=== PATIENT | female | born 1945 | race Caucasian/White ===

== ENCOUNTER → 2017-06-27 09:23 | Outpatient (CLI) | payer MEDICARE, BC, SELFPAY ==
--- NOTE | 2017-06-27 10:45 | BRBX_PTH ---
PATIENT: SINDI EWING LOC: [facility] U#:[id number] AGE/SX: 80/F ROOM: RE06/27/[address]: Dr. Harsha Pabon MD : 1945 BED: DIS: SPEC #: [id number] RECD: 06/27/17 14:24 STATUS: KELLY GERRY #: [id number] NAKITA: 06/27/17 10:[address]: Harsha Pabon DEPT: SURGICAL PATHOLOGY RECD BY: Alvin Murillo ENTERED: 06/27/17 14:24 SP TYPE: BREAST BX OTHR DR: Dr. Reji Hdz MD Tissues: Left breast, NOS Procedures: Surgery Specimen Level IV HEADER OPERATION: Left stereotactic breast biopsy PRE-OP DIAGNOSIS: Left superior lateral breast microcalcification TISSUE SUBMITTED: Left breast core tissue ISCHEMIC TIME: 1 minute FIXATION TIME: 9 hours MICROSCOPIC DIAGNOSIS Left superior lateral breast, stereotactic needle core biopsy: Fibrocystic change with clustered microcalcifications. Focal intraductal hyperplasia without atypia. AM:joselyn 06/28/17 MICROSCOPIC DESCRIPTION Slides are reviewed. GROSS DESCRIPTION Received is one container labeled with the patient's name and not further designated. The specimen consists of multiple elongated fragments of patton-yellow fibroadipose tissue mixed with blood clot that in aggregate measure 5 x 3 x 0.3 cm. The entire specimen is submitted in two cassettes. / SJ:joselyn 06/27/17 TC:5 CPT: 41799
--- NOTE | 2017-06-27 11:25 | OP.PCM_ITS ---
Problem List (1) Abnormal mammogram of left breast Status: Acute Report of Operation Date of Procedure: 06/27/17 Pre-Operative Diagnosis: Clustered microcalcifications retroareolar left breast Post-Operative Diagnosis: Same Surgery/Procedure Performed:: Stereotactic needle core left retroareolar breast biopsy Description of Surgical Findings:: Timeout and informed consent was obtained. 72-year-old female was taken to the stereotactic suite. She was placed on the table. The left breast was placed in the cc view. The microcalcifications in question rapidly identified. Stereotactic images obtained. Digital information obtained on a single target site. The breast was prepped with Betadine. 1% lidocaine was used as a local anesthetic. A total 10 cc was used. A small stab incision created. An 8- gauge resolve needle was advanced to prefire depth. Prefire films were obtained demonstrating adequate localization. The device was fired. 5 cores were obtained. Specimen mammograms were obtained. The cluster of calcification matching the pre-interventional images were present in cord #2. A mini marking clip was left at 12 o'clock position. Single view demonstrated the clip to be in good position. She was released from the device. Pressure was held for hemostasis. Steri-Strips Telfa OpSite dressing applied. She was given activity and wound care instructions. The specimens are submitted in formalin for analysis. Progress her and prognosis are felt to be good. Blood loss minimal. Harsha Pabon M.D., F.A.C.S. Type of Anesthesia:: Local
== END ==
PROVIDERS: Family Provider Family Medicine; PCP Family Medicine; Visit Provider Surgery
DX: R92.0 Mammographic microcalcification found on diagnostic imaging of breast (principal)
CPT/HCPCS: 19081; 88305; J7050

== ENCOUNTER → 2017-10-18 17:33 | Outpatient (CLI) | payer MEDICARE, BC, SELFPAY ==
--- NOTE | 2017-10-18 17:37 | CT_ITS ---
STUDY: CT CHEST WITH CONTRAST REASON FOR EXAM: Female, 72 years old. Lung mass, follow-up. RADIATION DOSAGE (If Supplied By Facility): CTDIvol = ( 9.01 ) mGy, DLP = ( 280.75 ) mGycm TECHNIQUE: Transaxial imaging was performed following intravenous administration of 100CC ml of Isovue 300 contrast material. ON parasagittal 2-D multiplanar reformatted images saved to the PACS archive. Individualized dose optimization techniques were used for this CT. COMPARISON: CT chest 05/10/2017, 09/25/2016. FINDINGS: Supraclavicular: There is no supraclavicular mass or lymphadenopathy. A few tiny low-density nodules are present in the left thyroid gland. Thoracic body wall soft tissues: Postsurgical changes in the left breast, surgical clip. Possibly a biopsy marker clip. Otherwise no acute unreality. No axillary lymphadenopathy. Osseous structures: No acute process. Kyphoscoliosis. Osteopenia. Mild multilevel thoracic degenerative disease. Multilevel mid to low cervical degenerative disc disease with evidence of C7-T1 grade 1 spondylolisthesis. Correlate for cervical pain/radiculopathy. Upper abdomen: Benign left renal cyst 2.2 cm. No acute upper abdominal process is evident in limited evaluation. Mediastinum: Large sliding hiatal hernia containing the majority of the stomach fundus. Unremarkable esophagus. No mass or lymphadenopathy. Heart: Mild cardiomegaly. No pericardial effusion. Moderate coronary calcifications, 3 vessel. Aorta: Mild atherosclerosis, no dissection or aneurysm. Pulmonary arteries: Nondilated with no evidence of pulmonary embolus. Lungs: Stable pattern of COPD/emphysema. No suspicious nodules on the left. On the right, along the major fissure centered on series 4 image 41, solid pulmonary nodule measuring 14 mm transverse, 13 mm anterior-posterior, and 8.5 mm craniocaudal, very minimally spiculated margins. This was not present on prior imaging of September 2016. This was 1st identified on the study of May 10, 2017 at which time the pulmonary nodule had a greatest transverse dimension and anterior-posterior dimension of 9.6 x 7.4 mm and a greatest craniocaudal dimension of 13.8 mm. The nodule has increased in size since that time. This is suspicious for primary pulmonary malignancy. In the upper lobe along the margin of the inferior portion of the major fissure, additional minimal groundglass and tiny nodular opacities are present that have slightly increased in conspicuity compared to prior imaging of April 2017. There is an additional subpleural pulmonary nodule of the right upper lobe posterior segment medial margin measuring about 7.5 x 6 mm. This was not present on prior imaging. CT/Chest WITH Contrast IMPRESSION: 1. Right upper lobe pulmonary nodule along the major fissure is increasing in size compared to prior imaging of April 2017 and must be regarded with suspicion for primary pulmonary malignancy. Biopsy or PET CT scan is recommended. 2. Just inferior to this, in a subsegmental distribution along the margin of the major fissure there are additional tiny nodular and groundglass opacities that have also increased in conspicuity compared to prior imaging of April 2017. These features are nonspecific. 3. There is an additional upper lobe medial pleural margin pulmonary nodule that was not present previously, nonspecific. Electronically Signed: Rj Betancur, at 18:38 EDT Tel , Service support ,
[2017-10-18 17:46] LABS: CREATININE FINGERSTICK 1.2 mg/dL (0.55-1.02)
== END ==
PROVIDERS: Family Provider Family Medicine; PCP Family Medicine; Visit Provider Family Medicine
DX: R91.8 Other nonspecific abnormal finding of lung field (principal)
CPT/HCPCS: 71260; Q9967

== ENCOUNTER 2017-10-20 09:53 | Inpatient (IN) | payer MEDICARE, BC, SELFPAY ==
[2017-10-20 09:54] VITALS: BP 134/77; PULSE 96; RESP 22; TEMP 37.3; O2SAT 98; BMI 25.9
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
[2017-10-20] MEDS: HYDROcodone Bitartrate/Apap 5/325 Tablet PO (10:36)
[2017-10-20 10:47] LABS: Absolute Lymphocyte Count 1.09 X10^3/ul (0.83-4.51); Absolute Neutrophil Count 10.3 X10^3/uL (2.0-7.7); Basophil# 0.02 X10^3/uL; Basophil% 0.2 % (0-1); Eosinophil# 0.15 X10^3/uL; Eosinophils% 1.2 % (0-5); Hematocrit 39.7 % (37-47); Hemoglobin 12.6 g/dl (12.0-15.0); Lymphocyte # 1.09 X10^3/ul (4.0); Lymphocyte % 8.8 % (19-41); Mean Corp Hgb Conc 31.7 g/gl (32-36); Mean Corpuscular Hgb 30.6 pg (27.0-32.0); Mean Corpuscular Volume 96.4 fL (81-99); Mean Platelet Vol. 9.6 fl (6.2-12.0); Monocyte# 0.81 X10^3/uL; Monocyte% 6.5 % (0-10); Neutrophil % 83.1 % (47-70); Platelet Count 322 K/mm3 (150-450); RBC Distribution Width CV 13.7 % (11.6-14.6); RBC Distribution Width SD 47.5 fl (35.1-43.9); Red Blood Count 4.12 M/mm3 (4.2-5.4); White Blood Count 12.4 K/mm3 (4.4-11.0)
[2017-10-20 10:51] LABS: Erythrocyte Sedimentation Rate 48 mm/hr (0-30); POSITIVE COUNT NO; POSITIVE DIFFERENTIAL NO; POSITIVE MORPHOLOGY NO
[2017-10-20 11:08] LABS: Anion Gap 8 (5-15); BUN 9 mg/dL (7-18); Calcium,Total 8.7 mg/dL (8.5-10.1); Chloride 106 mmol/L (98-107); Creatinine, Serum 0.69 mg/dL (0.55-1.02); EST Glomerular Filtration Rate 89 mL/min (>60); Est Glom Filt Rate - Afr Amer 107 mL/min (>60); Glucose 98 mg/dL (74-106); Potassium 3.8 mmol/L (3.5-5.1); Sodium Level 141 mmol/L (136-145)
[2017-10-20 11:55] VITALS: BP 134/77; PULSE 96; RESP 22; TEMP 37.3; O2SAT 98
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
[2017-10-20 13:47] LABS: Cytology, Body Fluid / CSF SEE PATHOLOGY REPORT; Pathologist Comment/Body Fluid May follow
--- NOTE | 2017-10-20 13:48 | FLU_PTH ---
PATIENT: SINDI EWING LOC: [facility] U#:[id number] AGE/SX: 72/F ROOM: [facility] [place] RE10/20/[address]: Gabo Martines MD : 1945 BED: 1 DIS: 10/21/2017 SPEC #: [id number] RECD: 10/20/17 15:00 STATUS: KELLY REQ #: [id number] NAKITA: 10/20/17 13:[address]: Gabo Martines DEPT: CYTOLOGY RECD BY: Reza Bajwa ENTERED: 10/23/17 11:14 SP TYPE: Fluid OTHR DR: MD Dr. Win Martínez MD Tissues: Right ankle Procedures: Pap Stain (control) Special Stain Group II Special Stain Group I Surgery Specimen Level IV AFB Stain (control) GMS Stain (control) Cell Block Cytospin Fluid HEADER OPERATION: Not noted PRE-OP DIAGNOSIS: Right ankle pain TISSUE SUBMITTED: Right ankle fluid for cytology DIAGNOSIS CYTOLOGY Right ankle fluid for cytology (cytospin and cell block): Negative for malignant cells. Acute inflammation. Special stains for acid fast bacilli and fungi are negative for organisms; matched controls are appropriate. SJ:joselyn 10/24/17 CYTOLOGY STUDY Slides are reviewed. The specimen entirely consists of neutrophils. CYTOLOGY GROSS Received is 1 ml of cloudy yellow fluid labeled with the patient's name and and designated per the requisition as right ankle. Submitted for cytology preparation including cell block. / 10/23/17 TC:2 CPT: 43288, 54734, 47061 x2
[2017-10-20 13:49] LABS: Body Fluid Mononuclear WBC # 1.852 10^3/uL; Body Fluid Mononuclear WBC % 6.8 %; Body Fluid Polynuclear WBC % 93.2 %
[2017-10-20 14:04] LABS: Appearance/Body Fluid CLOUDY; Auto B Fluid Analyzer BKGD Ct COUNTS W/IN LIMITS (W/IN LIMITS); CRYSTALS, BODY FLUID CALCIUM PYROPHOS; Color/Body Fluid YELLOW; Source- Body Fluid OTHER; Source- Body Fluid SYNOVIAL
[2017-10-20 14:05] LABS: Body Fluid QC Type(s) BF1Q,BF2Q
[2017-10-20 14:06] LABS: White Blood Count/Body Fluid 23.295 10^3/uL
[2017-10-20 14:15] VITALS: BP 140/91; PULSE 89; RESP 18; TEMP 36.9; O2SAT 94; BMI 25.0
[2017-10-20 14:17] VITALS: BMI 25.0
[2017-10-20 14:31] LABS: Lymphocytes 3 %; Monocytes 9 %; Neutrophil (Segs) 88 %
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
[2017-10-20] MEDS: Heparin Injection (Vial) 5,000 UNIT/ML VIAL 5000 UNIT SC ×2 (16:32→22:10)
[2017-10-20] MEDS: Dext 5%-0.45% NS 1,000 ML 100 ML IV (18:24)
[2017-10-20] MEDS: Cefazolin 2 GM in 0.9% Normal Saline 100 ML IV ×2 (18:24→23:27)
[2017-10-20] MEDS: 0.9% NaCl Peripheral Flush Adult/Peds IV (18:25)
[2017-10-20] MEDS: Ferrous Sulfate 325 MG Tablet PO (18:25)
[2017-10-20 20:25] VITALS: BP 146/87; PULSE 98; RESP 16; TEMP 37.2; O2SAT 95
[2017-10-20] MEDS: oxyCODONE 5 MG Tablet PO (22:09)
[2017-10-20] MEDS: Famotidine 20 MG Tablet PO (22:10)
[2017-10-21] MEDS: Acetaminophen 325 MG Tablet 650 MG PO (00:20)
[2017-10-21] MEDS: oxyCODONE 5 MG Tablet PO ×3 (00:21→09:24)
[2017-10-21 03:05] VITALS: BP 131/64; PULSE 84; RESP 16; TEMP 36.4; O2SAT 92
[2017-10-21] MEDS: Dext 5%-0.45% NS 1,000 ML 100 ML IV (04:48)
--- NOTE | 2017-10-21 05:00 | RAD_ITS ---
STUDY: X-RAY CHEST REASON FOR EXAM: Female, 72 years old. Preoperative evaluation. Patient has cough. TECHNIQUE: Single AP portable view of the chest. COMPARISON: CT of the chest dated October 18, 2017. FINDINGS: The lungs are expanded. There is mild prominence of bronchovascular markings. There is a right upper lobe pulmonary nodule better seen on the previous CT. There is reticulonodular interstitial thickening in the right upper lobe. There is no demonstrated pleural abnormality. There is borderline cardiomegaly. Appears to be a middle mediastinal mass likely representing a moderately large hiatal hernia. Normal visualized pulmonary arteries. There is atherosclerotic calcification of the aortic arch with tortuosity. There is demineralization of the osseous structures. Normal visualized ribs, clavicles, and shoulders. There is no demonstrated abnormality of the visualized soft tissue structures of the upper abdomen. RAD/Chest 1 View (Portable) IMPRESSION: 1. Right upper lobe pulmonary nodule. 2. Hiatal hernia. 3. Borderline cardiomegaly. Electronically Signed: Ana María Rojas MD at 5:20 EDT , Service support ,
[2017-10-21 05:33] LABS: Absolute Lymphocyte Count 1.41 X10^3/ul (0.83-4.51); Absolute Neutrophil Count 5.5 X10^3/uL (2.0-7.7); Basophil# 0.02 X10^3/uL; Basophil% 0.3 % (0-1); Eosinophil# 0.22 X10^3/uL; Eosinophils% 2.8 % (0-5); Hematocrit 38.5 % (37-47); Lymphocyte # 1.41 X10^3/ul (4.0); Lymphocyte % 17.7 % (19-41); Mean Corp Hgb Conc 31.2 g/gl (32-36); Mean Corpuscular Hgb 30.2 pg (27.0-32.0); Mean Corpuscular Volume 96.7 fL (81-99); Mean Platelet Vol. 9.7 fl (6.2-12.0); Monocyte# 0.84 X10^3/uL; Monocyte% 10.6 % (0-10); Neutrophil # 5.45 X10^3/uL (2.7-7.7); Neutrophil % 68.3 % (47-70); Platelet Count 310 K/mm3 (150-450); RBC Distribution Width CV 13.7 % (11.6-14.6); RBC Distribution Width SD 48.7 fl (35.1-43.9); Red Blood Count 3.98 M/mm3 (4.2-5.4)
[2017-10-21 05:37] LABS: International Normalized Ratio 1.1; Prothrombin Time (Protime)PT. 14.1 SECONDS (11.7-14.9)
[2017-10-21 05:38] LABS: POSITIVE COUNT NO; POSITIVE DIFFERENTIAL NO; POSITIVE MORPHOLOGY NO
[2017-10-21 05:40] LABS: Anion Gap 7 (5-15); BUN 9 mg/dL (7-18); BUN/Creat Ratio 13.8 RATIO (10-20); Calcium,Total 8.6 mg/dL (8.5-10.1); Chloride 108 mmol/L (98-107); Creatinine, Serum 0.65 mg/dL (0.55-1.02); EST Glomerular Filtration Rate 95 mL/min (>60); Est Glom Filt Rate - Afr Amer 115 mL/min (>60); Glucose 105 mg/dL (74-106); Potassium 3.7 mmol/L (3.5-5.1); Sodium Level 143 mmol/L (136-145)
[2017-10-21] MEDS: Cefazolin 2 GM in 0.9% Normal Saline 100 ML IV (06:01)
[2017-10-21 08:06] VITALS: O2SAT 92
--- NOTE | 2017-10-21 08:55 | PCM.PN.ORT ---
Subjective: Patient states she is still having some right ankle pain. She thinks the Vicodin worked better than the oxycodone. She is also has concerns about a previous lung concern, biopsy had been canceled. She is concerned about some type of underlying process or infection. She denies increasing swelling or redness of the ankle. She feels she can still not walk on it Objective: Right ankle has similar appearance and exam to yesterday. Stiffness consistent with her underlying posttraumatic arthritis. Mild warmth. Mild redness anterior medially. No significant effusion palpable. No calf pain or swelling. SCDs on. Distal pulses intact. Laboratory work reviewed. Gram stain showed no bacteria. Crystal exam positive for calcium pyrophosphate crystals - Physical Exam Vital Signs Temp Pulse Resp BP Pulse Ox 97.5 F L 84 16 131/64 H 92 10/21/17 03:05 10/21/17 03:05 10/21/17 03:05 10/21/17 03:05 10/21/17 08:06 Oxygen Delivery Method Room Air Weight: 60 kg Body Mass Index (BMI) 25.0 Intake and Output for Last 24 Hours 10/19/17 10/20/17 10/21/17 23:59 23:59 23:59 Intake Total 734 / 734 681 / 681 Output Total 100 / 100 600 / 600 Balance 634 / 634 81 / 81 Microbiology Past 72 Hours 10/20/17 Unknown Gram Stain - Final Interface Orders Laboratory Tests Past 24 Hrs 10/20/17 10/20/17 10/21/17 Unknown Unknown 04:53 WBC RBC Hgb Hct MCV MCH MCHC RDW RDW Differential Plt Count MPV Immature Gran % (Auto) Neut % (Auto) Lymph % (Auto) [place] % (Auto) Eos % (Auto) Baso % (Auto) Absolute Neuts (auto) Absolute Lymphs (auto) Total Counted PT INR APTT Sodium 143 Potassium 3.7 Chloride 108 H Carbon Dioxide 28.0 Anion Gap 7 BUN 9 Creatinine 0.65 Estim Creat Clear Calc 39.50 Est GFR (MDRD) Af Amer 115 Est GFR (MDRD) Non-Af 95 BUN/Creatinine Ratio 13.8 Glucose 105 Calcium 8.6 Fluid Source OTHER Fluid Color YELLOW Fluid Appearance CLOUDY Fluid WBC 23.295 Fluid RBC 0.58621 Fluid Tot Cell Count 23.320 H Fld Polynuclear WBCs # 25.195 Fld Polynuclear WBCs % 93.2 Fluid Mononuclear WBCs 1.852 Fld Mononuclear WBCs % 6.8 Fluid Neutrophils 88 Fluid Lymphocytes 3 Fluid Monocytes 9 Fluid Crystals CALCIUM PYROPHOS Fluid Crystal Source SYNOVIAL Fl Crystal Path Review Will follow Fl Pathologist Comment May follow Fluid Comment 2 TNP Miscellaneous Cytology Pending 10/21/17 10/21/17 04:53 04:53 WBC 8.0 RBC 3.98 L Hgb 12.0 Hct 38.5 MCV 96.7 MCH 30.2 MCHC 31.2 L RDW 13.7 RDW Differential 48.7 H Plt Count 310 MPV 9.7 Immature Gran % (Auto) 0.300 Neut % (Auto) 68.3 Lymph % (Auto) 17.7 L [place] % (Auto) 10.6 H Eos % (Auto) 2.8 Baso % (Auto) 0.3 Absolute Neuts (auto) 5.5 Absolute Lymphs (auto) 1.41 Total Counted Not Reportable PT 14.1 INR 1.1 APTT 36.0 Sodium Potassium Chloride Carbon Dioxide Anion Gap BUN Creatinine Estim Creat Clear Calc Est GFR (MDRD) Af Amer Est GFR (MDRD) Non-Af BUN/Creatinine Ratio Glucose Calcium Fluid Source Fluid Color Fluid Appearance Fluid WBC Fluid RBC Fluid Tot Cell Count Fld Polynuclear WBCs # Fld Polynuclear WBCs % Fluid Mononuclear WBCs Fld Mononuclear WBCs % Fluid Neutrophils Fluid Lymphocytes Fluid Monocytes Fluid Crystals Fluid Crystal Source Fl Crystal Path Review Fl Pathologist Comment Fluid Comment 2 Miscellaneous Cytology Medical Necessity - Tobacco Use Smoking Status: Never smoker Assessment/Plan Right ankle pain and swelling, Crystal exam positive for calcium pyrophosphate. Gram stain negative. Cultures pending. Case discussed with hospitalist. 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 Patient understands options. She declined a cortisone shot in her ankle. I explained underlying infection is still an unlikely possibility. If her ankle pain persists she may benefit from ankle fusion surgery. We can follow her in the office. We will allow her to eat. Concerns regarding a possible pulmonary workup for a pre-existing nodule discussed. She understands that would be by another specialist.
[2017-10-21 09:00] VITALS: BP 140/72; PULSE 82; RESP 18; TEMP 36.8; O2SAT 92
[2017-10-21] MEDS: Ferrous Sulfate 325 MG Tablet PO (09:24)
[2017-10-21] MEDS: DULoxetine Hcl 60 MG Capsule PO (09:24)
[2017-10-21] MEDS: Famotidine 20 MG Tablet PO (09:24)
[2017-10-21] MEDS: 0.9% NaCl Peripheral Flush Adult/Peds IV (09:27)
[2017-10-21] MEDS: MethylPREDNISolone 125 MG/2 ML Vial 80 MG IV (09:27)
--- NOTE | 2017-10-21 10:03 | PCM.DC ---
You will use the following diet at home:: No restrictions Discharge Activity: Return to Normal Activity, - - Use knee walker Additional Instructions: Prednisone 5 mg tablet, 4 tablets once a day for 2 days, 2 tablets once a day for 2 days, then one tablet once a day for 2 days Allergies/Adverse Reactions: Allergies Sulfa (Sulfonamide Antibiotics) Allergy (Verified 10/20/17 09:55) Hives Medications to take at Discharge Ferrous Sulfate [Iron] 325 mg PO BID #60 tab 10/06/16 duloxetine 60 mg capsule,delayed release 60 mg PO QDAY 06/21/17 prednisone 5 mg tablet 2.5 mg PO DAILY tab 06/21/17 proMETHazine soln (6.25mg/5mL) [Phenergan oral solution (6.25 mg/5 mL)] 5 ml PO Q6H PRN PRN 10/20/17 Prednisone 5 mg PO DAILY #14 tab 10/21/17 The following prescriptions were given: Prednisone 5 mg PO DAILY #14 tab Primary Care Physician: Reji Hdz MD [Primary Care Provider] - Please follow up with your Primary Care Physician in: 5 to 7 days Please Follow Up With: Win Rojas MD When: 1 to 2 weeks
--- NOTE | 2017-10-21 10:06 | DCINST_ITS ---
You will use the following diet at home:: No restrictions Discharge Activity: Return to Normal Activity, - - Use knee walker Additional Instructions: Prednisone 5 mg tablet, 4 tablets once a day for 2 days , 2 tablets once a day for 2 days, then one tablet once a day for 2 days Allergies/Adverse Reactions: Allergies Sulfa (Sulfonamide Antibiotics) Allergy (Verified 10/20/17 09:55) Hives Medications to take at Discharge Ferrous Sulfate [Iron] 325 mg PO BID #60 tab 10/06/16 duloxetine 60 mg capsule,delayed release 60 mg PO QDAY 06/21/17 prednisone 5 mg tablet 2.5 mg PO DAILY tab 06/21/17 proMETHazine soln (6.25mg/5mL) [Phenergan oral solution (6.25 mg/5 mL)] 5 ml PO Q6H PRN PRN 10/20/17 Prednisone 5 mg PO DAILY #14 tab 10/21/17 The following prescriptions were given: Prednisone 5 mg PO DAILY #14 tab Primary Care Physician: Reji Hdz MD [Primary Care Provider] - Please follow up with your Primary Care Physician in: 5 to 7 days Please Follow Up With: Win Rojas MD When: 1 to 2 weeks
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
[2017-10-23 14:02] LABS: Pathologist Review Reviewed
== END 2017-10-21 14:19 | disposition home or self-care (01) | DRG 554 ==
LOC: ED 11:57 → MS3 12:46
PROVIDERS: Anesthesiology; Admitting Provider Hospitalist; Emergency Provider Emergency Medicine; Family Provider Family Medicine; PCP Family Medicine; Visit Provider Hospitalist
DX: M11.271 Other chondrocalcinosis, right ankle and foot (principal); M19.171 Post-traumatic osteoarthritis, right ankle and foot; S82.891S Other fracture of right lower leg, sequela; V89.2XXS Person injured in unspecified motor-vehicle accident, traffic, sequela; I27.20 Pulmonary hypertension, unspecified; R91.1 Solitary pulmonary nodule; G62.9 Polyneuropathy, unspecified; M79.7 Fibromyalgia; G47.00 Insomnia, unspecified; Z79.899 Other long term (current) drug therapy
CPT/HCPCS: 36415; 71045; 71260; 73610; 80048; 85025; 85610; 85652; 85730; 86140; 87040; 87070; 87075; 87205; 88108; 88305; 88312; 88313; 89050; 89060; 93005; 97162; 97166; 99285; Q9967; A4216; J7799

== ENCOUNTER 2017-11-14 19:31 | Emergency (ER) | payer MEDICARE, BC, SELFPAY ==
[2017-11-14 19:32] VITALS: BP 163/97; PULSE 81; RESP 18; TEMP 36.5; O2SAT 99; BMI 26.0
[2017-11-14 20:52] LABS: Absolute Lymphocyte Count 0.89 X10^3/ul (0.83-4.51); Absolute Neutrophil Count 8.4 X10^3/uL (2.0-7.7); Basophil# 0.01 X10^3/uL; Basophil% 0.1 % (0-1); Eosinophil# 0.02 X10^3/uL; Eosinophils% 0.2 % (0-5); Hematocrit 44.2 % (37-47); Hemoglobin 13.9 g/dl (12.0-15.0); Lymphocyte # 0.89 X10^3/ul (4.0); Lymphocyte % 8.9 % (19-41); Mean Corp Hgb Conc 31.4 g/gl (32-36); Mean Corpuscular Hgb 30.5 pg (27.0-32.0); Mean Corpuscular Volume 96.9 fL (81-99); Mean Platelet Vol. 10.2 fl (6.2-12.0); Monocyte# 0.59 X10^3/uL; Monocyte% 5.9 % (0-10); Neutrophil # 8.43 X10^3/uL (2.7-7.7); Neutrophil % 84.8 % (47-70); Platelet Count 248 K/mm3 (150-450); RBC Distribution Width CV 14.8 % (11.6-14.6); RBC Distribution Width SD 52.9 fl (35.1-43.9); Red Blood Count 4.56 M/mm3 (4.2-5.4)
[2017-11-14 20:53] LABS: POSITIVE COUNT NO; POSITIVE DIFFERENTIAL NO; POSITIVE MORPHOLOGY NO
[2017-11-14] MEDS: 0.9% Normal Saline 1,000 ML 250 ML IV (21:03)
[2017-11-14 21:04] LABS: Anion Gap 10 (5-15); BUN 16 mg/dL (7-18); BUN/Creat Ratio 18.4 RATIO (10-20); Calcium,Total 9.7 mg/dL (8.5-10.1); Chloride 105 mmol/L (98-107); Creatinine, Serum 0.87 mg/dL (0.55-1.02); EST Glomerular Filtration Rate 68 mL/min (>60); Est Glom Filt Rate - Afr Amer 83 mL/min (>60); Glucose 102 mg/dL (74-106); Potassium 3.5 mmol/L (3.5-5.1); Sodium Level 141 mmol/L (136-145)
[2017-11-14 21:21] LABS: Bacteria 0 SEEN /hpf (None Seen); Mucous, Urine 0 SEEN /hpf (<or=2+)
[2017-11-14 21:25] LABS: Color, Urine Yellow (Yellow); Glucose, Dipstick 1000 mg/dl (Normal); Ketone-Dipstick 5 mg/dl (Negative); Leukocyte Esterase-Dipstick 25 /ul (Negative); Nitrite-Dipstick Negative (Negative); Occult Blood-Urine 150 /ul (Negative); Protein-Dipstick 15 mg/dl (Negative); Urine Bilirubin Dipstick Negative (Negative); Urine Clarity Sl. Cloudy (Clear); Urine Urobilinogen Normal (Normal)
--- NOTE | 2017-11-14 22:05 | CT_ITS ---
STUDY: CT ABDOMEN AND PELVIS WITHOUT CONTRAST REASON FOR EXAM: Female, 72 years old. BACK PAIN AND ABDOMEN PAIN RIGHT FLANK WITH NAUSEA TODAY,HX GB, NAZARIO, APPY RADIATION DOSAGE (If Supplied By Facility): CTDIvol = ( 7.08 ) mGy, DLP = ( 314.64 ) mGycm TECHNIQUE: Transaxial images were obtained from the dome of the diaphragm to the symphysis pubis without oral contrast, and without intravenous contrast. Sagittal and coronal images were reconstructed. COMPARISON: None. FINDINGS: There are scattered blebs and bullae. This can be seen in pulmonary emphysema. The visualized portions of the heart are within normal limits. Normal liver. There is non-visualization of the gallbladder, which may be secondary to either contraction or a prior cholecystectomy. Normal spleen. Normal pancreas. Normal bilateral adrenal glands. Non obstructive 2.4 mm mid right renal parenchymal stones. Non obstructive 2.1 mm mid left renal parenchymal stones. Non obstructive 1.5 mm inferior left renal parenchymal stones. Moderate hydronephrosis caused by right 3.3 mm urinary bladder/UVJ stone. There is a large hiatal hernia composed mostly of the fundus of the stomach. Normal small intestine. There are multiple colonic diverticula consistent with diverticulosis. There is non-visualization of the appendix. There are calcifications of the abdominal aorta and vascular structures. This is consistent for atherosclerotic disease. There is no abdominal aortic aneurysm. Normal inferior vena cava. Subcentimeter mesenteric lymph nodes. Normal urinary bladder. There is absence of the uterus consistent with a prior hysterectomy. Normal abdominal wall. There are degenerative changes of the osseous structures. CT/Abdomen/Pelvis without Cont IMPRESSION: There are nonobstructive bilateral renal calculi. Moderate hydronephrosis caused by right 3.3 mm urinary bladder/UVJ stone. Other findings as above. Electronically Signed: Carlos Greene MD at 23:15 EDT , Service support ,
[2017-11-14 22:07] LABS: Red Blood Cells-Urine 5-10 SEEN /hpf (0-5); Squamous Epithelial Cells - UA 0-5 SEEN /hpf (5-10); White Blood Cells 0-5 SEEN /hpf (0-5)
--- NOTE | 2017-11-14 23:39 | ED.DCSUM_ITS ---
- ER Visit Summary Date of Service: 11/14/17 Chief Complaint: Acute right flank and right upper abdominal pain History of Present Illness: The patient is a 72 F who presents with acute right flank pain and abdominal pain that started at 12 noon. She is status post cholecystectomy, appendectomy and hysterectomy. She states her urine is very dark. She does complain of urgency without frequency, or dysuria. She denies fever, chills night sweats. She does report nausea without vomiting or diarrhea. She has no cardiac respiratory symptoms. She has a remote history of kidney stone 42 years ago. She has no other complaints. Please read written note for complete detail Physical Examination: Blood pressure is elevated 163/97, most likely secondary to pain. Head is atraumatic normocephalic. Pupils are equal round reactive. Extraocular muscles are intact. TMs are pearly white with landmarks noted. Nares patent with no drainage. Posterior pharynx without erythema or exudate. Uvula is midline. There is no dysphonia or dysphasia. Trachea is midline. There is no stridor with auscultation of the neck. Heart is regular without murmur, gallop or rub. S1 and S2 are normal. Lungs are clear to auscultation with good movement of air bilaterally. Abdomen is soft and nontender. There is no guarding or peritoneal findings. There is no palpable pulsatile mass. There is no abdominal bruit. Stallings sign is negative. Negative Rovsing sign. There is no evidence of inguinal or umbilical hernia. There is no CVA tenderness. There are no skin lesions, rash or evidence of trauma. Neuro exam is nonfocal. Test Results: CBC and BMP are unremarkable. Urine is remarkable for blood 150 and 5-10 RBCs on microscopic. There is no bacteria. CT abdomen pelvis without contrast reveals a 3.3 mm he right UVJ stone with hydroureter and hydronephrosis. Emergency Department Course and Treatment: IV was established. She was medicated with 4 mg of Zofran 4 mg of morphine IV push. 2 evaluate her flank pain a UA, CBC, BMP and CT abdomen and pelvis without contrast was ordered. Doubt choledocholithiasis. Patient was reevaluated. She is pain-free. She was informed of her results. Since pharmacies are closed she received a home pack of oxycodone and given first dose of Flomax. She was given a prescription for opiate analgesia and Flomax. Because of her age she was not prescribed anti-inflammatory agent. Treatment Plan: Discharged home with outpatient follow-up with urology Disposition: Discharged home Impression: Right flank pain secondary to obstructing right UVJ calculus with hydroureter and hydronephrosis This note was generated with [employer] dictation software. It may contain incorrect words, spelling, and punctuation that were not noted in review of the chart prior to signing ED Disposition - Plan for ED Patient: Disposition: Home or Assisted Living Chief Complaint: Flank Pain Instructions: ED Stone Renal W Colic Prescriptions: Hydrocodone Bitart/Apap 5-325 [[place] 5MG-325MG] 1 tab PO Q6H PRN PRN 3 Days #10 tab PRN Reason: Pain Tamsulosin HCl [Flomax] 0.4 mg PO DAILY #7 cap Referrals: Reji Hdz MD [Primary Care Provider] - Dennis Islas MD [STAFF PHYSICIAN] - 5-7 Days
[2017-11-15] MEDS: Tamsulosin HCl 0.4 MG Capsule PO (00:13)
[2017-11-15] MEDS: oxyCODONE 5 MG Tablet PO (00:13)
[2017-11-15 00:18] VITALS: BP 171/97; PULSE 77; RESP 14; O2SAT 100
== END 2017-11-15 00:19 | disposition home or self-care (01) ==
PROVIDERS: Emergency Provider Emergency Medicine; Family Provider Family Medicine; PCP Family Medicine
DX: N13.2 Hydronephrosis with renal and ureteral calculous obstruction (principal); I27.20 Pulmonary hypertension, unspecified; R39.15 Urgency of urination; R03.0 Elevated blood-pressure reading, without diagnosis of hypertension; R11.0 Nausea; Z79.52 Long term (current) use of systemic steroids; Z79.899 Other long term (current) drug therapy; Z87.442 Personal history of urinary calculi; Z90.49 Acquired absence of other specified parts of digestive tract; Z90.710 Acquired absence of both cervix and uterus
CPT/HCPCS: 74176; 80048; 81001; 85025; 96360; 96361; 99283; J7030; J2405

== ENCOUNTER → 2017-11-19 08:51 | Outpatient (CLI) | payer MEDICARE, BC, SELFPAY ==
--- NOTE | 2017-11-19 09:00 | PET_ITS ---
EXAMINATION: FDG PET CT INDICATIONS: A 72-year-old female with reported history of pulmonary nodularity. COMPARISON EXAMINATION: CT of the chest report dated 10/18/17, prior FDG PET study dated 05/24/17. TECHNIQUE: Following the intravenous administration of 12.54 mCi of F-18 deoxyglucose via the right antecubital fossa, multiplanar image acquisitions of the neck, chest, abdomen and pelvis to level of mid thigh, obtained at one hour post radiopharmaceutical administration contemporaneously interpreted with the current CT of the neck, chest, abdomen and pelvis to level of mid thigh, dated 11/19/[address] of the chest report dated 10/18/17, prior FDG PET study dated 05/24/17 reveal: SERUM GLUCOSE LEVEL: 94 mg/dl. HEIGHT: 61 inches. WEIGHT: 135 lbs. FINDINGS: 1. There is no quantitative scintigraphic evidence of abnormal increased glucose metabolism within the context of the right mid hemithorax pulmonary parenchyma, right upper lobe to correlate with structural changes noted on review of CT of the thorax dated 11/19/17. 2. Normal physiologic distribution of the radiopharmaceutical is apparent in the hepatic and splenic parenchyma, both renal units, bladder and visualized intestinal tract. There is uniform distribution of the radiopharmaceutical concentration compared on the cerebellar hemispheres and cerebral cortex. Diffuse intestinal tract activity is noted throughout all four quadrants of the abdominal-pelvic retroperitoneum, mesentery consistent with normal physiologic distribution of the radiopharmaceutical. The previously identified focus of increased glucose concentration manifest in the right mid to lateral hemithorax pulmonary parenchyma, right upper lobe is not apparent on the current examination with residual structural anatomic changes noted on review of CT of the chest dated 05/24/17. Prominent glucose concentration is observed in the subcarinal mediastinum commensurate with the persistently visualized hiatal hernia. The prior defined morphologic-anatomic changes noted on CT of the neck, chest, abdomen and pelvis manifest on the FDG PET CT study dated 05/24/17 are essentially unchanged on the present examination. PET/PET/CT Tumor Base -Thigh Init IMPRESSION: 1. NEGATIVE EXAMINATION. There is no quantitative scintigraphic evidence of abnormal increased glucose metabolism within the context of the right mid hemithorax pulmonary parenchyma, right upper lobe to correlate with structural changes noted on review of CT of the thorax dated 11/19/17. 2. Anatomic stability may be ensured in the right mid hemithorax pulmonary parenchyma, right upper lobe with repeat CT of the thorax in 6-9 months. (Kelvin, Seminars in Thoracic and Cardiovascular Surgery 14:292, 2002). 3. Overall, compared to the prior FDG PET study dated 05/24/17, there is current absence of defined viable neoplastic disease with interval resolution of the prior defined mild hypermetabolic right mid lung, right upper lobe hypermetabolic focus. Electronic Signature Rj Kirkland D.O. Electronically Signed: Rj Kirkland DO at 23:41 EDT Tel , Service support ,
== END ==
PROVIDERS: Family Provider Family Medicine; PCP Family Medicine; Visit Provider Family Medicine
DX: R91.8 Other nonspecific abnormal finding of lung field (principal)
CPT/HCPCS: 78815; A9552; A4216

== ENCOUNTER → 2017-11-23 08:56 | Outpatient (CLI) | payer MEDICARE, BC, SELFPAY | PROVIDERS: Family Provider Family Medicine; PCP Family Medicine; Visit Provider Family Medicine | DX: R91.8 Other nonspecific abnormal finding of lung field (principal) ==

== ENCOUNTER → 2018-11-29 10:47 | Outpatient (CLI) | payer MEDICARE, OTHER, SELFPAY ==
--- NOTE | 2018-11-29 10:50 | ADU_ITS ---
Reason For Study: PAD Right Velocities Left Velocities Ext. Iliac Artery, dist = 141.8 cm./sec. Ext Iliac Artery, dist = 123.2 cm./sec. Common Femoral Artery, mid = 128.9 cm./sec. Common Femoral Artery, mid = 140.5 cm./sec. Supf Femoral Artery, prox = 128.9 cm./sec. Supf. Femoral Artery, prox = 92.0 cm./sec. Supf Femoral Artery, mid = 147.2 cm./sec. Supf. Femoral Artery, mid = 143.8 cm./sec. Prox Stent 170.3 cm/s. Supf. Femoral Artery, dist = 144.7 cm./sec. Mid Stent 119.8 cm/s. Profunda Femoral Artery = 124.9 cm./sec. Dist Stent 130.7 cm/s. Popliteal Artery, proximal, = 58.9 cm./sec. Supf Femoral Artery, dist. = 167.3 cm./sec. Popliteal Artery, mid = 64.4 cm./sec. Profunda Femoral Artery = 108.8 cm./sec. Popliteal Artery, distal = 68.0 cm./sec. Popliteal Artery, prox. = 71.6 cm./sec. Post. Tibial Artery, prox = 77.2 cm./sec. Popliteal Artery, mid = 83.9 cm./sec. Post Tibial Artery, mid = 66.2 cm./sec. Popliteal Artery, dist = 82.7 cm./sec. Post Tibial Artery, dist. = 77.1 cm./sec. Post. Tibial Artery, prox = 65.5 cm./sec. Peroneal Artery, prox = 40.9 cm./sec. Post. Tibial Artery, mid = 76.5 cm./sec. Peroneal Artery, mid = 47.0 cm./sec. Post. Tibial Artery, dist = 80.2 cm./sec. Peroneal Artery,dist. = 42.1 cm./sec. Peroneal Artery, prox = 40.9 cm./sec. Ant.Tibial Artery, prox = 59.3 cm./sec. Peroneal Artery, mid = 39.7 cm./sec. Ant Tibial Artery, mid = 79.0 cm./sec. Peroneal Artery,dist = 32.3 cm./sec. Ant. Tibial Artery, distal = 53.2 cm./sec. Ant. Tibial Artery, prox = 58.1 cm./sec. Possible area of mobile plaque seen in the Dist Ant. Tibial Artery, mid = 59.3 cm./sec. 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 Ant. Tibial Artery, dist = 85.0 cm./sec. Interpretation Summary Irregularity noted within the stented area of the right superficial femoral artery stent but with <50% stenosis. Patency noted throughout the right external iliac, common femoral, superficial femoral, profunda femoral, popliteal and infrageniculate vessels. Patent left external iliac, common femoral, superficial femoral, produnda femoral, popliteal and infrageniculate runoff vessels with <50% stenosis noted. Small area of mobile plague noted within the left distal external iliac/common femoral artery. Ordering Physician: Harsha Pabon Performed By: Baljeet Lewis RVT
== END ==
PROVIDERS: Family Provider Family Medicine; PCP Family Medicine; Referring Provider Surgery; Visit Provider Surgery
DX: I73.9 Peripheral vascular disease, unspecified (principal); M79.604 Pain in right leg; M79.605 Pain in left leg
CPT/HCPCS: 93925

== ENCOUNTER → 2019-02-04 08:23 | Outpatient (CLI) | payer MEDICARE, OTHER, SELFPAY ==
[2018-12-05 09:04] VITALS: BMI 26.0
[2019-02-04 10:19] LABS: Absolute Lymphocyte Count 1.23 X10^3/uL (0.83-4.51); Basophil# 0.03 X10^3/uL; Basophil% 0.5 % (0-1); Eosinophils% 1.7 % (0-5); Hematocrit 44.5 % (37-47); Hemoglobin 14.4 g/dL (12.0-15.0); Lymphocyte # 1.23 X10^3/ul (4.0); Mean Corp Hgb Conc 32.4 g/dL (32-36); Mean Corpuscular Hgb 32.1 pg (27.0-32.0); Mean Corpuscular Volume 99.1 fL (81-99); Mean Platelet Vol. 10.4 fl (6.2-12.0); Monocyte# 0.53 X10^3/uL; NRBC Flagged by Analyzer 0 % (0-5); Neutrophil # 3.96 X10^3/uL (2.7-7.7); Neutrophil % 67.5 % (47-70); Platelet Count 190 K/mm3 (150-450); RBC Distribution Width CV 13.3 % (11.6-14.6); Red Blood Count 4.49 M/mm3 (4.2-5.4); White Blood Count 5.9 K/mm3 (4.4-11.0)
[2019-02-04 11:01] LABS: Anion Gap 7 (5-15); BUN 17 mg/dL (7-18); BUN/Creat Ratio 23.1 RATIO (10-20); Calcium,Total 8.5 mg/dL (8.5-10.1); Chloride 111 mmol/L (98-107); Creatinine, Serum 0.74 mg/dL (0.55-1.02); EST Glomerular Filtration Rate 83 mL/min (>60); Est Glom Filt Rate - Afr Amer 100 mL/min (>60); Glucose 80 mg/dL (74-106); Potassium 3.9 mmol/L (3.5-5.1); Sodium Level 145 mmol/L (136-145)
== END ==
PROVIDERS: Family Provider Family Medicine; PCP Family Medicine; Referring Provider Family Medicine; Visit Provider Family Medicine
DX: Z00.00 Encounter for general adult medical examination without abnormal findings (principal); D64.9 Anemia, unspecified; E55.9 Vitamin D deficiency, unspecified
CPT/HCPCS: 36415; 80048; 82306; 85025

== ENCOUNTER 2019-04-22 09:30 | Outpatient (RCR) | payer MEDICARE, OTHER, SELFPAY ==
[2018-12-05 09:04] VITALS: BMI 26.0
--- NOTE | 2019-04-15 09:31 | HP.PTEVAL_ITS ---
Patient's Visit Information SINDI EWING is a 74 year old F referred to Physical Therapy by Reji Hdz MD with a diagnosis of LEG WEAKNESS BILATERAL LEGS. Date of Evaluation: 04/15/19 Physical Therapist: Ghassan Watkins PT, Cert MDT, OCS - Visit Plan Frequency: 2x /Week Duration: 4 Weeks Plan: PT INTERVENTIONS PRE'S BLE QUADS/HAMS/HIP,FUNCTIONAL STRENGTH/ENDURANCE PRORGRAM ,BALANCE PROGRAM - Subjective Findings: This 74 y/o female presnets to physical therapy with bilateral leg weakness. Patient has experienced leg weakness for past 2 -3 months. Patient reports no falling. Seen DR seay PT had annual blood work.Patient has H/OPVD had stent Rosenda in right femoral artery. Patient denies parathesia/tingling. Patient aggraveting factors unable to squat,difficulty with kneeling,staisr with rails. Diigiculty with walking or satnding extended disatnce or time. At times walking to mailbox legs feel weak.Patient has difficulty sleeping on side from hips. Patient condition affects ability to perform job demnads and housework tasks. Patient condition affects QOL,. SOCIAL: single. VOCATION: retired - Pain Bilateral Hip Pain Intensity (Out of 10): 0 Pain Intensity Range: 10 - Objective POSTURE:mild foward posture. GAIT:reciprocal pattern. NEURO: intact,denies parathesia.tingling. BALANCE: good. AROM: BLE WFL. MMT: quads/hams/hip flexion/hip abd 4-/5 ,ankle 4-/5. STAIRS: alternating with rail. LUMBAR ROM: flexion min loss,extension min loss,side glide min loss. FLEXABILTY: hams min tight - Balance Scores Functional Gait Assessment Score: 22 % Disability: 26.6700 CATSIB Score (Max score 120 seconds): 90 - Goals Goal 1:: Independant with HEP Goal Time Frame: 4-6 Weeks Goal 2:: Patient to improve strength BLE to 4/5 to improve function/gait. Goal Time Frame: 4-6 Weeks Goal 3:: Patient to to improve functional gait assessment score by 5 points Goal Time Frame: 4-6 Weeks Goal 4:: Patient to improve LFES score by 5-8 points or > to improve QOL. Goal Time Frame: 4-6 Weeks Goal 5:: Patient able to walk > than 10 mijn for functional endurance. Goal Time Frame: 4-6 Weeks - Rehabilitation Potential Physical Therapy Diagnosis: This 74 y/o female presnets with weakness BLE which ability to walk and stand extended distance impairs housework tasks thus benifit from skilled PT . Rehabilitation Potential: Good - Anticipated Interventions Patient/Client Instruction: Educate patient on: Condition, Plan of Care For the Purpose of:: To decrease pain, To improve muscle performance and motor function, To improve ability to perform ADL's, To increase tolerance to activity/condition/position, To improve performance and independence with ADL's, To improve ability of physical actions for home/community/work/leisure, To improve gait and locomotor functions, To increase flexibility/ROM, To improve en durance, To improve balance, To improve safety, To improve ability to perform tasks related to life management Therapeutic Exercise to Include: Strength training, Endurance training, Balance training, Gait and locomotor training Comment: BLE For the Purpose of:: To improve muscle performance and motor function, To improve ability to perform ADL's, To increase tolerance to activity/condition/position, To improve performance and independence with ADL's, To improve ability of physical actions for home/community/work/leisure, To increase flexibility/ROM, To improve endurance, To improve balance, To improve ability to perform tasks related to life management Functional Training to Include: Functional home training For the Purpose of:: To improve muscle performance and motor function, To increase tolerance to activity/condition/position, To improve ability of physical actions for home/community/work/leisure Thank you for the opportunity to evaluate your patient. For Medicare and Medicare HMO plans, please review the plan of care and approve it. It will need to be FAXED BACK to us at [phone] for Medicare purposes. For Medicare only, by signing this I certify the plan of care. Please let me know if there are questions or concerns regarding this plan of care. Physician Signature: Date:
== END 2019-04-22 19:00 | disposition home or self-care (01) ==
LOC: PT 09:30
PROVIDERS: Family Provider Family Medicine; PCP Family Medicine; Referring Provider Family Medicine; Visit Provider Family Medicine
DX: R29.898 Other symptoms and signs involving the musculoskeletal system (principal)
CPT/HCPCS: 97110; 97162

== ENCOUNTER → 2019-05-07 10:18 | Outpatient (CLI) | payer MEDICARE, OTHER, SELFPAY ==
[2018-12-05 09:04] VITALS: BMI 26.0
--- NOTE | 2019-05-07 10:22 | RAD_ITS ---
STUDY: X-RAY - LUMBAR SPINE REASON FOR EXAM: Female, 74 years old. Back pain and left-sided leg weakness. TECHNIQUE: 5 view(s) of the lumbar spine were obtained. COMPARISON: None FINDINGS: Normal lumbar lordosis. 15 degree levoscoliosis of the lower thoracic and lumbar spine. There is a normal alignment of the vertebrae. Normal vertebral body height. Advanced disc narrowing and spondylitic endplate changes at L1-L2. Moderate disc narrowing and spondylitic endplate changes at L2-3. Mild disc narrowing and spondylitic endplate changes at L3-4. Minimal disc changes at L4-5 and L5-S1. Degenerative facet joint changes present primarily at L3, L4 and L5. Atherosclerotic vascular calcifications and venous phleboliths. RAD/L/S Spine Min 4 Views IMPRESSION: Normal lumbar lordosis with a 15 degree levoscoliosis of the thoracolumbar spine. Negative for acute fracture deformity. Degenerative disc and joint changes as stated above. Electronically Signed: Shira Marshall MD at 21:21 EST , Service support ,
== END ==
PROVIDERS: Family Provider Family Medicine; PCP Family Medicine; Referring Provider Family Medicine; Visit Provider Family Medicine
DX: M54.9 Dorsalgia, unspecified (principal)
CPT/HCPCS: 72110

== ENCOUNTER → 2019-05-22 09:33 | Outpatient (CLI) | payer MEDICARE, OTHER, SELFPAY ==
[2018-12-05 09:04] VITALS: BMI 26.0
--- NOTE | 2019-05-22 09:33 | ADU_ITS ---
Reason For Study: PAD Right Velocities Left Velocities Ext. Iliac Artery, dist = 145.4 cm./sec. Ext Iliac Artery, dist = 234.8 cm./sec. Common Femoral Artery, mid = 138.1 cm./sec. Common Femoral Artery, mid = 176.6 cm./sec. Supf Femoral Artery, prox = 278.6 cm./sec. Mobile plaque noted in the Dist Ext Iliac/CALL CENTER RN. SFA, prox, distal to stenosis, 169.8 cm/sec. Supf. Femoral Artery, prox = 113.3 cm./sec. Prox stent, 12.9 cm/sec. Supf. Femoral Artery, mid = 150.6 cm./sec. Mid stent, No flow noted Supf. Femoral Artery, dist = 152.8 cm./sec. Distal stent, 78.7 cm/sec. Profunda Femoral Artery = 122 cm./sec. Supf Femoral Artery, mid = 103.4 cm./sec. Popliteal Artery, proximal, = 84.3 cm./sec. Supf Femoral Artery, dist. = 47.9 cm./sec. Popliteal Artery, mid = 54.8 cm./sec. Profunda Femoral Artery = 160 cm./sec. Popliteal Artery, distal = 72 cm./sec. Popliteal Artery, prox. = 34.7 cm./sec. Post. Tibial Artery, prox = 69.5 cm./sec. Popliteal Artery, mid = 29.2 cm./sec. Post Tibial Artery, mid = 63.4 cm./sec. Popliteal Artery, dist = 39.1 cm./sec. Post Tibial Artery, dist. = 76.9 cm./sec. Post. Tibial Artery, prox = 34.7 cm./sec. Peroneal Artery, prox = 42.1 cm./sec. Post. Tibial Artery, mid = 29.2 cm./sec. Peroneal Artery, mid = 39.3 cm./sec. Post. Tibial Artery, dist = 29.2 cm./sec. Peroneal Artery,dist. = 34.6 cm./sec. Peroneal Artery, prox = 30.3 cm./sec. Ant.Tibial Artery, prox = 57.2 cm./sec. Peroneal Artery, mid = 20.4 cm./sec. Ant Tibial Artery, mid = 61 cm./sec. Peroneal Artery,dist = 20.4 cm./sec. Ant. Tibial Artery, distal = 31 cm./sec. Ant. Tibial Artery, prox = 28.1 cm./sec. Ant. Tibial Artery, mid = 24.1 cm./sec. Ant. Tibial Artery, dist = 25.8 cm./sec. Procedure Prelim to Amaya. Exam performed in department. Interpretation Summary Patent flow right external iliac and right common femoral arteries Greater than 50% stenosis proximal right superficial femoral artery Occluded right superficial femoral artery stent Diminished flow distal to the occluded right superficial femoral stent involving the right popliteal, posterior tibial, peroneal, and anterior tibial arteries Small amount of mobile plaque left distal external iliac artery Patent left profundofemoral, superficial femoral, popliteal, posterior tibial, peroneal, and anterior tibial arteries with less than 50% stenosis identified Ordering Physician: Harsha Pabon Referring Physician: Reji Hdz Performed By: Kailee Zimmer RVT
--- NOTE | 2019-05-22 09:39 | ART_ITS ---
Reason For Study: PAD Procedure A bilateral lower extremity continuous wave Doppler with analog waveform analysis,segmental pressures,and ankle brachial indexes without exercise. Left Segmental Pressures Left brachial= 132mmHg. Left posterior tibial artery = 140mmHg. Left dorsalis pedis artery = 138mmHg. Left digit = 102 mmHg. The left dorsalis pedis waveforms are triphasic. The left posterior tibial artery waveforms are triphasic. Right Segmental Pressures Right brachial= 126mmHg. Right calf = 55mmHg. Right posterior tibial artery = 70mmHg. Right dorsalis pedis artery = 55mmHg. Right digit = 50 mmHg. The right dorsalis pedis waveforms are biphasic. The right posterior tibial artery waveforms are biphasic. Indices The right ankle brachial index by the dorsalis pedis is 0.42. The right ankle brachial index by the posterior tibial artery is 0.53. The right digital-brachial index is 0.38. The left ankle brachial index by the dorsalis pedis is 1.05. The left ankle brachial index by the posterior tibial artery is 1.06. The left digital-brachial index is 0.77. Interpretation Summary Severe or multi level disease right lower extremity with abnormal right PT and DP ankle-brachial index of 0.53 and 0.42 respectively. Digital indices low at 0.38 Normal left lower extremity ankle-brachial indices at rest Ordering Physician: Harsha Pabon Referring Physician: Reji Hdz Performed By: Kailee Zimmer RVT
== END ==
PROVIDERS: Family Provider Family Medicine; PCP Family Medicine; Referring Provider Surgery; Visit Provider Surgery
DX: I73.9 Peripheral vascular disease, unspecified (principal)
CPT/HCPCS: 93924; 93925

== ENCOUNTER → 2019-08-14 11:52 | Outpatient (CLI) | payer MEDICARE, OTHER, SELFPAY ==
[2019-06-02 14:02] VITALS: BMI 26.0
--- NOTE | 2019-08-14 11:56 | BI_ITS ---
MAMMOGRAPHY - BILATERAL SCREENING REASON FOR EXAM: Female, 74 years old. Routine annual screening examination. PERTINENT HISTORY: Non-contributory. Prior left stereotactic breast biopsy. TECHNIQUE: Digital bilateral breast obed (3D mammographic acquisition) in the CC and MLO projections. 2-D mediolateral oblique (MLO) and craniocaudad (CC) views of both breasts were obtained. CAD: Full Field Digital Mammography with Computer Added Detection was performed. COMPARISON: Comparison is made with prior examination dated June 06, 2017. FINDINGS: Breast Composition: There are scattered areas of fibroglandular density. There are no dominant masses or suspicious calcifications. A tissue clip marker is seen in the retroareolar region of the left breast at the site of the prior calcifications. No other significant abnormalities are identified. BI/SCREEN MAMM (CAD) W/OBED BILAT IMPRESSION: Stable bilateral screening mammogram. Yearly follow-up mammogram recommended. (A) ASSESSMENT CATEGORY: BIRADS Category 2: Benign. A letter regarding these results will be sent to the patient by the facility within 30 days. Approximately 10% of breast cancers are not detected by mammography. A normal mammogram should not delay biopsy of a clinically suspicious abnormality. [id number] Electronically Signed: Roberto Carlos Carvalho, at 10:53 EDT , Service support ,
== END ==
PROVIDERS: PCP Family Medicine; Referring Provider Family Medicine; Visit Provider Family Medicine
DX: N64.4 Mastodynia (principal); Z12.31 Encounter for screening mammogram for malignant neoplasm of breast
CPT/HCPCS: 77063; 77067

== ENCOUNTER → 2019-12-01 09:50 | Outpatient (CLI) | payer MEDICARE, OTHER, SELFPAY ==
[2019-06-02 14:02] VITALS: BMI 26.0
--- NOTE | 2019-12-01 09:50 | ART_ITS ---
Reason For Study: Claudication Procedure A bilateral lower extremity continuous wave Doppler with analog waveform analysis,segmental pressures,and ankle brachial indexes without exercise. Left Segmental Pressures Left brachial= 146mmHg. Left posterior tibial artery = 153mmHg. Left dorsalis pedis artery = 145mmHg. Left digit = 113 mmHg. The left posterior tibial artery waveforms are triphasic. The left dorsalis pedis waveforms are triphasic. Right Segmental Pressures Right brachial= 143mmHg. Right calf = 83mmHg. Right posterior tibial artery = 88mmHg. Right dorsalis pedis artery = 88mmHg. Right digit = 67 mmHg. The right posterior tibial artery waveforms are monophasic. The right dorsalis pedis waveforms are biphasic. Indices The right ankle brachial index by the posterior tibial artery is 0.60. The right ankle brachial index by the dorsalis pedis is 0.60. The right digital-brachial index is 0.46. The left ankle brachial index by the posterior tibial artery is 1.05. The left ankle brachial index by the dorsalis pedis is 0.99. The left digital-brachial index is 0.77. Interpretation Summary Moderately severe right lower extremity arterial occlusive disease based upon ankle-brachial indices and abnormal Doppler waveforms. Abnormal right digital brachial index Normal left lower extremity resting ankle-brachial indices and digital brachial index Ordering Physician: Harsha Pabon Referring Physician: Harsha Pabon Performed By: Haley Deluca RDCS/RVT
--- NOTE | 2019-12-01 09:50 | ADU_ITS ---
Reason For Study: PAD Right Velocities Left Velocities Ext. Iliac Artery, dist = 90 cm./sec. Ext Iliac Artery, dist = 122 cm./sec. Common Femoral Artery, dist = 144 cm./sec. Common Femoral Artery, dist = 168 cm./sec. Supf Femoral Artery, prox = 19 cm./sec. Supf. Femoral Artery, prox = 91 cm./sec. Supf Femoral Artery, mid = 113 cm./sec. Supf. Femoral Artery, mid = 126 cm./sec. Supf Femoral Artery, dist. = 39 cm./sec. Supf. Femoral Artery, dist = 73 cm./sec. No flow Rt SFA proximal to mid, occluded Profunda Femoral Artery = 66 cm./sec. Popliteal Artery, proximal, = 73 cm./sec. Rt SFA stent is occluded. Popliteal Artery, mid = 77 cm./sec. Profunda Femoral Artery = 147 cm./sec. Popliteal Artery, distal = 80 cm./sec. Popliteal Artery, prox. = 38 cm./sec. Ant.Tibial Artery, prox = 69 cm./sec. Popliteal Artery, mid = 40 cm./sec. Ant Tibial Artery, mid = 71 cm./sec. Popliteal Artery, dist = 41 cm./sec. Ant. Tibial Artery, distal = 94 cm./sec. Ant. Tibial Artery, prox = 21 cm./sec. Post. Tibial Artery, prox = 86 cm./sec. Ant. Tibial Artery, mid = 19 cm./sec. Post Tibial Artery, mid = 95 cm./sec. Ant. Tibial Artery, dist = 27 cm./sec. Post Tibial Artery, dist. = 80 cm./sec. Post. Tibial Artery, prox = 34 cm./sec. Peroneal Artery, prox = 48 cm./sec. Post. Tibial Artery, mid = 37 cm./sec. Peroneal Artery, mid = 41 cm./sec. Post. Tibial Artery, dist = 22 cm./sec. Peroneal Artery,dist. = 31 cm./sec. Peroneal Artery, prox = 12 cm./sec. Lt DPA: 88 cm/s. Peroneal Artery, mid = 13 cm./sec. Peroneal Artery,dist = 10 cm./sec. Rt DPA: 25 cm/s. Procedure Exam performed in department. Interpretation Summary Occluded right superficial femoral artery proximal to mid with occluded right superficial femoral artery stent. Patent right external iliac and common femoral and profundofemoral arteries. Diminished right popliteal and distal flow Based upon Doppler waveform analysis of the left lower extremity triphasic waveforms are noted throughout with mild spectral broadening consistent with 20 to 49% stenosis throughout. Findings are not felt to be clinically significant. Ordering Physician: Harsha Pabon Referring Physician: Reji Hdz Performed By: Haley Deluca, RDCS, RVT
== END ==
PROVIDERS: PCP Family Medicine; Referring Provider Surgery; Visit Provider Surgery
DX: I73.9 Peripheral vascular disease, unspecified (principal)
CPT/HCPCS: 93923; 93925

== ENCOUNTER → 2020-02-04 11:12 | Outpatient (CLI) | payer MEDICARE, OTHER, SELFPAY ==
[2019-12-08 13:53] VITALS: BMI 26.0
[2020-02-04 12:43] LABS: Absolute Lymphocyte Count 1.09 X10^3/uL (0.83-4.51); Absolute Neutrophil Count 5.8 X10^3/uL (2.0-7.7); Basophil# 0.04 X10^3/uL; Basophil% 0.5 % (0-1); Eosinophil# 0.05 X10^3/uL; Eosinophils% 0.7 % (0-5); Hematocrit 46.4 % (37-47); Hemoglobin 15.1 g/dL (12.0-15.0); Lymphocyte # 1.09 X10^3/ul (4.0); Lymphocyte % 14.5 % (19-41); Mean Corp Hgb Conc 32.5 g/dL (32-36); Mean Corpuscular Hgb 31.5 pg (27.0-32.0); Mean Corpuscular Volume 96.7 fL (81-99); Mean Platelet Vol. 10.1 fl (6.2-12.0); Monocyte# 0.55 X10^3/uL; Monocyte% 7.3 % (0-10); NRBC Flagged by Analyzer 0 % (0-5); Neutrophil # 5.76 X10^3/uL (2.7-7.7); Neutrophil % 76.7 % (47-70); Platelet Count 208 K/mm3 (150-450); RBC Distribution Width CV 13.6 % (11.6-14.6); RBC Distribution Width SD 48.6 fl (35.1-43.9); White Blood Count 7.5 K/mm3 (4.4-11.0)
[2020-02-04 12:57] LABS: Vitamin D,25 Hydroxy 101.9 ng/mL
[2020-02-04 13:04] LABS: BUN 14 mg/dL (7-18); Creatinine, Serum 0.74 mg/dL (0.55-1.02); Glucose 85 mg/dL (74-106)
[2020-02-04 13:05] LABS: Anion Gap 4 (5-15); Calcium,Total 9.1 mg/dL (8.5-10.1); Chloride 109 mmol/L (98-107); Cholesterol 215 mg/dL (200); EST Glomerular Filtration Rate 82 mL/min (>60); Est Glom Filt Rate - Afr Amer 100 mL/min (>60); High Density Lipoprotein 71 mg/dL; Potassium 3.7 mmol/L (3.5-5.1); Sodium Level 141 mmol/L (136-145); Triglycerides 182 mg/dL; Very Low Density Lipoprotein 36 mg/dL (5-40)
== END ==
PROVIDERS: PCP Family Medicine; Referring Provider Family Medicine; Visit Provider Family Medicine
DX: Z00.00 Encounter for general adult medical examination without abnormal findings (principal); M81.0 Age-related osteoporosis without current pathological fracture; D64.9 Anemia, unspecified; R11.0 Nausea
CPT/HCPCS: 36415; 80048; 80061; 82306; 85025

== ENCOUNTER 2020-07-14 09:29 | Outpatient (RCR) | payer MEDICARE, OTHER, SELFPAY ==
[2020-03-09 08:21] VITALS: BMI 26.2
== END 2020-07-14 23:59 ==
LOC: IMMUN 09:29
PROVIDERS: PCP Family Medicine; Visit Provider Family Medicine
DX: Z23 Encounter for immunization (principal)
CPT/HCPCS: 0012A; 91301

== ENCOUNTER → 2021-02-15 08:52 | Outpatient (CLI) | payer MEDICARE, OTHER, SELFPAY ==
[2021-02-15 10:34] LABS: Anion Gap 6 (5-15); BUN 16 mg/dL (7-18); BUN/Creat Ratio 21.8 RATIO (10-20); Calcium,Total 8.9 mg/dL (8.5-10.1); Chloride 109 mmol/L (98-107); Cholesterol 180 mg/dL (200); Creatinine, Serum 0.73 mg/dL (0.55-1.02); EST Glomerular Filtration Rate 82 mL/min (>60); Est Glom Filt Rate - Afr Amer 100 mL/min (>60); Glucose 92 mg/dL (74-106); High Density Lipoprotein 70 mg/dL; Potassium 3.7 mmol/L (3.5-5.1); Sodium Level 141 mmol/L (136-145); Triglycerides 110 mg/dL; Very Low Density Lipoprotein 22 mg/dL (5-40)
[2021-02-15 11:05] LABS: Vitamin D,25 Hydroxy 128.7 ng/mL
== END ==
PROVIDERS: PCP Family Medicine; Referring Provider Family Medicine; Visit Provider Family Medicine
DX: Z00.00 Encounter for general adult medical examination without abnormal findings (principal); I25.10 Atherosclerotic heart disease of native coronary artery without angina pectoris; E55.9 Vitamin D deficiency, unspecified
CPT/HCPCS: 36415; 80048; 80061; 82306

== ENCOUNTER → 2021-02-24 10:47 | Outpatient (CLI) | payer MEDICARE, OTHER, SELFPAY ==
--- NOTE | 2021-02-24 11:05 | BD_ITS ---
STUDY: DUAL ENERGY X-RAY ABSORPTIOMETRY / DXA REASON FOR EXAM: Female, 76 years old. V76.12ScreeningBONE DENSITY REASON FOR EXAM TECHNIQUE: Bone Mineral Density (BMD) measurements of lumbar spine and bilateral hips were obtained. COMPARISON: None. FINDINGS: Lumbar Spine (L1-L4): g/cm2 (0.822) / T-score (-2.0) / Z-score (0.3) Findings are suggestive of osteopenia with a moderate fracture risk. Left Femur Total: g/cm2 (0.752) / T-score (-1.6) / Z-score (0.2) Left Femoral Neck: g/cm2 (0.602) / T-score (-2.2) / Z-score (-0.2) Right Femur Total: g/cm2 (0.684) / T-score (-2.1) / Z-score (-0.4) Right Femoral Neck: g/cm2 (0.550) / T-score (-2.7) / Z-score (-0.7) BD/Dexa Bone Density Study IMPRESSION: The patient is considered osteoporotic as outlined below according to World [employer] Organization (WHO) criteria with a high fracture risk. Reference Information: The T-score is the number of standard deviations above or below the standard which is normal for young adults at their peak bone mineral density. The World Health Organization (WHO) interprets the T-scores as follows: Above -1 Normal bone density Between -1 and -2.5 Osteopenia Equal to / or below -2.5 Osteoporosis As a practical clinical guideline, osteopenia may be graded as follows: Mild -1 through -1.5 Moderate -1.6 through -2.0 Severe -2.1 through -2.4 The Z-score is the number of standard deviations above or below age-matched controls. A Z-score of less than -1.5 would be considered abnormal. References: 1. NIH Osteoporosis and Related Bone Diseases www osteo.org 2. International Society for Clinical Densitometry www iscd.org 3. National Osteoporosis Foundation www nof.org Electronically Signed: Roberto Carlos Carvalho MD at 13:49 EDT , Service support ,
--- NOTE | 2021-02-24 11:05 | BI_ITS ---
MAMMOGRAPHY - BILATERAL SCREENING REASON FOR EXAM: Female, 76 years old. Routine annual screening examination. PERTINENT HISTORY: Non-contributory. Prior left stereotactic breast biopsy. TECHNIQUE: Digital bilateral breast obed (3D mammographic acquisition) in the CC and MLO projections. 2-D mediolateral oblique (MLO) and craniocaudad (CC) views of both breasts were obtained. CAD: Full Field Digital Mammography with Computer Added Detection was performed. COMPARISON: Comparison is made with prior study dated 08/14/2019. FINDINGS: Breast Composition: The breasts are heterogeneously dense, which may obscure small masses. There are no dominant masses or suspicious calcifications. A tissue clip marker is once again seen in the retroareolar region of the left breast No other significant abnormalities are identified. There has been no significant change since the prior study. BI/SCRN MAMM (CAD)W/OBED BILAT IMPRESSION: Stable bilateral screening mammogram. Yearly follow-up mammogram recommended. (A) ASSESSMENT CATEGORY: BIRADS Category 2: Benign. A letter regarding these results will be sent to the patient by the facility within 30 days. Approximately 10% of breast cancers are not detected by mammography. A normal mammogram should not delay biopsy of a clinically suspicious abnormality. [id number] Electronically Signed: Roberto Carlos Carvalho MD at 12:29 EDT , Service support ,
== END ==
PROVIDERS: PCP Family Medicine; Referring Provider Family Medicine; Visit Provider Family Medicine
DX: Z12.31 Encounter for screening mammogram for malignant neoplasm of breast (principal); M81.0 Age-related osteoporosis without current pathological fracture
CPT/HCPCS: 77063; 77067; 77080

== ENCOUNTER → 2021-04-13 12:03 | Outpatient (CLI) | payer MEDICARE, OTHER, SELFPAY ==
[2021-04-13 15:32] LABS: Absolute Lymphocyte Count 0.98 X10^3/uL (0.83-4.51); Absolute Neutrophil Count 5.6 X10^3/uL (2.0-7.7); Basophil# 0.03 X10^3/uL; Basophil% 0.4 % (0-1); Eosinophil# 0.07 X10^3/uL; Hematocrit 48.1 % (37-47); Hemoglobin 15.3 g/dL (12.0-15.0); Lymphocyte # 0.98 X10^3/ul (0.83-4.51); Lymphocyte % 13.6 % (19-41); Mean Corp Hgb Conc 31.8 g/dL (32-36); Mean Corpuscular Hgb 31.5 pg (27.0-32.0); Mean Platelet Vol. 10.3 fl (6.2-12.0); Monocyte# 0.52 X10^3/uL; Monocyte% 7.2 % (0-10); NRBC Flagged by Analyzer 0 % (0-5); Neutrophil # 5.55 X10^3/uL (2.7-7.7); Neutrophil % 77.4 % (47-70); Platelet Count 239 K/mm3 (150-450); RBC Distribution Width CV 12.7 % (11.6-14.6); RBC Distribution Width SD 46.8 fl (35.1-43.9); Red Blood Count 4.86 M/mm3 (4.2-5.4); White Blood Count 7.2 K/mm3 (4.4-11.0)
[2021-04-13 15:48] LABS: Anion Gap 5 (5-15); BUN 16 mg/dL (7-18); BUN/Creat Ratio 22.3 RATIO (10-20); Chloride 107 mmol/L (98-107); Creatinine, Serum 0.72 mg/dL (0.55-1.02); EST Glomerular Filtration Rate 84 mL/min (>60); Est Glom Filt Rate - Afr Amer 102 mL/min (>60); Glucose 82 mg/dL (74-106); Potassium 4.1 mmol/L (3.5-5.1); Sodium Level 141 mmol/L (136-145)
== END ==
PROVIDERS: PCP Family Medicine; Referring Provider Family Medicine; Visit Provider Family Medicine
DX: M79.10 Myalgia, unspecified site (principal)
CPT/HCPCS: 36415; 80048; 85025

== ENCOUNTER 2022-02-10 17:56 | Emergency (ER) | payer MEDICARE, OTHER, SELFPAY ==
[2022-02-10 17:57] VITALS: BP 175/86; PULSE 78; RESP 16; TEMP 36.1; O2SAT 95; BMI 26.2
[2022-02-10 17:59] VITALS: BP 175/86; PULSE 78; RESP 16; TEMP 36.1; O2SAT 95
--- NOTE | 2022-02-10 18:18 | CT_ITS ---
STUDY: CT ABDOMEN AND PELVIS WITH CONTRAST REASON FOR EXAM: Female, 77 years old. llq pain RADIATION DOSAGE (If Supplied By Facility): CTDIvol = ( 13.41 ) mGy, DLP = ( 450.17 ) mGycm TECHNIQUE: Transaxial images were obtained from the dome of the diaphragm to the symphysis pubis without oral contrast. IV 100mL Isovue-300 was administered. Sagittal and coronal images were reconstructed. Individualized dose optimization techniques were used for this CT. COMPARISON: CT abdomen and pelvis 11/14/2017. FINDINGS: The visualized lung bases are unremarkable. Cardiomegaly and calcific coronary artery disease. Normal liver. Normal gallbladder and extrahepatic biliary system. Normal spleen. Normal pancreas. Normal bilateral adrenal glands. Multiple simple bilateral renal cortical cysts measuring up to 2.9 cm on the left. No further follow-up required as they appear simple/benign. A large hiatal hernia. Normal small intestine. Colonic diverticulosis. Appendix is not identified. There is diffuse atherosclerotic calcification of the abdominal aorta with elongation and tortuosity, but without a demonstrated aneurysm. Normal inferior vena cava. Normal retroperitoneum. Retroaortic left renal vein. Normal urinary bladder. Normal abdominal wall. Mild levoconvex scoliosis. CT/Abdomen/Pelvis W IV Cont ONLY IMPRESSION: Increased stool. Sigmoid diverticulosis with out definite evidence of acute inflammation. Other incidental findings as above. Electronically Signed: Richard Ruiz MD at 19:35 EDT ,
--- NOTE | 2022-02-10 18:19 | ED.VIS.GI ---
HPI HPI - GI History of Present Illness Chief Complaint: Abd Pain Narrative Narrative: Patient presents with left lower quadrant abdominal pain that she has had since , almost 48 hours ago. She was seen by her primary care physician, Dr. Hdz, today where she states that she was having her annual physical examination. She mentioned her abdominal pain. She states that he performed 2 x-rays, then was told to come to the ER for CT scan. She was told to tell the ER physician that her primary care physician was thinking/leaning towards a diagnosis of diverticulitis. She states that she has not had any fevers but may have been chilled. Occasional nausea but no vomiting. She thought that it may have been secondary to her large hiatal hernia. She had a normal bowel movement this morning, but the subsequent bowel movement was slightly loose. She denies any blood in her bowel movements. She is here for evaluation of her abdominal pain. [facility] Medical History Abnormal mammogram Abnormal mammogram of left breast Acute blood loss anemia Arthritis Back problem Fatigue Fibromyalgia Hemorrhoids Insomnia PAD (peripheral artery disease) Peripheral neuropathy Pulmonary HTN Pulmonary nodule Upper GI bleed Home Medications prednisone 5 mg tablet 2.5 mg PO DAILY steriod 06/21/17 [History Last Taken 10/20/17] aspirin 81 mg tablet,delayed release (Adult Low Dose Aspirin) 81 mg PO DAILY 12/05/18 [History Last Taken Unknown] cholecalciferol (vitamin D3) 75 mcg (3,000 unit) tablet 3,000 unit PO DAILY PRN Outbreak 12/05/18 [History Last Taken Unknown] ferrous sulfate 325 mg (65 mg iron) tablet 325 mg PO DAILY 12/05/18 [History Last Taken Unknown] dicyclomine 20 mg tablet 20 mg PO BID 02/10/22 [History Last Taken Unknown] Allergy/AdvReac Type Severity Reaction Status Date / Time Sulfa (Sulfonamide Allergy Hives Verified 03/09/20 08:22 Antibiotics) Family History Father Stomach cancer Mother Hypertension Surgical History History bilateral cataract surgey History of esophageal dilatation History of esophagogastroduodenoscopy (EGD) History of hysterectomy History of laparoscopic cholecystectomy Hx of arterial bypass of lower limb Hx of colonoscopy Social History Smoking Status: Former smoker quit date: 05/28/11 second hand exposure: No alcohol intake: current alcohol intake frequency: a few times a month substance use type: does not use caffeine: Yes frequency: 1-2 times per week ROS ROS ED ROS Narrative Constitutional: No fever, reported chills. HEENT: No sore throat. No neck pain. No loss of vision. No rhinorrhea. Cardiovascular: No chest pain. No palpitations. No pedal edema. Respiratory: No cough, no shortness of breath. Abdominal: Left lower quadrant to right lower quadrant abdominal pain. Intermittent nausea. No vomiting. Genitourinary: No dysuria. No hematuria. Musculoskeletal: No myalgias. No arthralgias. Neurologic: No headaches. No dizziness. No lightheadedness. Skin: No rash. No change in color. Psychiatric: No depression. No anxiety. EXAM Physical Exam Narrative Exam Narrative: Afebrile. Vital signs noted. HEENT: Normocephalic. Atraumatic. PERRL, EOMI. Neck soft and supple. No point tenderness or step off. Cardiovascular: Regular rate and rhythm. No murmurs, rubs, or gallops appreciated. Respiratory: No tachypnea. Lungs clear to auscultation bilaterally. Gastrointestinal: Abdomen soft, with tenderness in the left lower quadrant to suprapubic area, with normoactive bowel sounds. No rebound or guarding. Neurological: Awake. Alert. Nonfocal, nonlateralizing. Skin: No rash. Normal color. No pallor. Musculoskeletal: No pedal edema. Full range of motion extremities. Const Vital Signs: 02/10/22 17:57 02/10/22 17:59 Temperature 97.0 F L 97.0 F L Temperature Source Temporal Temporal Pulse Rate 78 78 Respiratory Rate 16 16 Blood Pressure 175/86 H 175/86 H Blood Pressure Mean 115 115 Pulse Ox 95 95 Oxygen Delivery Method Room Air Room Air MDM MDM MDM Narrative Medical decision making narrative: Given her examination, suspicion is high for diverticulitis. Comprehensive work-up was pursued. I will obtain laboratory work and CT imaging with IV contrast if allowable, depending on her creatinine/GFR. She declined morphine or analgesics currently. She was bolused normal saline 1 L intravenously. Patient has normal white count of 7.9, hemoglobin stable at 16.0 with hematocrit 50.0. Platelet count normal at 236. CMP is grossly normal. Lipase is slightly elevated at 438 which I think is nonspecific. She does have history of a hiatal hernia. However, her abdominal cramping is mainly in the lower quadrants. CT of the abdomen pelvis with IV contrast shows increased stool. There is sigmoid diverticulosis without definitive evidence of acute inflammation. She does not have an elevated white count or fever. I do not feel antibiotics are indicated. If this can be discharged safely home with follow-up. Prior to discharge, the patient became frustrated stating that she was having pain although she had taken something for abdominal cramping that was given to her by her primary care physician prior to arrival, she was administered Toradol and Bentyl 20 mg orally here. Upon repeat examination, she is feeling improved and states her pain is down to a 3. I do feel that she should take her medication as previously directed as she has already been given a prescription for dicyclomine and states that she has many tablets remaining. She will follow-up with her primary care physician on Sunday. Disposition is discharged home in stable condition. Lab Data Attestation: I reviewed the patient's lab results. Labs: Laboratory Results - last 24 hr 02/10/22 02/10/22 18:10 18:10 WBC 7.9 RBC 5.15 Hgb 16.0 H Hct 50.0 H MCV 97.1 MCH 31.1 MCHC 32.0 RDW Std Deviation 48.8 H RDW Coeff of Justina 13.5 Plt Count 236 MPV 9.9 Immature Gran % (Auto) 0.300 Neut % (Auto) 69.3 Lymph % (Auto) 21.8 [place] % (Auto) 7.2 Eos % (Auto) 1.0 Baso % (Auto) 0.4 Absolute Neuts (auto) 5.5 Absolute Lymphs (auto) 1.73 Nucleated RBC % 0 Sodium 144 Potassium 3.6 Chloride 106 Carbon Dioxide 30.0 Anion Gap 8 BUN 10 Creatinine 0.87 Estim Creat Clear Calc 40.13 Est GFR (MDRD) Af Amer 82 Est GFR (MDRD) Non-Af 67 BUN/Creatinine Ratio 11.5 Glucose 97 Calcium 9.7 Total Bilirubin 0.90 AST 14 L ALT 18 Alkaline Phosphatase 73 Total Protein 7.8 Albumin 4.1 Globulin 3.7 Albumin/Globulin Ratio 1.1 Lipase 438 H Radiography Diagnostic Testing: Clinical Impression(s) from Imaging Studies Abdomen/Pelvis CT 02/10/22 18:18 IMPRESSION: Increased stool. Sigmoid diverticulosis with out definite evidence of acute inflammation. Other incidental findings as above. Electronically Signed: Richard Ruiz MD at 19:35 EDT Reading Location ID and State: [address] [place] [address] , Service support , Discharge Plan Triage Chief Complaint: Abd Pain ED Provider: Janak Blanc Dx/Rx/DC Orders Clinical Impression: Abdominal pain in female patient, Abdominal cramping, Elevated lipase, Hiatal hernia Instructions: ED Abdominal Pain Unkn Cause Fem Prescriptions: No Action ferrous sulfate 325 mg (65 mg iron) tablet 325 mg PO DAILY Label Comments: iron supplement cholecalciferol (vitamin D3) 3,000 unit tablet 3,000 unit tablet 3,000 unit PO DAILY PRN (Reason: Outbreak) aspirin [Adult Low Dose Aspirin] 81 mg tablet,delayed release (DR/EC) 81 mg PO DAILY prednisone 5 MG tablet 2.5 mg PO DAILY Label Comments: steroid-fibromyalgia dicyclomine 20 mg tablet 20 mg PO BID Primary Care Provider: Reji Hdz Referrals: Reji Hdz MD [Primary Care Provider] - 3-5 Days Activity Restrictions/Additional Instructions: Take your Bentyl/dicyclomine as previously directed. Disposition Disposition: Home, Self Care
[2022-02-10] MEDS: 0.9% Normal Saline 1,000 ML 1000 ML IV (18:24)
[2022-02-10 18:39] LABS: Absolute Lymphocyte Count 1.73 X10^3/uL (0.83-4.51); Absolute Neutrophil Count 5.5 X10^3/uL (2.0-7.7); Basophil# 0.03 X10^3/uL; Basophil% 0.4 % (0-1); Eosinophil# 0.08 X10^3/uL; Lymphocyte # 1.73 X10^3/ul (0.83-4.51); Lymphocyte % 21.8 % (19-41); Mean Corpuscular Hgb 31.1 pg (27.0-32.0); Mean Corpuscular Volume 97.1 fL (81-99); Mean Platelet Vol. 9.9 fl (6.2-12.0); Monocyte# 0.57 X10^3/uL; Monocyte% 7.2 % (0-10); NRBC Flagged by Analyzer 0 % (0-5); Neutrophil # 5.51 X10^3/uL (2.7-7.7); Neutrophil % 69.3 % (47-70); Platelet Count 236 K/mm3 (150-450); RBC Distribution Width CV 13.5 % (11.6-14.6); RBC Distribution Width SD 48.8 fl (35.1-43.9); Red Blood Count 5.15 M/mm3 (4.2-5.4); White Blood Count 7.9 K/mm3 (4.4-11.0)
[2022-02-10 18:43] LABS: ALB/GLOB Ratio 1.1 RATIO (0.9-2.4); AST(SGOT) 14 U/L (15-37); Alanine Aminotransfer ALT/SGPT 18 U/L (13-56); Albumin, Serum 4.1 g/dL (3.2-5.0); Alkaline Phosphatase 73 U/L (45-117); Anion Gap 8 (5-15); BUN 10 mg/dL (7-18); BUN/Creat Ratio 11.5 RATIO (10-20); Calcium,Total 9.7 mg/dL (8.5-10.1); Chloride 106 mmol/L (98-107); Creatinine, Serum 0.87 mg/dL (0.55-1.02); EST Glomerular Filtration Rate 67 mL/min (>60); Est Glom Filt Rate - Afr Amer 82 mL/min (>60); Estimated Creatinine Clearance 40.13 ml/min; Globulin 3.7 g/dL (2.2-4.2); Glucose 97 mg/dL (74-106); Lipase 438 U/L (73-393); Potassium 3.6 mmol/L (3.5-5.1); Protein, Total 7.8 g/dL (6.4-8.2); Sodium Level 144 mmol/L (136-145)
[2022-02-10 19:56] VITALS: RESP 16
[2022-02-10] MEDS: Dicyclomine 10 MG Capsule 20 MG PO (20:41)
[2022-02-10] MEDS: Ketorolac 30 MG/ML Syringe 15 MG IV (20:42)
[2022-02-10 21:56] VITALS: BP 136/84; PULSE 72; RESP 16; O2SAT 95
== END 2022-02-10 22:15 | disposition home or self-care (01) ==
PROVIDERS: Emergency Provider Emergency Medicine; PCP Family Medicine; Visit Provider Emergency Medicine
DX: R10.32 Left lower quadrant pain (principal); I27.20 Pulmonary hypertension, unspecified; K58.9 Irritable bowel syndrome, unspecified; K57.30 Diverticulosis of large intestine without perforation or abscess without bleeding; K44.9 Diaphragmatic hernia without obstruction or gangrene; R74.8 Abnormal levels of other serum enzymes; Z79.82 Long term (current) use of aspirin; Z79.52 Long term (current) use of systemic steroids; Z79.899 Other long term (current) drug therapy; Z87.891 Personal history of nicotine dependence
CPT/HCPCS: 74019; 74177; 80053; 83690; 85025; 96361; 96374; 99284; J7030; Q9967; A4216

== ENCOUNTER → 2022-02-10 | Outpatient (CLI) | payer MEDICARE, OTHER, SELFPAY ==
--- NOTE | 2022-02-10 11:19 | RAD_ITS ---
STUDY: X-RAY - ABDOMEN/PELVIS REASON FOR EXAM: Female, 77 years old. IBS TECHNIQUE: AP supine and upright views of the abdomen and pelvis. COMPARISON: None. FINDINGS: Normal visualized lung bases. There is an unremarkable bowel gas pattern. There is no demonstrated free abdominal air. Moderate sized hiatal hernia. There are calcified phleboliths in the pelvis. There are degenerative changes of the visualized lumbar spine. Aortic calcifications. RAD/Abd Inc Decub and/or Erect IMPRESSION: No acute abnormality is seen. Hiatal hernia. Electronically Signed: Roberto Carlos Carvalho MD at 13:11 EDT ,
== END | disposition home or self-care (01) ==
LOC: MTRAD 11:17
PROVIDERS: PCP Family Medicine; Referring Provider Family Medicine; Visit Provider Family Medicine
DX: K58.9 Irritable bowel syndrome, unspecified (principal)
CPT/HCPCS: 74019

== ENCOUNTER → 2022-03-08 | Outpatient (CLI) | payer MEDICARE, OTHER, SELFPAY ==
[2022-03-08 15:19] LABS: Hematocrit 48.2 % (37-47); Hemoglobin 15.2 g/dL (12.0-15.0)
[2022-03-08 15:43] LABS: Ferritin 164 ng/mL (8-252); Iron 90 ug/dL (50-170)
== END | disposition home or self-care (01) ==
PROVIDERS: PCP Family Medicine; Referring Provider Internal Medicine Gastroenterology; Visit Provider Internal Medicine Gastroenterology
DX: D50.9 Iron deficiency anemia, unspecified (principal)
CPT/HCPCS: 36415; 82728; 83540; 85014; 85018

== ENCOUNTER → 2022-04-24 | Outpatient (CLI) | payer MEDICARE, OTHER, SELFPAY ==
--- NOTE | 2022-04-24 14:55 | VDLE_ITS ---
Reason For Study: LEG PAIN RIGHT LEFT CFV is compressible, spontaneous, phasic, GSV is normal. competent and demonstrates normal CFV is compressible, spontaneous, phasic, augmentation. competent, and demonstrates normal Procedure augmentation. This is a venous duplex using B-mode, color FV is compressible, spontaneous, phasic, flow and spectral Doppler. competent and demonstrates normal Exam performed in department. augmentation. The exam was diagnostic. POP V is compressible, spontaneous, phasic, A preliminary report was called and/or faxed competent and demonstrates normal to Humberto Hammond office. augmentation. T/P Trunk is compressible. PTV is compressible. LT PerV is compressible. A Hypoechoic, Non-vascularized area noted in the Lt Popliteal Fossa measuring 3.10cm x 0.86cm. VL/Venous Duplex US, Unilateral Interpretation Summary There is no evidence of left lower extremity deep vein thrombosis. Left great s aphenous vein appears patent and compressible segmentally. Rouleaux sluggish flow noted in the left p opliteal vein. Etiology is not determined. Questionable compression. Left popliteal fossa structure measuring 3.1 x 0.86 cm, non-vascular, suspiciou s for possible irregular Marie's cyst. Clinical correlation would be appropriate Normal flow patterns right common femoral vein Ordering Physician: Humberto Hammond Referring Physician: Humberto Hammond Performed By: Tino Bueno RVKitty
== END | disposition home or self-care (01) ==
LOC: CVS 14:54
PROVIDERS: PCP Family Medicine; Referring Provider Physician Assistant; Visit Provider Physician Assistant
DX: M79.605 Pain in left leg (principal)
CPT/HCPCS: 93971

== ENCOUNTER → 2022-06-27 | Outpatient (CLI) | payer MEDICARE, OTHER, SELFPAY ==
[2022-06-27 10:32] LABS: Erythrocyte Sedimentation Rate 9 mm/hr (0-30)
[2022-06-27 10:33] LABS: Absolute Lymphocyte Count 1.46 X10^3/uL (0.83-4.51); Absolute Neutrophil Count 3.7 X10^3/uL (2.0-7.7); Basophil# 0.04 X10^3/uL; Basophil% 0.7 % (0-1); Eosinophil# 0.11 X10^3/uL; Eosinophils% 1.9 % (0-5); Hematocrit 50.7 % (37-47); Hemoglobin 15.8 g/dL (12.0-15.0); Lymphocyte # 1.46 X10^3/ul (0.83-4.51); Mean Corp Hgb Conc 31.2 g/dL (32-36); Mean Corpuscular Hgb 29.5 pg (27.0-32.0); Mean Corpuscular Volume 94.8 fL (81-99); Mean Platelet Vol. 10.3 fl (6.2-12.0); Monocyte# 0.48 X10^3/uL; Monocyte% 8.2 % (0-10); NRBC Flagged by Analyzer 0 % (0-5); Neutrophil # 3.72 X10^3/uL (2.7-7.7); Neutrophil % 63.9 % (47-70); Platelet Count 223 K/mm3 (150-450); RBC Distribution Width CV 13.6 % (11.6-14.6); RBC Distribution Width SD 47.4 fl (35.1-43.9); Red Blood Count 5.35 M/mm3 (4.2-5.4); White Blood Count 5.8 K/mm3 (4.4-11.0)
[2022-06-27 10:47] LABS: ALB/GLOB Ratio 1.1 RATIO (0.9-2.4); AST(SGOT) 21 U/L (15-37); Alanine Aminotransfer ALT/SGPT 23 U/L (13-56); Albumin, Serum 3.9 g/dL (3.2-5.0); Alkaline Phosphatase 91 U/L (45-117); Anion Gap 7 (5-15); BUN 9 mg/dL (7-18); BUN/Creat Ratio 12.2 RATIO (10-20); CRP 4.24 mg/L (0.0-3.0); Calcium,Total 9.5 mg/dL (8.5-10.1); Chloride 108 mmol/L (98-107); Creatinine, Serum 0.74 mg/dL (0.55-1.02); EST Glomerular Filtration Rate 82 mL/min (>60); Est Glom Filt Rate - Afr Amer 99 mL/min (>60); Free T3 3.3 pg/mL (2.18-3.98); Globulin 3.5 g/dL (2.2-4.2); Glucose 94 mg/dL (74-106); LDH 221 U/L (84-246); Potassium 4.2 mmol/L (3.5-5.1); Protein, Total 7.4 g/dL (6.4-8.2); Sodium Level 142 mmol/L (136-145); T4 Free Direct 1.31 ng/dL (0.76-1.46); Thyroid Stim Hormone (TSH) 1.73 uIU/mL (0.358-3.74)
[2022-06-28 14:10] LABS: Anti-Centromere B Ab <0.2 AI (0.0-0.9); Anti-Chromatin <0.2 AI (0.0-0.9); Anti-Jo <0.2 AI (0.0-0.9); Anti-Scleroderma-70 AB <0.2 AI (0.0-0.9); RNP Ab 1.5 AI (0.0-0.9); SJOGREN'S Anti-SS-A test < 0.2 AI (0.0-0.9); SJOGREN'S Anti-SS-B test < 0.2 AI (0.0-0.9); Smith Ab <0.2 AI (0.0-0.9)
[2022-06-28 15:08] LABS: Endomysial Antibody IgA Negative (Negative)
[2022-06-28 16:33] LABS: Anti-dsDNA Ab 1 IU/mL (0-9)
[2022-06-28 16:40] LABS: Immunoglobulin A 176 mg/dL (64-422); t-Transglutaminase IgA <2 U/mL (0-3)
[2022-07-02 01:07] LABS: Albumin 3.9 g/dL (2.9-4.4); Alpha-1-Globulins 0.2 g/dL (0.0-0.4); Alpha-2-Globulins 0.8 g/dL (0.4-1.0); Cytoplasmic Ab (C-ANCA) <1:20 titer (Neg:<1:20); Immunoglobulin A 172 mg/dL (64-422); Immunoglobulin E 24 IU/mL (6-495); Immunoglobulin G 890 mg/dL (586-1602); Immunoglobulin M 223 mg/dL (26-217)
[2022-07-03 19:46] LABS: Gastrin, Serum < 10 pg/mL (0-115); Perinuclear Ab (P-ANCA) <1:20 titer (Neg:<1:20)
== END | disposition home or self-care (01) ==
PROVIDERS: PCP Family Medicine; Referring Provider Internal Medicine Gastroenterology; Visit Provider Internal Medicine Gastroenterology
DX: R19.8 Other specified symptoms and signs involving the digestive system and abdomen (principal); R53.83 Other fatigue
CPT/HCPCS: 36415; 80053; 82784; 82785; 82941; 83516; 83615; 84165; 84439; 84443; 84481; 85025; 85652; 86140; 86225; 86235; 86255; 86256; 86334

== ENCOUNTER → 2022-06-28 | Outpatient (CLI) | payer MEDICARE, OTHER, SELFPAY ==
[2022-06-30 18:54] LABS: Calprotectin, Stool <16 ug/g (0-120); Fats, Neutral Increased (.); Fats, Total Increased (.)
[2022-07-01 14:46] LABS: Pancreatic Elastase, Fecal 229 (>200)
== END | disposition home or self-care (01) ==
LOC: LABSPEC 11:03
PROVIDERS: PCP Family Medicine; Visit Provider Internal Medicine Gastroenterology
DX: R19.8 Other specified symptoms and signs involving the digestive system and abdomen (principal); K58.9 Irritable bowel syndrome, unspecified; R19.7 Diarrhea, unspecified
CPT/HCPCS: 82653; 82705; 83630; 83993; 87177; 87209; 87329; 87493; 87506

== ENCOUNTER → 2022-07-04 | Outpatient (CLI) | payer MEDICARE, OTHER, SELFPAY ==
--- NOTE | 2022-07-04 12:46 | NM_ITS ---
CLINICAL: 77-year-old female with history of clinical gastroparesis. SEMI-SOLID PHASE 99m Tc SULFUR COLLOID GASTRIC EMPTYING STUDY COMPARISON: Prior semisolid phase gastric emptying study dated 08/09/2012 FINDINGS: The patient was administered 1.1 mCi of 99m Tc sulfur colloid mixed with oatmeal and consumed per os. Image acquisitions in the anterior-posterior projections were obtained for 66 minutes. There is prompt visualization of the stomach. There is no gastroesophageal reflux identified. The T ? raw data emptying was calculated to be 42.43 minutes, (Normal: 12-56 minutes) compared to 32.3 minutes defined on the examination dated 08/09/2012. NM/Gastric Emptying Study IMPRESSION: 1. NORMAL 99m Tc sulfur colloid semi-solid phase (oatmeal) gastric emptying imaging examination. A. There is normal and preserved semi-solid phase gastric emptying compared to normal controls. (Jeffrey et al, J Nucl Med Tech 38: 186, 2010). B. Compared to the semisolid phase gastric emptying study dated 08/09/2012, there is minimal interval change. Electronically Signed: Rj Kirkland, at 22:05 EST ,
== END | disposition home or self-care (01) ==
LOC: NM 12:46
PROVIDERS: PCP Family Medicine; Visit Provider Internal Medicine Gastroenterology
DX: K31.84 Gastroparesis (principal); R19.8 Other specified symptoms and signs involving the digestive system and abdomen
CPT/HCPCS: 78264; A9541

== ENCOUNTER → 2022-09-01 | Outpatient (CLI) | payer MEDICARE, OTHER, SELFPAY ==
--- NOTE | 2022-09-01 07:45 | ART_ITS ---
Reason For Study: PVD Procedure A bilateral lower extremity continuous wave Doppler with analog waveform analysis,segmental pressures,and ankle brachial indexes without exercise. Left Segmental Pressures Left brachial= 158mmHg. Left thigh = 146mmHg. Left calf = 154mmHg. Left posterior tibial artery = 146mmHg. Left dorsalis pedis artery = 139mmHg. Left digit = 99 mmHg. Right Segmental Pressures Right brachial= 152mmHg. Right calf = 82mmHg. Right posterior tibial artery = 69mmHg. Right dorsalis pedis artery = 74mmHg. Right digit = 51 mmHg. Indices The right ankle brachial index by the posterior tibial artery is 0.44. The right ankle brachial index by the dorsalis pedis is 0.47. The right digital-brachial index is 0.32. The left ankle brachial index by the posterior tibial artery is 0.92. The left ankle brachial index by the dorsalis pedis is 0.88. The left digital-brachial index is 0.63. VL/Lower Ext Art Exam w/o Exercis Interpretation Summary Abnormal right lower extremity posterior tibialis and dorsalis pedis ankle-brac hial indices at rest of 0.47 and 0.32 respectively consistent with severe disease. Known history of occluded right superficial femoral artery stent The right posterior tibial is monophasic consistent with severe disease and the dorsalis pedis is biphasic consistent with moderately severe disease. Left lower extremity posterior tibialis and dorsalis pedis ankle-brachial indic es at rest are 0.92 and 0.88 consistent with mild to moderate occlusive disease. Doppler waveforms remain triphasic. Findings suggest mild deterioration bilaterally since the previous examination of the December 01, 2019 Ordering Physician: Harsha Pabon Referring Physician: Reji Hdz Performed By: Haley Deluca RDCS/RVT
--- NOTE | 2022-09-01 07:45 | ADU_ITS ---
Reason For Study: PAD Right Velocities Left Velocities Ext. Iliac Artery, dist = 92 cm./sec. Ext Iliac Artery, dist = 136 cm./sec. Common Femoral Artery, mid = 184 cm./sec. Common Femoral Artery, mid = 136 cm./sec. Supf Femoral Artery, prox = 0 cm./sec. Supf. Femoral Artery, prox = 88 cm./sec. Supf Femoral Artery, mid = 0 cm./sec. Supf. Femoral Artery, mid = 138 cm./sec. Supf Femoral Artery, dist. = 46 cm./sec. Supf. Femoral Artery, dist = 85 cm./sec. Occluded stent prox-mid SFA, flow reconstitutes atProfunda Femoral Artery = 129 cm./sec. distal thigh. Popliteal Artery, mid = 64 cm./sec. Profunda Femoral Artery = 170 cm./sec. Ant.Tibial Artery, prox = 62 cm./sec. Popliteal Artery, mid = 32 cm./sec. Ant Tibial Artery, mid = 74 cm./sec. Ant. Tibial Artery, prox = 23 cm./sec. Ant. Tibial Artery, distal = 46 cm./sec. Ant. Tibial Artery, mid = 22 cm./sec. Post. Tibial Artery, prox = 71 cm./sec. Ant. Tibial Artery, dist = 24 cm./sec. Post Tibial Artery, mid = 79 cm./sec. Post. Tibial Artery, prox = 28 cm./sec. Post Tibial Artery, dist. = 58 cm./sec. Post. Tibial Artery, mid = 22 cm./sec. Peroneal Artery, prox = 48 cm./sec. Post. Tibial Artery, dist = 20 cm./sec. Peroneal Artery, mid = 45 cm./sec. Peroneal Artery, prox = 19 cm./sec. Peroneal Artery,dist. = 39 cm./sec. Peroneal Artery, mid = 15 cm./sec. Lt DPA: 57cm/s. Peroneal Artery,dist = 14 cm./sec. Rt DPA: 30cm/s. Procedure Exam performed in department. VL/US Art Duplex Bilat Lower Ext Interpretation Summary Patent right external iliac and common femoral arteries Occluded right superficial femoral artery with evidence of stent. Reconstituted flow noted in the distal right superficial femoral artery with foster bsequently markedly diminished flow volumes throughout the lower extremity. Based upon Doppler waveform analysis of the left lower extremity triphasic wave forms are noted throughout with mild spectral broadening consistent with 20 to 49% stenosis thr oughout. Findings are not felt to be clinically significant. Ordering Physician: Harsha Pabon Referring Physician: Reji Hdz Performed By: Haley Deluca, GIANA, RVT
== END | disposition home or self-care (01) ==
LOC: CVS 07:44
PROVIDERS: PCP Family Medicine; Referring Provider Surgery; Visit Provider Surgery
DX: I73.9 Peripheral vascular disease, unspecified (principal)
CPT/HCPCS: 93923; 93925

== ENCOUNTER → 2022-09-05 | Outpatient (CLI) | payer MEDICARE, OTHER, SELFPAY ==
[2022-09-05 11:18] LABS: BUN 12 mg/dL (7-18); Creatinine, Serum 0.82 mg/dL (0.55-1.02); EST Glomerular Filtration Rate 73 mL/min (>60); Est Glom Filt Rate - Afr Amer 88 mL/min (>60)
== END | disposition home or self-care (01) ==
LOC: LAB 09:11
PROVIDERS: PCP Family Medicine; Referring Provider Surgery; Visit Provider Surgery
DX: I73.9 Peripheral vascular disease, unspecified (principal)
CPT/HCPCS: 36415; 82565; 84520

== ENCOUNTER → 2022-09-22 | Outpatient (CLI) | payer MEDICARE, OTHER, SELFPAY ==
--- NOTE | 2022-09-22 08:12 | CT_ITS ---
STUDY: CTA OF THE ABDOMINAL AORTA AND BILATERAL LOWER EXTREMITIES REASON FOR EXAM: Female, 77 years old. PAD right greater than left lower extremity. History of prior stent placement in the right lower extremity. RADIATION DOSAGE (If Supplied By Facility): CTDIvol = ( 7.03 ) mGy, DLP = ( 962.15 ) mGycm TECHNIQUE: Axial CT angiography multi-detector data acquisition was obtained from the dome of the liver to the level of the ankles following intravenous administration of IV 100mL Isovue-370. Axial images and MIP images were reconstructed from the axial data set. Post-processing of the angiographic images was performed, with multiplanar reformation and 3D reconstruction. Individualized dose optimization techniques were used for this CT. TECHNICAL QUALITY: Good COMPARISON: None. Descriptors of Narrowing: None (0%) Mild (< 50%) Moderate (50-70%) Severe (70-90%) Subtotal/Total Occlusion (90-100%) Non-Evaluable (technically non-diagnostic FINDINGS: Large hiatal hernia. Coronary artery calcification. The patient is status post cholecystectomy. Fatty infiltration of the liver. There is a 3.3 cm x 2.8 cm cyst in the upper lateral midportion of the left kidney. Abdominal aorta: Atherosclerotic plaque formation of the abdominal aorta. Focal dilatation of the distal abdominal aorta with a transverse dimension of 1.8 cm. Ulcerated plaques seen along the right side of the distal abdominal aorta. Celiac and superior mesenteric arteries: Mild degree of calcific plaque at the origin of the celiac artery and superior mesenteric artery. Inferior mesenteric artery: Nonvisualization of the inferior mesenteric artery. Right renal artery(arteries): Calcific plaque at the origin of the right renal artery. Left renal artery(arteries): Calcific plaque at the origin of the left renal artery. Right common iliac artery: Nonstenotic calcific plaques. Right external iliac artery: Nonstenotic calcific plaques. Right internal iliac artery: No demonstrated narrowing. Left common iliac artery: Nonstenotic calcific plaques. Left external iliac artery: Nonstenotic calcific plaques. Left internal iliac artery: No demonstrated narrowing. RIGHT LOWER EXTREMITY Right common femoral artery: No demonstrated narrowing. Right profundus femoris: No demonstrated narrowing. Right superficial femoral: A stent is seen within the superficial femoral artery. There is occlusion of the distal portion of the right superficial femoral artery at the site of the stent formation. Right popliteal artery: No demonstrated narrowing. Right tibioperoneal trunk: No demonstrated narrowing. Right anterior tibial artery: The anterior tibial artery is not visualized. Right posterior tibial artery: Unremarkable. Right peroneal artery: No demonstrated narrowing. LEFT LOWER EXTREMITY Left common femoral artery: No demonstrated narrowing. Left profundus femoris: No demonstrated narrowing. Left superficial femoral: No demonstrated narrowing. Left popliteal artery: No demonstrated narrowing. Left tibioperoneal trunk: No demonstrated narrowing. Left anterior tibial artery: No demonstrated narrowing. Left posterior tibial artery: No demonstrated narrowing. Left peroneal artery: No demonstrated narrowing. CT/CTA Abd w/Runoff W/WO Contrast IMPRESSION: Occlusion of the distal portion of the right superficial femoral artery at the level of the stent. Two-vessel runoff in the right lower extremity. Three-vessel runoff in the left lower extremity. Electronically Signed: Roberto Carlos Carvalho MD at 13:38 EDT ,
--- NOTE | 2022-09-22 08:39 | VDLE_ITS ---
Reason For Study: PAD RIGHT LEFT GSV and SSV appear compressible throughout GSV and SSV appear compressible throughout with no intraluminal echogenicity noted. with no intraluminal echogenicity noted. GSV prox thigh - 0.31 x 0.35cm GSV prox thigh - 0.32 x 0.29cm GSV mid thigh - 0.31 x 0.32cm GSV mid thigh - 0.31 x 0.28cm GSV dist thigh - 0.30 x 0.34cm GSV dist thigh - 0.27 x 0.25cm GSV knee - 0.30 x 0.33cm GSV knee - 0.25 x 0.25cm GSV prox calf - 0.24 x 0.23cm GSV prox calf - 0.24 x 0.25cm GSV mid calf - 0.16 x 0.19cm GSV mid calf - 0.16 x 0.18cm GSV dist calf - 0.19 x 0.21cm GSV dist calf - 0.17 x 0.18cm GSV Superficial branch prox calf - 0.28 x SSV prox calf - 0.25 x 0.28cm 0.25cm SSV mid calf - 0.18 x 0.20cm GSV Superficial branch mid calf - 0.28 x SSV dist calf - 0.18 x 0.21cm. 0.34cm GSV Superficial branch dist calf - 0.29 x 0.32cm SSV prox calf - 0.22 x 0.23cm SSV mid calf - 0.24 x 0.25cm SSV dist calf - 0.25 x 0.28cm. Procedure This is a venous duplex of the great and small saphenous vein using B-mode. Exam performed in department. The exam was diagnostic. VL/Saphenous Vein Mapping, Bilat Interpretation Summary Exam performed in department Patent and compressible bilateral great and small saphenous veins with dimensio ns as noted. Branching of the right great saphenous vein in the calf. Ordering Physician: Harsha Pabon Referring Physician: Reji Hdz Performed By: Tino Bueno RVT
== END | disposition home or self-care (01) ==
LOC: CT 08:09
PROVIDERS: PCP Family Medicine; Referring Provider Surgery; Visit Provider Surgery
DX: I73.9 Peripheral vascular disease, unspecified (principal); I70.0 Atherosclerosis of aorta; M79.605 Pain in left leg
CPT/HCPCS: 75635; 93970; Q9967

== ENCOUNTER → 2023-02-14 | Outpatient (CLI) | payer MEDICARE, OTHER, SELFPAY ==
[2023-02-14 12:55] LABS: Anion Gap 3 (5-15); BUN 12 mg/dL (7-18); BUN/Creat Ratio 15.2 RATIO (10-20); Calcium,Total 8.8 mg/dL (8.5-10.1); Chloride 109 mmol/L (98-107); Cholesterol 166 mg/dL (200); Creatinine, Serum 0.79 mg/dL (0.55-1.02); EST Glomerular Filtration Rate 75 mL/min (>60); Est Glom Filt Rate - Afr Amer 91 mL/min (>60); Glucose 80 mg/dL (74-106); High Density Lipoprotein 67 mg/dL; Potassium 3.9 mmol/L (3.5-5.1); Sodium Level 140 mmol/L (136-145); Triglycerides 125 mg/dL; Very Low Density Lipoprotein 25 mg/dL (5-40)
== END | disposition home or self-care (01) ==
LOC: MFPLAB 09:55
PROVIDERS: PCP Family Medicine; Visit Provider Family Medicine
DX: Z00.00 Encounter for general adult medical examination without abnormal findings (principal); Z13.6 Encounter for screening for cardiovascular disorders
CPT/HCPCS: 36415; 80048; 80061

== ENCOUNTER → 2023-04-11 | Outpatient (CLI) | payer MEDICARE, OTHER, SELFPAY ==
--- NOTE | 2023-04-11 12:32 | MRI_ITS ---
EXAM: MR ABDOMEN WITHOUT INTRAVENOUS CONTRAST, MRCP PROTOCOL CLINICAL INDICATION: pancreatic insufficency TECHNIQUE: Multiplanar and multisequence MR images of the abdomen without intravenous contrast obtained with MRCP sequence. Three-dimensional post-processing reconstructions were performed. Magnetic field strength 1.5 T. COMPARISON: CT of the abdomen and pelvis 02/10/2022. FINDINGS: LOWER THORAX: Large hiatal hernia. No pleural effusion. LIVER: Unremarkable. Normal morphology. GALLBLADDER AND BILE DUCTS: Cholecystectomy. No intra- or extrahepatic biliary ductal dilation. No choledochal filling defect. PANCREAS: Pancreas divisum. No focal cystic mass. No pancreatic duct dilation. SPLEEN: Unremarkable. Non-enlarged. ADRENALS: Unremarkable. No nodules. KIDNEYS AND URETERS: Simple bilateral renal cysts. No follow-up of these simple cysts is necessary. Normal renal size and position. No hydronephrosis. STOMACH AND BOWEL: Numerous diverticula without diverticulitis. INTRAPERITONEAL SPACE: Unremarkable. No ascites or other fluid collection. VASCULATURE: Unremarkable. Abdominal aorta is non-dilated. LYMPH NODES: No enlarged lymph nodes. MRI/MRCP Abdomen without Contrast IMPRESSION: 1. Pancreas divisum. 2. Large hiatal hernia. 3. Cholecystectomy. 4. Numerous diverticula without diverticulitis. Electronically Signed: Reginald Andino MD at 2:26 EST ,
== END | disposition home or self-care (01) ==
PROVIDERS: PCP Family Medicine; Referring Provider Internal Medicine Gastroenterology; Visit Provider Internal Medicine Gastroenterology
DX: R19.8 Other specified symptoms and signs involving the digestive system and abdomen (principal)
CPT/HCPCS: 74181

== ENCOUNTER → 2023-05-17 | Outpatient (CLI) | payer MEDICARE, OTHER, SELFPAY ==
[2023-05-17 12:46] LABS: Absolute Neutrophil Count 5.1 X10^3/uL (2.0-7.7); Basophil# 0.05 X10^3/uL; Basophil% 0.7 % (0-1); Eosinophil# 0.16 X10^3/uL; Eosinophils% 2.3 % (0-5); Hemoglobin 14.1 g/dL (12.0-15.0); Lymphocyte % 15.7 % (19-41); Mean Corp Hgb Conc 30.7 g/dL (32-36); Mean Corpuscular Hgb 29.3 pg (27.0-32.0); Mean Corpuscular Volume 95.4 fL (81-99); Mean Platelet Vol. 9.9 fl (6.2-12.0); Monocyte# 0.53 X10^3/uL; Monocyte% 7.6 % (0-10); NRBC Flagged by Analyzer 0 % (0-5); Neutrophil # 5.11 X10^3/uL (2.7-7.7); Platelet Count 299 K/mm3 (150-450); RBC Distribution Width CV 13.1 % (11.6-14.6); RBC Distribution Width SD 46.3 fl (35.1-43.9); Red Blood Count 4.82 M/mm3 (4.2-5.4)
[2023-05-17 13:15] LABS: ALB/GLOB Ratio 0.9 RATIO (0.9-2.4); AST(SGOT) 14 U/L (15-37); Alanine Aminotransfer ALT/SGPT 19 U/L (13-56); Alkaline Phosphatase 90 U/L (45-117); Anion Gap 6 (5-15); BUN 12 mg/dL (7-18); BUN/Creat Ratio 17.6 RATIO (10-20); Calcium,Total 9.2 mg/dL (8.5-10.1); Chloride 108 mmol/L (98-107); Creatinine, Serum 0.68 mg/dL (0.55-1.02); EST Glomerular Filtration Rate 89 mL/min (>60); Est Glom Filt Rate - Afr Amer 108 mL/min (>60); Globulin 3.5 g/dL (2.2-4.2); Glucose 82 mg/dL (74-106); Potassium 3.9 mmol/L (3.5-5.1); Protein, Total 6.5 g/dL (6.4-8.2); Sodium Level 142 mmol/L (136-145)
== END | disposition home or self-care (01) ==
LOC: MFPLAB 10:28
PROVIDERS: PCP Family Medicine; Visit Provider Family Medicine
DX: R68.89 Other general symptoms and signs (principal); K58.9 Irritable bowel syndrome, unspecified
CPT/HCPCS: 36415; 80053; 85025

== ENCOUNTER → 2023-08-09 | Outpatient (CLI) | payer MEDICARE, OTHER, SELFPAY ==
--- NOTE | 2023-08-09 09:18 | CT_ITS ---
STUDY: CT ABDOMEN WITH CONTRAST REASON FOR EXAM: Female, 78 years old. Right-sided abdominal and back pain. History of kidney stones. RADIATION DOSAGE (If Supplied By Facility): CTDIvol = ( 13.93 ) mGy, DLP = ( 260.73 ) mGycm TECHNIQUE: Transaxial images were obtained post I.V. administration of IV 100mL Isovue-300, and with oral contrast. Sagittal and coronal images were reconstructed. Individualized dose optimization techniques were used for this CT. COMPARISON: Comparison is made with prior study dated February 10, 2022. FINDINGS: The visualized lung bases are unremarkable. Coronary artery calcification. Normal liver. Normal gallbladder and extrahepatic biliary system. Normal spleen. Normal pancreas. Normal bilateral adrenal glands. Nonobstructive 2 mm calculus in the upper pole calyx of the right kidney. There is a 2.9 cm x 3.1 cm cyst in the lateral midportion of the left kidney. There is a large hiatal hernia composed mostly of the fundus of the stomach. Normal small intestine. There are multiple colonic diverticula consistent with diverticulosis. There is non-visualization of the appendix. There is diffuse atherosclerotic calcification of the abdominal aorta and its major visceral branches., without a demonstrated aneurysm. Normal inferior vena cava. Normal retroperitoneum. Normal abdominal wall. There are degenerative changes of the visualized lumbar spine. Mild levoscoliosis. CT/Abdomen WITH IV Contrast IMPRESSION: Stable examination. Sigmoid diverticulosis. Electronically Signed: Roberto Carlos Carvalho MD at 15:18 EDT ,
[2023-08-09 09:51] LABS: CREATININE FINGERSTICK 1.1 mg/dL (0.55-1.02)
== END | disposition home or self-care (01) ==
PROVIDERS: PCP Family Medicine; Referring Provider Family Medicine; Visit Provider Family Medicine
DX: R10.9 Unspecified abdominal pain (principal)
CPT/HCPCS: 74160; Q9967

== ENCOUNTER → 2023-08-09 | Outpatient (CLI) | payer MEDICARE, OTHER, SELFPAY ==
[2023-08-09 09:15] LABS: Mucous, Urine 0 SEEN /hpf (<or=2+)
[2023-08-09 10:10] LABS: Absolute Lymphocyte Count 1.28 X10^3/uL (0.83-4.51); Absolute Neutrophil Count 4.5 X10^3/uL (2.0-7.7); Basophil# 0.05 X10^3/uL; Basophil% 0.7 % (0-1); Eosinophil# 0.18 X10^3/uL; Eosinophils% 2.7 % (0-5); Hematocrit 44.8 % (37-47); Hemoglobin 13.8 g/dL (12.0-15.0); Lymphocyte # 1.28 X10^3/ul (0.83-4.51); Mean Corp Hgb Conc 30.8 g/dL (32-36); Mean Corpuscular Hgb 28.6 pg (27.0-32.0); Mean Corpuscular Volume 92.8 fL (81-99); Mean Platelet Vol. 9.9 fl (6.2-12.0); Monocyte# 0.69 X10^3/uL; Monocyte% 10.3 % (0-10); NRBC Flagged by Analyzer 0 % (0-5); Neutrophil % 66.9 % (47-70); Platelet Count 290 K/mm3 (150-450); RBC Distribution Width CV 13.7 % (11.6-14.6); RBC Distribution Width SD 46.1 fl (35.1-43.9); Red Blood Count 4.83 M/mm3 (4.2-5.4); White Blood Count 6.7 K/mm3 (4.4-11.0)
[2023-08-09 10:30] LABS: Glucose, Dipstick Normal (Normal); Ketone-Dipstick Negative (Negative); Leukocyte Esterase-Dipstick 100 /ul (Negative); Nitrite-Dipstick Negative (Negative); Occult Blood-Urine 10 /ul (Negative); Protein-Dipstick 15 mg/dl (Negative); Urine Bilirubin Dipstick Negative (Negative); Urine Urobilinogen 1 mg/dl (Normal)
[2023-08-09 10:41] LABS: Color, Urine Yellow (Yellow); Urine Clarity Sl. Cloudy (Clear); White Blood Cells 5-10 SEEN /hpf (0-5)
[2023-08-09 10:42] LABS: Bacteria 1+ /hpf (None Seen); Calcium Oxalate Crystals Ur 2+ /hpf (<or=2+); Red Blood Cells-Urine 5-10 SEEN /hpf (0-5); Squamous Epithelial Cells - UA 10-25 SEEN /hpf (5-10)
--- OUTSIDE RECORDS SUMMARY | 2023-08-09 11:07 | XMS RPT_ITS | CCD ---
Author Name Unknown Address [address] [place] [address] Organization [facility] Care Team Providers Care Public Safety Officer Name Role Phone Nhan Massey MD Unavailable Alejandro Osorio DO Unavailable Linda Vázquez Unavailable Unavailable Linda Vázquez Unavailable Unavailable Harrell CRIMINOLOGY PROFESSOR, Myla Kathya Unavailable Unavaila ble Harrell CRIMINOLOGY PROFESSOR, Myla Kathya Unavailable Unavaila ble D'APONTE, TOVA Unavailable Unavailable MACHUCALENCHO R Unavailable Unavailable MACHUCA LENCHO R Unavailable Unavailable UNKNOWN, DOC Unavailable Unavailable UNKNOWN, DOC Unavailable Unavailable UNKNOWN, DOC Unavailable Unavailable UNKNOWN, DOC Unavailable Unavailable NATANAEL RAMIRES Unavailable Unavailable NATANAEL RAMIRES Unavailable Unavailable MACHUCALENCHO DAVIS R Unavailable Unavailable NATANAEL RAMIRES M Unavailable Unavailable RAMIRES, NATANAEL M Unavailable Unavailable MACHUCA, LENCHO R Unavailable Unavailable Allergies Allergy Classification Reported Allergen(s) Allergy Type Date of Onset Reaction(s) Facility (1 source) sulfacetamide drug allergy 8 [facility] Work Phone: (5 sources) sulfaSALAzine drug allergy 7 [facility] Work Phone: Medications Completed/Discontinued Medications Medication Drug Class(es) Dates Sig (Normalized) Sig (Original) calcium (5 sources) Phosphate Binder, Calcium Start: 09-07-2016 CALCIUM 600-400 MG-UNIT CHEW One tab daily CALCIUM CARB-CHOLECALCIFERO L [id number] Myla Caballero cholecalciferol (5 sources) Vitamin D Start: 09-07-2016 VITAMIN D-400 TABS One tab daily CHOLECALCIFEROL TABS [id number] Myla Montana Federico DULOXETINE HCL CPEP (6 sources) Serotonin and Norepinephrine Reuptake Inhibitor Start: 10-29-2017 CYMBALTA CPEP one tab daily DULOXETINE HCL CPEP [id number] Nhan Massey MD Problems Active Problems Problem Classification Problem Date Documented Date Episodic/Chronic Osteoarthritis (1 source) Osteoarthritis of ankle; Translations: [Post-traumatic osteoarthritis, right ankle and foot] Onset: 10-29-2017 10-29-2017 Chronic Osteoporosis (1 source) Disuse osteoporosis; Translations: [Other osteoporosis without current pathological fracture] Onset: 10-29-2017 10-29-2017 Chronic Other connective tissue disease (6 sources) Fibromyalgia; Translations: [Neuropathic pain] Onset: 09-28-2016 10-29-2017 Episodic Pulmonary heart disease (5 sources) Pulmonary hypertension; Translations: [Other secondary pulmonary hypertension] Onset: 09-28-2016 09-28-2016 Chronic Screening or history of mental health and substance abuse (5 sources) Tobacco dependence in remission; Translations: [Nicotine dependence, unspecified, in remission] Onset: 09-28-2016 09-28-2016 Chronic Unclassified (5 sources) Breathing-related sleep disorder; Translations: [Sleep apnea, unspecified] Onset: 09-28-2016 09-28-2016 Chronic Unclassified (1 source) Solitary pulmonary nodule / R91.1(ICD-10) Onset: 06-07-2017 Past or Other Problems Problem Classification Problem Date Documented Da te Episodic/Chronic Other circulatory disease (5 sources) Diastolic dysfunction; Translations: [Heart disease, unspecified] Onset: 09-28-2016 09-28-2016 Episodic Other lower respiratory disease (6 sources) Dyspnea; Translations: [Solitary pulmonary nodule] Onset: 09-28-2016 09-28-2016 Episodic Unclassified (1 source) Problem Results Test Name Value Interpretation Reference Range Facil ity Vital Signs Date Time Vital Sign Value Performing Clinician Facility 09-28-2016 09:36-0400 BMI (Body Mass Index) 24.56 kg/m2 Linda Vázquez [facility] Work Phone: 09-28-2016 09:36-0400 Body Temperature 97.6 [degF] Linda Vázquez [facility] Work Phone: 09-28-2016 09:36-0400 BP Diastolic 70 mm[Hg] Linda Gurpreet [facility] [place] Work Phone: 09-28-2016 09:36-0400 BP Systolic 140 mm[Hg] Linda Gurpreet [facility] Work Phone: 09-28-2016 09:36-0400 Height 154.94 cm Linda Gurpreet [facility] [place] Work Phone: 09-28-2016 09:36-0400 Pulse (Heart Rate) 85 /min Linda Gurpreet [facility] [place] Work Phone: 09-28-2016 09:36-0400 Pulse Oximetry 94 % Linda Gurpreet [facility] [place] Work Phone: 09-28-2016 09:36-0400 Respiratory Rate 18 /min Linda Gurpreet [facility] Work Phone: 09-28-2016 09:36-0400 Weight 58.97 kg Linda Gurpreet [facility] Work Phone: NEGATED: Highlighted [id number] 14:10-0400 BMI (Body Mass Index) 25.98 kg/m2 Luej Vázquez CRIMINOLOGY PROFESSOR [facility] Work Phone: NEGATED: Highlighted [id number] 14:10-0400 BP Diastolic 75 mm[Hg] Luej áVzquez CRIMINOLOGY PROFESSOR [facility] Work Phone: NEGATED: Highlighted [id number] 14:10-0400 BP Systolic 134 mm[Hg] Lu Vázquez CRIMINOLOGY PROFESSOR [facility] Work Phone: NEGATED: Highlighted [id number] 14:10-0400 Height 154.94 cm Luej Vázquez CRIMINOLOGY PROFESSOR [facility] Work Phone: NEGATED: Highlighted [id number] 14:10-0400 Height 155 cm Lu Vázquez [facility] Work Phone: NEGATED: Highlighted [id number] 14:100400 Pulse (Heart Rate) 85 /min Lu Vázquez CRIMINOLOGY PROFESSOR [facility] Work Phone: NEGATED: Highlighted [id number] 14:0 Weight 62.14 kg Lu Vázquez CRIMINOLOGY PROFESSOR [facility] Work Phone: NEGATED: Highlighted [id number] 14:0400 Weight 62 kg Lu Vázquez CRIMINOLOGY PROFESSOR [facility] Work Phone: Encounters Encounter Date Encounter Type Care Provider Facility Start: 10-29-2017 End: 10-29-2017 Patient encounter procedure Nhan Massey MD Work Phone: [facility] Work Phone: Start: 06-29-2017 Ambulatory NATANAEL Metz [facility] Start: 06-29-2017 Ambulatory NATANAEL Isaías [facility] Start: 06-07-2017 Ambulatory TOVA CREWS [facility] Start: 05-24-2017 Ambulatory DOC UNKNOWN [facility] Start: 05-10-2017 Ambulatory DOC UNKNOWN [facility] Procedures Date Procedure Procedure Detail Performing Clinician Start: 10-29-2017 End: 10-29-2017 AIRSESyntricityT ELITE (AIRCAST) Nhan Massey MD Work Phone: Start: 10-29-2017 End: 10-29-2017 Blood pressure within normal parameters - no follow-up required Nhan Massey MD Work Phone: Start: 10-29-2017 End: 10-29-2017 BMI outside of normal parameters - no follow-up plan/reason not given Nhan Massey MD Work Phone: Start: 10-29-2017 End: 10-29-2017 Current medications documented Nhan Massey MD Work Phone: Start: 10-29-2017 End: 10-29-2017 Osteoarthritis assess Nhan Massey MD Work Phone: Start: 10-29-2017 End: 10-29-2017 Pain assessment documented as positive - follow-up documented Nhan Massey MD Work Phone: Start: 10-29-2017 End: 10-29-2017 Tobacco non-user Nhan Massey MD Work Phone: Start: 09-28-2016 End: 10-06-2016 *VINCENT Alejandro Osorio DO Work Phone: Start: 09-28-2016 End: 10-06-2016 *ANCA Alejandro Osorio [employer] Work Phone: Start: 09-28-2016 End: 10-06-2016 Complete sleep workup (PSG,CPAP as indicated) & Follow up Alejandro M Devon [employer] Phone: Start: 09-28-2016 End: 10-06-2016 Cyclic citrullinated peptide antibody Alejandro Osorio DO Work Phone: Start: 09-28-2016 End: 10-06-2016 DMB Alejandro Osorio [employer] Work Phone: Start: 09-28-2016 End: 10-06-2016 Follow Up Appt 6 weeks Alejandro Osorio DO [employer] Phone: Start: 09-28-2016 End: 10-06-2016 Pulmonary Function Test - complete Alejandro Metz [employer] Phone: Start: 09-28-2016 End: 10-06-2016 Rheumatoid factor test Alejandro Osorio DO [employer] Phone: Start: 09-28-2016 End: 10-06-2016 Titration with Follow up (pt not on cpap) Alejandro Metz [employer] Work Phone: Plan of Treatment Date Care Activity Detail Author Start: 10-29-2017 End: 10-29-2017 Appointment Appointment [facility] Work Phone: Start: 10-29-2017 End: 10-29-2017 Assay of protein, serum Protein - total; except by refractometry; serum or plasma or whole blood [facility] Work Phone: Start: 10-29-2017 End: 10-29-2017 Assay of vitamin D 25-hydroxyvitamin D [facility] Work Phone: Start: 10-29-2017 End: 10-29-2017 Ct lower extremity w/o dye CT right ankle without contrast [facility] Work Phone: Start: 10-29-2017 End: 10-29-2017 Dxa bone density, axial DXA - standard order of spine and hip; axial skeleton 1 + views [facility] Work Phone: Start: 10-29-2017 End: 10-29-2017 X-ray exam of ankle XR ANKLE 3 VWS-RT [facility] Work Phone: Start: 10-29-2017 End: 10-29-2017 X-ray exam of foot XR FOOT 3+ VWS-RT [facility] Work Phone: Start: 11-08-2016 End: 11-08-2016 Appointment Appointment [facility] Work Phone: Start: 09-28-2016 End: 09-28-2016 Appointment Appointment [facility] Work Phone: Start: 09-28-2016 End: 10-06-2016 *VINCENT *VINCENT [facility] Work Phone: Start: 09-28-2016 End: 10-06-2016 *ANCA *ANCA [facility] [place] Work Phone: Start: 09-28-2016 End: 10-06-2016 Complete sleep workup (PSG,CPAP as indicated) & Follow up Complete sleep workup (PSG,CPAP as indicated) & Follow up [facility] Work Phone: Start: 09-28-2016 End: 10-06-2016 Cyclic citrullinated peptide antibody *ANTICCP - CCP Antibody [facility] Work Phone: Start: 09-28-2016 End: 10-06-2016 DMB DMB [facility] Work Phone: Start: 09-28-2016 End: 10-06-2016 Follow Up Appt 6 weeks Follow Up Appt 6 weeks [facility] [place] Work Phone: Start: 09-28-2016 End: 10-06-2016 Pulmonary Function Test - complete Pulmonary Function Test - complete [facility] Work Phone: Start: 09-28-2016 End: 10-06-2016 Rheumatoid factor test *Rheumatoid Factor (qualiative) [facility] Work Phone: Start: 09-28-2016 End: 10-06-2016 Titration with Follow up (pt not on cpap) Titration with Follow up (pt not on cpap) [facility] Work Phone: Immunizations Immunization Date Immunization Notes Care Provider Nehemiah ceja No information available. Lu Vázquez LPN [facility] Work Phone: Payers Date Payer Category Payer Medicare [id number] Social History Date Type Detail Facility NEGATED: Highlighted rowStart: 10-29-2017 End: 10-29-2017 Alcohol use ETOH USE No [facility] Work Phone: NEGATED: Highlighted rowStart: 10-29-2017 End: 10-29-2017 Details of drug misuse behavior DRUG USE No [facility] Work Phone: NEGATED: Highlighted rowStart: 10-29-2017 End: 10-29-2017 Assertion Former smoker [facility] Work Phone: Progress note 09-15-2020 Note Date & Type Note Facility 09-15-2020 Note HNO ID: [id number] Author: Perfecto Melara Service: ? Author Type: Physician Type: Progress Notes Filed: 09/15/2020 1:04 PM Note Text: Racquel Wright is a 75 year old White female who presents with complaints of hiatal hernia. She has had this for years. Although it is getting larger. She does have epigastric and right upper quadrant pain she denies any heartburn symptoms and is not on a PPI. She does have early satiety and occasional shortness of breath. She also reports some voice changes and some nausea. She did have a gastric emptying study in the past which was normal. Back in 2012 she did have a EGD and was found of Lehman's esophagus. She is on prednisone for her fibromyalgia symptoms. PAST MEDICAL HISTORY Diagnosis Date - Adrenal nodule 06/20/[address] - Lehman's esophagus without dysplasia 08/21/2012 - Cholecystitis 05/27/2012 lap cholecystectomy May 2012 - Depressive disorder, not elsewhere classified remote - Diarrhea - Disorder of bone and cartilage, unspecified - Fibromyalgia 10/06/2014 Dr. Jade Hi, rheumatology. - Hiatal hernia 11/13/2016 large - History of colonic polyps 05/31/2012 - History of rectal polyps 2013 - HYPERLIPIDEMIA 01/22/2006 - Localized osteoarthrosis not specified whether primary or secondary, ankle and foot 03/24/2008 Right ankle - Lumbar spondylosis 06/30/2013 - Other psoriasis Ears, Dr. Shaver. - Other specified disorders of parathyroid gland (HCC) 11/17/2008 - PAD (peripheral artery disease) ([facility]) 11/13/2013 - Psoriatic arthropathy ([facility]) 10/06/2014 Dr. Jade Hi, rheumatology - Syncope and collapse Vasovagal - Tear film insufficiency, unspecified Dr. Marin - Tobacco use disorder 01/22/2006 PAST SURGICAL HISTORY Procedure Laterality Date - COLONOSCOP W/ OR W/O BRSH SPEC 03/19/2014 - COLONOSCOPY W/BX 05/31/2012 - DANDC, DIAG AND/OR THERAPEUTIC 1990s - EGD W/O BRSH SPECIMEN W/BX 08/01/2012 Lehman's without dysplasia; Dr. Vazquez - EGD W/O BRSH SPECIMEN W/BX 11/13/2016 lg paraesophageal hernia; Dr. Vazquez - EGD W/O OR W/BRUSH/WASH 03/19/2014 - EGD W/O OR W/BRUSH/WASH 04/08/2014 - ESOPH W/O BRSH SPEC BALLOON DIL 04/15/2014 Esophageal dilatation - INCISE EXTERNAL HEMORRHOID 2003 - LAPAROSCOPIC CHOLEYCYSTECTOMY 06/13/2012 - TOTAL ABDOM HYSTERECTOMY 1990s Hysterectomy, NAZARIO BSO bleeding appendectomy Social History Tobacco Use - Smoking status: Former Smoker Packs/day: 1.00 Years: 45.00 Pack years: 45.00 Types: Cigarettes Quit date: 08/11/2012 Years since quittin.1 - Smokeless tobacco: Never Used Substance Use Topics - Alcohol use: Yes Comment: 1/week - Drug use: No FAMILY HISTORY Problem Relation Age of Onset - Cancer Father stomach - Diabetes Father - Ischemic Heart Disease Father post surgery. - None Mother alive age 89, no medical attention - Stroke Father - Stroke Maternal Grandmother ALLERGIES Allergen Reactions - Amitriptyline Other: See Comments Intensified the pain,nervous. - Gabapentin GI Upset, Other: See Comments Dizziness and nausea - Prozac [Fluoxetine * Mental Status Change Apathic. flat line feeling - Sulfa (Sulfonamide * Hives Current Outpatient Medications Medication Sig - ferrous sulfate (FEOSOL) 325 mg (65 mg iron) tablet Take 325 mg by mouth twice daily. - predniSONE (DELTASONE) 5 mg tablet Take 2.5 mg by mouth once daily. Per Dr. Gray. - Cholecalciferol, Vitamin D3, 2,000 unit cap Take 10,000 tablets by mouth once daily. - benzonatate (TESSALON PERLES) 100 mg capsule Take 1 capsule by mouth three times daily as needed. - DULoxetine (CYMBALTA) 30 mg capsule Take 30 mg by mouth once daily. (Patient not taking: Reported on 09/15/2020 ) - pantoprazole DR (PROTONIX) 20 mg tablet Take 20 mg by mouth twice daily. (Patient not taking: Reported on 09/15/2020 ) - temazepam (RESTORIL) 15 mg cap Take 1 capsule by mouth at bedtime as needed (insomnia). (Patient not taking: Reported on 09/15/2020) - Calcium Citrate-Vitamin D2 250-100 mg-unit tab Take 2 tablets by mouth twice daily. No current facility-administered medications for this visit. REVIEW OF SYSTEMS PAIN ASSESSMENT: Negative for pain, history of chronic pain, or current treatment for a chronic pain condition. GENERAL: No weight loss, malaise or fevers NECK: Negative for lumps, goiter, pain and significant neck swelling RESPIRATORY: Negative for cough, hemoptysis, wheezing, COPD, dyspnea or shortness of breath CARDIOVASCULAR: Negative for chest pain, leg swelling, hypertension, CHF or palpitations GI: No nausea, vomiting, or diarrhea and See HPI : No history of dysuria, frequency or incontinence MUSCULOSKELETAL: Negative for joint pain or swelling, back pain or muscle pain HEMATOLOGY/LYMPHOLOGY: Negative for prolonged bleeding, bruising easily or swollen nodes ENDOCRINE: Negative for cold or heat intoler (more content not included)... [facility] Progress note 09-15-2020 Note Date & Type Note Facility 09-15-2020 Note HNO ID: [id number] Author: Deborah March RN Service: ? Author Type: Nurse Clinician Type: Progress Notes Filed: 09/15/2020 1:04 PM Note Text: Patient given written information about esophageal manometry and the prep instructions. I verbally discussed and reviewed the information with the patient. All of patient's questions were answered. Deborah March RN [facility] Instructions Instruction Description Start Date Completed Advance Directives There may be information available, but it has not been provided by the sender. No Advanced Directives Records FoundNo Advanced Directives Records Found Assessments There may be information available, but it has not been provided by the sender. Review of System There may be information available, but it has not been provided by the sender. Family History There may be information available, but it has not been provided by the sender.No Family History Records FoundNo Family History Records Found Summary Purpose Additional Source Comments INFORMATION SOURCE (unrecogn ized section and content) DATE CREATED AUTHOR AUTHOR'S ORGANIZ ATION 07/08/2021 [facility] FOR RECORDS PERTAINING TO PATIENTS WHO ARE OR HAVE BEEN ENROLLED IN A CHEMICAL DEPENDENCY/SUBSTANCEABUSE PROGRAM, SOME INFORMATION MAY BE OMITTED. This clinical summary was aggregated from multiple sources. Caution should be exercised in using it in the provision of clinical care. This summary normalizes information from multiple sources, and as a consequence, information in this document may materially change the coding, format and clinical context of patient data. In addition, data may be omitted in some cases. CLINICAL DECISIONS SHOULD BE BASED ON THE PRIMARY CLINICAL RECORDS. [employer] provides no warranty or guarantee of the accuracy or completeness of information in this document.
[2023-08-09 11:14] LABS: ALB/GLOB Ratio 0.7 RATIO (0.9-2.4); AST(SGOT) 13 U/L (15-37); Alanine Aminotransfer ALT/SGPT 14 U/L (13-56); Albumin, Serum 3.1 g/dL (3.2-5.0); Alkaline Phosphatase 89 U/L (45-117); Anion Gap 6 (5-15); BUN 12 mg/dL (7-18); Calcium,Total 9.4 mg/dL (8.5-10.1); Chloride 108 mmol/L (98-107); Creatinine, Serum 0.75 mg/dL (0.55-1.02); EST Glomerular Filtration Rate 80 mL/min (>60); Est Glom Filt Rate - Afr Amer 96 mL/min (>60); Globulin 4.2 g/dL (2.2-4.2); Glucose 80 mg/dL (74-106); Lipase 48 U/L (13-75); Potassium 3.7 mmol/L (3.5-5.1); Protein, Total 7.3 g/dL (6.4-8.2); Sodium Level 141 mmol/L (136-145)
== END | disposition home or self-care (01) ==
LOC: MFPLAB 09:13
PROVIDERS: PCP Family Medicine; Visit Provider Family Medicine
DX: R10.9 Unspecified abdominal pain (principal)
CPT/HCPCS: 36415; 80053; 81001; 83690; 85025

== ENCOUNTER → 2023-10-24 | Outpatient (CLI) | payer MEDICARE, OTHER, SELFPAY ==
--- NOTE | 2023-10-24 15:11 | SP.MBSS_ITS ---
Modified Barium Swallow Patient Information Study Date: 10/24/23 Study Time: 13:00 Direct Billable Minutes: 99 Total Minutes procedure & reportin Diagnosis: Dysphagia R13.10 Referring Physician: Reji Hdz Reason for Referral: Objectively assess swallow function, assess risk for aspiration, and determine recommendations for least restrictive diet textures and compensatory strategies to improve safety of swallow. Medical History: PMH: Abdominal pain, Acute blood loss anemia, Acute bronchitis, Arthritis, COPD, Fatigue, Fibromyalgia, GERD, Hemmorrhoids, Pulmonary HTN, Upper GI bleed, URI, History of esophageal dilatation, History of esophagogastroduodenoscopy (EGD) - See EMR for full PMH. Patient was referred for MBSS by PCP due to patient's trouble swallowing characterized by sensation of a lump in her throat. She informed MATH INTERVENTIONIST she has a large hiatal hernia. Per patient, her physician suspects the hiatal hernia is the cause of her dysphagia, but her physician would like to determine if she has any additional swallowing deficits with an MBSS. Current Diet Ordered: Regular textures / Thin liquids Dentition: Missing Teeth Mental Status: WNL Respiratory Status: Oxygenating on Room Air Penetration-Aspiration Scale Penetration-Aspiration Scale: OBJECTIVE ASSESSMENT OF SWALLOW FUNCTION (QUANTITATIVE ? PER TRIAL): PENETRATION / ASPIRATION SCALE (QUESADA): 1 = does not enter airway 2 = enters airway/above vocal folds/ejected 3 = enters airway/above vocal folds/not ejected 4 = enters airway/contacts vocal folds/ejected 5 = enters airway/contacts vocal folds/not ejected 6 = enters airway/below vocal folds/ejected 7 = enters airway/below vocal folds/not ejected despite effort 8 = enters airway/below vocal folds/no effort VIDEOFLOROSCOPIC SCALE SCORE (QUESADA): Grade I = aspiration of material that has penetrated into the laryngeal vestibule, intact cough reflex Grade II = aspiration < 10 % of the bolus, intact cough reflex Grade III = aspiration of < 10 % of the bolus, reduced cough reflex or aspiration of > 10 % of the bolus, intact cough reflex Grade IV = aspiration of > 10 % of the bolus, reduced cough reflex Penetration-Aspiration Scale Score Thin Liquid via teaspoon: Result: 1= does not enter airway Thin Liquid via teaspoon Trial 2: Result: 1= does not enter airway Thin Liquid via large single sip: cup: Result: 1= does not enter airway Pudding via teaspoon: Result: 1= does not enter airway 1/2 Cookie: Result: 1= does not enter airway Thin Liquid via sequential sips:straw: Result: 1= does not enter airway Oral Phase Labial Seal: No Labial Escape Tongue Control During Bolus Hold: Posterior escape of greater than half of bolus (sequential thin) Bolus Preparation/Mastication: Slow prolonged chewing/mashing with complete recollection Oral Residue: Residue collection on oral structures Pharyngeal Phase Initiation of Pharyngeal Swallow: Bolus head in pyriforms Soft Palate Elevation: Trace column of contrast/air between soft palate and pharyngeal wall Laryngeal Elevation: Comp. Superior move thyroid cart w/comp. apprx arytenoid cart-epig pet Anterior Hyoid Excursion: Partial anterior movement Epiglottic Movement: Complete inversion Laryngeal Vestibule Closure at Height of Swallow: Incomplete; narrow column of air/contrast in laryngeal vestibule Pharyngeal Stripping Wave: Present - complete Pharyngoesophageal Segment Opening: Complete distension and complete duration; no obstruction of flow Tongue Base Retraction: Trace column of contrast between tongue base & post. pharyngeal wall Pharyngeal Residue: Trace residue within or on pharyngeal structures Esophageal Phase Esophageal Clearance: Esophageal retention Diagnosis/Impression Diagnosis: Esophageal dysphagia R13.14 Impression: Oropharyngeal swallow function grossly WNL. Prolonged, but complete mastication. Piecemeal deglutition of pudding and cookie with complete oral clearance with independent initiation of second swallows as needed to clear the bolus. Decreased anterior hyoid excursion; however, complete laryngeal elevation. Trace laryngeal penetration of thin liquids by straw with full ejection. No aspiration observed. The esophageal phase is primarily marked by... -Large hiatal hernia with retention of barium seen during esophageal screens of thin by cup, pudding by tsp, and cookie coated in barium, which the MATH INTERVENTIONIST reviewed and confirmed with radiologist, Dr. Carvalho. Recommendations Diet: Regular Textures (Moisten dry textures) and Thin Liquids Comment: 4-5 smaller meals per day as compared to 3 larger meals. If sensation of retention, reflux, or regurgitation - STOP meal and resume at a later time. Compensatory Strategies: Small Bites, Small Sips, Slow Rate, Alternate bites/solids and sips/liquids, Sitting upright and Remain sitting upright for 30 minutes after PO intake Recommend Repeat Modified Barium Swallow: No Need for Skilled Speech Therapy Services: No Recommended Referrals: GI Consult Education Completed: 1. Described result of evaluation. and 5. Patient demonstrates recommended strategies. Status Active ST Patient: Active Contact Information [facility]:: Angelique Jordan M.A. CCC-MATH INTERVENTIONIST? Speech-Language Pathologist?? [place] [address]?? [place] [address]?? [email or web address]?? [phone]
== END | disposition home or self-care (01) ==
LOC: RAD 12:48
PROVIDERS: PCP Family Medicine; Referring Provider Family Medicine; Visit Provider Family Medicine
DX: R13.10 Dysphagia, unspecified (principal)
CPT/HCPCS: 74230; 92611

== ENCOUNTER → 2024-02-05 | Outpatient (CLI) | payer MEDICARE, OTHER, SELFPAY ==
[2024-02-05 11:12] LABS: ALB/GLOB Ratio 0.9 RATIO (0.9-2.4); AST(SGOT) 16 U/L (15-37); Alanine Aminotransfer ALT/SGPT 15 U/L (13-56); Albumin, Serum 3.4 g/dL (3.2-5.0); Alkaline Phosphatase 89 U/L (45-117); Anion Gap 5 (5-15); BUN 15 mg/dL (7-18); BUN/Creat Ratio 19.2 RATIO (10-20); Calcium,Total 9.5 mg/dL (8.5-10.1); Chloride 106 mmol/L (98-107); Cholesterol 180 mg/dL (200); Creatinine, Serum 0.78 mg/dL (0.55-1.02); EST Glomerular Filtration Rate 76 mL/min (>60); Est Glom Filt Rate - Afr Amer 92 mL/min (>60); Globulin 3.7 g/dL (2.2-4.2); Glucose 87 mg/dL (74-106); High Density Lipoprotein 80 mg/dL; Potassium 3.8 mmol/L (3.5-5.1); Protein, Total 7.1 g/dL (6.4-8.2); Sodium Level 139 mmol/L (136-145); Triglycerides 77 mg/dL; Very Low Density Lipoprotein 15 mg/dL (5-40)
== END | disposition home or self-care (01) ==
PROVIDERS: PCP Family Medicine; Visit Provider Family Medicine
DX: I10 Essential (primary) hypertension (principal); I73.9 Peripheral vascular disease, unspecified
CPT/HCPCS: 36415; 80053; 80061

== ENCOUNTER → 2024-07-09 | Outpatient (CLI) | payer MEDICARE, SELFPAY ==
--- NOTE | 2024-07-09 16:53 | RAD_ITS ---
PROCEDURE: CHEST PA AND LATERAL REASON FOR EXAM: Shortness of breath, COPD TECHNIQUE: Single frontal image including the chest and abdomen. COMPARISON: None. FINDINGS: Heart size is within normal limits. Large hiatal hernia. Emphysema. No focal consolidation, pleural effusion or pneumothorax. RAD/Chest PA and Lateral IMPRESSION: 1. No acute airspace abnormality. 2. Large hiatal hernia. 3. Emphysema. Reading Location: [facility]
[2024-07-09 18:03] LABS: Absolute Lymphocyte Count 1.67 X10^3/uL (0.83-4.51); Absolute Neutrophil Count 4.7 X10^3/uL (2.0-7.7); Basophil# 0.04 X10^3/uL; Basophil% 0.6 % (0-1); Eosinophil# 0.21 X10^3/uL; Eosinophils% 2.9 % (0-5); Hematocrit 50.2 % (37-47); Hemoglobin 15.5 g/dL (12.0-15.0); Lymphocyte # 1.67 X10^3/ul (0.83-4.51); Mean Corp Hgb Conc 30.9 g/dL (32-36); Mean Corpuscular Hgb 29.1 pg (27.0-32.0); Mean Corpuscular Volume 94.2 fL (81-99); Mean Platelet Vol. 10.7 fl (6.2-12.0); Monocyte% 8.3 % (0-10); NRBC Flagged by Analyzer 0 % (0-5); Neutrophil # 4.72 X10^3/uL (2.7-7.7); Neutrophil % 64.9 % (47-70); Platelet Count 245 K/mm3 (150-450); RBC Distribution Width CV 13.8 % (11.6-14.6); RBC Distribution Width SD 47.5 fl (35.1-43.9); Red Blood Count 5.33 M/mm3 (4.2-5.4); White Blood Count 7.3 K/mm3 (4.4-11.0)
[2024-07-09 18:18] LABS: Anion Gap 7 (5-15); BUN 12 mg/dL (7-18); BUN/Creat Ratio 14.9 RATIO (10-20); Calcium,Total 9.6 mg/dL (8.5-10.1); Chloride 107 mmol/L (98-107); Creatinine, Serum 0.81 mg/dL (0.55-1.02); EST Glomerular Filtration Rate 73 mL/min (>60); Est Glom Filt Rate - Afr Amer 89 mL/min (>60); Glucose 92 mg/dL (74-106); Potassium 3.7 mmol/L (3.5-5.1); Sodium Level 139 mmol/L (136-145); Troponin-I HS 18 pg/mL (3.0-54.0)
== END | disposition home or self-care (01) ==
LOC: MTLAB 16:51
PROVIDERS: PCP Family Medicine; Referring Provider Family Medicine; Visit Provider Family Medicine
DX: R07.89 Other chest pain (principal); J44.9 Chronic obstructive pulmonary disease, unspecified
CPT/HCPCS: 36415; 71046; 80048; 84484; 85025

== ENCOUNTER → 2024-10-22 | Outpatient (CLI) | payer MEDICARE, SELFPAY ==
--- NOTE | 2024-10-22 14:40 | RAD_ITS ---
PROCEDURE: CHEST PA AND LATERAL 10/22/2024 REASON FOR EXAM: COPD TECHNIQUE: Frontal and lateral views of the chest. COMPARISON: 07/09/2024 FINDINGS: The lungs appear clear. Pulmonary vascularity appears within limits. No pleural effusion. Appearance of pulmonary emphysema and hyperinflation again noted. Very large hiatal hernia again seen. Cardiac silhouette appears within limits for size. Atherosclerotic change of the aortic arch again noted. Leftward thoracolumbar scoliosis. RAD/Chest PA and Lateral IMPRESSION: No evidence of acute disease. Appearance of pulmonary emphysema and hyperinflation again noted. Very large hiatal hernia again seen. Reading Location: [id number]
[2024-10-22 17:52] LABS: Absolute Neutrophil Count 7.2 X10^3/uL (2.0-7.7); Basophil# 0.05 X10^3/uL; Basophil% 0.5 % (0-1); Hematocrit 45.9 % (37-47); Hemoglobin 14.5 g/dL (12.0-15.0); Lymphocyte % 17.2 % (19-41); Mean Corp Hgb Conc 31.6 g/dL (32-36); Mean Corpuscular Hgb 29.9 pg (27.0-32.0); Mean Corpuscular Volume 94.6 fL (81-99); Mean Platelet Vol. 10.3 fl (6.2-12.0); Monocyte# 0.72 X10^3/uL; Monocyte% 7.3 % (0-10); NRBC Flagged by Analyzer 0 % (0-5); Neutrophil # 7.16 X10^3/uL (2.7-7.7); Neutrophil % 72.7 % (47-70); Platelet Count 247 K/mm3 (150-450); RBC Distribution Width SD 48.9 fl (35.1-43.9); Red Blood Count 4.85 M/mm3 (4.2-5.4); White Blood Count 9.9 K/mm3 (4.4-11.0)
[2024-10-22 18:26] LABS: Anion Gap 12 (5-15); BUN 16 mg/dL (4-19); Calcium,Total 9.8 mg/dL (7.6-11.0); Carbon Dioxide 22.3 mmol/L (21.0-32.0); Chloride 107 mmol/L (98-108); Creatinine, Serum 0.71 mg/dL (0.70-1.20); EST Glomerular Filtration Rate 88 (>60); Glucose 82 mg/dL (70-99); Potassium 3.9 mmol/L (3.3-5.1); Sodium Level 142 mmol/L (133-145)
== END | disposition home or self-care (01) ==
PROVIDERS: PCP Family Medicine; Referring Provider Family Medicine; Visit Provider Family Medicine
DX: J44.9 Chronic obstructive pulmonary disease, unspecified (principal)
CPT/HCPCS: 36415; 71046; 80048; 85025

== ENCOUNTER → 2024-12-12 | Outpatient (CLI) | payer MEDICARE, SELFPAY ==
[2024-12-12 12:09] LABS: AST(SGOT) 17 U/L (<=31); Alanine Aminotransfer ALT/SGPT 11 U/L (<=34); Albumin, Serum 4.2 g/dL (3.4-4.8); Alkaline Phosphatase 80 U/L (35-104); Anion Gap 11 (5-15); BUN 21 mg/dL (4-19); BUN/Creat Ratio 15.5 RATIO (10-20); Calcium,Total 9.6 mg/dL (7.6-11.0); Carbon Dioxide 24.6 mmol/L (21.0-32.0); Chloride 106 mmol/L (98-108); Cholesterol 182 mg/dL (<=200); Globulin 2.9 g/dL (2.2-4.2); Glucose 75 mg/dL (70-99); Low Density Lipoprotein Calc. 92 mg/dL; Potassium 4.1 mmol/L (3.3-5.1); Triglycerides 95 mg/dL; Uric Acid 3.9 mg/dL (2.6-6.0); Very Low Density Lipoprotein 19 mg/dL (5-40); cholesterol:hdl ratio screen 2.57
== END | disposition home or self-care (01) ==
LOC: MTLAB 07:54
PROVIDERS: PCP Family Medicine; Referring Provider Family Medicine; Visit Provider Family Medicine
DX: I10 Essential (primary) hypertension (principal); M10.9 Gout, unspecified
CPT/HCPCS: 36415; 80053; 80061; 84550

== ENCOUNTER 2025-02-04 09:41 | Emergency (ER) | payer MEDICARE, SELFPAY ==
[2025-02-04 09:42] VITALS: BP 165/76; PULSE 87; RESP 16; TEMP 36.3; O2SAT 100
--- NOTE | 2025-02-04 09:48 | ED.VIS.LOWEX ---
HPI History of Present Illness HPI Narrative: Patient presents with redness, swelling, and pain to her left foot and ankle that has been getting worse over the past 2 months. Patient states she had a recent cortisone injection which helped. Patient states she feels that it started to wear off. Patient states her pain is constant. Patient describes it as burning. Patient states it is worse with any weightbearing. Patient denies any trauma or injury. Patient denies any paresthesias or weakness. Patient denies any fevers or chills. Patient states she has an appointment with [facility] in 10 days. Patient states she was seen by a diesel pile hammer operator in [place] recently for this. Patient states that that diesel pile hammer operator did not help her in any way. Chief Complaint: Lower Extremity Injury Informant: patient Onset/Context/Timing Onset: Month(s) (2) Context: Gradual Onset Timing: Continuous Quality of Pain: Burning Location: Left foot and ankle Worsened by: Weightbearing Relieved by: Nothing PFSH PFSH Medical History (Updated 02/04/25 @ 12:[address] 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 Left leg pain Acute bronchitis, unspecified URI (upper respiratory infection) Abdominal pain Nausea Vitamin D deficiency Bilateral leg weakness Anxiety GERD (gastroesophageal reflux disease) Osteoporosis COPD (chronic obstructive pulmonary disease) Anemia PAD (peripheral artery disease) Abnormal mammogram of left breast Pulmonary nodule Hemorrhoids Fatigue Arthritis Back problem Abnormal mammogram Peripheral neuropathy Fibromyalgia Pulmonary HTN Insomnia Acute blood loss anemia Upper GI bleed Home Medications ?Medication ?Instructions ?Recorded ?Last Taken ?Type aspirin 81 mg tablet,delayed 81 mg PO DAILY PRN 09/05/22 Unknown History release (Adult Low Dose Aspirin) losartan 50 mg tablet 50 mg PO QDAY 08/26/24 Unknown History amoxicillin 875 mg-potassium 875 mg PO Q12H #20 TABLETS 02/04/25 Unknown Rx clavulanate 125 mg tablet meloxicam 15 mg tablet 15 mg PO DAILY #20 tabs 02/04/25 Unknown Rx Allergy/AdvReac Type Severity Reaction Status Date / Time Sulfa (Sulfonamide Allergy Hives Verified 02/04/25 09:43 Antibiotics) ibandronate sodium (From AdvReac Intermediate PT UNSURE Verified 02/04/25 09:43 Boniva) OF REACTION Family History Father Stomach cancer Diabetes Heart disease CVA (cerebral vascular accident) Mother Hypertension Surgical History (Updated 08/27/24 @ 07:59 by DEVORA Skaggs) History of cholecystectomy History of angioplasty Hx of colonoscopy History of esophageal dilatation History of esophagogastroduodenoscopy (EGD) History of hysterectomy History bilateral cataract surgey History of laparoscopic cholecystectomy Social History Smoking Status: Former smoker quit date: 05/28/11 second hand exposure: No alcohol intake: current alcohol intake frequency: a few times a month substance use type: does not use caffeine: Yes frequency: 1-2 times per week ROS ROS ED Constitutional Constitutional ED: Denies chills or fever(s) Eyes Eyes: Denies blurry vision or change in vision ENT ENT ED: Denies rhinorrhea or sore throat Cardiovascular Cardiovascular: Denies chest pain or palpitations Respiratory/Chest Respiratory/Chest: Denies cough or dyspnea Gastrointestinal Gastrointestinal: Denies nausea or vomiting Genitourinary Genitourinary ED: Denies dysuria or hematuria Musculoskeletal Musculoskeletal: Denies back pain or neck pain Integumentary Denies abscess or rash Neurologic Neurologic: Denies headache(s) or weakness Allergic/Immunologic Allergic/Immunologic ED: Denies mouth swelling or urticaria EXAM Physical Exam Const Vital Signs: 02/04/25 09:42 Temperature 97.4 F L Temperature Source Temporal Pulse Rate 87 Respiratory Rate 16 Blood Pressure 165/76 H Blood Pressure Mean 105 Pulse Ox 100 Oxygen Delivery Method Room Air Positive well nourished and well developed General Appearance ED: well developed and NAD HEENT Reports moist mucous membranes Neck full ROM and supple Extremity Extremity Narrative: There is edema, erythema, and warmth over the left midfoot and hindfoot. There is no fluctuance. There is no obvious deformity noted. Range of motion was limited in all motions of the left ankle secondary to pain. Pedal pulses are equal bilaterally. Sensation is intact to light touch in all digits. Capillary refill is less than 2 seconds in all digits. Strength is 5/5 bilaterally in the lower extremities. Neuro oriented x3, CN's II-XII intact bilaterally, moves all extremities and no sensory deficits noted Sensorium / Orientation: alert Motor Exam: strength 5/5 throughout Psych mental status grossly normal MDM MDM MDM Narrative Medical decision making narrative: Differential diagnosis includes cellulitis, gout, inflammatory arthritis, and occult fracture. X-rays of the left foot will be obtained to assess for occult fracture and inflammatory arthritis. CBC will be obtained to assess for leukocytosis and anemia. Basic metabolic profile will be obtained to assess for electrolyte abnormality and renal function. Uric acid will be obtained to assess for gout. Sed rate and CRP will be obtained to assess for inflammatory markers. Lab Data Attestation: I reviewed the patient's lab results. Lab results narrative: CBC was reviewed and was within normal limits. Basic metabolic profile was reviewed and was essentially within normal limits. CRP was reviewed and was slightly elevated at 40.1. Uric acid was reviewed and was normal at 4.0. Sed rate was reviewed and was normal at 29. Labs: Laboratory Results - last 24 hr 02/04/25 10:45 WBC 7.8 RBC 4.60 Hgb 15.0 Hct 43.3 MCV 94.1 MCH 32.6 H MCHC 34.6 RDW Std Deviation 47.1 H RDW Coeff of Justina 13.6 Plt Count 217 MPV 10.1 Immature Gran % (Auto) 0.300 Neut % (Auto) 74.6 H Lymph % (Auto) 13.8 L Addison % (Auto) 9.6 Eos % (Auto) 1.3 Baso % (Auto) 0.4 Absolute Neuts (auto) 5.9 Absolute Lymphs (auto) 1.08 Nucleated RBC % 0 ESR 20 Sodium 141 Potassium 4.4 Chloride 107 Carbon Dioxide 22.3 Anion Gap 11 BUN 14 Creatinine 1.19 Est GFR (MDRD) Non-Af 47 L BUN/Creatinine Ratio 12.1 Glucose 95 Uric Acid 4.0 Calcium 9.4 C-React Prot Ext Range 40.10 H Radiography Diagnostic Testing: Clinical Impression(s) from Imaging Studies Foot X-Ray 02/04/25 10:22 IMPRESSION: On lateral imaging, normal contour of the Achilles tendon is seen. No ankle joint effusion is evident. Moderate inferior calcaneal spurring is seen. Severe osteoarthritic changes of the left 1st metatarsophalangeal joint, with hallux valgus, subluxation, and exuberant osteophytosis and osseous reactive changes seen. Mild degenerative changes are seen throughout the toes. No acute fracture or dislocation is seen. If clinical concern persists, short-term follow-up imaging may be obtained to rule out a currently occult fracture. Reading Location: [place] [id number] X-rays of the left foot were obtained. There are 3 views. On my independent interpretation, there are severe degenerative changes. There is no acute fracture. Radiologist also interpreted the x-rays and agrees. Treatment and Re-Evaluation Narrative: Patient was given an injection of morphine. Patient was feeling better on reevaluation. Patient was advised of her findings. Patient was advised that this could be cellulitis. Patient was also advised that it could be her degenerative arthritis. Patient was instructed to ice and elevate the left foot. Patient was instructed to follow-up with her primary care physician in 5 to 7 days. Patient was given prescription for Augmentin for possible cellulitis. Patient was also given a prescription for Mobic to help with pain and inflammation. Patient was instructed to return if worse in any way. Patient understood and was agreeable with the plan. All questions were answered. Discharge Plan Triage Chief Complaint: Lower Extremity Injury ED Provider: Yousif García Dx/Rx/DC Orders Clinical Impression: Cellulitis of left foot, Foot pain, left Instructions: ED Cellulitis, ED Osteoarthritis Prescriptions: New meloxicam 15 mg tablet 15 mg PO DAILY Qty: 20 0RF amoxicillin-pot clavulanate 875-125 mg tablet 875 mg PO Q12H Qty: 20 0RF No Action aspirin [Adult Low Dose Aspirin] 81 mg tablet,delayed release (DR/EC) 81 mg PO DAILY PRN Primary Care Provider: Reji Hdz Referrals: Reji Hdz MD [Primary Care Provider] - 3-5 Days Print Language: Rwandan Disposition Disposition: Home, Self Care
--- NOTE | 2025-02-04 10:22 | RAD_ITS ---
PROCEDURE: FOOT MIN 3 VIEWS 02/04/2025 REASON FOR EXAM: INJURY/PAIN TECHNIQUE: Procedure Code: RADFO Modality: DX Procedure: FOOT MIN 3 VIEWS Laterality: Left COMPARISON: None. RAD/Foot min 3 Views IMPRESSION: On lateral imaging, normal contour of the Achilles tendon is seen. No ankle joint effusion is evident. Moderate inferior calcaneal spurring is seen. Severe osteoarthritic changes of the left 1st metatarsophalangeal joint, with h allux valgus, subluxation, and exuberant osteophytosis and osseous reactive changes seen. Mild degenerative changes are seen throughout the toes. No acute fracture or dislocation is seen. If clinical concern persists, short-term follow-up imaging may be obtained to r ule out a currently occult fracture. Reading Location: [place] [id number]
[2025-02-04 11:27] LABS: Hematocrit 43.3 % (37-47); Hemoglobin 15.0 g/dL (12.0-15.0); Immature Granulocytes Count 0.020 X10^3/uL (0.0-0.0); Mean Corp Hgb Conc 34.6 g/dL (32-36); Mean Corpuscular Volume 94.1 fL (81-99); Mean Platelet Vol. 10.1 fl (6.2-12.0); NRBC Flagged by Analyzer 0 % (0-5); Platelet Count 217 K/mm3 (150-450); RBC Distribution Width CV 13.6 % (11.6-14.6); RBC Distribution Width SD 47.1 fl (35.1-43.9); Red Blood Count 4.60 M/mm3 (4.2-5.4); White Blood Count 7.8 K/mm3 (4.4-11.0)
[2025-02-04 11:43] LABS: Anion Gap 11 (5-15); BUN 14 mg/dL (4-19); BUN/Creat Ratio 12.1 RATIO (10-20); CRP 40.10 mg/L (0.0-3.0); Calcium,Total 9.4 mg/dL (7.6-11.0); Carbon Dioxide 22.3 mmol/L (21.0-32.0); Chloride 107 mmol/L (98-108); Glucose 95 mg/dL (70-99); Potassium 4.4 mmol/L (3.3-5.1); Uric Acid 4.0 mg/dL (2.6-6.0)
[2025-02-04 12:46] VITALS: BP 148/77; PULSE 85; RESP 16; TEMP 36.6; O2SAT 98
== END 2025-02-04 12:53 | disposition home or self-care (01) ==
PROVIDERS: Emergency Provider Emergency Medicine; PCP Family Medicine; Visit Provider Emergency Medicine
DX: L03.116 Cellulitis of left lower limb (principal); J44.9 Chronic obstructive pulmonary disease, unspecified; M79.672 Pain in left foot; Z87.891 Personal history of nicotine dependence
CPT/HCPCS: 73630; 80048; 84550; 85025; 85652; 86140; 99283

== ENCOUNTER 2025-02-07 11:05 | Observation (INO) | payer MEDICARE, SELFPAY ==
[2025-02-07] VITALS (9 sets, daily range): BP systolic 146–181; BP diastolic 69–93; PULSE 63–80; RESP 14–20; TEMP 36.3–37.1; O2SAT 94–98; BMI 24.4
--- NOTE | 2025-02-07 11:40 | EX.ED.DYSGE1 ---
HPI History of Present Illness Chief Complaint: Cellulitis Informant: patient and family Narrative Narrative: 80-year-old female has been having redness, swelling, pain at the medial aspect of her left ankle and foot that started about 1 week ago. She saw us here in the ER 2-3 days ago and was placed on Augmentin, she has been taking it and the symptoms are spreading proximally with pain being referred all the way up the medial aspect of the leg to the knee, and she is almost to the point where she cannot put weight on it because it hurts so bad. However without putting weight on it she can move it without difficulty. She denies any fevers, chills, malaise, systemic symptoms. There has been no drainage from this area. She states she had this 2 months ago in November, it was more mild and send in the medial foot, not up to the ankle, and she saw a carbider in [place] who injected her into the foot with cortisone, and she did well until about a week ago. Denies any injury. 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 Left leg pain Acute bronchitis, unspecified URI (upper respiratory infection) Abdominal pain Nausea Vitamin D deficiency Bilateral leg weakness Anxiety GERD (gastroesophageal reflux disease) Osteoporosis COPD (chronic obstructive pulmonary disease) Anemia PAD (peripheral artery disease) Abnormal mammogram of left breast Pulmonary nodule Hemorrhoids Fatigue Arthritis Back problem Abnormal mammogram Peripheral neuropathy Fibromyalgia Pulmonary HTN Insomnia Acute blood loss anemia Upper GI bleed Home Medications Medication Instructions Recorded Last Taken Type aspirin 81 mg tablet,delayed 81 mg PO DAILY 09/05/22 Unknown History release (Adult Low Dose Aspirin) Held on 02/07/25. Instructions: NOT TAKING WITH MELOXICAM PER [facility] INSTRUCTIONS losartan 50 mg tablet 50 mg PO QDAY 08/26/24 02/07/25 History amoxicillin 875 mg-potassium 875 mg PO Q12H #20 TABLETS 02/04/25 02/07/25 Rx clavulanate 125 mg tablet meloxicam 15 mg tablet 15 mg PO DAILY #20 tabs 02/04/25 02/07/25 Rx amlodipine 5 mg tablet 5 mg PO DAILY 02/07/25 02/07/25 History fluticasone fur. 200 mcg-umeclid 1 ea inhalation DAILY 02/07/25 02/07/25 History 62.5 mcg-vilant 25 mcg inhalat.powder (Trelegy Ellipta) Allergy/AdvReac Type Severity Reaction Status Date / Time Sulfa (Sulfonamide Allergy Hives Verified 02/04/25 09:43 Antibiotics) ibandronate sodium (From AdvReac Intermediate PT UNSURE Verified 02/04/25 09:43 Boniva) OF REACTION Family History Father Stomach cancer Diabetes Heart disease CVA (cerebral vascular accident) Mother Hypertension Surgical History History of cholecystectomy History of angioplasty Hx of colonoscopy History of esophageal dilatation History of esophagogastroduodenoscopy (EGD) History of hysterectomy History bilateral cataract surgey History of laparoscopic cholecystectomy Social History Smoking Status: Former smoker quit date: 05/28/11 second hand exposure: No alcohol intake: current alcohol intake frequency: a few times a month substance use type: does not use caffeine: Yes frequency: 1-2 times per week ROS ROS ED Constitutional Constitutional ED: Denies chills or fever(s) Eyes Eyes: Denies change in vision or diplopia Cardiovascular Cardiovascular: Denies chest pain Respiratory/Chest Respiratory/Chest: Denies dyspnea Gastrointestinal Gastrointestinal: Denies abdominal pain Musculoskeletal Musculoskeletal: Reports extremity pain; Denies neck pain Integumentary Reports rash; Denies Abrasions or wounds Neurologic Neurologic: Denies headache(s), paresthesias or weakness EXAM Physical Exam Const Vital Signs: 02/07/25 11:05 02/07/25 12:09 02/07/25 13:00 Temperature 98 F 97.8 F 97.8 F Temperature Source Temporal Oral Oral Pulse Rate 80 78 78 Respiratory Rate 14 18 16 Blood Pressure 161/82 H 181/71 H 162/69 H Blood Pressure Mean 108 107 100 Pulse Ox 98 94 98 Oxygen Delivery Method Room Air Room Air Room Air 02/07/25 13:29 Temperature 98.2 F Temperature Source Pulse Rate 78 Respiratory Rate 18 Blood Pressure 167/89 H Blood Pressure Mean 115 Pulse Ox 97 Oxygen Delivery Method Positive well nourished and well developed General Appearance ED: well developed and NAD HEENT Reports moist mucous membranes Eyes PERRL and EOMs intact bilaterally Neck full ROM and supple Resp normal respiratory effort GI non-distended Back/Spine normal ROM and normal to inspection Extremity Extremity Narrative: Mild swelling with blanching erythema left medial ankle and midfoot into part of the arch, extremely tender to palpation. No subcutaneous emphysema. No fluctuance or evidence of an abscess. The erythema is not well-circumscribed, it feathers around the perimeter. There is no lymphangitis, and there is no tenderness in the medial aspect of the leg up to the knee despite having pain throughout that area. No palpable cords. No calf tenderness. There is no inguinal lymphadenopathy, this includes the proximal medial thigh. There is no bony tenderness to the dorsal midfoot or the toes. Plantar aspect is normal-appearing. She can move the ankle fully without limitation when she is not putting weight on it. Laterally nontender at the ankle. Neuro oriented x3, no focal motor deficits and no sensory deficits noted Sensorium / Orientation: alert Psych mental status grossly normal and thought process normal Skin Skin Narrative: Skin blanching erythema left medial ankle and foot consistent with cellulitis with some induration, no abscess or obvious nidus for infection. Rashes: no rashes MDM MDM MDM Narrative Medical decision making narrative: Clinically this is consistent with cellulitis. She has been Augmentin for 2 days and is spreading more proximally, concerning for failure of outpatient treatment. I repeated her labs, x-ray of the area. 3 views of the left ankle on my interpretation show no bony involvement or subcutaneous emphysema to suggest necrotizing fasciitis. Her ESR CRP are slightly elevated which is nonspecific, she has a slight elevation of her creatinine, she does not have a significant leukocytosis, her white blood count is at the high end of normal at 9.2 and there is no bandemia. Her vital signs are normal she is well-appearing and not septic. However she is having a lot of trouble bearing weight and walking due to the pain. Given that, I think the best option would be to cover MRSA and give her IV vancomycin and admitted to the hospital for further therapy and treatment. Discussed with hospitalist who is amenable. Lab Data Attestation: I reviewed the patient's lab results. Labs: Laboratory Results - last 24 hr 02/07/25 12:10 WBC 9.2 RBC 4.71 Hgb 14.5 Hct 44.4 MCV 94.3 MCH 30.8 MCHC 32.7 D RDW Std Deviation 45.8 H RDW Coeff of Justina 13.2 Plt Count 248 MPV 9.6 Immature Gran % (Auto) 0.300 Neut % (Auto) 76.8 H Lymph % (Auto) 14.1 L Bradley % (Auto) 7.0 Eos % (Auto) 1.4 Baso % (Auto) 0.4 Absolute Neuts (auto) 7.0 Absolute Lymphs (auto) 1.29 Nucleated RBC % 0 ESR 45 H Sodium 140 Potassium 4.0 Chloride 105 Carbon Dioxide 22.8 Anion Gap 12 BUN 20 H Creatinine 1.21 H Estim Creat Clear Calc 30.23 L Est GFR (MDRD) Non-Af 46 L BUN/Creatinine Ratio 16.4 Glucose 85 Calcium 9.6 C-React Prot Ext Range 27.10 H Radiography Diagnostic Testing: Clinical Impression(s) from Imaging Studies Ankle X-Ray 02/07/25 12:00 IMPRESSION: Medial soft tissue swelling but no fracture of the left ankle. Reading Location: [id number] Management Discussion w/another healthcare provider: Hospitalist Discharge Plan Triage Chief Complaint: Cellulitis ED Provider: Gonzalo Coulter Dx/Rx/DC Orders Clinical Impression: Cellulitis of left leg, Failure of outpatient treatment Prescriptions: No Action aspirin [Adult Low Dose Aspirin] 81 mg tablet,delayed release (DR/EC) 81 mg PO DAILY losartan 50 mg tablet 50 mg PO QDAY meloxicam 15 mg tablet 15 mg PO DAILY Qty: 20 0RF amoxicillin-pot clavulanate 875-125 mg tablet 875 mg PO Q12H Qty: 20 0RF amlodipine 5 mg tablet 5 mg PO DAILY Trelegy Ellipta 200-62.5-25 mcg blister with device 1 ea INHALATION DAILY Primary Care Provider: Reji Hdz Referrals: Reji Hdz MD [Primary Care Provider] - Print Language: Swedish Disposition Disposition: Acute Care Hospital [facility]
--- NOTE | 2025-02-07 12:00 | RAD_ITS ---
PROCEDURE: ANKLE MIN 3 VIEWS 02/07/2025 REASON FOR EXAM: PAIN MEDIALLY, EVAL FOR SQ AIR/BONE INVOLVE TECHNIQUE: Procedure Code: RADANK Modality: DX Procedure: ANKLE MIN 3 VIEWS Laterality: Left COMPARISON: Recent conventional radiographs. FINDINGS: Bones: Distal tibia and fibula negative. Imaged hindfoot and metatarsals negative. Joints: Negative Soft tissues: Mild medial soft tissue swelling. Other: Remainder of the exam negative. RAD/Ankle min 3 Views IMPRESSION: Medial soft tissue swelling but no fracture of the left ankle. Reading Location: [id number]
[2025-02-07] MEDS: Vancomycin HCl 750 MG in 0.9% Normal Saline (250mL Bag) 250 ML 250 MG IV (12:19)
[2025-02-07 12:23] LABS: Hematocrit 44.4 % (37-47); Hemoglobin 14.5 g/dL (12.0-15.0); Immature Granulocytes Count 0.030 X10^3/uL (0.0-0.0); Mean Corp Hgb Conc 32.7 g/dL (32-36); Mean Corpuscular Volume 94.3 fL (81-99); Mean Platelet Vol. 9.6 fl (6.2-12.0); NRBC Flagged by Analyzer 0 % (0-5); Platelet Count 248 K/mm3 (150-450); RBC Distribution Width CV 13.2 % (11.6-14.6); RBC Distribution Width SD 45.8 fl (35.1-43.9); Red Blood Count 4.71 M/mm3 (4.2-5.4); White Blood Count 9.2 K/mm3 (4.4-11.0)
[2025-02-07 12:33] LABS: Anion Gap 12 (5-15); BUN 20 mg/dL (4-19); BUN/Creat Ratio 16.4 RATIO (10-20); CRP 27.10 mg/L (0.0-3.0); Calcium,Total 9.6 mg/dL (7.6-11.0); Carbon Dioxide 22.8 mmol/L (21.0-32.0); Chloride 105 mmol/L (98-108); Estimated Creatinine Clearance 30.23 ml/min (50-250); Glucose 85 mg/dL (70-99); Potassium 4.0 mmol/L (3.3-5.1)
--- OUTSIDE RECORDS SUMMARY | 2025-02-07 12:38 | XMS RPT_ITS | CCD ---
Author Organization [facility] CliniSymt Care Team Providers Care Polisher Implant Name Role Phone Nhan Massey MD Unavailable Alejandro Osorio DO Unavailable Linda Vázquez Unavailable Unavailable Linda Vázquez Unavailable Unavailable Harrell LICENSED STAFF MFT, Myla Kathya Unavailable Unavaila ble Harrell LICENSED STAFF MFT, Myla Kathya Unavailable Unavaila ble D'APONTE, TOVA Unavailable Unavailable REJI MACHUCA Unavailable Unavailable MACHUCAREJI DAVIS Unavailable Unavailable UNKNOWN, DOC Unavailable Unavailable UNKNOWN, DOC Unavailable Unavailable UNKNOWN, DOC Unavailable Unavailable UNKNOWN, DOC Unavailable Unavailable RAMIRES NATANAEL M Unavailable Unavailable RAMIRES, NATANAEL M Unavailable Unavailable MACHUCA REJI R Unavailable Unavailable RAMIRES NATANAEL M Unavailable Unavailable RAMIRES NATANAEL M Unavailable Unavailable MACUHCAREJI DAVIS Unavailable Unavailable Dr. Reji Machuca Primary Care Provider Dr. Reji Machuca Referring Provider [phone] DEVORA James Attending Provider Dr. Harsha Pabon Attending Provider DEVORA James Referring Provider Dr. Hermann Zamora Attending Provider [phone] Dr. Reji Machuca Primary Care Provider Dr. Reji Machuca Referring Provider Dr. Hermann Zamora Attending Provider Dr. Harsha Pabon Attending Provider Dr. Harsha Pabon Referring Provider Dr. Reji Machuca Primary Care Provider Dr. Reji Machuca Referring Provider Friend, Dr. Mccrary Attending Provider [phone] Wilder DILL, Dr. Mendoza Primary Care Provider [phone] Wilder DILL, Dr. Mendoza Attending Provider Wilder DILL, Dr. Mendoza Referring Provider Barbara Schmidt Attending Provider Wilder DILL, Dr. Mendoza Primary Care Provider [phone] Wilder DILL, Dr. Mendoza Referring Provider Wilder DILL, Dr. Mendoza Attending Provider [phone] Wilder DILL, Dr. Mendoza Primary Care Provider [phone] Wilder DILL, Dr. Mendoza Referring Provider Raquel PICKERING, Dr. Dodd Emergency Provider [phone] Wilder, Reji Referring Unavailable Machuca, Reji Attending Unavailable Machuca, Reji Primary Care Unavailable Machuca, Reji Referring Unavailable Machuca, Reji Attending Unavailable Machuca, Reji Primary Care Unavailable Machuca, Reji Primary Care Unavailable Yousif García Attending Unavailable Machuca, Reji Referring Unavailable Barbara Inman Attending Unavailable Machuca, Reji Primary Care Unavailable Machuca, Reji Referring Unavailable Machuca, Reji Attending Unavailable Wilder, Reji Primary Care Unavailable Allergies Allergy Classification Reported Allergen(s) Allergy Type Date of Onset Reaction(s) Facility (1 source) sulfacetamide drug allergy 8 [facility] Work Phone: (5 sources) sulfaSALAzine drug allergy 7 [facility] Work Phone: (15 sources) Sulfonamides (Antibiotic) Allergy to substance 0 Hives [facility] (13 sources) Ibandronate Drug Allergy 2 Other, PT UNSURE OF REACTION [facility] (1 source) Ibadronate Drug Allergy 5 [facility] (1 source) Sulfonamides (Antibiotic) Drug allergy (disorder) 5 [facility] Medications Current Medications Medication Drug Class(es) Dates Sig (Normalized) Sig (Original) amoxicillin 875 mg / clavulanate 125 mg oral tablet (1 source) Penicillin-class Antibacterial Start: 02-04-2025 take 1 tablet by mouth every twelve hours Amoxicillin-Pot Clavulanate 875-125 mg tablet Active 875 mg PO Q12H February 04, 2025 12:00am aspirin 81 mg delayed release oral tablet (20 sources) Platelet Aggregation Inhibitor, Nonsteroidal Anti-inflammatory Drug Start: 12-05-2018 End: 09-05-2022 Aspirin (Adult Low Dose Aspirin) 81 mg tablet,delayed release (DR/EC) Active 81 mg PO DAILY as needed September 05, 2022 8:31am meloxicam 15 mg oral tablet (1 source) Nonsteroidal Anti-inflammatory Drug Start: 02-04-2025 take 1 tablet by mouth once daily Meloxicam 15 mg tablet Active 15 mg PO DAILY February 04, 2025 12:00am Completed/Discontinued Medications Medication Drug Class(es) Dates Sig (Normalized) Sig (Original) acetaminophen 500 mg oral tablet (15 sources) Start: 10-03-2016 End: 06-21-2017 take 2 tablets by mouth at bedtime Acetaminophen 500 MG tablet Discontinued 1000 mg PO AT BEDTIME October 03, 2016 12:00am June 21, 2017 8:40am Start: 10-03-2016 End: 06-21-2017 take 1000 mg by mouth at bedtime Acetaminophen Discontinued 1000 MG PO AT BEDTIME October 03, 2016 12:00am June 21, 2017 8:40am acetaminophen 325 mg / HYDROcodone bitartrate 5 mg oral tablet (15 sources) Opioid Agonist Start: 11-14-2017 End: 12-05-2018 Hydrocodone-Acetaminophen 1 TABLET tablet Discontinued 1 {tbl} PO EVERY 6 HOURS NEEDED as needed for Pain 10 3 November 14, 2017 12:00am December 05, 2018 8:50am Calculus of ureter Calculus of ureter Start: 11-14-2017 End: 12-05-2018 take 1 tablet by mouth every six hours as needed Hydrocodone-Acetaminophen Discontinued 1 TABLET PO EVERY 6 HOURS NEEDED 10 3 November 14, 2017 12:00am December 05, 2018 8:50am azithromycin 250 mg oral tablet (13 sources) Macrolide Antimicrobial Start: 04-24-2022 End: 09-05-2022 Azithromycin 250 mg tablet Discontinued 250 mg PO daily April 24, 2022 1:00am September 05, 2022 8:31am 2 tablets today, then 1 tablet daily on days 2 through 5 calcium (5 sources) Phosphate Binder, Calcium Start: 09-07-2016 CALCIUM 600-400 MG-UNIT CHEW One tab daily CALCIUM CARB-CHOLECALCIFEROL [id number] Myla Caballero calcium citrate 1040 mg oral tablet (13 sources) Start: 04-04-2022 End: 09-05-2022 take 1 tablet by mouth once daily Calcium Citrate 250 mg calcium tablet Discontinued 250 mg PO DAILY April 04, 2022 1:00am September 05, 2022 8:31am cholecalciferol 0.075 mg oral tablet (20 sources) Vitamin D Start: 12-05-2018 End: 09-05-2022 take 1 tablet by mouth once daily as needed Cholecalciferol (Vitamin D3) 3,000 unit tablet Discontinued 3000 U PO DAILY as needed for Outbreak December 05, 2018 12:00am September 05, 2022 8:31am Start: 09-07-2016 VITAMIN D-400 TABS One tab daily CHOLECALCIFEROL TABS [id number] Mylalisa Caballero sugar-free cholestyramine resin 4000 mg powder for oral suspension (6 sources) Bile Acid Sequestrant Start: 04-30-2023 End: 08-26-2024 Cholestyramine-Aspartame (Cholestyramine Light) 4 gram powder Discontinued 4 g PO DAILY 231 2 April 30, 2023 1:00am August 26, 2024 2:24pm administer w/meal; avoid other meds within 1hr before or 2hr after clopidogrel 75 mg oral tablet (15 sources) [id number] Platelet Inhibitor Start: 12-05-2018 End: 03-09-2020 take 1 tablet by mouth once daily Clopidogrel (Plavix) 75 mg tablet Discontinued 75 mg PO DAILY December 05, 2018 12:00am March 09, 2020 8:22am colestipol hydrochloride 1000 mg oral tablet (7 sources) Bile Acid Sequestrant Start: 11-29-2022 End: 04-30-2023 Colestipol 1 gram tablet Discontinued 1 g PO TWICE A DAY 60 0 November 29, 2022 12:00am April 30, 2023 3:53pm dicyclomine hydrochloride 20 mg oral tablet (15 sources) Anticholinergic Start: 02-10-2022 End: 09-05-2022 take 1 tablet by mouth twice daily Dicyclomine 20 mg tablet Discontinued 20 mg PO TWICE A DAY February 10, 2022 12:00am September 05, 2022 8:31am DULOXETINE HCL CPEP (20 sources) Serotonin and Norepinephrine Reuptake Inhibitor Start: 10-29-2017 CYMBALTA CPEP one tab daily DULOXETINE HCL CPEP [id number] Nhan Massey MD Start: 06-21-2017 End: 12-05-2018 take 1 capsule by mouth once daily Duloxetine (Cymbalta) 60 mg capsule,delayed release(DR/EC) Discontinued 60 mg PO daily June 21, 2017 1:00am December 05, 2018 8:51am antidepressant/pain Start: 09-18-2016 End: 06-21-2017 take 1 capsule by mouth once daily Duloxetine 30 MG capsule Discontinued 30 mg PO DAILY October 03, 2016 12:00am June 21, 2017 8:41am ferrous sulfate 325 mg oral tablet (20 sources) Start: 12-05-2018 End: 09-05-2022 take 1 tablet by mouth once daily Ferrous Sulfate 325 mg (65 mg iron) tablet Discontinued 325 mg PO DAILY December 05, 2018 8:50am September 05, 2022 8:31am Start: 10-06-2016 End: 12-05-2018 take 1 tablet by mouth twice daily Ferrous Sulfate 325 MG tablet Discontinued 325 mg PO TWICE A DAY 60 0 October 06, 2016 12:00am December 05, 2018 8:51am fidaxomicin 200 mg oral tablet (7 sources) Macrolide Antibacterial Start: 10-24-2022 End: 11-03-2022 take 1 tablet by mouth every twelve hours Fidaxomicin 200 mg tablet Discontinued 200 mg PO Q12H 20 10 0 October 24, 2022 12:00am November 02, 2022 12:00am November 03, 2022 12:04am ibuprofen 200 mg oral tablet (15 sources) Nonsteroidal Anti-inflammatory Drug Start: 10-03-2016 End: 10-06-2016 take 3 tablets by mouth at bedtime Ibuprofen 200 MG tablet Discontinued 600 mg PO AT BEDTIME October 03, 2016 12:00am October 06, 2016 7:44am Start: 10-03-2016 End: 10-06-2016 take 600 mg by mouth at bedtime Ibuprofen Discontinued 600 MG PO AT BEDTIME October 03, 2016 12:00am October 06, 2016 7:44am FERROUS SULFATE TABS (1 source) Start: 10-29-2017 IRON TABS One tab daily FERROUS SULFATE TABS [id number] Nhan Massey MD losartan potassium 50 mg oral tablet (3 sources) Angiotensin 2 Receptor [place] Start: 08-26-2024 take 1 tablet by mouth once daily Losartan 50 mg tablet Discontinued 50 mg PO daily August 26, 2024 12:00am MULTIPLE VITAMINS-MINERALS (5 sources) Start: 09-28-2016 take 1 tablet by mouth once daily DAILY MULTIVITAMIN CAPS One tablet by mouth daily MULTIPLE VITAMINS-MINERALS [id number] Linda Vázquez pantoprazole 40 mg delayed release oral tablet (15 sources) Proton Pump Inhibitor Start: 10-06-2016 End: 10-06-2016 take 1 tablet by mouth twice daily Pantoprazole 40 MG tablet Discontinued 40 mg PO TWICE A DAY 30 2 October 06, 2016 12:00am October 06, 2016 7:44am predniSONE 10 mg oral tablet (20 sources) Corticosteroid Start: 04-24-2022 End: 09-05-2022 take 1 tablet by mouth twice daily Prednisone 10 mg tablet Discontinued 10 mg PO TWICE A DAY 10 April 24, 2022 1:00am September 05, 2022 8:31am Start: 10-29-2017 PREDNISONE 2.5 MG TABS One tab daily PREDNISONE [id number] Nhan Massey MD Start: 06-21-2017 End: 09-05-2022 take 2.5 mg by mouth once daily Prednisone 5 MG tablet Discontinued 2.5 mg PO DAILY June 21, 2017 8:41am September 05, 2022 8:31am steriod Start: 06-21-2017 End: 09-05-2022 take 2.5 mg by mouth once daily Prednisone Discontinued 2.5 MG PO DAILY June 21, 2017 8:41am September 05, 2022 8:31am Start: 10-03-2016 End: 06-21-2017 take 7.5 mg by mouth once daily Prednisone 5 MG tablet Discontinued 7.5 mg PO DAILY October 03, 2016 12:00am June 21, 2017 8:42am Start: 10-03-2016 End: 06-21-2017 take 7.5 mg by mouth once daily Prednisone Discontinued 7.5 MG PO DAILY October 03, 2016 12:00am June 21, 2017 8:42am Start: 09-07-2016 take 1.5 mg by mouth every twenty-four hours PREDNISONE 5 MG (21) TBPK 1.5 mg daily PREDNISONE [id number] Myla Caballero tamsulosin hydrochloride 0.4 mg oral capsule (15 sources) alpha-Adrenergic [place] Start: 11-14-2017 End: 12-05-2018 take 1 capsule by mouth once daily Tamsulosin 0.4 MG capsule Discontinued 0.4 mg PO DAILY 7 0 November 14, 2017 12:00am December 05, 2018 8:51am temazepam 15 mg oral capsule (20 sources) Benzodiazepine Start: 10-03-2016 End: 06-21-2017 take 1 capsule by mouth at bedtime Temazepam 15 MG capsule Discontinued 15 mg PO AT BEDTIME October 03, 2016 12:00am June 21, 2017 8:41am Start: 09-07-2016 TEMAZEPAM 15 M G CAPS One cap daily TEMAZEPAM [id number] Myla Caballero vancomycin 125 mg oral capsule (7 sources) Glycopeptide Antibacterial Start: 10-24-2022 End: 10-24-2022 take 1 capsule by mouth every six hours Vancomycin 125 mg capsule Discontinued 125 mg PO EVERY 6 HOURS 56 0 October 24, 2022 12:00am October 24, 2022 2:26pm Problems Active Problems Problem Classification Problem Date Documented Da te Episodic/Chronic Abdominal hernia (15 sources) Hiatal hernia; Translations: [Diaphragmatic hernia without obstruction or gangrene] 02-18-2022 Episodic Abdominal pain (20 sources) Finding of sensation of abdomen; Translations: [Unspecified abdominal pain] 02-18-2022 Episodic Acute bronchitis (17 sources) Acute bronchitis; Translations: [Acute bronchitis, unspecified] Episodic Acute posthemorrhagic anemia (15 sources) Acute posthemorrhagic anemia; Translations: [Acute posthemorrhagic anemia] 06-02-2019 Episodic Chronic obstructive pulmonary disease and bronchiectasis (1 source) Chronic obstructive pulmonary disease, unspecified; Translations: [Chronic obstructive pulmonary disease, unspecified] Onset: Chronic Essential hypertension (6 sources) Hypertensive disorder; Translations: [Essential (primary) hypertension] Onset: 5 08-27-2024 Chronic Gastrointestinal hemorrhage (15 sources) Upper gastrointestinal bleeding; Translations: [Gastrointestinal hemorrhage, unspecified] 06-02-2019 Episodic Hemorrhoids (15 sources) Hemorrhoids; Translations: [Unspecified hemorrhoids] 12-05-2018 Episodic Immunizations and screening for infectious disease (14 sources) 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; 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] 06-29-2022 Episodic Malaise and fatigue (15 sources) Fatigue; Translations: [Other fatigue] 12-05-2018 Episodic Osteoarthritis (16 sources) Osteoarthritis of ankle; Translations: [Arthritis] Onset: 8 10-29-2017 Chronic Osteoporosis (1 source) Disuse osteoporosis; Translations: [Other osteoporosis without current pathological fracture] Onset: 8 10-29-2017 Chronic Other circulatory disease (12 sources) History of arterial bypass of lower limb artery; Translations: [Presence of other vascular implants and grafts] 03-09-2020 Chronic Other connective tissue disease (20 sources) Fibromyalgia; Translations: [Neuropathic pain] Onset: 7 10-29-2017 Episodic Other connective tissue disease (13 sources) Pain in left lower limb; Translations: [Pain in left leg] 04-24-2022 Episodic Other connective tissue disease (4 sources) Pain in left leg; Translations: [Pain in limb] Episodic Other connective tissue disease (1 source) Foot pain; Translations: [Pain in left foot] 02-04-2025 Episodic Other gastrointestinal disorders (12 sources) Constipation alternates with diarrhea; Translations: [Other specified symptoms and signs involving the digestive system and abdomen] 06-27-2022 Episodic Other gastrointestinal disorders (7 sources) Other specified symptoms and signs involving the digestive system and abdomen; Translations: [Other symptoms involving digestive system] 06-27-2022 Episodic Other liver diseases (15 sources) High lipase level in serum; Translations: [Abnormal levels of other serum enzymes] 02-18-2022 Episodic Other lower respiratory disease (15 sources) Nodule of lung; Translations: [Solitary pulmonary nodule] 12-05-2018 Episodic Other nervous system disorders (15 sources) Peripheral nerve disease ; Translations: [Polyneuropathy, unspecified] 06-02-2019 Chronic Other nervous system disorders (2 sources) Polyneuropathy, unspecified; Translations: [Unspecified hereditary and idiopathic peripheral neuropathy] 09-05-2022 Chronic Other screening for suspected conditions (not mental disorders or infectious disease) (20 sources) Mammography abnormal; Translations: [Other abnormal and inconclusive findings on diagnostic imaging of breast] 06-02-2019 Episodic Other upper respiratory infections (17 sources) Upper respiratory infection; Translations: [Acute upper respiratory infection, unspecified] Episodic Peripheral and visceral atherosclerosis (19 sources) Peripheral vascular disease, unspecified; Translations: [Peripheral arterial disease] 12-05-2018 Chronic Pulmonary heart disease (20 sources) Pulmonary hypertension; Translations: [Pulmonary hypertension, unspecified] Onset: 7 09-28-2016 Chronic Residual codes; unclassified (15 sources) Insomnia; Translations: [Insomnia, unspecified] 06-02-2019 Episodic Residual codes; unclassified (20 sources) Past history of procedure; Translations: [Other specified postprocedural states] 03-09-2020 Episodic Comment on above: 02/26/2014, , and 03/2014 Residual codes; unclassified (15 sources) History of colonoscopy; Translations: [Other specified postprocedural states] 03-09-2020 Episodic Comment on above: 2017 Screening or history of mental health and substance abuse (5 sources) Tobacco dependence in remission; Translations: [Nicotine dependence, unspecified, in remission] Onset: 7 09-28-2016 Chronic Skin and subcutaneous tissue infections (1 source) Cellulitis of left foot; Translations: [Cellulitis of left lower limb] 02-04-2025 Episodic Spondylosis; intervertebral disc disorders; other back problems (15 sources) Back problem; Translations: [Dorsopathy, unspecified] 12-05-2018 Episodic Unclassified (5 sources) Breathing-related sleep disorder; Translations: [Sleep apnea, unspecified] Onset: 7 09-28-2016 Chronic Unclassified (1 source) Solitary pulmonary nodule / R91.1(ICD-10) Onset: 8 Past or Other Problems Problem Classification Problem Date Documented Da te Episodic/Chronic Cataract (15 sources) Cataract 12-15-2021 Nonspecific chest pain (1 source) Other chest pain; Translations: [Other chest pain] Onset: 07-23-2024 Episodic Other circulatory disease (5 sources) Diastolic dysfunction; Translations: [Heart disease, unspecified] Onset: 09-28-2016 09-28-2016 Episodic Other lower respiratory disease (6 sources) Dyspnea; Translations: [Solitary pulmonary nodule] Onset: 09-28-2016 09-28-2016 Episodic Unclassified (1 source) Problem Results Test Name Value Interpretation Reference Range Facility Absolute lymphocyte countOrd ered By: Yousif García on 02-04-2025 Lymphocytes Auto (Unsp spec) [#/Vol] 1.08 10*3/uL 0.83-4.51 [facility] Absolute neutrophil countOrd ered By: Yousif García on 02-04-2025 Neutrophils (Bld) [#/Vol] 5.9 10*3/uL 2.0-7.7 [facility] Anion gap in Serum or Plasma Ordered By: Yousif García on 02-04-2025 Anion gap [Moles/Vol] 11 mmol/L 10-09 [facility] Automated lymphocyte count a s percentage of total leukocytesOrdered By: Yousif García on 02-04-2025 Lymphocytes/100 WBC Auto (Unsp spec) 13.8 % Low 19-41 [facility] BUN/creatinine ratioOrdered By: Yousif García on 02-04-2025 Urea nitrogen/Creatinine [Mass ratio] 12.1 mg/mg 03-16 [facility] Basic Metabolic Profile (BMP )on 02-04-2025 BUN/CRE 12.1 RATIO Normal 03-16 [facility] Comment on above: Performed By: #### L 500.2500, L100.0100, L501.4020 #### [facility] [address] [place], [address] Calcium [Mass/Vol] 9.4 mg/dL Normal 7.6-11.0 [facility] Comment on above: Performed By: #### L 500.2500, L100.0100, L501.4020 #### [facility] [address] [place], [address] Chloride [Moles/Vol] 107 mmol/L Normal 98-108 [facility] Comment on above: Performed By: #### L 500.2500, L100.0100, [id number] #### [facility] [address] [place], [address] CO2 [Moles/Vol] 22.3 mmol/L Normal 21.0-32.0 [facility] Comment on above: Performed By: #### L 500.2500, L100.0100, [id number] #### [facility] [address] [place], [address] Creatinine [Mass/Vol] 1.19 mg/dL Normal 0.70-1.20 [facility] Comment on above: Performed By: #### L 500.2500, L100.0100, [id number] #### [facility] [address] [place], [address] GAP 11 Normal 5-15 [facility] Comment on above: Performed By: #### L 500.2500, L100.0100, [id number] #### [facility] [address] [place], [address] GFR/1.73 sq M.predicted among non-blacks MDRD (S/P/Bld) [Vol rate/Area] 47 mL/min/{1.73_m2} Low >60 [facility] Comment on above: Result Comment: mL/m in/1.73m2 CKD-EPI Creatinine Equation (2020) Performed By: #### L 500.2500, L100.0100, L501.4020 #### [facility] [address] [place], [address] Glucose [Mass/Vol] 95 mg/dL Normal 70-99 [facility] Comment on above: Performed By: #### L 500.2500, L100.0100, [id number] #### [facility] [address] [place], [address] Potassium [Moles/Vol] 4.4 mmol/L Normal 3.3-5.1 [facility] Comment on above: Performed By: #### L 500.2500, L100.0100, [id number] #### [facility] [address] [place], [address] Sodium [Moles/Vol] 141 mmol/L Normal 133-145 [facility] Comment on above: Performed By: #### L 500.2500, L100.0100, [id number] #### [facility] [address] [place], [address] Urea nitrogen [Mass/Vol] 14 mg/dL Normal 4-19 [facility] Comment on above: Performed By: #### L 500.2500, L100.0100, [id number] #### [facility] [address] [place], [address] Basophil percentageOrdered B y: Yousif García on 02-04-2025 Basophils/100 WBC (Bld) 0.4 % 0-1 [facility] CBC W/Diff, Automatedon 01-26-2024 Absolute Lymph 1.08 X10 3/uL Normal 0.83-4.51 [facility] Comment on above: Performed By: #### L 101.9900, L500.2500, L501.6710, L100.0100, L501.1400 #### [facility] [address] [place], [address] Absolute Neut 5.9 X10 3/uL Normal 2.0-7.7 [facility] Comment on above: Performed By: #### L 101.9900, L500.2500, L501.6710, L100.0100, L501.1400 #### [facility] [address] [place], [address] Basophils/100 WBC (Bld) 0.4 % Normal 0-1 [facility] Comment on above: Performed By: #### L 101.9900, L500.2500, L501.6710, L100.0100, L501.1400 #### [facility] [address] [place], [address] Eosinophils/100 WBC (Bld) 1.3 % Normal 0-5 [facility] Comment on above: Performed By: #### L 101.9900, L500.2500, L501.6710, L100.0100, L501.1400 #### [facility] [address] [place], [address] Erythrocyte distribution width (RBC) [Ratio] 13.6 % Normal 11.6-14.6 [facility] Comment on above: Performed By: #### L 101.9900, L500.2500, L501.6710, L100.0100, L501.1400 #### [facility] [address] [place], [address] Hematocrit (Bld) [Volume fraction] 43.3 % Normal 37-47 [facility] Comment on above: Performed By: #### L 101.9900, L500.2500, L501.6710, L100.0100, L501.1400 #### [facility] [address] [place], [address] Hemoglobin (Bld) [Mass/Vol] 15.0 g/dL Normal 12.0-15.0 [facility] Comment on above: Performed By: #### L 101.9900, L500.2500, L501.6710, L100.0100, L501.1400 #### [facility] [address] [place], [address] IG% 0.300 Normal 0.0-0.9 [facility] Comment on above: Result Comment: IG% - Immature Granulocytes (promyelocytes, myelocytes and metamyelocytes) > 1% indicates that a LEFT SHIFT is Present. Performed By: #### L 101.9900, L500.2500, L501.6710, L100.0100, L501.1400 #### [facility] [address] [place], [address] Lymphocytes/100 WBC (Bld) 13.8 % Low 19-41 [facility] Comment on above: Performed By: #### L 101.9900, L500.2500, L501.6710, L100.0100, L501.1400 #### [facility] [address] [place], [address] MCH (RBC) [Entitic mass] 32.6 pg High 27.0-32.0 [facility] Comment on above: Performed By: #### L 101.9900, L500.2500, L501.6710, L100.0100, L501.1400 #### [facility] [address] [place], [address] MCHC (RBC) [Mass/Vol] 34.6 g/dL Normal 32-36 [facility] Comment on above: Performed By: #### L 101.9900, L500.2500, L501.6710, L100.0100, L501.1400 #### [facility] [address] [place], [address] MCV (RBC) [Entitic vol] 94.1 fL Normal 81-99 [facility] Comment on above: Performed By: #### L 101.9900, L500.2500, L501.6710, L100.0100, L501.1400 #### [facility] [address] [place], [address] Monocytes/100 WBC (Bld) 9.6 % Normal 0-10 [facility] Comment on above: Performed By: #### L 101.9900, L500.2500, L501.6710, L100.0100, L501.1400 #### [facility] Laboratory [address] [place], [address] Neutrophils/100 WBC (Bld) 74.6 % High 47-70 [facility] Comment on above: Performed By: #### L 101.9900, L500.2500, L501.6710, L100.0100, L501.1400 #### [facility] [address] [place], [address] Nucleated RBC (Bld) [#/Vol] 0 10*3/uL Normal 0-5 [facility] Comment on above: Performed By: #### L 101.9900, L500.2500, L501.6710, L100.0100, L501.1400 #### [facility] [address] [place], [address] Platelet mean volume (Bld) [Entitic vol] 10.1 fL Normal 6.2-12.0 [facility] Comment on above: Performed By: #### L 101.9900, L500.2500, L501.6710, L100.0100, L501.1400 #### [facility] [address] [place], [address] Platelets (Bld) [#/Vol] 217 10*3/uL Normal 150-450 [facility] Comment on above: Performed By: #### L 101.9900, L500.2500, L501.6710, L100.0100, L501.1400 #### [facility] [address] [place], [address] RBC (Bld) [#/Vol] 4.60 10*6/uL Normal 4.2-5.4 [facility] Comment on above: Performed By: #### L 101.9900, L500.2500, L501.6710, L100.0100, L501.1400 #### [facility] [address] [place], [address] RDW SD 47.1 fl High 35.1-43.9 [facility] Comment on above: Performed By: #### L 101.9900, L500.2500, L501.6710, L100.0100, L501.1400 #### [facility] [address] [place], [address] WBC (Bld) [#/Vol] 7.8 10*3/uL Normal 4.4-11.0 [facility] Comment on above: Performed By: #### L 101.9900, L500.2500, L501.6710, L100.0100, L501.1400 #### [facility] [address] [place], [address] CRPon 02-04-2025 C-REACTIVE PROT 40.10 mg/L High 0.0-3.0 [facility] Comment on above: Performed By: #### L 500.2500, L100.0100, L501.4020 #### [facility] [address] [place], [address] Carbon dioxide, total [Moles /volume] in Central venous bloodOrdered By: Yousif García on 02-04-2025 CO2 [Moles/Vol] 22.3 mmol/L 21.0-32.0 [facility] Chloride assayOrdered By: Doc García on 02-04-2025 Chloride [Moles/Vol] 107 mmol/L 98-108 [facility] Emergency Department Summary on 02-04-2025 Emergency Department Summary [facility] Medical Records Department [address] [place] [address] Emergency Department Summary 02/04/25 MR#: [id number] Acct: [id number] Name: SINDI WRIGHT Rep #: [id number] : 1945 80 From: Yousif García DO PCP: Dr. Reji Machuca MD Status:DEP ER Location: ED HPI History of Present Illness HPI Narrative: Patient presents with redness, swelling, and pain to her left foot and ankle that has been getting worse over the past 2 months. Patient states she had a recent cortisone injection which helped. Patient states she feels that it started to wear off. Patient states her pain is constant. Patient describes it as burning. Patient states it is worse with any weightbearing. Patient denies any trauma or injury. Patient denies any paresthesias or weakness. Patient denies any fevers or chills. Patient states she has an appointment with [facility] in 10 days. Patient states she was seen by a zipper repairer in [place] recently for this. Patient states that that zipper repairer did not help her in any way. Chief Complaint: Lower Extremity Injury Informant: patient Onset/Context/Timing Onset: Month(s) (2) Context: Gradual Onset Timing: Continuous Quality of Pain: Burning Location: Left foot and ankle Worsened by: Weightbearing Relieved by: Nothing PFSH [facility] Medical History (Updated 02/04/25 @ 12:[address] 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 Left leg pain Acute bronchitis, unspecified URI (upper respiratory infection) Abdominal pain Nausea Vitamin D deficiency Bilateral leg weakness Anxiety GERD (gastroesophageal reflux disease) Osteoporosis COPD (chronic obstructive pulmonary disease) Anemia PAD (peripheral artery disease) Abnormal mammogram of left breast Pulmonary nodule Hemorrhoids Fatigue Arthritis Back problem Abnormal mammogram Peripheral neuropathy Fibromyalgia Pulmonary HTN Insomnia Acute blood loss anemia Upper GI bleed Home Medications ???Medication ???Instructions ???Recorded ???Last Taken ???Type aspirin 81 mg tablet,delayed 81 mg PO DAILY PRN 09/05/22 Unknow n History release (Adult Low Dose Aspirin) losartan 50 mg tablet 50 mg PO QDAY 08/26/24 Unknown His tory amoxicillin 875 mg-potassium 875 mg PO Q12H #20 TABLETS 5 Unknown Rx clavulanate 125 mg tablet meloxicam 15 mg tablet 15 mg PO DAILY #20 tabs 02/04/25 U nknown Rx Allergy/AdvReac Type Severity Reaction Status Date / Time Sulfa (Sulfonamide Allergy Hives Verified 02/04/25 09:43 Antibiotics) ibandronate sodium (From AdvReac Intermediate PT UNSURE Verified 02/04/25 09:43 Boniva) OF REACTION Family History Father Stomach cancer Diabetes Heart disease CVA (cerebral vascular accident) Mother Hypertension Surgical History (Updated 08/27/24 @ 07:59 by DEVORA Skaggs) History of cholecystectomy History of angioplasty Hx of colonoscopy History of esophageal dilatation History of esophagogastroduodenosco py (EGD) History of hysterectomy History bilateral cataract surgey History of laparoscopic cholecystectomy Social History Smoking Status: Former smoker quit date: 05/28/11 second hand exposure: No alcohol intake: current alcohol intake frequency: a few times a month substance use type: does not use caffeine: Yes frequency: 1-2 times per week ROS ROS ED Constitutional Constitutional ED: Denies chills or fever(s) Eyes Eyes: Denies blurry vision or change in vision ENT ENT ED: Denies rhinorrhea or sore throat Cardiovascular Cardiovascular: Denies chest pain or palpitations Respiratory/Chest Respiratory/Chest: Denies cough or dyspnea Gastrointestinal Gastrointestinal: Denies nausea or vomiting Genitourinary Genitourinary ED: Denies dysuria or hematuria Musculoskeletal Musculoskeletal: Denies back pain or neck pain Integumentary Denies abscess or rash Neurologic Neurologic: Denies headache(s) or weakness Allergic/Immunologic Allergic/Immunologic ED: Denies mouth swelling or urticaria EXAM Physical Exam Const Vital Signs: 02/04/25 09:42 Temperature 97.4 F L Temperature Source Temporal Pulse Rate 87 Respiratory Rate 16 Blood Pressure 165/76 H Blood Pressure Mean 105 Pulse Ox 100 Oxygen Delivery Method Room Air Positive well nourished and well developed General Appearance ED: well developed and NAD HEENT Reports moist mucous membranes Neck full ROM and supple Extremity Extremity Narrative: There is edema, erythema, and warmth over the left midfoot and hindfoot. There is no fluctuance. There is no obvious deformity noted. Range of motion was limited in all motions of the left ankle (more content not included)... Normal [facility] Eosinophil percentageOrdered By: Yousif García on 02-04-2025 Eosinophils/100 WBC (Bld) 1.3 % 0-5 [facility] Erythrocyte Sed Rateon 02-04 SED RATE 20 mm/hr Normal 0-30 [facility] Comment on above: Performed By: #### L 101.9900, L500.2500, L501.6710, L100.0100, L501.1400 #### [facility] [address] [place], [address] Erythrocyte distribution wid th ratioOrdered By: Yousif García on 02-04-2025 Erythrocyte distribution width (RBC) [Ratio] 13.6 % 11.6-14.6 [facility] Erythrocyte distribution wid th standard deviationOrdered By: Yousif García on 02-04-2025 Erythrocyte distribution width (RBC) [Ratio] 47.1 fl High 35.1-43.9 [facility] Erythrocyte sedimentation ra teOrdered By: Yousif García on 02-04-2025 ESR (Bld) [Velocity] 20 mm/h 0-30 [facility] Foot min 3 Viewson Foot min 3 Views [facility] Imaging Services [address] [place], [place] [address] Foot min 3 Views MR#: [id number] Acct: [id number] Name: SINDI WRIGHT Rep #: [id number] : 1945 F 80 From: Nhan Thomas PCP: Dr. Reji Machuca MD Status: PRE ER Study: Foot min 3 Views Date of Exam: 02/04/25 Exam# [id number] Ordering Dr: Yousif García DO PROCEDURE: FOOT MIN 3 VIEWS 02/04/2025 REASON FOR EXAM: INJURY/PAIN TECHNIQUE: Procedure Code: RADFO Modality: DX Procedure: FOOT MIN 3 VIEWS Laterality: Left COMPARISON: None. RAD/Foot min 3 Views IMPRESSION: On lateral imaging, normal contour of the Achilles tendon is seen. No ankle joint effusion is evident. Moderate inferior calcaneal spurring is seen. Severe osteoarthritic changes of the left 1st metatarsophalangeal joint, with hallux valgus, subluxation, and exuberant osteophytosis and osseous reactive changes seen. Mild degenerative changes are seen throughout the toes. No acute fracture or dislocation is seen. If clinical concern persists, short-term follow-up imaging may be obtained to rule out a currently occult fracture. Reading Location: [place] [address] CC: Dr. Yousif García DO; Dr. Reji Machuca MD Derrick Worker: Signed Normal [facility] Glomerular filtration rate ( GFR) estimation/1.73 sq m using serum, plasma, or whole bOrdered By: Yousif García on 02-04-2025 GFR/1.73 sq M.predicted among non-blacks MDRD (S/P/Bld) [Vol rate/Area] 47 mL/min/{1.73_m2} Low >60 [facility] Comment on above: mL/min/1.73m2 CKD-EP I Creatinine Equation (2020) Hematocrit Auto (Bld) [Volum e fraction]Ordered By: Yousif García on 02-04-2025 Hematocrit (Bld) [Volume fraction] 43.3 % 37-47 [facility] Hemoglobin measurementOrdere d By: Yousif García on 02-04-2025 Hemoglobin (Bld) [Mass/Vol] 15.0 g/dL 12.0-15.0 [facility] Immature granulocytes/100 WB C Auto (Bld)Ordered By: Yousif García on 02-04-2025 Immature granulocytes/100 WBC (Bld) 0.300 % 0.0-0.9 [facility] Comment on above: IG% - Immature Granu locytes (promyelocytes, myelocytes and metamyelocytes) > 1% indicates that a LEFT SHIFT is Present. MCV (mean corpuscular volume ) determinationOrdered By: Yousif García on 02-04-2025 MCV (RBC) [Entitic vol] 94.1 fL 81-99 [facility] Mean corpuscular hemoglobin (MCH) determinationOrdered By: Yousif García on 02-04-2025 MCH (RBC) [Entitic mass] 32.6 pg High 27.0-32.0 [facility] Mean corpuscular hemoglobin concentration (MCHC) determinationOrdered By: Yousif García on 02-04-2025 MCHC (RBC) [Mass/Vol] 34.6 g/dL 32-36 [facility] Mean platelet volume determi nationOrdered By: Yousif García on 02-04-2025 Platelet mean volume (Bld) [Entitic vol] 10.1 fL 6.2-12.0 [facility] Monocyte percentageOrdered B y: Yousif García on 02-04-2025 Monocytes/100 WBC (Bld) 9.6 % 0-10 [facility] Neutrophil percentageOrdered By: Yousif García on 02-04-2025 Neutrophils/100 WBC (Bld) 74.6 % High 47-70 [facility] Nucleated red blood cell per centageOrdered By: Yousif García on 02-04-2025 Nucleated RBC/100 WBC (Bld) [Ratio] 0 % 0-5 [facility] Platelet countOrdered By: Doc García on 02-04-2025 Platelets (Bld) [#/Vol] 217 10*3/uL 150-450 [facility] Potassium measurement (mass/ volume)Ordered By: Yousif García on 02-04-2025 Potassium (Unsp spec) [Mass/Vol] 4.4 mmol/L 3.3-5.1 [facility] RBC Auto (Bld) [#/Vol]Ordere d By: Yousif García on 02-04-2025 RBC (Bld) [#/Vol] 4.60 10*6/uL 4.2-5.4 [facility] Serum creatinine measurement (mass/volume)Ordered By: Yousif García on 02-04-2025 Creatinine [Mass/Vol] 1.19 mg/dL 0.70-1.20 [facility] Serum glucose measurement (m ass/volume)Ordered By: Yousif García on 02-04-2025 Glucose [Mass/Vol] 95 mg/dL 70-99 [facility] Serum or plasma C reactive p rotein measurement (mass/volume)Ordered By: Yousif García on 02-04-2025 CRP [Mass/Vol] 40.10 mg/L High 0.0-3.0 [facility] Serum or plasma calcium rodolfo urement (mass/volume)Ordered By: Yousif García on 02-04-2025 Calcium [Mass/Vol] 9.4 mg/dL 7.6-11.0 [facility] Serum or plasma urea nitroge n measurement (mass/volume)Ordered By: Yousif García on 02-04-2025 Urea nitrogen [Mass/Vol] 14 mg/dL 4-19 [facility] Serum or plasma uric acid me asurement (mass/volume)Ordered By: Yousif García on 02-04-2025 Urate [Mass/Vol] 4.0 mg/dL 2.6-6.0 [facility] Comment on above: The drugs N-Acetylcy steine and Metamizole may falsely depress this assay. Sodium levelOrdered By: Yousif García on 02-04-2025 Sodium [Moles/Vol] 141 mmol/L 133-145 [facility] Uric Acidon 02-04-2025 URIC 4.0 mg/dL Normal 2.6-6.0 [facility] Comment on above: Result Comment: The drugs N-Acetylcysteine and Metamizole may falsely depress this assay. Performed By: #### L 500.2500, L100.0100, L501.4020 #### [facility] [address] [place], [address] White blood cell (WBC) count Ordered By: Yousif García on 02-04-2025 WBC (Bld) [#/Vol] 7.8 10*3/uL 4.4-11.0 [facility] Anion gap in Serum or Plasma Ordered By: Reji Machuca on 12-12-2024 Anion gap [Moles/Vol] 11 mmol/L 5-15 [facility] BUN/creatinine ratioOrdered By: Reji Machuca on 12-12-2024 Urea nitrogen/Creatinine [Mass ratio] 15.5 mg/mg 10-20 [facility] Bilirubin, totalOrdered By: Reji Machuca on 12-12-2024 Bilirubin [Mass/Vol] 0.62 mg/dL 0.00-1.30 [facility] Calculated very low density lipoprotein (VLDL) cholesterol measurementOrdered By: Reji Machuca on 12-12-2024 Calculated very low density lipoprotein (VLDL) cholesterol measurement 19 mg/dL 5-40 [facility] Carbon dioxide, total [Moles /volume] in Central venous bloodOrdered By: Reji Machuca on 12-12-2024 CO2 [Moles/Vol] 24.6 mmol/L 21.0-32.0 [facility] Chloride assayOrdered By: Devora Machuca on 12-12-2024 Chloride [Moles/Vol] 106 mmol/L 98-108 [facility] Comprehensive Metabolic Prof ilon 12-12-2024 Albumin [Mass/Vol] 4.2 g/dL Normal 3.4-4.8 [facility] Comment on above: Performed By: #### L 500.2500, L100.0100, L501.4020 #### [facility] [address] [place], [address] Albumin/Globulin [Mass ratio] 1.5 {ratio} Normal 0.9-2.4 [facility] Comment on above: Performed By: #### L 500.2500, L100.0100, L501.4020 #### [facility] [address] [place], [address] ALK PHOS 80 U/L Normal 35-104 [facility] Comment on above: Performed By: #### L 500.2500, L100.0100, L501.4020 #### [facility] [address] [place], [address] ALT [Catalytic activity/Vol] 11 U/L Normal <=34 [facility] Comment on above: Performed By: #### L 500.2500, L100.0100, L501.4020 #### [facility] [address] [place], [address] AST [Catalytic activity/Vol] 17 U/L Normal <=31 [facility] Comment on above: Performed By: #### L 500.2500, L100.0100, L501.4020 #### [facility] [address] [place], [address] Bilirubin [Mass/Vol] 0.62 mg/dL Normal 0.00-1.30 [facility] Comment on above: Performed By: #### L 500.2500, L100.0100, L501.4020 #### [facility] [address] [place], [address] BUN/CRE 15.5 RATIO Normal 10-20 [facility] Comment on above: Performed By: #### L 500.2500, L100.0100, L501.4020 #### [facility] [address] [place], [address] Calcium [Mass/Vol] 9.6 mg/dL Normal 7.6-11.0 [facility] Comment on above: Performed By: #### L 500.2500, L100.0100, L501.4020 #### [facility] [address] [place], [address] Chloride [Moles/Vol] 106 mmol/L Normal 98-108 [facility] Comment on above: Performed By: #### L 500.2500, L100.0100, L501.4020 #### [facility] [address] [place], [address] CO2 [Moles/Vol] 24.6 mmol/L Normal 21.0-32.0 [facility] Comment on above: Performed By: #### L 500.2500, L100.0100, L501.4020 #### [facility] [address] [place], [address] Creatinine [Mass/Vol] 1.35 mg/dL High 0.70-1.20 [facility] Comment on above: Performed By: #### L 500.2500, L100.0100, L501.4020 #### [facility] [address] [place], [address] GAP 11 Normal 5-15 [facility] Comment on above: Performed By: #### L 500.2500, L100.0100, L501.4020 #### [facility] [address] [place], [address] GFR/1.73 sq M.predicted among non-blacks MDRD (S/P/Bld) [Vol rate/Area] 40 mL/min/{1.73_m2} Low >60 [facility] Comment on above: Result Comment: mL/m in/1.73m2 CKD-EPI Creatinine Equation (2020) Performed By: #### L 500.2500, L100.0100, L501.4020 #### [facility] [address] [place], [address] Globulin (S) [Mass/Vol] 2.9 g/dL Normal 2.2-4.2 [facility] Comment on above: Performed By: #### L 500.2500, L100.0100, L501.4020 #### [facility] [address] [place], [address] Glucose [Mass/Vol] 75 mg/dL Normal 70-99 [facility] Comment on above: Performed By: #### L 500.2500, L100.0100, L501.4020 #### [facility] [address] [place], [address] Potassium [Moles/Vol] 4.1 mmol/L Normal 3.3-5.1 [facility] Comment on above: Performed By: #### L 500.2500, L100.0100, L501.4020 #### [facility] [address] [place], [address] Sodium [Moles/Vol] 141 mmol/L Normal 133-145 [facility] Comment on above: Performed By: #### L 500.2500, L100.0100, L501.4020 #### [facility] [address] [place], [address] T PROT 7.1 g/dL Normal 5.9-8.4 [facility] Comment on above: Performed By: #### L 500.2500, L100.0100, L501.4020 #### [facility] [address] [place], [address] Urea nitrogen [Mass/Vol] 21 mg/dL High 4-19 [facility] Comment on above: Performed By: #### L 500.2500, L100.0100, L501.4020 #### [facility] [address] [place], [address] Glomerular filtration rate ( GFR) estimation/1.73 sq m using serum, plasma, or whole bOrdered By: Reji Machuca on 12-12-2024 GFR/1.73 sq M.predicted among non-blacks MDRD (S/P/Bld) [Vol rate/Area] 40 mL/min/{1.73_m2} Low >60 [facility] Comment on above: mL/min/1.73m2 CKD-EP I Creatinine Equation (2020) LDL calc ser/plasOrdered By: eRji Machuca on 12-12-2024 Cholesterol in LDL [Mass/Vol] 92 mg/dL [facility] Comment on above: Vqeuvydtle=152-620 m g/dL & Higher Ggro=091 mg/dL or greater Laboratory - Chemistry and C hemistry - challengeOrdered By: Reji Machuca on 12-12-2024 AST [Catalytic activity/Vol] 17 U/L <32 [facility] Lipid Profileon 12-12-2024 CHOL:HDL 2.57 Normal [facility] Comment on above: Performed By: #### L 500.2500, L100.0100, L501.4020 #### [facility] [address] [place], [address] Cholesterol [Mass/Vol] 182 mg/dL Normal <=200 [facility] Comment on above: Result Comment: Chol esterol level, Desirable <200 mg/dL Borderline high cholesterol 200-239 mg/dL High cholesterol >=240 mg/dL Recommendations of the NCEP Adult Treatment Panel for the following risk-cutoff thresholds for the [place] population. Performed By: #### L 500.2500, L100.0100, L501.4020 #### [facility] [address] [place], [address] Cholesterol in HDL [Mass/Vol] 71 mg/dL Normal [facility] Comment on above: Result Comment: Ayala onal Cholesterol Education Program (NCEP) guidelines: <40 mg/dL: Low HDL-cholesterol (major risk factor for CHD) >= 60 mg/dL: High HDL-cholesterol (negative risk factor for CHD) HDL-cholesterol is affected by a number of factors, e.g. smoking, exercise, hormones, sex and age. Performed By: #### L 500.2500, L100.0100, L501.4020 #### [facility] [address] [place], [address] Cholesterol in LDL [Mass/Vol] 92 mg/dL Normal [facility] Comment on above: Result Comment: Bord alvjhq=397-168 mg/dL Higher Iqvb=340 mg/dL or greater Performed By: #### L 500.2500, L100.0100, L501.4020 #### [facility] [address] [place], [address] Cholesterol in VLDL [Mass/Vol] 19 mg/dL Normal 5-40 [facility] Comment on above: Performed By: #### L 500.2500, L100.0100, L501.4020 #### [facility] [address] [place], [address] Triglyceride [Mass/Vol] 95 mg/dL Normal [facility] Comment on above: Result Comment: The drugs N-Acetylcysteine and Metamizole may falsely depress this assay. Normal range: <150 mg/dL Borderline High: 150-199 mg/dL High: 200-499 mg/dL Very High: >500 mg/dL Performed By: #### L 500.2500, L100.0100, L501.4020 #### [facility] [address] [place], [address] Potassium measurement (mass/ volume)Ordered By: Reji Machuca on 12-12-2024 Potassium (Unsp spec) [Mass/Vol] 4.1 mmol/L 3.3-5.1 [facility] Screening total cholesterol/ high density lipoprotein (HDL) cholesterol ratioOrdered By: Reji Machuca on 12-12-2024 Cholesterol.total/Choles terol in HDL [Mass ratio] 2.57 {ratio} [facility] Serum creatinine measurement (mass/volume)Ordered By: Reji Machuca on 12-12-2024 Creatinine [Mass/Vol] 1.35 mg/dL High 0.70-1.20 [facility] Serum globulin measurementOr dered By: Reji Machuca on 12-12-2024 Globulin (S) [Mass/Vol] 2.9 g/dL 2.2-4.2 [facility] Serum glucose measurement (m ass/volume)Ordered By: Reji Machuca on 12-12-2024 Glucose [Mass/Vol] 75 mg/dL 70-99 [facility] Serum or plasma alanine dean otransferase (ALT) measurementOrdered By: Reji Machuca on 12-12-2024 ALT [Catalytic activity/Vol] 11 U/L <35 [facility] Serum or plasma albumin rodolfo urement (mass/volume)Ordered By: Reji Machuca on 12-12-2024 Albumin [Mass/Vol] 4.2 g/dL 3.4-4.8 [facility] Serum or plasma albumin/glob ulin mass ratioOrdered By: Reji Machuca on 12-12-2024 Albumin/Globulin [Mass ratio] 1.5 {ratio} 0.9-2.4 [facility] Serum or plasma alkaline genie sphatase measurementOrdered By: Reji Machuca on 12-12-2024 ALP [Catalytic activity/Vol] 80 U/L 35-104 [facility] Serum or plasma calcium rodolfo urement (mass/volume)Ordered By: Reji Machuca on 12-12-2024 Calcium [Mass/Vol] 9.6 mg/dL 7.6-11.0 [facility] Serum or plasma cholesterol in HDL measurement (mass/volume)Ordered By: Reji Machuca on 12-12-2024 Cholesterol in HDL [Mass/Vol] 71 mg/dL >40 [facility] Comment on above: National Cholesterol Education Program (NCEP) guidelines:<40 mg/dL: Low HDL-cholesterol (major risk factor for CHD)>= 60 mg/dL: High HDL-cholesterol (negative risk factor for CHD)HDL-cholesterol is affected by a number of factors, e.g. smoking, exercise, hormones, sex and age. Serum or plasma cholesterol measurement (mass/volume)Ordered By: Reji Machuca on 12-12-2024 Cholesterol [Mass/Vol] 182 mg/dL <201 [facility] Comment on above: Cholesterol level, D esirable <200 mg/dLBorderline high cholesterol 200-239 mg/dLHigh cholesterol >=240 mg/dLRecommendations of the NCEP Adult Treatment Panel for the following risk-cutoff thresholds for the [place] population. Serum or plasma urea nitroge n measurement (mass/volume)Ordered By: Reji Machuca on 12-12-2024 Urea nitrogen [Mass/Vol] 21 mg/dL High 4-19 [facility] Serum or plasma uric acid me asurement (mass/volume)Ordered By: Reji Machuca on 12-12-2024 Urate [Mass/Vol] 3.9 mg/dL 2.6-6.0 [facility] Comment on above: The drugs N-Acetylcy steine and Metamizole may falsely depress this assay. Sodium levelOrdered By: Reji Machuca on 12-12-2024 Sodium [Moles/Vol] 141 mmol/L 133-145 [facility] Total proteinOrdered By: Lola Machuca on 12-12-2024 Protein [Mass/Vol] 7.1 g/dL 5.9-8.4 [facility] [facility] Triglycerides measurementOrd ered By: Reji Machuca on 12-12-2024 Triglyceride [Mass/Vol] 95 mg/dL <199 [facility] Comment on above: The drugs N-Acetylcy steine and Metamizole may falsely depress this assay. Normal range: <150 mg/dLBorderline High: 150-199 mg/dLHigh: 200-499 mg/dLVery High: >500 mg/dL Uric Acidon 12-12-2024 URIC 3.9 mg/dL Normal 2.6-6.0 [facility] Comment on above: Result Comment: The drugs N-Acetylcysteine and Metamizole may falsely depress this assay. Performed By: #### L 500.2500, L100.0100, L501.4020 #### [facility] [place], [address] Absolute lymphocyte countOrd ered By: Reji Machuca on 10-22-2024 Lymphocytes Auto (Unsp spec) [#/Vol] 1.70 10*3/uL 0.83-4.51 [facility] Absolute neutrophil countOrd ered By: Reji Machuca on 10-22-2024 Neutrophils (Bld) [#/Vol] 7.2 10*3/uL 2.0-7.7 [facility] Anion gap in Serum or Plasma Ordered By: Reji Machuca on 10-22-2024 Anion gap [Moles/Vol] 12 mmol/L 5-15 [facility] Automated lymphocyte count a s percentage of total leukocytesOrdered By: Reji Machuca on 10-22-2024 Lymphocytes/100 WBC Auto (Unsp spec) 17.2 % Low 19-41 [facility] BUN/creatinine ratioOrdered By: Reji Machuca on 10-22-2024 Urea nitrogen/Creatinine [Mass ratio] 22.0 mg/mg High 10-20 [facility] Basic Metabolic Profile (BMP )on 10-22-2024 BUN/CRE 22.0 RATIO High 10-20 [facility] Comment on above: Performed By: #### L 500.2500, L100.0100, L501.4020 #### [facility] [address] [place], [address] Calcium [Mass/Vol] 9.8 mg/dL Normal 7.6-11.0 [facility] Comment on above: Performed By: #### L 500.2500, L100.0100, L501.4020 #### [facility] [address] [place], [address] Chloride [Moles/Vol] 107 mmol/L Normal 98-108 [facility] Comment on above: Performed By: #### L 500.2500, L100.0100, L501.4020 #### [facility] [address] [place], [address] CO2 [Moles/Vol] 22.3 mmol/L Normal 21.0-32.0 [facility] Comment on above: Performed By: #### L 500.2500, L100.0100, L501.4020 #### [facility] [address] [place], [address] Creatinine [Mass/Vol] 0.71 mg/dL Normal 0.70-1.20 [facility] Comment on above: Performed By: #### L 500.2500, L100.0100, L501.4020 #### [facility] [address] [place], [address] GAP 12 Normal 5-15 [facility] Comment on above: Performed By: #### L 500.2500, L100.0100, L501.4020 #### [facility] [address] [place], [address] GFR/1.73 sq M.predicted among non-blacks MDRD (S/P/Bld) [Vol rate/Area] 88 mL/min/{1.73_m2} Normal >60 [facility] Comment on above: Result Comment: mL/m in/1.73m2 CKD-EPI Creatinine Equation (2020) Performed By: #### L 500.2500, L100.0100, L501.4020 #### [facility] [address] [place], [address] Glucose [Mass/Vol] 82 mg/dL Normal 70-99 [facility] Comment on above: Performed By: #### L 500.2500, L100.0100, L501.4020 #### [facility] [address] [place], [address] Potassium [Moles/Vol] 3.9 mmol/L Normal 3.3-5.1 [facility] Comment on above: Performed By: #### L 500.2500, L100.0100, L501.4020 #### [facility] [address] [place], [address] Sodium [Moles/Vol] 142 mmol/L Normal 133-145 [facility] Comment on above: Performed By: #### L 500.2500, L100.0100, L501.4020 #### [facility] [address] [place], [address] Urea nitrogen [Mass/Vol] 16 mg/dL Normal 4-19 [facility] Comment on above: Performed By: #### L 500.2500, L100.0100, L501.4020 #### [facility] [address] [place], [address] Basophil percentageOrdered B y: Reji Machuca on 10-22-2024 Basophils/100 WBC (Bld) 0.5 % 0-1 [facility] CBC W/Diff, Automatedon 09-26 Absolute Lymph 1.70 X10 3/uL Normal 0.83-4.51 [facility] Comment on above: Performed By: #### L 500.2500, L100.0100, L501.4020 #### [facility] [address] [place], [address] Absolute Neut 7.2 X10 3/uL Normal 2.0-7.7 [facility] Comment on above: Performed By: #### L 500.2500, L100.0100, L501.4020 #### [facility] [address] [place], [address] Basophils/100 WBC (Bld) 0.5 % Normal 0-1 [facility] Comment on above: Performed By: #### L 500.2500, L100.0100, L501.4020 #### [facility] [address] [place], [address] Eosinophils/100 WBC (Bld) 2.0 % Normal 0-5 [facility] Comment on above: Performed By: #### L 500.2500, L100.0100, L501.4020 #### [facility] [address] [place], [address] Erythrocyte distribution width (RBC) [Ratio] 14.0 % Normal 11.6-14.6 [facility] Comment on above: Performed By: #### L 500.2500, L100.0100, L501.4020 #### [facility] [address] [place], [address] Hematocrit (Bld) [Volume fraction] 45.9 % Normal 37-47 [facility] Comment on above: Performed By: #### L 500.2500, L100.0100, L501.4020 #### [facility] [address] [place], [address] Hemoglobin (Bld) [Mass/Vol] 14.5 g/dL Normal 12.0-15.0 [facility] Comment on above: Performed By: #### L 500.2500, L100.0100, L501.4020 #### [facility] [address] [place], [address] IG% 0.300 Normal 0.0-0.9 [facility] Comment on above: Result Comment: IG% - Immature Granulocytes (promyelocytes, myelocytes and metamyelocytes) > 1% indicates that a LEFT SHIFT is Present. Performed By: #### L 500.2500, L100.0100, L501.4020 #### [facility] [address] [place], [address] Lymphocytes/100 WBC (Bld) 17.2 % Low 19-41 [facility] Comment on above: Performed By: #### L 500.2500, L100.0100, L501.4020 #### [facility] [address] [place], [address] MCH (RBC) [Entitic mass] 29.9 pg Normal 27.0-32.0 [facility] Comment on above: Performed By: #### L 500.2500, L100.0100, L501.4020 #### [facility] [address] [place], [address] MCHC (RBC) [Mass/Vol] 31.6 g/dL Low 32-36 [facility] Comment on above: Performed By: #### L 500.2500, L100.0100, L501.4020 #### [facility] [address] [place], [address] MCV (RBC) [Entitic vol] 94.6 fL Normal 81-99 [facility] Comment on above: Performed By: #### L 500.2500, L100.0100, L501.4020 #### [facility] [address] [place], [address] Monocytes/100 WBC (Bld) 7.3 % Normal 0-10 [facility] Comment on above: Performed By: #### L 500.2500, L100.0100, L501.4020 #### [facility] [address] [place], [address] Neutrophils/100 WBC (Bld) 72.7 % High 47-70 [facility] Comment on above: Performed By: #### L 500.2500, L100.0100, L501.4020 #### [facility] [address] [place], [address] Nucleated RBC (Bld) [#/Vol] 0 10*3/uL Normal 0-5 [facility] Comment on above: Performed By: #### L 500.2500, L100.0100, L501.4020 #### [facility] [address] [place], [address] Platelet mean volume (Bld) [Entitic vol] 10.3 fL Normal 6.2-12.0 [facility] Comment on above: Performed By: #### L 500.2500, L100.0100, L501.4020 #### [facility] [address] [place], [address] Platelets (Bld) [#/Vol] 247 10*3/uL Normal 150-450 [facility] Comment on above: Performed By: #### L 500.2500, L100.0100, L501.4020 #### [facility] [address] [place], [address] RBC (Bld) [#/Vol] 4.85 10*6/uL Normal 4.2-5.4 [facility] Comment on above: Performed By: #### L 500.2500, L100.0100, L501.4020 #### [facility] [address] [place], [address] RDW SD 48.9 fl High 35.1-43.9 [facility] Comment on above: Performed By: #### L 500.2500, L100.0100, L501.4020 #### [facility] [address] [place], [address] WBC (Bld) [#/Vol] 9.9 10*3/uL Normal 4.4-11.0 [facility] Comment on above: Performed By: #### L 500.2500, L100.0100, L501.4020 #### [facility] [address] [place], [address] Carbon dioxide, total [Moles /volume] in Central venous bloodOrdered By: Reji Machuca on 10-22-2024 CO2 [Moles/Vol] 22.3 mmol/L 21.0-32.0 [facility] Chest PA and Lateralon 10-22 Chest PA and Lateral [facility] [address] [place] [address] Chest PA and Lateral MR#: [id number] Acct: [id number] Name: GILDARDOSINDI MASHA Rep #: [id number] : 1945 F 79 From: Harsha Valdez MD PCP: Dr. Reji Machuca MD Status: REG CLI Study: Chest PA and Lateral Date of Exam: 10/22/24 Exam# [id number] Ordering Dr: Reji Machuca MD PROCEDURE: CHEST PA AND LATERAL 10/22/2024 REASON FOR EXAM: COPD TECHNIQUE: Frontal and lateral views of the chest. COMPARISON: 07/09/2024 FINDINGS: The lungs appear clear. Pulmonary vascularity appears within limits. No pleural effusion. Appearance of pulmonary emphysema and hyperinflation again noted. Very large hiatal hernia again seen. Cardiac silhouette appears within limits for size. Atherosclerotic change of the aortic arch again noted. Leftward thoracolumbar scoliosis. RAD/Chest PA and Lateral IMPRESSION: No evidence of acute disease. Appearance of pulmonary emphysema and hyperinflation again noted. Very large hiatal hernia again seen. Reading Location: [facility] CC: Dr. Reji Machuca MD Derrick Worker: Signed Normal [facility] Chloride assayOrdered By: Devora Machuca on 10-22-2024 Chloride [Moles/Vol] 107 mmol/L 98-108 [facility] Eosinophil percentageOrdered By: Reji Machuca on 10-22-2024 Eosinophils/100 WBC (Bld) 2.0 % 0-5 [facility] Erythrocyte distribution wid th ratioOrdered By: Reji Machuca on 10-22-2024 Erythrocyte distribution width (RBC) [Ratio] 14.0 % 11.6-14.6 [facility] Erythrocyte distribution wid th standard deviationOrdered By: Reji Machuca on 10-22-2024 Erythrocyte distribution width (RBC) [Ratio] 48.9 fl High 35.1-43.9 [facility] Glomerular filtration rate ( GFR) estimation/1.73 sq m using serum, plasma, or whole bOrdered By: Reji Machuca on 10-22-2024 GFR/1.73 sq M.predicted among non-blacks MDRD (S/P/Bld) [Vol rate/Area] 88 mL/min/{1.73_m2} >60 [facility] Comment on above: mL/min/1.73m2 CKD-EP I Creatinine Equation (2020) Hematocrit Auto (Bld) [Volum e fraction]Ordered By: Reji Machuca on 10-22-2024 Hematocrit (Bld) [Volume fraction] 45.9 % 37-47 [facility] Hemoglobin measurementOrdere d By: Reji Machuca on 10-22-2024 Hemoglobin (Bld) [Mass/Vol] 14.5 g/dL 12.0-15.0 [facility] Immature granulocytes/100 WB C Auto (Bld)Ordered By: Reji Machuca on 10-22-2024 Immature granulocytes/100 WBC (Bld) 0.300 % 0.0-0.9 [facility] Comment on above: IG% - Immature Granu locytes (promyelocytes, myelocytes and metamyelocytes) > 1% indicates that a LEFT SHIFT is Present. MCV (mean corpuscular volume ) determinationOrdered By: Reji Machuca on 10-22-2024 MCV (RBC) [Entitic vol] 94.6 fL 81-99 [facility] Mean corpuscular hemoglobin (MCH) determinationOrdered By: Reji Machuca on 10-22-2024 MCH (RBC) [Entitic mass] 29.9 pg 27.0-32.0 [facility] Mean corpuscular hemoglobin concentration (MCHC) determinationOrdered By: Reji Machuca on 10-22-2024 MCHC (RBC) [Mass/Vol] 31.6 g/dL Low 32-36 [facility] Mean platelet volume determi nationOrdered By: Reji Machuca on 10-22-2024 Platelet mean volume (Bld) [Entitic vol] 10.3 fL 6.2-12.0 [facility] Monocyte percentageOrdered B y: Reji Machuca on 10-22-2024 Monocytes/100 WBC (Bld) 7.3 % 0-10 [facility] Neutrophil percentageOrdered By: Reji Machuca on 10-22-2024 Neutrophils/100 WBC (Bld) 72.7 % High 47-70 [facility] Nucleated red blood cell per centageOrdered By: Reji Machuca on 10-22-2024 Nucleated RBC/100 WBC (Bld) [Ratio] 0 % 0-5 [facility] Platelet countOrdered By: Devora Machuca on 10-22-2024 Platelets (Bld) [#/Vol] 247 10*3/uL 150-450 [facility] Potassium measurement (mass/ volume)Ordered By: Reji Machuca on 10-22-2024 Potassium (Unsp spec) [Mass/Vol] 3.9 mmol/L 3.3-5.1 [facility] RBC Auto (Bld) [#/Vol]Ordere d By: Reji Machuca on 10-22-2024 RBC (Bld) [#/Vol] 4.85 10*6/uL 4.2-5.4 [facility] Serum creatinine measurement (mass/volume)Ordered By: Reji Machuca on 10-22-2024 Creatinine [Mass/Vol] 0.71 mg/dL 0.70-1.20 [facility] Serum glucose measurement (m ass/volume)Ordered By: Reji Machuca on 10-22-2024 Glucose [Mass/Vol] 82 mg/dL 70-99 [facility] Serum or plasma calcium rodolfo urement (mass/volume)Ordered By: Reji Machuca on 10-22-2024 Calcium [Mass/Vol] 9.8 mg/dL 7.6-11.0 [facility] Serum or plasma urea nitroge n measurement (mass/volume)Ordered By: Reji Machuca on 10-22-2024 Urea nitrogen [Mass/Vol] 16 mg/dL 4-19 [facility] Sodium levelOrdered By: Reji Machuca on 10-22-2024 Sodium [Moles/Vol] 142 mmol/L 133-145 [facility] White blood cell (WBC) count Ordered By: Reji Machuca on 10-22-2024 WBC (Bld) [#/Vol] 9.9 10*3/uL 4.4-11.0 [facility] MR/BMS.Fracisco 08-26-2024 MR/BMS.HOSSEINS [facility] [address] [place] [address] OFFICE VISIT Date of Service: 08/26/24 MR#: [id number] Acct: [id number] Name: SINDI WRIGHT Rep #: [id number] : 1945 Provider: DEVORA Skaggs Age/Sex: 79/F Location: BMS.BVS Status: Signed Intake Vital Signs 04/24/22 10:22 08/26/24 14:32 Height 5 ft Weight: 130 lb BP 149/81 H Blood Pressure Location Lt brachial Position Sitting Respiration 16 Pulse 83 Pulse Source Monitor Temp 98 F Temp Source Temporal Pulse Oximetry (%) 98 Oxygen Delivery Method room air Intake Visit Reasons: PAD Chief Complaint: stent Is patient in pain?: Yes Allergies Sulfa (Sulfonamide Antibiotics) Allergy (Verified 08/26/24 14:38) Hives ibandronate sodium (From Boniva) Adverse Reaction (Intermediate, Verified 08/26/24 14:38) PT UNSURE OF REACTION Medications ???Medication ???Instructions ???Recorded ???Confirmed ???Type aspirin 81 mg tablet,delayed 81 mg PO DAILY PRN 09/05/22 History release (Adult Low Dose Aspirin) losartan 50 mg tablet 50 mg PO QDAY 08/26/24 08/26/24 Hi story Is last menstrual period known: No Post menopausal: Yes Patient : No Have you fallen in the past year?: No PFSH Medical History (Updated 08/27/24 @ 08:04 by DEVORA Skaggs) 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 Left leg pain Acute bronchitis, unspecified URI (upper respiratory infection) Abdominal pain Nausea Vitamin D deficiency Bilateral leg weakness Anxiety GERD (gastroesophageal reflux disease) Osteoporosis COPD (chronic obstructive pulmonary disease) Anemia PAD (peripheral artery disease) Abnormal mammogram of left breast Pulmonary nodule Hemorrhoids Fatigue Arthritis Back problem Abnormal mammogram Peripheral neuropathy Fibromyalgia Pulmonary HTN Insomnia Acute blood loss anemia Upper GI bleed Surgical History (Updated 08/27/24 @ 07:59 by DEVORA Skaggs) History of cholecystectomy History of angioplasty Hx of colonoscopy History of esophageal dilatation History of esophagogastroduodenosco py (EGD) History of hysterectomy History bilateral cataract surgey History of laparoscopic cholecystectomy Family History Father Stomach cancer Diabetes Heart disease CVA (cerebral vascular accident) Mother Hypertension Social History Smoking Status: Former smoker quit date: 05/28/11 second hand exposure: No alcohol intake: current alcohol intake frequency: a few times a month substance use type: does not use caffeine: Yes frequency: 1-2 times per week HPI HPI HPI: SINDI WRIGHT, is a 79 F who presents to the office today for PAD as referred by her PCP. She has previously been seen by Dr. Pabon for her PAD. In late 2017 she was living in [place] and was being considered for R ankle reconstruction (she had a remote injury which she reports shattered her R ankle) and significant RLE PAD was first identified. She was then referred to vascular surgery there and underwent angiogram with R SFA stent; she did not have any claudication or other associated symptoms. Unfortunately, even after this she was not able to have her R ankle surgery due to the severity of that prior injury. She followed up here with Dr. Pabon and on surveillance imaging in 11/2019 her R SFA stent was noted to be occluded and R ANABELL 0.60. At that time, she was not having calf claudication so conservative management was continued. In 2022, she had repeat arterial study showing decreased R ANABELL to 0.47 and she'd had increased R ankle/foot pain and coolness. CTA demonstrated the R SFA occlusion with reconstitution of the distal SFA and three vessel runoff into the foot. Dr. Pabon recommended fem- above knee pop bypass with PTFE and there were plans for this, but ultimately she never did have this done due to other circumstances at that time. She has not had any vascular testing since. Here today, she reports her primary concern is her hypertension and whether or not this SFA occlusion could be contributing. She reports chronic R ankle pain present ever since her remote injury; but otherwise denies much calf claudication or foot pain. She is more limited by her ankle pain and her breathing secondary to COPD. She denies any wounds. She reports hypertension is a new diagnosis for her within the last year. She has tried three different single agents and still does not have good control; she notes it is quite variable anywhere from 140 to 190 systolic as she monitor at home. Other than her current losartan, she takes no other medications and does prefer to take as few as possible. Most recent labs in 06/2024 demons (more content not included)... Normal [facility] Absolute lymphocyte countOrd ered By: Reji Machuca on 07-09-2024 Lymphocytes Auto (Unsp spec) [#/Vol] 1.67 10*3/uL 0.83-4.51 [facility] Absolute neutrophil countOrd ered By: Reji Machuca on 07-09-2024 Neutrophils (Bld) [#/Vol] 4.7 10*3/uL 2.0-7.7 [facility] Automated lymphocyte count a s percentage of total leukocytesOrdered By: Reji Machuca on 07-09-2024 Lymphocytes/100 WBC Auto (Unsp spec) 23.0 % 19-41 [facility] Basic Metabolic Profile (BMP )on 07-09-2024 BUN/CRE 14.9 RATIO Normal 10-20 [facility] Comment on above: Performed By: #### L 500.2500, L100.0100, L501.4020 #### [facility] [address] [place], [address] CA,Total 9.6 mg/dL Normal 8.5-10.1 [facility] Comment on above: Performed By: #### L 500.2500, L100.0100, L501.4020 #### [facility] [address] [place], [address] Chloride [Moles/Vol] 107 mmol/L Normal 98-107 [facility] Comment on above: Performed By: #### L 500.2500, L100.0100, L501.4020 #### [facility] [address] [place], [address] CO2 [Moles/Vol] 26.0 mmol/L Normal 21.0-32.0 [facility] Comment on above: Performed By: #### L 500.2500, L100.0100, L501.4020 #### [facility] [address] [place], [address] Creatinine [Mass/Vol] 0.81 mg/dL Normal 0.55-1.02 [facility] Comment on above: Result Comment: The validity of the calculated GFR GFRAA in patients over 70 years has not been determined. Clinical correlation is essential. Performed By: #### L 500.2500, L100.0100, L501.4020 #### [facility] [address] [place], [address] EST GFR - AA 89 mL/min Normal >60 [facility] Comment on above: Result Comment: Afri can Italian GFR Calc Performed By: #### L 500.2500, L100.0100, L501.4020 #### [facility] [address] [place], [address] GAP 7 Normal 5-15 [facility] Comment on above: Performed By: #### L 500.2500, L100.0100, L501.4020 #### [facility] [address] [place], [address] GFR/1.73 sq M.predicted among non-blacks MDRD (S/P/Bld) [Vol rate/Area] 73 mL/min/{1.73_m2} Normal >60 [facility] Comment on above: Result Comment: Non- GFR Calc Performed By: #### L 500.2500, L100.0100, L501.4020 #### [facility] [address] [place], [address] Glucose [Mass/Vol] 92 mg/dL Normal 74-106 [facility] Comment on above: Performed By: #### L 500.2500, L100.0100, L501.4020 #### [facility] [address] [place], [address] Potassium [Moles/Vol] 3.7 mmol/L Normal 3.5-5.1 [facility] Comment on above: Performed By: #### L 500.2500, L100.0100, L501.4020 #### [facility] [address] [place], [address] Sodium [Moles/Vol] 139 mmol/L Normal 136-145 [facility] Comment on above: Performed By: #### L 500.2500, L100.0100, L501.4020 #### [facility] [address] [place], [address] Urea nitrogen [Mass/Vol] 12 mg/dL Normal 7-18 [facility] Comment on above: Performed By: #### L 500.2500, L100.0100, L501.4020 #### [facility] [address] [place], [address] Basophil percentageOrdered B y: Reji Machuca on 07-09-2024 Basophils/100 WBC (Bld) 0.6 % 0-1 [facility] Blood urea nitrogen (BUN)/cr eatinine ratioOrdered By: Reji Machuca on 07-09-2024 Urea nitrogen/Creatinine [Mass ratio] 14.9 mg/mg 10-20 [facility] CBC W/Diff, Automatedon 06-28-2024 Absolute Lymph 1.67 X10 3/uL Normal 0.83-4.51 [facility] Comment on above: Performed By: #### L 500.2500, L100.0100, L501.4020 #### [facility] [address] [place], [address] Absolute Neut 4.7 X10 3/uL Normal 2.0-7.7 [facility] Comment on above: Performed By: #### L 500.2500, L100.0100, L501.4020 #### [facility] [address] [place], [address] Basophils/100 WBC (Bld) 0.6 % Normal 0-1 [facility] Comment on above: Performed By: #### L 500.2500, L100.0100, L501.4020 #### [facility] [address] [place], [address] Eosinophils/100 WBC (Bld) 2.9 % Normal 0-5 [facility] Comment on above: Performed By: #### L 500.2500, L100.0100, L501.4020 #### [facility] [address] [place], [address] Erythrocyte distribution width (RBC) [Ratio] 13.8 % Normal 11.6-14.6 [facility] Comment on above: Performed By: #### L 500.2500, L100.0100, L501.4020 #### [facility] [address] [place], [address] Hematocrit (Bld) [Volume fraction] 50.2 % High 37-47 [facility] Comment on above: Performed By: #### L 500.2500, L100.0100, L501.4020 #### [facility] [address] [place], [address] Hemoglobin (Bld) [Mass/Vol] 15.5 g/dL High 12.0-15.0 [facility] Comment on above: Performed By: #### L 500.2500, L100.0100, L501.4020 #### [facility] [address] [place], [address] IG% 0.300 Normal 0.0-0.9 [facility] Comment on above: Result Comment: IG% - Immature Granulocytes (promyelocytes, myelocytes and metamyelocytes) > 1% indicates that a LEFT SHIFT is Present. Performed By: #### L 500.2500, L100.0100, L501.4020 #### [facility] [address] [place], [address] Lymphocytes/100 WBC (Bld) 23.0 % Normal 19-41 [facility] Comment on above: Performed By: #### L 500.2500, L100.0100, L501.4020 #### [facility] [address] [place], [address] MCH (RBC) [Entitic mass] 29.1 pg Normal 27.0-32.0 [facility] Comment on above: Performed By: #### L 500.2500, L100.0100, L501.4020 #### [facility] [address] [place], [address] MCHC (RBC) [Mass/Vol] 30.9 g/dL Low 32-36 [facility] Comment on above: Performed By: #### L 500.2500, L100.0100, L501.4020 #### [facility] [address] [place], [address] MCV (RBC) [Entitic vol] 94.2 fL Normal 81-99 [facility] Comment on above: Performed By: #### L 500.2500, L100.0100, L501.4020 #### [facility] [address] [place], [address] Monocytes/100 WBC (Bld) 8.3 % Normal 0-10 [facility] Comment on above: Performed By: #### L 500.2500, L100.0100, L501.4020 #### [facility] [address] [place], [address] Neutrophils/100 WBC (Bld) 64.9 % Normal 47-70 [facility] Comment on above: Performed By: #### L 500.2500, L100.0100, L501.4020 #### [facility] [address] [place], [address] Nucleated RBC (Bld) [#/Vol] 0 10*3/uL Normal 0-5 [facility] Comment on above: Performed By: #### L 500.2500, L100.0100, L501.4020 #### [facility] [address] [place], [address] Platelet mean volume (Bld) [Entitic vol] 10.7 fL Normal 6.2-12.0 [facility] Comment on above: Performed By: #### L 500.2500, L100.0100, L501.4020 #### [facility] [address] [place], [address] Platelets (Bld) [#/Vol] 245 10*3/uL Normal 150-450 [facility] Comment on above: Performed By: #### L 500.2500, L100.0100, L501.4020 #### [facility] [address] [place], [address] RBC (Bld) [#/Vol] 5.33 10*6/uL Normal 4.2-5.4 [facility] Comment on above: Performed By: #### L 500.2500, L100.0100, L501.4020 #### [facility] [address] [place], [address] RDW SD 47.5 fl High 35.1-43.9 [facility] Comment on above: Performed By: #### L 500.2500, L100.0100, L501.4020 #### [facility] [address] [place], [address] WBC (Bld) [#/Vol] 7.3 10*3/uL Normal 4.4-11.0 [facility] Comment on above: Performed By: #### L 500.2500, L100.0100, L501.4020 #### [facility] [address] [place], [address] Carbon dioxide measurementOr dered By: Reji Machuca on 07-09-2024 CO2 [Moles/Vol] 26.0 mmol/L 21.0-32.0 [facility] Chest PA and Lateralon 07-09 Chest PA and Lateral [facility] [address] [place] [address] Chest PA and Lateral MR#: [id number] Acct: [id number] Name: GILDARDOSINDI MASHA Rep #: [id number] : 1945 F 79 From: Harsha Gandara PCP: Dr. Reji Machuca MD Status: REG CLI Study: Chest PA and Lateral Date of Exam: 07/09/24 Exam# [id number] Ordering Dr: Reji Machuca MD PROCEDURE: CHEST PA AND LATERAL REASON FOR EXAM: Shortness of breath, COPD TECHNIQUE: Single frontal image including the chest and abdomen. COMPARISON: None. FINDINGS: Heart size is within normal limits. Large hiatal hernia. Emphysema. No focal consolidation, pleural effusion or pneumothorax. RAD/Chest PA and Lateral IMPRESSION: 1. No acute airspace abnormality. 2. Large hiatal hernia. 3. Emphysema. [facility]: Dr. Reji Machuca MD Derrick Worker: Signed Normal [facility] Chloride measurementOrdered By: Reji Machuca on 07-09-2024 Chloride [Moles/Vol] 107 mmol/L 98-107 [facility] Eosinophil percentageOrdered By: Reji Machuca on 07-09-2024 Eosinophils/100 WBC (Bld) 2.9 % 0-5 [facility] Erythrocyte distribution wid th ratioOrdered By: Reji Machuca on 07-09-2024 Erythrocyte distribution width (RBC) [Ratio] 13.8 % 11.6-14.6 [facility] Erythrocyte distribution wid th standard deviationOrdered By: Reji Machuca on 07-09-2024 Erythrocyte distribution width (RBC) [Ratio] 47.5 fl High 35.1-43.9 [facility] Glomerular filtration rate ( GFR) estimationOrdered By: Reji Machuca on 07-09-2024 GFR/1.73 sq M.predicted among non-blacks MDRD (S/P/Bld) [Vol rate/Area] 73 mL/min/{1.73_m2} >60 [facility] Comment on above: Non- GFR Calc Glucose measurementOrdered B y: Reji Machuca on 07-09-2024 Glucose [Mass/Vol] 92 mg/dL 74-106 [facility] Hematocrit Auto (Bld) [Volum e fraction]Ordered By: Reji Machuca on 07-09-2024 Hematocrit (Bld) [Volume fraction] 50.2 % High 37-47 [facility] Hemoglobin measurementOrdere d By: Reji Machuca on 07-09-2024 Hemoglobin (Bld) [Mass/Vol] 15.5 g/dL High 12.0-15.0 [facility] Immature granulocytes/100 WB C Auto (Bld)Ordered By: Reji Machuca on 07-09-2024 Immature granulocytes/100 WBC (Bld) 0.300 % 0.0-0.9 [facility] Comment on above: IG% - Immature Granu locytes (promyelocytes, myelocytes and metamyelocytes) > 1% indicates that a LEFT SHIFT is Present. L501.4020on 07-09-2024 TROPONIN-I HS 18 pg/mL Normal 3.0-54.0 [facility] Comment on above: Order Comment: 1 Result Comment: Migel riley Note: New Test Units and Gender Specific Reference Ranges. For more information see Policy Stat Procedure Max High Sensitivity Troponin (TNIH) and attachments. Performed By: #### L 500.2500, L100.0100, L501.4020 #### [facility] [address] [place], [address] MCV (mean corpuscular volume ) determinationOrdered By: Reji Machuca on 07-09-2024 MCV (RBC) [Entitic vol] 94.2 fL 81-99 [facility] Mean corpuscular hemoglobin (MCH) determinationOrdered By: Reji Machuca on 07-09-2024 MCH (RBC) [Entitic mass] 29.1 pg 27.0-32.0 [facility] Mean corpuscular hemoglobin concentration (MCHC) determinationOrdered By: Reji Machuca on 07-09-2024 MCHC (RBC) [Mass/Vol] 30.9 g/dL Low 32-36 [facility] Mean platelet volume determi nationOrdered By: Reji Machuca on 07-09-2024 Platelet mean volume (Bld) [Entitic vol] 10.7 fL 6.2-12.0 [facility] Monocyte percentageOrdered B y: Reji Machuca on 07-09-2024 Monocytes/100 WBC (Bld) 8.3 % 0-10 [facility] Neutrophil percentageOrdered By: Reji Machuca on 07-09-2024 Neutrophils/100 WBC (Bld) 64.9 % 47-70 [facility] Nucleated red blood cell per centageOrdered By: Reji Machuca on 07-09-2024 Nucleated RBC/100 WBC (Bld) [Ratio] 0 % 0-5 [facility] Platelet countOrdered By: Devora Machuca on 07-09-2024 Platelets (Bld) [#/Vol] 245 10*3/uL 150-450 [facility] Potassium measurementOrdered By: Reji Machuca on 07-09-2024 Potassium [Moles/Vol] 3.7 mmol/L 3.5-5.1 [facility] RBC Auto (Bld) [#/Vol]Ordere d By: Reji Machuca on 07-09-2024 RBC (Bld) [#/Vol] 5.33 10*6/uL 4.2-5.4 [facility] Serum anion gap measurementO rdered By: Reji Machuca on 07-09-2024 Anion gap [Moles/Vol] 7 mmol/L 5-15 [facility] Serum or plasma calcium rodolfo urement (mass/volume)Ordered By: Reji Machuca on 07-09-2024 Calcium [Mass/Vol] 9.6 mg/dL 8.5-10.1 [facility] Serum or plasma creatinine m easurement (mass/volume)Ordered By: Reji Machuca on 07-09-2024 Creatinine [Mass/Vol] 0.81 mg/dL 0.55-1.02 [facility] Comment on above: The validity of the calculated GFR & GFRAA in patients over 70 years has not been determined. Clinical correlation is essential. Serum or plasma urea nitroge n measurement (mass/volume)Ordered By: Reji Machuca on 07-09-2024 Urea nitrogen [Mass/Vol] 12 mg/dL 7-18 [facility] Sodium levelOrdered By: Reji Machuca on 07-09-2024 Sodium [Moles/Vol] 139 mmol/L 136-145 [facility] Troponin IOrdered By: Reji young on 07-09-2024 Troponin I 18 pg/mL 3.0-54.0 [facility] Comment on above: Please Note: New Xiomara t Units and Gender Specific Reference Ranges. For more information see Policy Stat Procedure Max High Sensitivity Troponin (TNIH) and attachments. White blood cell (WBC) count Ordered By: Reji Machuca on 07-09-2024 WBC (Bld) [#/Vol] 7.3 10*3/uL 4.4-11.0 [facility] Absolute lymphocyte countOrd ered By: Reji Machuca on 08-09-2023 Lymphocytes Auto (Unsp spec) [#/Vol] 1.28 10*3/uL 0.83-4.51 [facility] Automated lymphocyte count a s percentage of total leukocytesOrdered By: Reji Machuca on 08-09-2023 Lymphocytes/100 WBC Auto (Unsp spec) 19.0 % 19-41 [facility] Basophil percentageOrdered B y: Reji Machuca on 08-09-2023 Creatinine [Mass/Vol] 1.1 mg/dL 0.55-1.02 [facility] Basophil percentage 5-10 SEEN /hpf 0-5 [facility] Basophils/100 WBC (Bld) 0.7 % 0-1 [facility] Bilirubin [Mass/Vol] 0.50 mg/dL 0.20-1.00 [facility] Comment on above: For patients on eltr ombopag therapy, use of Dimension Max TBIL is not recommended. Chloride [Moles/Vol] 108 mmol/L 98-107 [facility] Eosinophils/100 WBC (Bld) 2.7 % 0-5 [facility] Glucose [Mass/Vol] 80 mg/dL 74-106 [facility] Hemoglobin (Bld) [Mass/Vol] 13.8 g/dL 12.0-15.0 [facility] Monocytes/100 WBC (Bld) 10.3 % 0-10 [facility] Neutrophils (Bld) [#/Vol] 4.5 10*3/uL 2.0-7.7 [facility] Neutrophils/100 WBC (Bld) 66.9 % 47-70 [facility] Potassium [Moles/Vol] 3.7 mmol/L 3.5-5.1 [facility] Protein [Mass/Vol] 7.3 g/dL 6.4-8.2 [facility] Sodium [Moles/Vol] 141 mmol/L 136-145 [facility] WBC (Bld) [#/Vol] 6.7 10*3/uL 4.4-11.0 [facility] Bilirubin Test strip Ql (U)O rdered By: Reji Machuca on 08-09-2023 Bilirubin Ql (U) Negative Negative [facility] Calcium oxalate crystals det ection in urine sediment by light microscopyOrdered By: Reji Machuca on 08-09-2023 Calcium oxalate crystals LM Ql (Urine sed) 2+ /hpf [facility] Determination of erythrocyte mean corpuscular volume (MCV)Ordered By: Reji Machuca on 08-09-2023 MCV (RBC) [Entitic vol] 92.8 fL 81-99 [facility] Erythrocyte distribution wid th ratioOrdered By: Reji Machuca on 08-09-2023 Erythrocyte distribution width (RBC) [Ratio] 13.7 % 11.6-14.6 [facility] Erythrocyte distribution wid th standard deviationOrdered By: Reji Machuca on 08-09-2023 Erythrocyte distribution width (RBC) [Entitic vol] 46.1 fL 35.1-43.9 [facility] Hematocrit Auto (Bld) [Volum e fraction]Ordered By: Reji Machuca on 08-09-2023 Hematocrit (Bld) [Volume fraction] 44.8 % 37-47 [facility] Immature granulocytes/100 WB C Auto (Bld)Ordered By: Reji Machuca on 08-09-2023 Immature granulocytes/100 WBC (Bld) 0.400 % 0.0-0.9 [facility] Comment on above: IG% - Immature Granu locytes (promyelocytes, myelocytes and metamyelocytes) > 1% indicates that a LEFT SHIFT is Present. Ketones Test strip Ql (U)Ord ered By: Reji Machuca on 08-09-2023 Ketones Ql (U) Negative Negative [facility] - Chemistry and C hemistry - challengeOrdered By: Reji Machuca on 08-09-2023 GFR/1.73 sq M.predicted among non-blacks MDRD (S/P/Bld) [Vol rate/Area] 53.0000 mL/min/{1.73_m2} >60 [facility] Albumin/Globulin [Mass ratio] 0.7 {ratio} 0.9-2.4 [facility] ALP [Catalytic activity/Vol] 89 U/L 45-117 [facility] ALT [Catalytic activity/Vol] 14 U/L 13-56 [facility] CO2 [Moles/Vol] 27.0 mmol/L 21.0-32.0 [facility] Globulin (S) [Mass/Vol] 4.2 g/dL 2.2-4.2 [facility] Lipase [Catalytic activity/Vol] 48 U/L 13-75 [facility] Comment on above: Please note:LIPASE r evised reference range effective 22. New Lipase methodology. Expected to produce lower values than the previous assay method. NEW Reference Range: 13 - 75 U/L Urea nitrogen/Creatinine [Mass ratio] 16.0 mg/mg 10-20 [facility] - Hematology and Cell countsOrdered By: Reji Machuca on 08-09-2023 MCH (RBC) [Entitic mass] 28.6 pg 27.0-32.0 [facility] MCHC (RBC) [Mass/Vol] 30.8 g/dL 32-36 [facility] Nucleated RBC/100 WBC (Bld) [Ratio] 0 % 0-5 [facility] Platelet mean volume (Bld) [Entitic vol] 9.9 fL 6.2-12.0 [facility] Platelets (Bld) [#/Vol] 290 10*3/uL 150-450 [facility] Mucus LM Ql (Urine sed)Order ed By: Reji Machuca on 08-09-2023 Mucus Ql (Urine sed) 0 SEEN /hpf [facility] Nitrite Test strip Ql (U)Ord ered By: Reji Machuca on 08-09-2023 Nitrite Ql (U) Negative Negative [facility] No Panel InformationOrdered By: Reji Machuca on 08-09-2023 Estimated GFR (MDRD) Amer 96 mL/min >60 [facility] Comment on above: GFR Calc Estimated GFR (MDRD) Non-Af Amer 80 mL/min >60 [facility] Comment on above: Non- GFR Calc Urine RBC 5-10 SEEN /hpf 0-5 [facility] Protein Test strip Ql (U)Ord ered By: Reji Machuca on 08-09-2023 Protein Ql (U) 15 mg/dl Negative [facility] RBC Auto (Bld) [#/Vol]Ordere d By: Reji Machuca on 08-09-2023 RBC (Bld) [#/Vol] 4.83 10*6/uL 4.2-5.4 [facility] Serum or plasma calcium rodolfo urement (mass/volume)Ordered By: Reji Machuca on 08-09-2023 Calcium [Mass/Vol] 9.4 mg/dL 8.5-10.1 [facility] Serum or plasma creatinine m easurement (mass/volume)Ordered By: Reji Machuca on 08-09-2023 Creatinine [Mass/Vol] 0.75 mg/dL 0.55-1.02 [facility] Comment on above: The validity of the calculated GFR & GFRAA in patients over 70 years has not been determined. Clinical correlation is essential. Serum or plasma urea nitroge n measurement (mass/volume)Ordered By: Reji Machuca on 08-09-2023 Urea nitrogen [Mass/Vol] 12 mg/dL 7-18 [facility] Squamous epithelial cells de tection in urine sediment by light microscopyOrdered By: Reji Machuca on 08-09-2023 Epithelial cells.squamous LM Ql (Urine sed) 10-25 SEEN /hpf 5-10 [facility] Thin prep Papanicolaou smear with manual screeningOrdered By: Reji Machuca on 08-09-2023 Thin prep Papanicolaou smear with manual screening 3.1 g/dL 3.2-5.0 [facility] Thin prep Papanicolaou smear with manual screening 13 U/L 15-37 [facility] Thin prep Papanicolaou smear with manual screening 6 5-15 [facility] Urine blood detectionOrdered By: Reji Machuca on 08-09-2023 RBC Ql (U) 10 /ul Negative [facility] Urine clarityOrdered By: Lola Machuca on 08-09-2023 Clarity (U) Sl. Cloudy Clear [facility] Urine color determinationOrd ered By: Reji Machuca on 08-09-2023 Color (U) Yellow Yellow [facility] Urine glucose detectionOrder ed By: Reji Machuca on 08-09-2023 Glucose Ql (U) Normal mg/dl Normal [facility] Urine leukocyte esterase det ection by dipstickOrdered By: Reji Machuca on 08-09-2023 Leukocyte esterase Test strip Ql (U) 100 /ul Negative [facility] Urine pHOrdered By: Reji horowitz on 08-09-2023 pH (U) 5.0 [pH] 5.0 - 8.0 [facility] Urine sediment bacteria coun t by microscopy (number/high power field)Ordered By: Reji Machuca on 08-09-2023 Bacteria LM.HPF (Urine sed) [#/Area] 1 /[HPF] None Seen [facility] Urine specific gravity measu rementOrdered By: Reji Machuca on 08-09-2023 Specific gravity (U) [Rel density] 1.030 1.002-1.03 0 [facility] Urine urobilinogen measureme ntOrdered By: Reji Machuca on 08-09-2023 Urobilinogen Ql (U) 1 mg/dl Normal [facility] Absolute lymphocyte countOrd ered By: Reji Machuca on 05-17-2023 Lymphocytes Auto (Unsp spec) [#/Vol] 1.10 10*3/uL 0.83-4.51 [facility] Basophil percentageOrdered B y: Reji Machuca on 05-17-2023 Basophils/100 WBC (Bld) 0.7 % 0-1 [facility] Bilirubin [Mass/Vol] 0.70 mg/dL 0.20-1.00 [facility] Comment on above: For patients on eltr ombopag therapy, use of Dimension Max TBIL is not recommended. Chloride [Moles/Vol] 108 mmol/L 98-107 [facility] Eosinophils/100 WBC (Bld) 2.3 % 0-5 [facility] Glucose [Mass/Vol] 82 mg/dL 74-106 [facility] Neutrophils (Bld) [#/Vol] 5.1 10*3/uL 2.0-7.7 [facility] Neutrophils/100 WBC (Bld) 73.0 % 47-70 [facility] Potassium [Moles/Vol] 3.9 mmol/L 3.5-5.1 [facility] Protein [Mass/Vol] 6.5 g/dL 6.4-8.2 [facility] Sodium [Moles/Vol] 142 mmol/L 136-145 [facility] WBC (Bld) [#/Vol] 7.0 10*3/uL 4.4-11.0 [facility] Blood erythrocytes count (nu mber/volume)Ordered By: Reji Machuca on 05-17-2023 RBC (Bld) [#/Vol] 4.82 10*6/uL 4.2-5.4 [facility] Blood hemoglobin measurement (mass/volume)Ordered By: Reji Machuca on 05-17-2023 Hemoglobin (Bld) [Mass/Vol] 14.1 g/dL 12.0-15.0 [facility] Blood lymphocytes/100 leukoc ytesOrdered By: Reji Machuca on 05-17-2023 Lymphocytes/100 WBC (Bld) 15.7 % 19-41 [facility] Blood monocytes/100 leukocyt esOrdered By: Reji Machuca on 05-17-2023 Monocytes/100 WBC (Bld) 7.6 % 0-10 [facility] Blood platelet mean volumeOr dered By: Reji Machuca on 05-17-2023 Platelet mean volume (Bld) [Entitic vol] 9.9 fL 6.2-12.0 [facility] Determination of erythrocyte mean corpuscular volume (MCV)Ordered By: Reji Machcua on 05-17-2023 MCV (RBC) [Entitic vol] 95.4 fL 81-99 [facility] Hematocrit Auto (Bld) [Volum e fraction]Ordered By: Reji Machuca on 05-17-2023 Hematocrit (Bld) [Volume fraction] 46.0 % 37-47 [facility] - Chemistry and C hemistry - challengeOrdered By: Reji Machuca on 05-17-2023 ALP [Catalytic activity/Vol] 90 U/L 45-117 [facility] ALT [Catalytic activity/Vol] 19 U/L 13-56 [facility] CO2 [Moles/Vol] 28.0 mmol/L 21.0-32.0 [facility] Globulin (S) [Mass/Vol] 3.5 g/dL 2.2-4.2 [facility] Urea nitrogen/Creatinine [Mass ratio] 17.6 mg/mg 10-20 [facility] - Hematology and Cell countsOrdered By: Reji Machuca on 05-17-2023 Erythrocyte distribution width (RBC) [Entitic vol] 46.3 fL 35.1-43.9 [facility] Erythrocyte distribution width (RBC) [Ratio] 13.1 % 11.6-14.6 [facility] Immature granulocytes/100 WBC (Bld) 0.700 % 0.0-0.9 [facility] Comment on above: IG% - Immature Granu locytes (promyelocytes, myelocytes and metamyelocytes) > 1% indicates that a LEFT SHIFT is Present. MCH (RBC) [Entitic mass] 29.3 pg 27.0-32.0 [facility] Nucleated RBC/100 WBC (Bld) [Ratio] 0 % 0-5 [facility] MCHC Auto (RBC) [Mass/Vol]Or dered By: Reji Machuca on 05-17-2023 MCHC (RBC) [Mass/Vol] 30.7 g/dL 32-36 [facility] No Panel InformationOrdered By: Reji Machuca on 05-17-2023 Estimated GFR (MDRD) Amer 108 mL/min >60 [facility] Comment on above: GFR Calc Estimated GFR (MDRD) Non-Af Amer 89 mL/min >60 [facility] Comment on above: Non- GFR Calc Platelets bldOrdered By: Lola Machuca on 05-17-2023 Platelets (Bld) [#/Vol] 299 10*3/uL 150-450 [facility] Serum or plasma albumin rodolfo urement (mass/volume)Ordered By: Reji Machuca on 05-17-2023 Albumin [Mass/Vol] 3.0 g/dL 3.2-5.0 [facility] Serum or plasma albumin/glob ulin mass ratioOrdered By: Reji Machuca on 05-17-2023 Albumin/Globulin [Mass ratio] 0.9 {ratio} 0.9-2.4 [facility] Serum or plasma calcium rodolfo urement (mass/volume)Ordered By: Reji Machuca on 05-17-2023 Calcium [Mass/Vol] 9.2 mg/dL 8.5-10.1 [facility] Serum or plasma creatinine m easurement (mass/volume)Ordered By: Reji Machuca on 05-17-2023 Creatinine [Mass/Vol] 0.68 mg/dL 0.55-1.02 [facility] Comment on above: The validity of the calculated GFR & GFRAA in patients over 70 years has not been determined. Clinical correlation is essential. Serum or plasma urea nitroge n measurement (mass/volume)Ordered By: Reji Machuca on 05-17-2023 Urea nitrogen [Mass/Vol] 12 mg/dL 7-18 [facility] Thin prep Papanicolaou smear with manual screeningOrdered By: Reji Machuca on 05-17-2023 Thin prep Papanicolaou smear with manual screening 14 U/L 15-37 [facility] Thin prep Papanicolaou smear with manual screening 6 5-15 [facility] Basophil percentageOrdered B y: Reji Machuca on 02-14-2023 Chloride [Moles/Vol] 109 mmol/L 98-107 [facility] Cholesterol [Mass/Vol] 166 mg/dL <200 [facility] Comment on above: <200 mg/dL Desirable 200-240 mg/dL Borderline >240 mg/dL High Risk Glucose [Mass/Vol] 80 mg/dL 74-106 [facility] Potassium [Moles/Vol] 3.9 mmol/L 3.5-5.1 [facility] Sodium [Moles/Vol] 140 mmol/L 136-145 [facility] Triglyceride [Mass/Vol] 125 mg/dL <199 [facility] Comment on above: The drugs N-Acetylcy steine and Metamizole may falsely depress this assay.Serum Triglycerides Reference Interval Normal <150 mg/dL Borderline high 150 - 199 mg/dL High 200 - 499 mg/dL Very High > or = 500 mg/dL Laboratory - Chemistry and C hemistry - challengeOrdered By: Reji Machuca on 02-14-2023 CO2 [Moles/Vol] 28.0 mmol/L 21.0-32.0 [facility] Urea nitrogen/Creatinine [Mass ratio] 15.2 mg/mg 10- [facility] No Panel InformationOrdered By: Reji Machuca on 02-14-2023 Estimated GFR (MDRD) Amer 91 mL/min >60 [facility] Comment on above: GFR Calc Estimated GFR (MDRD) Non-Af Amer 75 mL/min >60 [facility] Comment on above: Non- GFR Calc Serum or plasma calcium rodolfo urement (mass/volume)Ordered By: Reji Machuca on 02-14-2023 Calcium [Mass/Vol] 8.8 mg/dL 8.5-10.1 [facility] Serum or plasma cholesterol in HDL measurement (mass/volume)Ordered By: Reji Machuca on 02-14-2023 Cholesterol in HDL [Mass/Vol] 67 mg/dL >40 [facility] Comment on above: The drugs N-Acetylcy steine and Metamizole may falsely depress this assay. Reference Range HDL <40 mg/dL Low HDL Cholesterol HDL >or= 60 mg/dL High HDL Cholesterol Serum or plasma cholesterol in VLDL measurement (mass/volume)Ordered By: Reji Machuca on 02-14-2023 Cholesterol in VLDL [Mass/Vol] 25 mg/dL 5-40 [facility] Serum or plasma creatinine m easurement (mass/volume)Ordered By: Reji Machuca on 02-14-2023 Creatinine [Mass/Vol] 0.79 mg/dL 0.55-1.02 [facility] Comment on above: The validity of the calculated GFR & GFRAA in patients over 70 years has not been determined. Clinical correlation is essential. Serum or plasma low density lipoprotein (LDL) cholesterol measurement (mass/volume)Ordered By: Reji Machuca on 02-14-2023 Cholesterol in LDL [Mass/Vol] 74 mg/dL 0-130 [facility] Serum or plasma urea nitroge n measurement (mass/volume)Ordered By: Reji Machuca on 02-14-2023 Urea nitrogen [Mass/Vol] 12 mg/dL 7-18 [facility] Thin prep Papanicolaou smear with manual screeningOrdered By: Reji Machuca on 02-14-2023 Thin prep Papanicolaou smear with manual screening 3 5-15 [facility] No Panel InformationOrdered By: Dr. Pabon on 09-05-2022 Estimated GFR (MDRD) Amer 88 mL/min >60 [facility] Comment on above: GFR Calc Estimated GFR (MDRD) Non-Af Amer 73 mL/min >60 [facility] Comment on above: Non- GFR Calc Serum or plasma creatinine m easurement (mass/volume)Ordered By: Dr. Pabon on 09-05-2022 Creatinine [Mass/Vol] 0.82 mg/dL 0.55-1.02 [facility] Comment on above: The validity of the calculated GFR & GFRAA in patients over 70 years has not been determined. Clinical correlation is essential. Serum or plasma urea nitroge n measurement (mass/volume)Ordered By: Dr. Pabon on 09-05-2022 Urea nitrogen [Mass/Vol] 12 mg/dL 7-18 [facility] No Panel InformationOrdered By: Hermann Zamora on 07-05-2022 Giardia Antigen (ZURDO) [facility] Ova and parasitesOrdered By: Hermann Zamora on 07-05-2022 Ova and parasites identified LM Nom (Unsp spec) [facility] No Panel InformationOrdered By: Hermann Zamora on 06-28-2022 Stool Calprotectin <16 ug/g 0-120 [facility] Comment on above: Concentration Interp retation Follow-Up<16 - 50 ug/g Normal None>50 -120 ug/g Borderline Re-evaluate in 4-6 weeks >120 ug/g Abnormal Repeat as clinically indicatedPerformed at: [facility] [id number] Director: Jacob Landrum PhD, Phone: [phone] at: [facility] [id number] Director: Clayton Bojorquez MD, Phone: [phone] Stool Neutral Fats Increased . [facility] Comment on above: Normal (<60 Droplets /HPF) Stool Pancreatic Elastase 229 >200 [facility] Comment on above: Result Units: ug Lata st./g Severe Pancreatic Insufficiency: <100 Moderate Pancreatic Insufficiency: 100 - 200 Normal: >200Performed at: [facility] [id number] Director: Clayton Bojorquez MD, Phone: [phone] Qualitative fecal fat or lip idsOrdered By: Hermann Zamora on 06-28-2022 Fat Ql (Stl) Increased . [facility] Comment on above: Normal (<100 Droplet s/HPF) Absolute lymphocyte countOrd ered By: Hermann Zamora on 06-27-2022 Lymphocytes Auto (Unsp spec) [#/Vol] 1.46 10*3/uL 0.83-4.51 [facility] Atypical perinuclear antineu trophil cytoplasmic antibodies measurementOrdered By: Hermann Zamora on 06-27-2022 Neutrophil cytoplasmic Ab.perinuclear.atypical IF (S) [Titer] <1:20 titer Neg:<1:20 [facility] Comment on above: The atypical pANCA p attern has been observed in asignificant percentage of patients with ulcerative colitis,primary sclerosing cholangitis and autoimmune hepatitis. Basophil percentageOrdered B y: Hermann Zamora on 06-27-2022 Basophil percentage < 0.2 AI 0.0-0.9 [facility] Basophils/100 WBC (Bld) 0.7 % 0-1 [facility] Bilirubin [Mass/Vol] 0.90 mg/dL 0.20-1.00 [facility] Comment on above: For patients on eltr ombopag therapy, use of Dimension Max TBIL is not recommended. Chloride [Moles/Vol] 108 mmol/L 98-107 [facility] Eosinophils/100 WBC (Bld) 1.9 % 0-5 [facility] Glucose [Mass/Vol] 94 mg/dL 74-106 [facility] LDH [Catalytic activity/Vol] 221 U/L 84-246 [facility] Neutrophils (Bld) [#/Vol] 3.7 10*3/uL 2.0-7.7 [facility] Neutrophils/100 WBC (Bld) 63.9 % 47-70 [facility] Potassium [Moles/Vol] 4.2 mmol/L 3.5-5.1 [facility] Protein [Mass/Vol] 7.4 g/dL 6.4-8.2 [facility] Sodium [Moles/Vol] 142 mmol/L 136-145 [facility] WBC (Bld) [#/Vol] 5.8 10*3/uL 4.4-11.0 [facility] Blood erythrocytes count (nu mber/volume)Ordered By: Hermann Zamora on 06-27-2022 RBC (Bld) [#/Vol] 5.35 10*6/uL 4.2-5.4 [facility] Blood hemoglobin measurement (mass/volume)Ordered By: Hermann Zamora on 06-27-2022 Hemoglobin (Bld) [Mass/Vol] 15.8 g/dL 12.0-15.0 [facility] Blood lymphocytes/100 leukoc ytesOrdered By: Hermann Zamora on 06-27-2022 Lymphocytes/100 WBC (Bld) 25.0 % 19-41 [facility] Blood monocytes/100 leukocyt esOrdered By: Hermann Zamora on 06-27-2022 Monocytes/100 WBC (Bld) 8.2 % 0-10 [facility] Blood platelet mean volumeOr dered By: Hermann Zamora on 06-27-2022 Platelet mean volume (Bld) [Entitic vol] 10.3 fL 6.2-12.0 [facility] Determination of erythrocyte mean corpuscular volume (MCV)Ordered By: Hermann Zamora on 06-27-2022 MCV (RBC) [Entitic vol] 94.8 fL 81-99 [facility] Erythrocyte sedimentation ra teOrdered By: Hermann Zamora on 06-27-2022 ESR (Bld) [Velocity] 9 mm/h 0-30 [facility] Hematocrit Auto (Bld) [Volum e fraction]Ordered By: Hermann Zamora on 06-27-2022 Hematocrit (Bld) [Volume fraction] 50.7 % 37-47 [facility] Interpretation of serum or p lasma protein pattern by immunofixation (narrative resultOrdered By: Hermann Zamora on 06-27-2022 Protein Fractions Immunofixation Rashard [Interp] See comment [facility] Comment on above: NOT OBSERVED Laboratory - Chemistry and C hemistry - challengeOrdered By: Hermann Zamora on 06-27-2022 ALP [Catalytic activity/Vol] 91 U/L 45-117 [facility] ALT [Catalytic activity/Vol] 23 U/L 13-56 [facility] CO2 [Moles/Vol] 27.0 mmol/L 21.0-32.0 [facility] Free T4 [Mass/Vol] 1.31 ng/dL 0.76-1.46 [facility] Urea nitrogen/Creatinine [Mass ratio] 12.2 mg/mg 10-20 [facility] Laboratory - Hematology and Cell countsOrdered By: Hermann Zamora on 06-27-2022 Erythrocyte distribution width (RBC) [Entitic vol] 47.4 fL 35.1-43.9 [facility] Erythrocyte distribution width (RBC) [Ratio] 13.6 % 11.6-14.6 [facility] Immature granulocytes/100 WBC (Bld) 0.300 % 0.0-0.9 [facility] Comment on above: IG% - Immature Granu locytes (promyelocytes, myelocytes and metamyelocytes) > 1% indicates that a LEFT SHIFT is Present. MCH (RBC) [Entitic mass] 29.5 pg 27.0-32.0 [facility] Nucleated RBC/100 WBC (Bld) [Ratio] 0 % 0-5 [facility] MCHC Auto (RBC) [Mass/Vol]Or dered By: Hermann Zamora on 06-27-2022 MCHC (RBC) [Mass/Vol] 31.2 g/dL 32-36 [facility] No Panel InformationOrdered By: Hermann Zamora on 06-27-2022 Addendum Document Comment . [facility] Comment on above: Protein electrophore sis scan will follow via computer,mail, or secondary social studies teacher delivery. Centromere B Antibody <0.2 AI 0.0-0.9 [facility] Endomysial IgA Antibody Negative Negative [facility] Estimated GFR (MDRD) Amer 99 mL/min >60 [facility] Comment on above: GFR Calc Estimated GFR (MDRD) Non-Af Amer 82 mL/min >60 [facility] Comment on above: Non- GFR Calc Free Triiodothyronine (T3) pg/dL 3.3 pg/mL 2.18-3.98 [facility] Immunoglobulin E 24 IU/mL 6-495 [facility] Miscellaneous Test See comment [facility] Comment on above: TEST RESULT LIMITSIB D Expanded Panel Gloria 36 units 0-50 Negative <45 Equivocal 45 - 50 Positive >50 ACCA 30 units 0-90 Negative <80 Equivocal 80 - 90 Positive >90 ALCA 19 units 0-60 Negative <55 Equivocal 55 - 60 Positive >60 AMCA 21 units 0-100 Negative < 90 Equivocal 90 - 100 Positive >100 This test was developed and its performance characteristics determined by [facility]. It has not been cleared or approved by the Food and Drug Administration. The FDA has determined that such clearance or approval is not necessary. Atypical pANCA Negative Negative Comments Pattern is not suggestive of Inflammatory Bowel Disease ___ TESTING PERFORMED AT [facility]. ORIGINAL REPORT ON FILE IN LAB CONTAINS ADDITIONAL TEST SITE INFORMATION. REFRACTORY REPAIRER Antibody 1.5 AI 0.0-0.9 [facility] Thyroid Stimulating Hormone (TSH) 1.73 uIU/mL 0.358-3.74 [facility] Platelets bldOrdered By: Riley Zamora on 06-27-2022 Platelets (Bld) [#/Vol] 223 10*3/uL 150-450 [facility] Serum DNA double strand anti body assay (units/volume)Ordered By: Hermann Zamora on 06-27-2022 DNA double strand Ab Qn (S) 1 [IU]/mL 0-9 [facility] Comment on above: Negative <5 Equivoca l 5 - 9 Positive >9 Serum Rochelle-1 antibody assay (u nits/volume)Ordered By: Hermann Zamora on 06-27-2022 Rochelle-1 extractable nuclear Ab Qn (S) <0.2 AI 0.0-0.9 [facility] Serum Scl-70 extractable nuc lear antibody assay (units/volume)Ordered By: Hermann Zamora on 06-27-2022 SCL-70 extractable nuclear Ab Qn (S) <0.2 AI 0.0-0.9 [facility] Serum Ritchie extractable nucl ear antibody detectionOrdered By: Hermann Zamora on 06-27-2022 Ritchie extractable nuclear Ab Ql (S) <0.2 AI 0.0-0.9 [facility] Serum miyyd-4-hafxscir measu rement by electrophoresisOrdered By: Hermann Zamora on 06-27-2022 Alpha 1 globulin Elph [Mass/Vol] 0.2 g/dL 0.0-0.4 [facility] Alpha 1 globulin Elph [Mass/Vol] 0.8 g/dL 0.4-1.0 [facility] Serum classic neutrophil cyt oplasmic antibody assay (units/volume)Ordered By: Hermann Zamora on 06-27-2022 Neutrophil cytoplasmic Ab.classic Qn (S) <1:20 titer Neg:<1:20 [facility] Serum globulin measurement ( mass/volume)Ordered By: Hermann Zamora on 06-27-2022 Globulin (S) [Mass/Vol] 3.1 g/dL 2.2-3.9 [facility] Serum or plasma C reactive p rotein measurement (mass/volume)Ordered By: Hermann Zamora on 06-27-2022 CRP [Mass/Vol] 4.24 mg/L 0.0-3.0 [facility] Comment on above: C-Reactive Protein ( CRP) provides useful information for thediagnosis, therapy and monitoring of inflammatory processesand associated diseases. For the evaluation of Relative Riskfor Cardiovascular Disease, a High Sensitivity CRP (HSCRP)should be ordered. Serum or plasma IgA measurem ent (mass/volume)Ordered By: Hermann Zamora on 06-27-2022 IgA [Mass/Vol] 172 mg/dL 64-422 [facility] Serum or plasma IgG measurem ent (mass/volume)Ordered By: Hermann Zamora on 06-27-2022 IgG [Mass/Vol] 890 mg/dL [phone] [facility] Serum or plasma IgM measurem ent (mass/volume)Ordered By: Hermann Zamora on 06-27-2022 IgM [Mass/Vol] 223 mg/dL 26-217 [facility] Serum or plasma albumin rodolfo urement (mass/volume)Ordered By: Hermann Zamora on 06-27-2022 Albumin [Mass/Vol] 3.9 g/dL 2.9-4.4 [facility] Serum or plasma albumin/glob ulin mass ratioOrdered By: Hermann Zamora on 06-27-2022 Albumin/Globulin [Mass ratio] 1.1 {ratio} 0.9-2.4 [facility] Serum or plasma beta globuli n measurement by electrophoresis (mass/volume)Ordered By: Hermann Zamora on 06-27-2022 Beta globulin Elph [Mass/Vol] 1.1 g/dL 0.7-1.3 [facility] Serum or plasma calcium rodolfo urement (mass/volume)Ordered By: Hermann Zamora on 06-27-2022 Calcium [Mass/Vol] 9.5 mg/dL 8.5-10.1 [facility] Serum or plasma creatinine m easurement (mass/volume)Ordered By: Hermann Zamora on 06-27-2022 Creatinine [Mass/Vol] 0.74 mg/dL 0.55-1.02 [facility] Comment on above: The validity of the calculated GFR & GFRAA in patients over 70 years has not been determined. Clinical correlation is essential. Serum or plasma gamma globul in measurement by electrophoresis (mass/volume)Ordered By: Hermann Zamora on 06-27-2022 Gamma globulin Elph [Mass/Vol] 1.0 g/dL 0.4-1.8 [facility] Serum or plasma gastrin rodolfo urement (mass/volume)Ordered By: Hermann Zamora on 06-27-2022 Gastrin [Mass/Vol] < 10 pg/mL 0-115 [facility] Comment on above: Siemens Immulite 200 0 Immunochemiluminometric assay (ICMA)Values obtained with different assay methods or kits cannotbe used interchangeably. Results cannot be interpreted asabsolute evidence of the presence or absence of malignantdisease.Performed at: [facility] [id number] Director: Jacob Landrum PhD, Phone: [phone] at: [address] [id number] Director: Clayton Bojorquez MD, Phone: [phone] Serum or plasma immunoelectr ophoresis interpretation (nominal result)Ordered By: Hermann Zamora on 06-27-2022 Interpretation IEP [Interp] Comment . [facility] Comment on above: No monoclonality det ected. Serum or plasma urea nitroge n measurement (mass/volume)Ordered By: Hermann Zamora on 06-27-2022 Urea nitrogen [Mass/Vol] 9 mg/dL 7-18 [facility] Serum perinuclear neutrophil cytoplasmic antibody titer by immunofluorescenceOrdered By: Hermann Zamora on 06-27-2022 Neutrophil cytoplasmic Ab.perinuclear IF (S) [Titer] <1:20 titer Neg:<1:20 [facility] Comment on above: The presence of posi tive fluorescence exhibiting P-ANCA orC-ANCA patterns alone is not specific for the diagnosis ofWegener's Granulomatosis (WG) or microscopic polyangiitis.Decisions about treatment should not be based solely onANCA IFA results. The [employer] ANCA Group Consensusrecommends follow up testing of positive sera with both AR-3 and MPO-ANCA enzyme immunoassays. As many as 5% serumsamples are positive only by EIA. Ref. AM J Clin [id number];111:507-513. Serum tissue transglutaminas e IgA antibody assay (units/volume)Ordered By: Hermann Zamora on 06-27-2022 tTG IgA Qn (S) <2 U/mL 0-3 [facility] Comment on above: Negative 0 - 3 Weak Positive 4 - 10 Positive >10 Tissue Transglutaminase (tTG) has been identified as the endomysial antigen. Studies have demonstr- ated that endomysial IgA antibodies have over 99% specificity for gluten sensitive enteropathy. Thin prep Papanicolaou smear with manual screeningOrdered By: Hermann Zamora on 06-27-2022 Thin prep Papanicolaou smear with manual screening 21 U/L 15-37 [facility] Thin prep Papanicolaou smear with manual screening 7 5-15 [facility] Thin prep Papanicolaou smear with manual screening 1.3 0.7-1.7 [facility] Total protein bloodOrdered B y: Hermann Zamora on 06-27-2022 Protein [Mass/Vol] 7.0 g/dL 6.0-8.5 [facility] Blood hemoglobin measurement (mass/volume)on 03-08-2022 Hemoglobin (Bld) [Mass/Vol] 15.2 g/dL 12.0-15.0 [facility] Work Phone: Hematocrit Auto (Bld) [Volum e fraction]on 03-08-2022 Hematocrit (Bld) [Volume fraction] 48.2 % 37-47 [facility] Work Phone: Iron measurement (mass/mass) on 03-08-2022 Iron (Unsp spec) [Mass/Mass] 90 ug/dL 50-170 [facility] Work Phone: Serum or plasma ferritin carie surement (mass/volume)on 03-08-2022 Ferritin [Mass/Vol] 164 ng/mL 8-252 [facility] Work Phone: Absolute lymphocyte counton 02-10-2022 Lymphocytes Auto (Unsp spec) [#/Vol] 1.73 10*3/uL 0.83-4.51 [facility] Work Phone: Basophil percentageon 2021 Basophils/100 WBC (Bld) 0.4 % 0-1 [facility] Work Phone: Bilirubin [Mass/Vol] 0.90 mg/dL 0.20-1.00 [facility] Work Phone: Comment on above: For patients on eltr ombopag therapy, use of Dimension Max TBIL is not recommended. Chloride [Moles/Vol] 106 mmol/L 98-107 [facility] Work Phone: Eosinophils/100 WBC (Bld) 1.0 % 0-5 [facility] Work Phone: Glucose [Mass/Vol] 97 mg/dL 74-106 [facility] Work Phone: Neutrophils (Bld) [#/Vol] 5.5 10*3/uL 2.0-7.7 [facility] Work Phone: Neutrophils/100 WBC (Bld) 69.3 % 47-70 [facility] Work Phone: Potassium [Moles/Vol] 3.6 mmol/L 3.5-5.1 [facility] Work Phone: [phone] Protein [Mass/Vol] 7.8 g/dL 6.4-8.2 [place] [facility] Work Phone: Sodium [Moles/Vol] 144 mmol/L 136-145 [place] [facility] Work Phone: [phone] WBC (Bld) [#/Vol] 7.9 10*3/uL 4.4-11.0 [place] [facility] Work Phone: [phone] Blood erythrocytes count (nu mber/volume)on 02-10-2022 RBC (Bld) [#/Vol] 5.15 10*6/uL 4.2-5.4 [place] [facility] Work Phone: [phone] Blood hemoglobin measurement (mass/volume)on 02-10-2022 Hemoglobin (Bld) [Mass/Vol] 16.0 g/dL 12.0-15.0 [facility] Work Phone: [phone] Blood lymphocytes/100 leukoc yteson 02-10-2022 Lymphocytes/100 WBC (Bld) 21.8 % 19-41 [facility] Work Phone: [phone] Blood monocytes/100 leukocyt eson 02-10-2022 Monocytes/100 WBC (Bld) 7.2 % 0-10 [facility] Work Phone: [phone] Blood platelet mean volumeon 02-10-2022 Platelet mean volume (Bld) [Entitic vol] 9.9 fL 6.2-12.0 [facility] Work Phone: Determination of erythrocyte mean corpuscular volume (MCV)on 02-10-2022 MCV (RBC) [Entitic vol] 97.1 fL 81-99 [facility] Work Phone: Hematocrit Auto (Bld) [Volum e fraction]on 02-10-2022 Hematocrit (Bld) [Volume fraction] 50.0 % 37-47 [facility] Work Phone: Laboratory - Chemistry and C hemistry - challengeon 02-10-2022 ALP [Catalytic activity/Vol] 73 U/L 45-117 [facility] Work Phone: [phone] ALT [Catalytic activity/Vol] 18 U/L 13-56 [facility] Work Phone: [phone] CO2 [Moles/Vol] 30.0 mmol/L 21.0-32.0 [facility] Work Phone: [phone] Globulin (S) [Mass/Vol] 3.7 g/dL 2.2-4.2 [facility] Work Phone: [phone] Lipase [Catalytic activity/Vol] 438 U/L 73-393 [facility] Work Phone: [phone] Urea nitrogen/Creatinine [Mass ratio] 11.5 mg/mg 10-20 [facility] Work Phone: [phone] Laboratory - Hematology and Cell countson 02-10-2022 Erythrocyte distribution width (RBC) [Entitic vol] 48.8 fL 35.1-43.9 [facility] Work Phone: [phone] Erythrocyte distribution width (RBC) [Ratio] 13.5 % 11.6-14.6 [facility] Work Phone: [phone] Immature granulocytes/100 WBC (Bld) 0.300 % 0.0-0.9 [facility] Work Phone: [phone] Comment on above: IG% - Immature Granu locytes (promyelocytes, myelocytes and metamyelocytes) > 1% indicates that a LEFT SHIFT is Present. MCH (RBC) [Entitic mass] 31.1 pg 27.0-32.0 [facility] Work Phone: [phone] Nucleated RBC/100 WBC (Bld) [Ratio] 0 % 0-5 [facility] Work Phone: [phone] MCHC Auto (RBC) [Mass/Vol]on 02-10-2022 MCHC (RBC) [Mass/Vol] 32.0 g/dL 32-36 [facility]: [phone] No Panel Informationon 02-10 Estimated Creatinine Clearance Calc 40.13 ml/min [facility] Work Phone: Estimated GFR (MDRD) Amer 82 mL/min >60 [facility] Work Phone: [phone] Comment on above: GFR Calc Estimated GFR (MDRD) Non-Af Amer 67 mL/min >60 [facility] Work Phone: Comment on above: Non- GFR Calc Platelets bldon 02-10-2022 Platelets (Bld) [#/Vol] 236 10*3/uL 150-450 [facility] Work Phone: Serum or plasma albumin rodolfo urement (mass/volume)on 02-10-2022 Albumin [Mass/Vol] 4.1 g/dL 3.2-5.0 [facility] Work Phone: Serum or plasma albumin/glob ulin mass ratioon 02-10-2022 Albumin/Globulin [Mass ratio] 1.1 {ratio} 0.9-2.4 [facility] Work Phone: Serum or plasma calcium rodolfo urement (mass/volume)on 02-10-2022 Calcium [Mass/Vol] 9.7 mg/dL 8.5-10.1 [facility] Work Phone: Serum or plasma creatinine m easurement (mass/volume)on 02-10-2022 Creatinine [Mass/Vol] 0.87 mg/dL 0.55-1.02 [facility] Work Phone: Comment on above: The validity of the calculated GFR & GFRAA in patients over 70 years has not been determined. Clinical correlation is essential. Serum or plasma urea nitroge n measurement (mass/volume)on 02-10-2022 Urea nitrogen [Mass/Vol] 10 mg/dL 7-18 [facility] Work Phone: Thin prep Papanicolaou smear with manual screeningon 02-10-2022 Thin prep Papanicolaou smear with manual screening 14 U/L 15-37 [facility] Work Phone: [phone] Thin prep Papanicolaou smear with manual screening 8 5-15 [facility] Work Phone: Tim 07-07-2021 CNPN Telephone (AGGENS3) -------- SINDI WRIGHT ([id number]) 1945 F Date Time Provider Department 07/07/21 PERFECTO MELARA AGGENS3 During your visit today, we recorded the following information about you: Funmi Price MA 07/07/2021 1:22 PM Signed Sindi called today to ask if she could schedule her EGD,MANOMETRY? She was scheduled in October of 2020 and called and canceled as her schedule was too busy. Can we schedule now or do you want to see her in office first? Please advise. Thanks Perfecto Melara MD 07/07/2021 2:32 PM Signed We can proceed with the EGD and manometry Allergies As of Date: 07/07/2021 Noted Allergy Reaction AMITRIPTYLINE 12/31/2012 14 - Other: See Comments Comments: Intensified the pain,nervous. GABAPENTIN 10/15/2013 8 - GI Upset 14 - Other: See Comments Comments: Dizziness and nausea PROZAC (FLUOXETINE HCL) 08/29/2007 1 - Mental Status Change Comments: Apathic. "flat line feeling" SULFA (SULFONAMIDE ANTIBIOTICS) 01/03/2006 4 - Hives Date Reviewed: 09/15/2020 Reviewed by: Funmi Price - Fully Assessed Reason for Visit: Appointment [186] Prescriptions as of 07/07/2021 - benzonatate (TESSALON PERLES) 100 mg capsule Take 1 capsule by mouth three times daily as needed. - DULoxetine (CYMBALTA) 30 mg capsule Take 30 mg by mouth once daily. - ferrous sulfate (FEOSOL) 325 mg (65 mg iron) tablet Take 325 mg by mouth twice daily. - pantoprazole DR (PROTONIX) 20 mg tablet Take 20 mg by mouth twice daily. - temazepam (RESTORIL) 15 mg cap Take 1 capsule by mouth at bedtime as needed (insomnia). - Calcium Citrate-Vitamin D2 250-100 mg-unit tab Take 2 tablets by mouth twice daily. - predniSONE (DELTASONE) 5 mg tablet Take 2.5 mg by mouth once daily. Per Dr. Gray. - Cholecalciferol, Vitamin D3, 2,000 unit cap Take 10,000 tablets by mouth once daily. Meds Comments as of 07/13/2016: Limited temazepam refill. Only every 3 months if needed. Problem List As Of Date 07/07/2021 Noted Resolved OSTEOPENIA [M89.9, M94.9] 01/22/2006 Tobacco use disorder [F17.200] 01/22/2006 10/16/2013 VITAMIN D DEFICIENCY NOS [E55.9] 10/09/2007 Localized osteoarthrosis not specified whether *03/24/2008 10/12/2015 PARATHYROID DISORDER NEC [E21.4] 11/17/2008 ANXIETY STATE NOS [F41.1] 12/17/2008 Adrenal nodule (HCC) [E27.8] 06/20/2011 10/12/2015 Cholecystitis [K81.9] 05/27/2012 10/16/2013 Special screening for malignant neoplasms, colo*05/31/2012 10/16/2013 Benign neoplasm of colon [D12.6] 05/31/2012 Nausea [R11.0] 07/18/2012 10/16/2013 RUQ pain [R10.11] 07/18/2012 07/12/2015 Family history of gastric cancer [Z80.0] 07/18/2012 10/16/2013 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 07/12/2015 Other psoriasis [L40.8] 03/20/2013 07/12/2015 Lumbar spondylosis [M47.816] 06/30/2013 10/12/2015 Lumbosacral neuritis [M54.17] 06/30/2013 Low back pain [M54.50] 06/30/2013 10/16/2013 Lumbar degenerative disc disease [M51.36] 06/30/2013 04/14/2015 Pain in lower limb, chronic, right leg [M79.606]10/16/2013 PAD (peripheral artery disease) (HCC) [I73.9] 11/13/2013 Diarrhea [R19.7] 07/12/2015 Insomnia [G47.00] 03/04/2014 Iron deficiency [E61.1] 03/04/2014 Fibromyalgia [M79.7] 10/06/2014 Psoriatic arthropathy ([facility]) [L40.50] 10/06/2014 10/12/2015 Polymyalgia rheumatica ([facility]) [M35.3] 03/30/2015 INCONSISTENT urine toxicology [R89.2] 04/14/2016 Encounter Status:Closed by PERFECTO MELARA on 07/07/21 [facility] CNPN Telephone (AGGENS3) -------- SINDI WRIGHT ([id number]) 1945 F Date Time Provider Department 10/28/20 PERFECTO MELARA AGGENS3 During your visit today, we recorded the following information about you: Yusuf Garcia RN 10/28/2020 11:33 AM Signed I called patient yesterday and left a message reminding patient about her testing scheduled 11/03/20. I asked her to return my call and confirm that she has a ride for the appointment. Patient called today and said she is unable to do the testing right now. I have too much going on." Patient will call us when she is ready to scheduled. I thanked her for the call. Yusuf Garcia RN Allergies As of Date: 10/28/2020 Noted Allergy Reaction AMITRIPTYLINE 12/31/2012 14 - Other: See Comments Comments: Intensified the pain,nervous. GABAPENTIN 10/15/2013 8 - GI Upset 14 - Other: See Comments Comments: Dizziness and nausea PROZAC (FLUOXETINE HCL) 08/29/2007 1 - Mental Status Change Comments: Apathic. "flat line feeling" SULFA (SULFONAMIDE ANTIBIOTICS) 01/03/2006 4 - Hives Date Reviewed: 09/15/2020 Reviewed by: Funmi Price - Fully Assessed Reason for Visit: Future Appointment [256] Cmt: cancelling testing 11/03/20 Prescriptions as of 10/28/2020 Sig: BENZONATATE 100 MG CAPSULE Take 1 capsule by mouth three* DULOXETINE 30 MG CAPSULE,BETITO* Take 30 mg by mouth once consuelo* Patient not taking: Reported on 09/15/2020 FERROUS SULFATE 325 MG (65 MG* Take 325 mg by mouth twice da* PANTOPRAZOLE 20 MG TABLET,DEL* Take 20 mg by mouth twice kartik* Patient not taking: Reported on 09/15/2020 TEMAZEPAM 15 MG CAPSULE Take 1 capsule by mouth at be* Patient not taking: Reported on 09/15/2020 CALCIUM CIT 250 MG-ERGOCALCIF* Take 2 tablets by mouth twice* PREDNISONE 5 MG TABLET Take 2.5 mg by mouth once kartik* CHOLECALCIFEROL (VITAMIN D3) * Take 10,000 tablets by mouth * Problem List As Of Date 10/28/2020 Noted Resolved OSTEOPENIA [M89.9, M94.9] 01/22/2006 Tobacco use disorder [F17.200] 01/22/2006 10/16/2013 VITAMIN D DEFICIENCY NOS [E55.9] 10/09/2007 Localized osteoarthrosis not specified whether *03/24/2008 10/12/2015 PARATHYROID DISORDER NEC [E21.4] 11/17/2008 ANXIETY STATE NOS [F41.1] 12/17/2008 Adrenal nodule (HCC) [E27.8] 06/20/2011 10/12/2015 Cholecystitis [K81.9] 05/27/2012 10/16/2013 Special screening for malignant neoplasms, colo*05/31/2012 10/16/2013 Benign neoplasm of colon [D12.6] 05/31/2012 Nausea [R11.0] 07/18/2012 10/16/2013 RUQ pain [R10.11] 07/18/2012 07/12/2015 Family history of gastric cancer [Z80.0] 07/18/2012 10/16/2013 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 07/12/2015 Other psoriasis [L40.8] 03/20/2013 07/12/2015 Lumbar spondylosis [M47.816] 06/30/2013 10/12/2015 Lumbosacral neuritis [M54.17] 06/30/2013 Low back pain [M54.5] 06/30/2013 10/16/2013 Lumbar degenerative disc disease [M51.36] 06/30/2013 04/14/2015 Pain in lower limb, chronic, right leg [M79.606]10/16/2013 PAD (peripheral artery disease) ([facility]) [I73.9] 11/13/2013 Diarrhea [R19.7] 07/12/2015 Insomnia [G47.00] 03/04/2014 Iron deficiency [E61.1] 03/04/2014 Fibromyalgia [M79.7] 10/06/2014 Psoriatic arthropathy ([facility]) [L40.50] 10/06/2014 10/12/2015 Polymyalgia rheumatica ([facility]) [M35.3] 03/30/2015 INCONSISTENT urine toxicology [R89.2] 04/14/2016 Encounter Status:Closed by YUSUF GARCIA on 10/28/20 [facility] 09-20-2020 CNPN Telephone (AGGENS3) -------- SINDI WRIGHT ([id number]) 1945 F Date Time Provider Department 09/20/20 PERFECTO MELARA AGGENS3 During your visit today, we recorded the following information about you: Yenny Ritchie 09/20/2020 1:43 PM Signed Sindi Wright called. She says her medications listed on her After Visit Summary are incorrect or not up-to-date. She says she no longer takes the tessalon perels, Vitamin D2, Cymbalta, Restoril, or Protonix. I let her know that we do not remove medications prescribed by other providers, but that I'd make a note of this in her chart. Allergies As of Date: 09/20/2020 Noted Allergy Reaction AMITRIPTYLINE 12/31/2012 14 - Other: See Comments Comments: Intensified the pain,nervous. GABAPENTIN 10/15/2013 8 - GI Upset 14 - Other: See Comments Comments: Dizziness and nausea PROZAC (FLUOXETINE HCL) 08/29/2007 1 - Mental Status Change Comments: Apathic. "flat line feeling" SULFA (SULFONAMIDE ANTIBIOTICS) 01/03/2006 4 - Hives Date Reviewed: 09/15/2020 Reviewed by: Funmi Price - Fully Assessed Reason for Visit: Medication Request [138] Cmt: PT WANTS TO UPDATE MEDICATION LIST Prescriptions as of 09/20/2020 Sig: BENZONATATE 100 MG CAPSULE Take 1 capsule by mouth three* DULOXETINE 30 MG CAPSULE,BETITO* Take 30 mg by mouth once consuelo* Patient not taking: Reported on 09/15/2020 FERROUS SULFATE 325 MG (65 MG* Take 325 mg by mouth twice da* PANTOPRAZOLE 20 MG TABLET,DEL* Take 20 mg by mouth twice kartik* Patient not taking: Reported on 09/15/2020 TEMAZEPAM 15 MG CAPSULE Take 1 capsule by mouth at be* Patient not taking: Reported on 09/15/2020 CALCIUM CIT 250 MG-ERGOCALCIF* Take 2 tablets by mouth twice* PREDNISONE 5 MG TABLET Take 2.5 mg by mouth once kartik* CHOLECALCIFEROL (VITAMIN D3) * Take 10,000 tablets by mouth * Problem List As Of Date 09/20/2020 Noted Resolved OSTEOPENIA [M89.9, M94.9] 01/22/2006 Tobacco use disorder [F17.200] 01/22/2006 10/16/2013 VITAMIN D DEFICIENCY NOS [E55.9] 10/09/2007 Localized osteoarthrosis not specified whether *03/24/2008 10/12/2015 PARATHYROID DISORDER NEC [E21.4] 11/17/2008 ANXIETY STATE NOS [F41.1] 12/17/2008 Adrenal nodule (HCC) [E27.8] 06/20/2011 10/12/2015 Cholecystitis [K81.9] 05/27/2012 10/16/2013 Special screening for malignant neoplasms, colo*05/31/2012 10/16/2013 Benign neoplasm of colon [D12.6] 05/31/2012 Nausea [R11.0] 07/18/2012 10/16/2013 RUQ pain [R10.11] 07/18/2012 07/12/2015 Family history of gastric cancer [Z80.0] 07/18/2012 10/16/2013 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 07/12/2015 Other psoriasis [L40.8] 03/20/2013 07/12/2015 Lumbar spondylosis [M47.816] 06/30/2013 10/12/2015 Lumbosacral neuritis [M54.17] 06/30/2013 Low back pain [M54.5] 06/30/2013 10/16/2013 Lumbar degenerative disc disease [M51.36] 06/30/2013 04/14/2015 Pain in lower limb, chronic, right leg [M79.606]10/16/2013 PAD (peripheral artery disease) (HCC) [I73.9] 11/13/2013 Diarrhea [R19.7] 07/12/2015 Insomnia [G47.00] 03/04/2014 Iron deficiency [E61.1] 03/04/2014 Fibromyalgia [M79.7] 10/06/2014 Psoriatic arthropathy (HCC) [L40.50] 10/06/2014 10/12/2015 Polymyalgia rheumatica (HCC) [M35.3] 03/30/2015 INCONSISTENT urine toxicology [R89.2] 04/14/2016 Encounter Status:Closed by YENNY RITCHIE on 09/20/20 [facility] CNOVon 09-15-2020 CNOV Office Visit (ANNE 3) -------- SINDI WRIGHT ([id number]) 1945 F Date Time Provider Department 09/15/20 10:30 AM PERFECTO MELARA3 During your visit today, we recorded the following information about you: Pulse Respiration Blood pressure Weight 74/minute 17/minute 144/68 60.8 kg Height 1.549 m Perfecto Melara MD 09/15/2020 11:14 AM Signed Thank you for coming to see me today. It is my pleasure to take care of you. If you have any questions regarding your visit, please don't hesitate to contact us. Yusuf Garcia RN 09/15/2020 1:04 PM Signed Patient given written information about esophageal manometry and the prep instructions. I verbally discussed and reviewed the information with the patient. All of patient's questions were answered. Yusuf Melara MD 09/15/2020 1:04 PM Signed Sindi Wright is a 75 year old White [...] - PAD (peripheral artery disease) ([facility]) 11/13/2013 - Psoriatic arthropathy ([facility]) 10/06/2014 Dr. Jade Hi, rheumatology - Syncope and collapse Vasovagal - Tear film insufficiency, unspecified Dr. Marin - Tobacco use disorder 01/22/2006 PAST SURGICAL HISTORY Procedure Laterality Date - COLONOSCOP W/ OR W/O BRSH SPEC 03/19/2014 - COLONOSCOPY W/BX 05/31/2012 - DANDC, DIAG AND/OR THERAPEUTIC - EGD W/O BRSH SPECIMEN W/BX 08/01/2012 Lehman's without dysplasia; Dr. Vazquez - EGD W/O BRSH SPECIMEN W/BX 11/13/2016 lg paraesophageal hernia; Dr. Vazquez - EGD W/O OR W/BRUSH/WASH 03/19/2014 - EGD W/O OR W/BRUSH/WASH 04/08/2014 - ESOPH W/O BRS SPEC BALLOON DIL 04/15/2014 Esophageal dilatation - INCISE EXTERNAL HEMORRHOID 2003 - LAPAROSCOPIC CHOLEYCYSTECTOMY 06/13/2012 - TOTAL ABDOM HYSTERECTOMY Hysterectomy, NAZARIO BSO bleeding appendectomy Social History [...] Prozac [Fluoxetine * Mental Status Change Apathic. "flat line feeling" - Sulfa (Sulfonamide * Hives Current Outpatient [...] by mouth twice daily. No current facility-administered me (more content not included)... Normal [facility] Clinical Summary: HMSPatient IDon 10-29-2017 OOP Invalid Interpretation Code [facility] Work Phone: Clinical Summary: Scanned Hi story Summaryon 10-29-2017 brother(s) of patient alive or Unknown Invalid Interpretation Code [facility] Work Phone: Data entered by patient, allergy list Sulfa drugs Invalid Interpretation Code [facility] Work Phone: data entered by patient, cigarette smoking 1 pack per day Invalid Interpretation Code [facility] Work Phone: data entered by patient, drug (of abuse) use No Invalid Interpretation Code [facility] Work Phone: data entered by patient, Employer Name Retired Invalid Interpretation Code [facility] Work Phone: data entered by patient, exercise history No Invalid Interpretation Code [facility] Work Phone: data entered by patient, father's medical history Diabetes - insulin dependentCancerHeart diseaseStroke/TIA Invalid Interpretation Code [facility] Work Phone: Data entered by patient, history of past surgeries AppendectomyGallbladder surgeryHysterectomy Invalid Interpretation Code [facility] Work Phone: data entered by patient, mother's medical history High blood pressure Invalid Interpretation Code [facility] Work Phone: data entered by patient, past medical history AlzheimerArthritisCancer DefibrillatorDiabetic neuropathyFracturesHeart diseaseHypertensionIrrit able bowel syndromeMalignant hyperthermiaMultiple SclerosisOsteopeniaPerip heral vascular diseaseSeizuresStroke/TI AVascular disease Invalid Interpretation Code [facility] Work Phone: data entered by patient, social history, current smoker former smoker Invalid Interpretation Code [facility] Work Phone: data entered by patient, social history, marital status Invalid Interpretation Code [facility] Work Phone: father of patient is alive or Invalid Interpretation Code [facility] Work Phone: Housing Type: apartment, house, nursing home, trailer, none House Invalid Interpretation Code [facility] Work Phone: housing unit size (asthma environmental history, housing) (from single family to don't know) 1 Floor Invalid Interpretation Code [facility] Work Phone: mother of patient is alive or Invalid Interpretation Code [facility] Work Phone: Clinical Summary: Flo Otto Summaryon 10-29-2017 endocrine ROS Denies Invalid Interpretation Code [facility] Work Phone: genitourinary review of systems, E&M Denies Invalid Interpretation Code [facility] Work Phone: Lymphocytes Denies Invalid Interpretation Code [facility] Work Phone: ROS cardiovascular E&M Denies Invalid Interpretation Code [facility] Work Phone: ROS ENT comment Dentures Invalid Interpretation Code [facility] Work Phone: ROS ENT E&M Complains Invalid Interpretation Code [facility] Work Phone: ROS gastrointestinal E&M Denies Invalid Interpretation Code [facility] Work Phone: ROS general E&M Denies Invalid Interpretation Code [facility] Work Phone: ROS Musculoskeletal comments Pain,Joint Pain,Arthritis Invalid Interpretation Code [facility] Work Phone: ROS musculoskeletal E&M Complains Invalid Interpretation Code [facility] Work Phone: ROS neurological E&M Denies Invalid Interpretation Code [facility] Work Phone: ROS psychiatric E&M Denies Invalid Interpretation Code [facility] Work Phone: ROS pulmonary E&M Denies Invalid Interpretation Code [facility] Work Phone: ROS skin E&M Denies Invalid Interpretation Code [facility] Work Phone: Office Visit: New/Est - 1st visit with physician, Rm: 1110-29-2017 NEGATED: Highlighted rowDocumentation of current medications (procedure) Done Invalid Interpretation Code [facility] Work Phone: NEGATED: Highlighted rowTobacco smoking status NHIS Tobacco smoking status NHIS Invalid Interpretation Code [facility] Work Phone: CT CHEST WITHOUT CONTRASTon 06-29-2017 CT CHEST WITHOUT CONTRAST EXAM: CT CHEST WITHOUT CONTRAST, 06/29/2017 11:15 AMCOMPARISON: Chest CT (outside image), 05/10/17; PET/CT, 05/24/2017CLINICAL INDICATIONS: Lung nodule, <1cm, low risk for cancer; RELEVANT CLINICAL HISTORY: Aborted biopsy due to decrease in nodule size. ;TECHNIQUE: Axial CT images were reconstructed from the volumetric data set,from the thoracic inlet through the adrenal glands. No intravenous contrastwas used. Coronal MIP images were also reconstructed.This patient underwent a CT examination using radiation exposure as low asreasonably achievable. CTDIvol and DLP radiation exposure values for eachseries were:Exposure: 1; Series: 2; Anatomy: Chest; Phantom: 32 cm; CTDIvol: 2; DLP:40The dose indicators for CT are the volume Computed Tomography (CT) Dose Index(CTDIvol) and the Dose Length Product (DLP), and are measured in units of mGyand mGy-cm, respectively. These indicators are not patient dose, but valuesgenerated from the CT scanner acquisition factors and may substantiallyunderestima te or overestimate the absorbed dose based on patient size andother factors.FINDINGS: Preliminary imaging was performed in anticipation of a lung nodule biopsy. Theimages show decreased size of the right lung nodule from prior CT and PET/CT.Lungs and Pleura: Please note the entire lung valencia are not imaged. Intervaldecrease in size of the nodular lesion in the right upper lobe along the majorfissure which measures 0.8 x 0.6 cm (image 23), previously 1.7 x 0.9 cm. Thereis small amount of interlobular thickening, similar to the prior examperformed into the nodule. There are upper lung zone predominant centrilobularemphysemato us changes. No pleural effusion. No pneumothorax is seen.Tracheobronchial tree: No abnormality.Mediastinum/ Janina: No mediastinal or hilar lymphadenopathy. Partiallyvisualized moderate hiatal hernia.Axilla and Supraclavicular Regions: No axillary or supraclavicular adenopathy.Cardiovascula r: The cardiac chambers are within normal limits. The pericardiumis normal. Atherosclerotic calcifications of the aorta and its arch branchvessels. There is multivessel coronary artery disease. The pulmonary arteriesare also unremarkable.Upper Abdomen: Moderately-sized hiatal hernia. Otherwise, the minimallyvisualized upper abdominal contents are unremarkable.Bones and Soft Tissue: No suspicious osseous lesion. Metallic markervisualized within nodular breast tissue on the left, likely a prior biopsyclip.IMPRESSION:1. Interval decrease in size of the right upper lobe nodule, as describedabove. Given the decrease in the size of the nodule, the planned biopsy wascanceled. This was discussed with DEVORA Ramires at approximately 1055hours on June 29, 2017.2. Upper lung zone predominant emphysematous changes.3. Partially visualized moderately-sized hiatal hernia.4. Multivessel coronary artery disease.5. Suspected biopsy clip within nodular soft tissue of the left breast.Recommend correlation with mammography.I personally viewed and interpreted these images and I have reviewed andapproved this report. Normal [facility] PT/INR (poc device) Ike 06-29-2017 INR Coag RelTime (Bld) 1.0 {INR} Normal 0.9-1.1 [facility] Lab Report: ANCAon 7 Atypical pANCA <1:20 titer Invalid Interpretation Code Neg:<1:20 [facility] Work Phone: Neutrophils <1:20 Invalid Interpretation Code Neg:<1:20 [facility] Work Phone: Lab Report: ANTINUCLEAR ANTI BODIES DIRECTon 10-05-2016 VINCENT Titer Negative Invalid Interpretation Code Negative [facility] Work Phone: Lab Report: CCP IgG Antibodi eson 10-05-2016 Anti-Cyclic Citrullinated Peptide Antibodies 6 units Invalid Interpretation Code 0-19 [facility] Work Phone: Lab Report: Rheumatoid Facto gary 10-02-2016 rheumatoid factor < 10.0 Invalid Interpretation Code <15 [facility] Work Phone: Office Visit: SOBon 09-29-19 17 Alcoholism counseling (procedure) no Invalid Interpretation Code [facility] Work Phone: Documentation of current medications (procedure) Done Invalid Interpretation Code [facility] Work Phone: Tobacco smoking status NHIS Never Invalid Interpretation Code [facility] Work Phone: Tobacco use [facility] Former smoker Invalid Interpretation Code [facility] Work Phone: Vital Signs Date Time Vital Sign Value Performing Clinician Facility 02-04-2025 12:46-0400 Body temperature 97.9 [degF] Dr. Reji Machuca MD Work Phone: [facility] 02-04-2025 12:46-0400 Diastolic blood pressure 77 mm[Hg] Dr. Reji Machuca MD Work Phone: 7(650)777-058102 [place] [address] 02-04-2025 12:46-0400 Heart rate 85 /min Dr. Reji Machuca MD Work Phone: 6(841)149-445102 [place] [address] 02-04-2025 12:46-0400 Respiratory rate 16 /min Dr. Reji Machuca MD Work Phone: 9(903)073-693702 [place] [address] 02-04-2025 12:46-0400 SaO2% (BldA) [Mass fraction] 98 % Dr. Reji Machuca MD Work Phone: 1(128)817-248673 [place] [address] 02-04-2025 12:46-0400 Systolic blood pressure 148 mm[Hg] Dr. Reji Machuca MD Work Phone: 3(719)975-173973 [place] [address] 02-04-2025 09:42-0400 Body height 152.[address] Reji Machuca MD Work Phone: 5(218)407-556473 [place] [address] 08-26-2024 14:32-0400 Body temperature 98 [degF] Dr. Reji Machuca MD Work Phone: 6(132)545-962673 [place] [address] 08-26-2024 14:32-0400 Body weight 58.[address] Reji Machuca MD Work Phone: 8(700)502-930073 [place] [address] 08-26-2024 14:32-0400 Diastolic blood pressure 81 mm[Hg] Dr. Reji Machuca MD Work Phone: 3(104)068-957951 [address] 08-26-2024 14:32-0400 Heart rate 83 /min Dr. Reji Machuca MD Work Phone: 6(828)770-140502 [place] [address] 08-26-2024 14:32-0400 Respiratory rate 16 /min Dr. Reji Machuca MD Work Phone: 9(732)227-873402 [place] [address] 08-26-2024 14:32-0400 SaO2% (BldA) [Mass fraction] 98 % Dr. Reji Machuca MD Work Phone: [facility] 08-26-2024 14:32-0400 Systolic blood pressure 149 mm[Hg] Dr. Reji Machuca MD Work Phone: 8(697)186-608102 [place] [address] 09-05-2022 08:30-0400 Body weight 59.[address] Reji Machuca Work Phone: [facility] 09-05-2022 08:30-0400 Diastolic blood pressure 78 mm[Hg] Dr. Reji Machuca Work Phone: [facility] 09-05-2022 08:30-0400 Heart rate 80 /min Dr. Reji Machuca Work Phone: [facility] 09-05-2022 08:30-0400 SaO2% (BldA) [Mass fraction] 99 % Dr. Reji Machuca Work Phone: [facility] 09-05-2022 08:30-0400 Systolic blood pressure 134 mm[Hg] Dr. Reji Machuca Work Phone: [facility] 04-24-2022 10:22-0500 Body height 152.[address] Reji Machuca Work Phone: 5(742)219-059402 [place] [address] 04-24-2022 10:22-0500 Body mass index (BMI) [Ratio] 25.9 kg/m2 Dr. Reji Machuca Work Phone: 5(078)732-632702 [place] [address] 04-24-2022 10:22-0500 Body temperature 98.5 [degF] Dr. Reji Machuca Work Phone: [facility] 04-24-2022 10:22-0500 Body weight 60.[address] Reji Machuca Work Phone: [facility] 04-24-2022 10:22-0500 Diastolic blood pressure 90 mm[Hg] Dr. Reji Machuca Work Phone: [facility] 04-24-2022 10:22-0500 Heart rate 96 /min Dr. Reji Machuca Work Phone: [facility] 04-24-2022 10:22-0500 Respiratory rate 14 /min Dr. Reji Machuca Work Phone: [facility] 04-24-2022 10:22-0500 SaO2% (BldA) [Mass fraction] 94 % Dr. Reji Machuca Work Phone: [facility] 04-24-2022 10:22-0500 Systolic blood pressure 178 mm[Hg] Dr. Reji Machuca Work Phone: [facility] 02-10-2022 21:56-0400 Diastolic blood pressure 84 mm[Hg] [facility] Work Phone: 02-10-2022 21:56-0400 Heart rate 72 /min [facility] Work Phone: 02-10-2022 21:56-0400 Respiratory rate 16 /min [facility] Work Phone: 02-10-2022 21:56-0400 SaO2% (BldA) [Mass fraction] 95 % [facility] Work Phone: 02-10-2022 21:56-0400 Systolic blood pressure 136 mm[Hg] [facility] Work Phone: 02-10-2022 17:59-0400 Body temperature 97 [degF] [facility] Work Phone: 02-10-2022 17:57-0400 Body height 152.4 cm [facility] Work Phone: 02-10-2022 17:57-0400 Body mass index (BMI) [Ratio] 26.2 kg/m2 [facility] Work Phone: 02-10-2022 17:57-0400 Body weight 60.9 kg [facility] Work Phone: 09-28-2016 09:36-0400 BMI (Body Mass Index) 24.56 kg/m2 Linda Vázquez [facility] Work Phone: 09-28-2016 09:36-0400 Body Temperature 97.6 [degF] Linda Vázquez [facility] Work Phone: 09-28-2016 09:36-0400 BP Diastolic 70 mm[Hg] Linda Vázquez [facility] Work Phone: 09-28-2016 09:36-0400 BP Systolic 140 mm[Hg] Linda Gurpreet [facility] Work Phone: 09-28-2016 09:36-0400 Height 154.94 cm Linda Gurpreet [facility] Work Phone: 09-28-2016 09:36-0400 Pulse (Heart Rate) 85 /min Linda Gurpreet [facility] Work Phone: 09-28-2016 09:36-0400 Pulse Oximetry 94 % Linda Gurpreet [facility] Work Phone: 09-28-2016 09:36-0400 Respiratory Rate 18 /min Linda Gurpreet [facility] Work Phone: 09-28-2016 09:36-0400 Weight 58.97 kg Linda Gurpreet [facility] Work Phone: NEGATED: Highlighted [id number] 14:10-0400 BMI (Body Mass Index) 25.98 kg/m2 Lu Vázquez [facility] Work Phone: NEGATED: Highlighted [id number] 14:10-0400 BP Diastolic 75 mm[Hg] Lu Vázquez [facility] Work Phone: NEGATED: Highlighted [id number] 14:10-0400 BP Systolic 134 mm[Hg] Lu Vázquez [facility] Work Phone: NEGATED: Highlighted [id number] 14:10-0400 Height 154.94 cm Lu Vázquez [facility] Work Phone: NEGATED: Highlighted [id number] 14:10-0400 Height 155 cm Lu Vázquez LICENSED STAFF MFT [facility] Work Phone: NEGATED: Highlighted [id number] 14:10-0400 Pulse (Heart Rate) 85 /min Lu Gurpreet [facility] Work Phone: NEGATED: Highlighted [id number] Weight 62.14 kg Lu Vázquez LPN [facility] Work Phone: NEGATED: Highlighted [id number] Weight 62 kg Lu Vázquez LPN [facility] Work Phone: Encounters Encounter Date Encounter Type Care Provider Facility Start: 02-04-2025 End: 02-04-2025 Emergency department patient visit Dr. Reji Machuca MD Work Phone: -Emergency Department Work Phone: Start: 12-12-2024 End: 12-12-[address] Reji Machuca MD Work Phone: -[facility] Start: 12-12-2024 End: 12-12-[address] Reji Machuca MD -[facility] Work Phone: Start: 12-12-2024 End: 12-12-2024 ambulatory Reji Machuca Facility:[facility] Start: 10-22-2024 End: 10-22-[address] Reji Machuca MD Work Phone: [facility] Work Phone: Start: 10-22-2024 End: 10-22-[address] Reji Machuca MD -[facility] Start: 10-22-2024 End: 10-22-2024 ambulatory Reji Machuca Facility:[facility] Start: 08-26-2024 End: 08-26-2024 Patient encounter procedure Barbara LOZOYA -[facility] Work Phone: Start: 08-26-2024 End: 08-26-2024 ambulatory Reji Machuca Facility:[facility] Start: 07-09-2024 End: 07-09-[address] Reji Machuca MD -[facility] [place] Work Phone: Start: 07-09-2024 End: 07-09-2024 ambulatory Reji Machuca Facility:[facility] Start: 08-09-2023 End: 08-09-2023 ambulatory [facility] Work Phone: Start: 08-09-2023 End: 08-09-2023 Patient encounter procedure [facility] Start: 05-17-2023 End: 05-17-[address] Reji Machuca Work Phone: [facility] Work Phone: Start: 05-17-2023 End: 05-17-[address] Reji Machuca Work Phone: [facility] Start: 04-11-2023 End: 04-11-[address] Reji Machuca Work Phone: [facility] Work Phone: Start: 04-11-2023 End: 04-11-[address] Reji Machuca Work Phone: [facility] Work Phone: Start: 03-02-2023 End: 03-02-[address] Reji Machuca Work Phone: [facility] Work Phone: Start: 02-14-2023 End: 02-14-[address] Reji Machuca Work Phone: [facility] Start: 09-05-2022 End: 09-05-[address] Reji Machuca Work Phone: [facility] Work Phone: Start: 09-05-2022 End: 09-05-[address] Reji Machuca Work Phone: [facility] Start: 09-01-2022 Non-patient / Non-visit Dr. Reji Machuca Work Phone: [facility] Start: 09-01-2022 End: 09-01-[address] Reji Machuca Work Phone: [facility] Work Phone: Start: 09-01-2022 End: 09-01-[address] Reji Machuca Work Phone: [facility] Start: 07-04-2022 End: 07-04-[address] Reji Machuca Work Phone: [facility] Work Phone: Start: 07-04-2022 End: 07-04-[address] [facility] Start: 06-28-2022 End: 06-28-[address] Reji Machuca Work Phone: [facility] Work Phone: Start: 06-28-2022 End: 06-28-[address] Reji Machuca Work Phone: [facility]Laboratory, Specimen Start: 06-27-2022 End: 06-27-[address] Reji Machuca Work Phone: [facility] Work Phone: Start: 06-27-2022 End: 06-27-[address] Reji Machuca Work Phone: [facility] Start: 06-27-2022 End: 06-27-[address] Reji Machuca Work Phone: [facility] G[facility] Start: 04-24-2022 Non-patient / Non-visit Dr. Reji Machuca Work Phone: [facility] Start: 04-24-2022 End: 04-24-[address] Reji Machuca Work Phone: [facility] Work Phone: Start: 04-24-2022 End: 04-24-[address] Reji Machuca Work Phone: [facility] Start: 04-24-2022 End: 04-24-[address] Reji Machuca Work Phone: [facility] Start: 03-08-2022 End: 03-08-2022 ambulatory [facility] Work Phone: Start: 03-08-2022 End: 03-08-2022 [facility] Start: 02-10-2022 End: 02-10-2022 Emergency department patient visit [facility] Start: 02-10-2022 End: 02-10-2022 ambulatory [facility] Work Phone: Start: 02-10-2022 End: 02-10-2022 [facility] Start: 10-29-2017 End: 10-29-2017 Patient encounter procedure Nhan Massey MD Work Phone: [facility] Work Phone: Start: 06-29-2017 Ambulatory NATANAEL RAMIRES [facility] Start: 06-29-2017 Ambulatory NATANAEL ZHUUC [facility] Start: 06-07-2017 Ambulatory TOVA D'APONTE [facility] Start: 05-24-2017 Ambulatory DOC UNKNOWN [facility] Start: 05-10-2017 Ambulatory DOC UNKNOWN [facility] Procedures Date Procedure Procedure Detail Performing Clinician Start: 02-04-2025 X-ray of foot, three or more views Dr. Reji Machuca MD Work Phone: Start: 10-22-2024 X-ray of chest, PA and lateral views Dr. Reji Machuca MD Work Phone: Start: 07-09-2024 Measurement of renal function Dr. Reji young MD Work Phone: Comment on above: GFR Calc Start: 07-09-2024 X-ray of chest, PA and lateral views Dr. Reji Machuca MD Work Phone: Start: 08-09-2023 CT of abdomen with contrast Start: 04-11-[address] Reji Machuca Work Phone: Start: 07-04-2022 Radionuclide gastric emptying study Dr. Reji Machuca Work Phone: Start: 02-10-2022 Computed tomography of abdomen and pelvis with intravenous contrast Start: 02-10-2022 Diagnostic radiography of abdomen, decubitus and erect Start: 10-29-2017 End: 10-29-2017 AIRSELECT ELITE (AIRCAST) Nhan Massey MD Work Phone: Start: 10-29-2017 End: 10-29-2017 Blood pressure within normal parameters - no follow-up required Nhan Massey MD Work Phone: Start: 10-29-2017 End: 10-29-2017 BMI outside of normal parameters - no follow-up plan/reason not given Nhan Massey MD Work Phone: Start: 10-29-2017 End: 10-29-2017 Current medications documented Nhan vargas MD Work Phone: Start: 10-29-2017 End: 10-29-2017 Osteoarthritis assess Nhan Massey MD Work Phone: Start: 10-29-2017 End: 10-29-2017 Pain assessment documented as positive - follow-up documented Nhan Massey MD Work Phone: Start: 10-29-2017 End: 10-29-2017 Tobacco non-user Nhan Massey MD Work Phone: Start: 09-28-2016 End: 10-06-2016 *VINCENT Osorio DO Work Phone: Start: 09-28-2016 End: 10-06-2016 *JOE Osorio DO Work Phone: Start: 09-28-2016 End: 10-06-2016 Complete sleep workup (PSG,CPAP as indicated) & Follow up Alejandro Osorio DO Work Phone: Start: 09-28-2016 End: 10-06-2016 Cyclic citrullinated peptide antibody Alejandro Osorio DO Work Phone: Start: 09-28-2016 End: 10-06-2016 DMB Alejandro Osorio DO Work Phone: Start: 09-28-2016 End: 10-06-2016 Follow Up Appt 6 weeks Alejandro Osorio DO Work Phone: Start: 09-28-2016 End: 10-06-2016 Pulmonary Function Test - complete Alejandro Osorio DO Work Phone: Start: 09-28-2016 End: 10-06-2016 Rheumatoid factor test Alejandro Osorio DO Work Phone: Start: 09-28-2016 End: 10-06-2016 Titration with Follow up (pt not on cpap) Alejandro Osorio DO Work Phone: Giardia Antigen (ZURDO) Dr. Devora Machuca Work Phone: H/O: hysterectomy History of hysterectomy History of cholecystectomy Histo ry of laparoscopic cholecystectomy Ova OR parasites identification Dr. Reji Machuca Work Phone: Plan of Treatment Date Care Activity Detail Author Start: 02-04-2025 [facility] Start: 10-29-2017 End: 10-29-2017 Appointment Appointment [facility] Work Phone: Start: 10-29-2017 End: 10-29-2017 Assay of protein, serum Protein - total; except by refractometry; serum or plasma or whole blood [facility] Work Phone: Start: 10-29-2017 End: 10-29-2017 Assay of vitamin D 25-hydroxyvitamin D [facility] Work Phone: Start: 10-29-2017 End: 10-29-2017 Ct lower extremity w/o dye CT right ankle without contrast [facility] Work Phone: Start: 10-29-2017 End: 10-29-2017 Dxa bone density, axial DXA - standard order of spine and hip; axial skeleton 1 + views [facility] Work Phone: Start: 10-29-2017 End: 10-29-2017 X-ray exam of ankle XR ANKLE 3 VWS-RT [facility] Work Phone: Start: 10-29-2017 End: 10-29-2017 X-ray exam of foot XR FOOT 3+ VWS-RT [facility] Work Phone: Start: 11-08-2016 End: 11-08-2016 Appointment Appointment [facility] Work Phone: Start: 09-28-2016 End: 09-28-2016 Appointment Appointment [facility] Work Phone: Start: 09-28-2016 End: 10-06-2016 *VINCENT *VINCENT [facility] Work Phone: Start: 09-28-2016 End: 10-06-2016 *ANCA *ANCA [facility] Work Phone: Start: 09-28-2016 End: 10-06-2016 Complete sleep workup (PSG,CPAP as indicated) & Follow up Complete sleep workup (PSG,CPAP as indicated) & Follow up [facility] Work Phone: Start: 09-28-2016 End: 10-06-2016 Cyclic citrullinated peptide antibody *ANTICCP - CCP Antibody [facility] Work Phone: Start: 09-28-2016 End: 10-06-2016 DMB DMB [facility] Work Phone: Start: 09-28-2016 End: 10-06-2016 Follow Up Appt 6 weeks Follow Up Appt 6 weeks [facility] Work Phone: Start: 09-28-2016 End: 10-06-2016 Pulmonary Function Test - complete Pulmonary Function Test - complete [facility] Work Phone: Start: 09-28-2016 End: 10-06-2016 Rheumatoid factor test *Rheumatoid Factor (qualiative) [facility] Work Phone: Start: 09-28-2016 End: 10-06-2016 Titration with Follow up (pt not on cpap) Titration with Follow up (pt not on cpap) [facility] Work Phone: CT of abdominal aort a with contrast [facility] Patient Education [facility] Work Phone: Patient referral [facility] Work Phone: [facility] Extremity [facility] Immunizations Immunization Date Immunization Notes Care Provider Nehemiah ceja 08-11-2020 Covid (Moderna) [facility] No information available. Lu Vázquez LPN [facility] Work Phone: Payers Date Payer Category Payer Medicare [id number] 2024 Self-pay [id number] 2017 Medicare [id number] 2016 Unknown [id number] 2011 Medicare [id number] Unknown [id number] Unknown [id number] Unknown [id number] Unknown [id number] Unknown [id number] Unknown [id number] Social History Date Type Detail Facility Start: 02-10-2022 End: 03-02-2023 Tobacco smoking status NHIS Unknown if ever smoked [facility] Start: 10-03-2016 Rare [facility] Start: 10-03-2016 None [facility] Start: 10-03-2016 Alone [facility] Start: 10-03-2016 Cigarettes [facility] Start: 1945 Sex Assigned At Female [facility] Start: 03-02-2023 End: 02-04-2025 Tobacco smoking status NHIS Ex-smoker (finding) [facility] NEGATED: Highlighted rowStart: 10-29-2017 End: 10-29-2017 Alcohol use ETOH USE No [facility] Work Phone: NEGATED: Highlighted rowStart: 10-29-2017 End: 10-29-2017 Details of drug misuse behavior DRUG USE No [facility] Work Phone: NEGATED: Highlighted rowStart: 10-29-2017 End: 10-29-2017 Assertion Former smoker [facility] Work Phone: Clinical Notes 09-15-2020 to 02-04-2025 Note Date & Type Note Facility 02-04-2025 Radiology Diagnostic study note [facility] Imaging Services [address], [place] [address] Foot min 3 Views MR#: [id number] Acct: [id number] Name: SINDI WRIGHT Rep #: [id number] : 1945 F 80 From: Bhaskar Moura MD PCP: Dr. Reji Machuca MD Status: PRE E R Study:Foot min 3 Views Date of Exam: 03/21 Exam# [id number] Ordering Dr: Schwiger ,Yousif DO PROCEDURE: FOOT MIN 3 VIEWS 02/04/2025 REASON FOR EXAM: INJURY/PAIN TECHNIQUE: Procedure Code: RADFO Modality: DX Procedure: FOOT MIN 3 VIEWS Laterality: Left COMPARISON: None. RAD/Foot min 3 Views IMPRESSION: On lateral imaging, normal contour of the Achilles tendon is seen. No ankle joint effusion is evident. Moderate inferior calcaneal spurring is seen. Severe osteoarthritic changes of the left 1st metatarsophalangeal joint, with hallux valgus, subluxation, and exuberant osteophytosis and osseous reactive changes seen. Mild degenerative changes are seen throughout the toes. No acute fracture or dislocation is seen. If clinical concern persists, short-term follow-up imaging may be obtained to rule out a currently occult fracture. Reading Location: [place] [address] CC: Dr. Yousif García DO; Dr. Reji Machuca MD ~ Derrick Worker: Signed [facility] 10-23-2024 Radiology Diagnostic study note [facility] Imaging Services [address] [place] [address] [id number] Chest PA and Lateral MR#: [id number] Acct: [id number] Name: SINDI WRIGHT Rep #: [id number] : 1945 F 79 From: Rod Valdez MD PCP: Dr. Reji Machuca MD Status: REG C Study:Chest PA and Lateral Date of Exam: 10/22/24 Exam# [id number] Ordering Dr: Reji Machuca MD PROCEDURE: CHEST PA AND LATERAL 10/22/2024 REASON FOR EXAM: COPD TECHNIQUE: Frontal and lateral views of the chest. COMPARISON: 07/09/2024 FINDINGS: The lungs appear clear. Pulmonary vascularity appears within limits. No pleural effusion. Appearance of pulmonary emphysema and hyperinflation again noted. Very large hiatal hernia again seen. Cardiac silhouette appears within limits for size. Atherosclerotic change of the aortic arch again noted. Leftward thoracolumbar scoliosis. RAD/Chest PA and Lateral IMPRESSION: No evidence of acute disease. Appearance of pulmonary emphysema and hyperinflation again noted. Very large hiatal hernia again seen. Reading Location: [id number] CC: Dr. Reji Machuca MD ~ [place] Worker: Signed [facility] 08-26-2024 Evaluation note Diagnosis Onset Date Resolution PAD (peripheral artery disease) acute August 26, 2024 2:04pm HTN (hypertension) chronic August 26, 2024 2:04pm [facility] Work Phone: 1(592) 228-598604-21-2021 NoteHNO ID: [id number] Author: Perfecto Melara Service: ? Author Type: Physician Type: Progress Notes Filed: 09/15/2020 1:04 PM Note Text: Sindi Wright is a 75 year old White [...] - PAD (peripheral artery disease) ([facility]) 11/13/2013 - Psoriatic arthropathy ([facility]) 10/06/2014 Dr. Jade Hi, rheumatology - Syncope and collapse Vasovagal - Tear film insufficiency, unspecified Dr. Marin - Tobacco use disorder 01/22/2006 PAST SURGICAL HISTORY Procedure Laterality Date - COLONOSCOP W/ OR W/O BRSH SPEC 03/19/2014 - COLONOSCOPY W/BX 05/31/2012 - DANDC, DIAG AND/OR THERAPEUTIC - EGD W/O BRSH SPECIMEN W/BX 08/01/2012 [facility] without dysplasia; Dr. Vazquez - EGD W/O BRSH SPECIMEN W/BX 11/13/2016 lg paraesophageal hernia; Dr. Vazquez - EGD W/O OR W/BRUSH/WASH 03/19/2014 - EGD W/O OR W/BRUSH/WASH 04/08/2014 - ESOPH W/O [facility] SPEC BALLOON DIL 04/15/2014 Esophageal dilatation - INCISE EXTERNAL HEMORRHOID 2003 - LAPAROSCOPIC CHOLEYCYSTECTOMY 06/13/2012 - TOTAL ABDOM HYSTERECTOMY Hysterectomy, NAZARIO BSO bleeding appendectomy Social History [...] Prozac [Fluoxetine * Mental Status Change Apathic. "flat line feeling" - Sulfa (Sulfonamide * Hives Current Outpatient [...] cold or heat intoler (more content not included)...[facility]04-21-2021 NoteHNO ID: [id number] Author: Yusuf Garcia RN Service: ? Author Type: Nurse Clinician Type: Progress Notes Filed: 09/15/2020 1:04 PM Note Text: Patient given written information about esophageal manometry and the prep instructions. I verbally discussed and reviewed the information with the patient. All of patient's questions were answered. Yusuf Garcia [facility] noteNo assessment information availableWTriHealth Bethesda North Hospital Work Phone: Evaluation note* Diagnosis Onset Date Resolution Status Acute bronchitis, unspecified acute Left leg pain acute URI (upper respiratory infection) acute [facility] Work Phone: Evaluation note* Diagnosis Onset Date Resolution Status Acute bronchitis, unspecified acute Left leg pain acute URI (upper respiratory infection) acute Alternating constipation and diarrhea chronic [facility] Work Phone: Evaluation note* Diagnosis Onset Date Resolution Status Alternating constipation and diarrhea chronic PAD (peripheral artery disease) acute Peripheral neuropathy chroni c [facility] Work Phone: Evaluation note* Diagnosis Onset Date Resolution Status 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 [facility] Work Phone: Hospital Discharge instructions Additional Instructions Take your Bentyl/dicyclomine as previously directed.[facility] Work Phone: Reason for referral (narrative)No reason for referral information availableWTriHealth Bethesda North Hospital Work Phone: Instructions Instruction Description Start Date Completed Advance Directives No Advanced Directives Records Found Advance Directive Response Recorded Date/ Time Name of Medical Power of Apprentice Lineman Third Step granddaughter and friend February 10, 2022 6:01pm Living Will Yes February 10, 2022 6:01pm Power of Apprentice Lineman Third Step Yes January 6:01pm Advance Directive Response Recorded Date/ Time Name of Medical Power of Apprentice Lineman Third Step granddaughter and friend February 10, 2022 5:01pm Living Will Yes February 10, 2022 5:01pm Power of Apprentice Lineman Third Step Yes January 5:01pm Advance Directive Response Recorded Date/ Time Living Will Yes February 10, 2022 5:01pm Power of Apprentice Lineman Third Step Yes January 5:01pm Advance Directive Response Recorded Date/ Time Living Will Yes February 10, 2022 6:01pm Power of Apprentice Lineman Third Step Yes January 6:01pm Advance Directive Response Recorded Date/ Time Do you have a Healthcare Power of Apprentice Lineman Third Step? Yes February 04, 2025 9:43am Assessments There may be information available, but it has not been provided by the sender. Review of System There may be information available, but it has not been provided by the sender. Family History No Family History Records Found Relationship Condition Age at Onset Recorded Date/T abdiel father Malignant neoplasm of stomach Unknown mother Hypertension Unknown Relationship Condition Age at Onset Recorded Date/T abdiel father Malignant neoplasm of stomach Unknown Diabetes mellitus Unknown Cardiac disease Unknown Cerebrovascular accident (CVA) Unknown mother Hypertension Unknown Summary Purpose Chief Complaint and Reason for Visit Chief Complaint IBS ABD PAIN Chief Complaint IBS ABD PAIN IRON DEFICIENT ANEMIA Chief Complaint IBS ABD PAIN IRON DEFICIENT ANEMIA COUGH/LEFT LEG PAIN LLE PAIN RULE OUT DVT Reason for Visit Acute bronchitis, un specified Left leg pain URI (upper respiratory infection) Chief Complaint COUGH/LEFT LEG PAIN LLE PAIN RULE OUT DVT CONSTIPATION/DIARRHEA INT LABS E ORDER GASTROPARESIS Reason for Visit Acute bronchitis, un specified Left leg pain URI (upper respiratory infection) Alternating constipation and diarrhea Chief Complaint CONSTIPATION/DIARRHE A INT LABS E ORDER GASTROPARESIS PVD PAD/US [facility] 09/01 EORDERS Reason for Visit Alternating constipa tion and diarrhea PAD (peripheral artery disease) Peripheral neuropathy Chief Complaint 4 MO FU PANCREATIC INSUFF, ALT CONSTIPATION/DIARRHEA Reason for Visit Alternating constipa tion and diarrhea Clostridium difficile carrier Chief Complaint ABD PAIN Chief Complaint Admit Date PAD August 26, 2024 2:04 pm ADD CXR October 22, 2024 2:17p m Reason for Visit Admit Date PAD (peripheral artery disease) August 2:04pm HTN (hypertension) August 26, 2024 2:04 pm Chief Complaint Admit Date ADD CXR October 22, 2024 2:17p m LOWER EX February 04, 2025 9:41am Additional Source Comments INFORMATION SOURCE (unrecogn ized section and content) DATE CREATED AUTHOR 11/19/2017 [facility] DATE CREATED AUTHOR AUTHOR'S ORGANIZ ATION 07/08/2021 [facility] DATE CREATED AUTHOR AUTHOR'S ORGANIZ ATION 02/06/2025 [facility] Goals (unrecognized section and content) Goals may be documented in a n alternate sectionGoals may be documented in an alternate sectionGoals may be documented in an alternate sectionGoals may be documented in an alternate sectionGoals may be documented in an alternate sectionGoals may be documented in an alternate sectionGoals may be documented in an alternate sectionGoals may be documented in an alternate sectionGoals may be documented in an alternate sectionGoals may be documented in an alternate sectionGoals may be documented in an alternate sectionGoals may be documented in an alternate sectionGoals may be documented in an alternate sectionGoals may be documented in an alternate sectionGoals may be documented in an alternate section Care Teams (unrecognized sec tion and content) Team Status: Active Member Role Status Dates Dr. Reji Machuca MD Family Provider Active Dr. Reji Machuca MD Primary Care Provider Active Team Status: Inactive Member Role Status Dates Dr. Reji Machuca MD Primary Care Provider, Referring Provider Active Dr. Hermann Zamora DO Attending Provider Active Team Status: Inactive Member Role Status Dates Dr. Reji Machuca MD Primary Care Provider, Referring Provider Active DEVORA Mora Attending Provider Active Team Status: Active Member Role Status Dates Dr. Reji Machuca MD Primary Care Provider Active Dr. Harsha Pabon MD Attending Provider Active DEVORA Mora Referring Provider Active Team Status: Inactive Member Role Status Dates Dr. Reji Machuca MD Primary Care Provider Active DEVORA Mora Attending Provider, Referring Pr ovider Active Team Status: Inactive Member Role Status Dates Dr. Reji Machuca MD Primary Care Provider Active Dr. Hermann Zamora DO Attending Provider, Referring Provider Active Team Status: Active Member Role Status Dates Dr. Reji Machuca MD Primary Care Provider Active Dr. Hermann Zamora DO Attending Provider Active Team Status: Inactive Member Role Status Dates Dr. Reji Machuca MD Primary Care Provider Active Dr. Hermann Zamora DO Attending Provider Active Team Status: Inactive Member Role Status Dates Dr. Reji Machuca MD Primary Care Provider, Referring Provider Active Dr. Harsha Pabon MD Attending Provider Active Team Status: Active Member Role Status Dates Dr. Reji Machuca MD Primary Care Provider Active Dr. Harsha Pabon MD Attending Provider, Referring Provider Active Team Status: Inactive Member Role Status Dates Dr. Reji Machuca MD Primary Care Provider Active Dr. Harsha Pabon MD Attending Provider, Referring Provider Active Team Status: Inactive Member Role Status Dates Dr. Reji Machuca MD Primary Care Provider, Attending Provider Active Team Status: Inactive Member Role Status Dates Dr. Reji Machuca MD Primary Care Provi shara, Attending Provider, Referring Provider Active Team Status: Active Member Role Status Dates Dr. Reji Machuca MD Primary Care Provider, Attending Provider Active Team Status: Inactive Member Role Status Dates Dr. Reji Machuca MD Primary Care Provider Active Start: July 09, 2024 End: July 09, 2024 Dr. Reji Machuca MD Attending Provider Active Start: July 09, 2024 End: July 09, 2024 Dr. Reji Machuca MD Referring Provider Active Start: July 09, 2024 End: July 09, 2024 Team Status: Inactive Member Role Status Dates Dr. Reji Machuca MD Primary Care Provider Active Start: August 26, 2024 End: August 26, 2024 Dr. Reji Machuca MD Referring Provider Active Start: August 26, 2024 End: August 26, 2024 DEVORA Skaggs Attending Provider Active Star t: August 26, 2024 End: August 26, 2024 Team Status: Inactive Member Role Status Dates Dr. Reji Machuca MD Primary Care Provider Active Start: October 22, 2024 End: October 22, 2024 Dr. Reji Machuca MD Attending Provider Active Start: October 22, 2024 End: October 22, 2024 Dr. Reji Machuca MD Referring Provider Active Start: October 22, 2024 End: October 22, 2024 Team Status: Active Member Role/Relationship Status Dates Dr. Reji Machuca MD Family Provider Active Dr. Reji Machuca MD Primary Care Provider Active Team Status: Inactive Member Role/Relationship Status Dates Dr. Reji Machuca MD Primary Care Provider Active Start: August 26, 2024 End: August 26, 2024 Dr. Reji Machuca MD Referring Provider Active Start: August 26, 2024 End: August 26, 2024 DEVORA Skaggs Attending Provider Active Star t: August 26, 2024 End: August 26, 2024 Team Status: Inactive Member Role/Relationship Status Dates Dr. Reji Machuca MD Primary Care Provider Active Start: October 22, 2024 End: October 22, 2024 Dr. Reji Machuca MD Attending Provider Active Start: October 22, 2024 End: October 22, 2024 Dr. Reji Machuca MD Referring Provider Active Start: October 22, 2024 End: October 22, 2024 Team Status: Inactive Member Role/Relationship Status Dates Dr. Reji Machuca MD Primary Care Provider Active Start: December 12, 2024 End: December 12, 2024 Dr. Reji Machuca MD Attending Provider Active Start: December 12, 2024 End: December 12, 2024 Dr. Reji Machuca MD Referring Provider Active Start: December 12, 2024 End: December 12, 2024 Team Status: Active Member Role/Relationship Status Dates Dr. Reji Machuca MD Primary Care Provider Active Team Status: Inactive Member Role/Relationship Status Dates Dr. Reji Machuca MD Primary Care Provider Active Start: October 22, 2024 End: October 22, 2024 Dr. Reji Machuca MD Attending Provider Active Start: October 22, 2024 End: October 22, 2024 Dr. Reji Machuca MD Referring Provider Active Start: October 22, 2024 End: October 22, 2024 Team Status: Inactive Member Role/Relationship Status Dates Dr. Reji Machuca MD Primary Care Provider Active Start: December 12, 2024 End: December 12, 2024 Dr. Reji Machuca MD Attending Provider Active Start: December 12, 2024 End: December 12, 2024 Dr. Reji Machuca MD Referring Provider Active Start: December 12, 2024 End: December 12, 2024 Team Status: Inactive Member Role/Relationship Status Dates Dr. Reji Machuca MD Primary Care Provider Active Start: February 04, 2025 End: February 04, 2025 Dr. Yousif García DO Emergency Provider Active Start: February 04, 2025 End: February 04, 2025 FOR RECORDS PERTAINING TO PATIENTS WHO ARE [...] BE BASED ON THE PRIMARY CLINICAL RECORDS. [employer] [facility]. provides no warranty or guarantee of the accuracy or completeness of information in this document.
--- NOTE | 2025-02-07 14:04 | PCM.HP.STD ---
[facility] - General General Date of Service: 02/07/25 Chief Complaint: Left ankle pain [facility] Narrative SINDI EWING, is a 80 F with history of COPD and hypertension who presents with left ankle pain. Been going on for days and it is difficult for her to put weight on it. Was seen in the emergency room on the and received meloxicam as well as Augmentin. Despite that it has persisted. Patient had similar event 2 months ago where she received a what sounds like a subcutaneous hydrocortisone injection and that improved the pain and swelling. Patient has had uric acid levels throughout this and they have all been normal. Patient has no prior history of gout nor does she take any diuretics. Patient received vancomycin here and the hospitalist was contacted for admission. Patient states that she has swelling in her left foot as well. 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 Left leg pain Acute bronchitis, unspecified URI (upper respiratory infection) Abdominal pain Nausea Vitamin D deficiency Bilateral leg weakness Anxiety GERD (gastroesophageal reflux disease) Osteoporosis COPD (chronic obstructive pulmonary disease) Anemia PAD (peripheral artery disease) Abnormal mammogram of left breast Pulmonary nodule Hemorrhoids Fatigue Arthritis Back problem Abnormal mammogram Peripheral neuropathy Fibromyalgia Pulmonary HTN Insomnia Acute blood loss anemia Upper GI bleed Home Medications Medication Instructions Recorded Last Taken Type aspirin 81 mg tablet,delayed 81 mg PO DAILY 09/05/22 Unknown History release (Adult Low Dose Aspirin) Held on 02/07/25. Instructions: NOT TAKING WITH MELOXICAM PER [facility] losartan 50 mg tablet 50 mg PO QDAY 08/26/24 02/07/25 History amoxicillin 875 mg-potassium 875 mg PO Q12H #20 TABLETS 02/04/25 02/07/25 Rx clavulanate 125 mg tablet meloxicam 15 mg tablet 15 mg PO DAILY #20 tabs 02/04/25 02/07/25 Rx amlodipine 5 mg tablet 5 mg PO DAILY 02/07/25 02/07/25 History fluticasone fur. 200 mcg-umeclid 1 ea inhalation DAILY 02/07/25 02/07/25 History 62.5 mcg-vilant 25 mcg inhalat.powder (Trelegy Ellipta) Allergy/AdvReac Type Severity Reaction Status Date / Time Sulfa (Sulfonamide Allergy Hives Verified 02/04/25 09:43 Antibiotics) ibandronate sodium (From AdvReac Intermediate PT UNSURE Verified 02/04/25 09:43 Boniva) OF REACTION Family History Father Stomach cancer Diabetes Heart disease CVA (cerebral vascular accident) Mother Hypertension Surgical History History of cholecystectomy History of angioplasty Hx of colonoscopy History of esophageal dilatation History of esophagogastroduodenoscopy (EGD) History of hysterectomy History bilateral cataract surgey History of laparoscopic cholecystectomy Social History Smoking Status: Former smoker quit date: 05/28/11 second hand exposure: No alcohol intake: current alcohol intake frequency: a few times a month substance use type: does not use caffeine: Yes frequency: 1-2 times per week ROS ROS Narrative Chronically short of breath. All review of systems were negative except as mentioned above in the history of present illness and the other review of systems. Vital Signs Vital Signs Vital Signs: 02/07/25 11:05 02/07/25 12:09 02/07/25 13:00 Temperature 36.6 C 36.6 C 36.6 C Temperature Source Temporal Oral Oral Pulse Rate 80 78 78 Respiratory Rate 14 18 16 Blood Pressure 161/82 H 181/71 H 162/69 H Blood Pressure Mean 108 107 100 Pulse Ox 98 94 98 Oxygen Delivery Method Room Air Room Air Room Air 02/07/25 13:29 Temperature 36.8 C Temperature Source Pulse Rate 78 Respiratory Rate 18 Blood Pressure 167/89 H Blood Pressure Mean 115 Pulse Ox 97 Oxygen Delivery Method Weight Weight: 56.699 kg Body Mass Index (BMI) 24.4 Physical Exam Const alert and no apparent distress HEENT normocephalic and head/scalp atraumatic Resp normal respiratory effort, no retractions, no use of accessory muscles and clear to auscultation bilaterally Cardio regular rate, regular rhythm, S1 normal heart sound and S2 normal heart sound GI normal to inspection, nondistended, normoactive bowel sounds, soft to palpation, non-tender and non-distended Extremity full ROM Extremity Narrative: Pain, pitting edema along the medial malleolus is tender to palpation. Warm. No overt joint effusion. Some swelling on the dorsum of her left foot. Neuro moves all extremities Sensorium / Orientation: awake and alert Psych affect normal Results Lab / Micro Data 02/07/25 12:10 02/07/25 12:10 Labs: Laboratory Results - last 24 hr 02/07/25 12:10: WBC 9.2, RBC 4.71, Hgb 14.5, Hct 44.4, MCV 94.3, MCH 30.8, MCHC 32.7 D, RDW Std Deviation 45.8 H, RDW Coeff of Justina 13.2, Plt Count 248, MPV 9.6, Immature Gran % (Auto) 0.300, Neut % (Auto) 76.8 H, Lymph % (Auto) 14.1 L, [place] % (Auto) 7.0, Eos % (Auto) 1.4, Baso % (Auto) 0.4, Absolute Neuts (auto) 7.0, Absolute Lymphs (auto) 1.29, Nucleated RBC % 0, ESR 45 H, Sodium 140, Potassium 4.0, Chloride 105, Carbon Dioxide 22.8, Anion Gap 12, BUN 20 H, Creatinine 1.21 H, Estim Creat Clear Calc 30.23 L, Est GFR (MDRD) Non-Af 46 L, BUN/Creatinine Ratio 16.4, Glucose 85, Calcium 9.6, C-React Prot Ext Range 27.10 H Imaging Radiology Impression Ankle X-Ray 02/07/25 12:00 IMPRESSION: Medial soft tissue swelling but no fracture of the left ankle. Reading Location: [id number] Assessment & Plan Assessment/Plan (1) Foot pain, left: PLAN: Left foot and ankle pain Treated with the oral antibiotics with Augmentin but swelling persisted. Patient has received vancomycin in the emergency room. Unsure if the patient actually does have an infection but would like to continue to treat her with vancomycin. In the meantime we will add indomethacin as her kidney function allows and as well as colchicine. The indomethacin will be scheduled and the colchicine will be as needed but patient will receive a one-time dose of colchicine. Holding off on steroids at this point time as it is not clear that this is gout or pseudogout. Patient is not interested in having an arthrocentesis at this time. So plan is to continue with antibiotics, Indocin and colchicine and observe. Ice as needed PLAN: Plan Chronic medical conditions COPD: Currently stable. Hypertension: Continue with amlodipine and losartan. Patient tells me that she does not take any diuretics nor does it seem that any diuretics are combined with her losartan. VTE prophylaxis: Addressed with the patient. Patient wishes to be DNR Comfort Care arrest. She is okay with short-term intubation. Charges/Coding Visit Charges Inpatient E&M: 26893 Init Hosp L2
--- OUTSIDE RECORDS SUMMARY | 2025-02-07 14:10 | XMS RPT_ITS | CCD ---
Author Organization [facility] Care Team Providers Care Senior Account Representative Name Role Phone Nhan Massey MD Unavailable Alejandro Osorio DO Unavailable Linda Vázquez Unavailable Unavailable Linda Vázquez Unavailable Unavailable Harrell SCREENER AND BLENDER, Myla Kathya Unavailable Unavaila ble Harrell SCREENER AND BLENDER, Myla Kathya Unavailable Unavaila ble D'APONTE, TOVA Unavailable Unavailable REJI MACHUCA Unavailable Unavailable MACHUCAREJI DAVIS Unavailable Unavailable UNKNOWN, DOC Unavailable Unavailable UNKNOWN, DOC Unavailable Unavailable UNKNOWN, DOC Unavailable Unavailable UNKNOWN, DOC Unavailable Unavailable RAMIRES NATANAEL M Unavailable Unavailable RAMIRES, NATANAEL M Unavailable Unavailable MACHUCA REJI R Unavailable Unavailable RAMIRES NATANAEL M Unavailable Unavailable RAMIRES NATANAEL M Unavailable Unavailable MACHUCAREJI DAVIS Unavailable Unavailable Dr. Reji Machuca Primary Care Provider Dr. Reji Machuca Referring Provider DEVORA James Attending Provider Dr. Harsha Pabon Attending Provider DEVORA James Referring Provider Dr. Hermann Zamora Attending Provider Dr. Reji Machuca Primary Care Provider Dr. Reji Machuca Referring Provider Dr. Hermann Zamora Attending Provider Dr. Harsha Pabon Attending Provider Dr. Harsha Pabon Referring Provider [phone] Dr. Reji Machuca Primary Care Provider Dr. Reji Machuca Referring Provider Friend, Dr. Mccrary Attending Provider Wilder DILL, Dr. Mendoza Primary [...] Provider Raquel PICKERING, Dr. Dodd Emergency Provider Wilder, Reji Referring Unavailable Machuca, Reji Attending [...] Facility (1 source) sulfacetamide drug allergy 8 [facility] Work Phone: (5 sources) sulfaSALAzine drug allergy 7 Pulmonary Medicine [facility] Work Phone: (15 sources) Sulfonamides (Antibiotic) Allergy to substance 0 Hives [facility] (13 sources) Ibandronate Drug Allergy 2 Other, PT UNSURE OF REACTION [facility] (1 source) Ibadronate Drug Allergy 5 [facility] (1 source) Sulfonamides (Antibiotic) Drug allergy (disorder) 5 [facility] Medications Current Medications Medication Drug Class(es) [...] MG-UNIT CHEW One tab daily CALCIUM CARB-CHOLECALCIFEROL [id number] Myla Caballero calcium citrate 1040 mg oral [...] D-400 TABS One tab daily CHOLECALCIFEROL TABS [id number] Mylalisa Caballero sugar-free cholestyramine resin 4000 mg [...] CPEP one tab daily DULOXETINE HCL CPEP [id number] Nhan Massey MD Start: 06-21-2017 End: 12-05-2018 [...] TABS One tab daily FERROUS SULFATE TABS [id number] Nhan Massey MD losartan potassium 50 mg oral tablet (3 sources) Angiotensin 2 Receptor [place] Start: 08-26-2024 take 1 tablet by mouth once daily Losartan 50 mg tablet Discontinued 50 mg PO daily August 26, 2024 12:00am MULTIPLE VITAMINS-MINERALS (5 sources) Start: 09-28-2016 take 1 tablet by mouth once daily DAILY MULTIVITAMIN CAPS One tablet by mouth daily MULTIPLE VITAMINS-MINERALS [id number] Linda Vázquez pantoprazole 40 mg delayed release [...] 2.5 MG TABS One tab daily PREDNISONE [id number] Nhan Massey MD Start: 06-21-2017 End: 09-05-2022 [...] MG (21) TBPK 1.5 mg daily PREDNISONE [id number] Myla Caballero tamsulosin hydrochloride 0.4 mg oral [...] M G CAPS One cap daily TEMAZEPAM [id number] Myla Caballero vancomycin 125 mg oral capsule [...] Range Facility Absolute lymphocyte countOrd ered By: Yosuif García on 02-04-2025 Lymphocytes Auto (Unsp spec) [#/Vol] 1.08 10*3/uL 0.83-4.51 [facility] Absolute neutrophil countOrd ered By: Yousif García on 02-04-2025 Neutrophils (Bld) [#/Vol] 5.9 10*3/uL 2.0-7.7 [facility] Anion gap in Serum or Plasma Ordered By: Yousif García on 02-04-2025 Anion gap [Moles/Vol] 11 mmol/L 10-09 [facility] Automated lymphocyte count a s percentage of total leukocytesOrdered By: Yousif García on 02-04-2025 Lymphocytes/100 WBC Auto (Unsp spec) 13.8 % Low 19-41 [facility] BUN/creatinine ratioOrdered By: Yousif García on 02-04-2025 Urea nitrogen/Creatinine [Mass ratio] 12.1 mg/mg 03-16 [facility] Basic Metabolic Profile (BMP )on 02-04-2025 BUN/CRE 12.1 RATIO Normal 03-16 [facility] Comment on above: Performed By: #### L 500.2500, L100.0100, L501.4020 #### [facility] [address] [place], [address] Calcium [Mass/Vol] 9.4 mg/dL Normal 7.6-11.0 [facility] Comment on above: Performed By: #### L 500.2500, L100.0100, L501.4020 #### [facility] [address] [place], [address] Chloride [Moles/Vol] 107 mmol/L Normal 98-108 [facility] Comment on above: Performed By: #### L 500.2500, L100.0100, L501.4020 #### [facility] [address] [place], [address] CO2 [Moles/Vol] 22.3 mmol/L Normal 21.0-32.0 [facility] Comment on above: Performed By: #### L 500.2500, L100.0100, L501.4020 #### [facility] [address] [place], [address] Creatinine [Mass/Vol] 1.19 mg/dL Normal 0.70-1.20 [facility] Comment on above: Performed By: #### L 500.2500, L100.0100, L501.4020 #### [facility] [address] [place], [address] GAP 11 Normal 5-15 [facility] Comment on above: Performed By: #### L 500.2500, L100.0100, L501.4020 #### [facility] [address] [place], [address] GFR/1.73 sq M.predicted among non-blacks MDRD (S/P/Bld) [Vol rate/Area] 47 mL/min/{1.73_m2} Low >60 [facility] Comment on above: Result Comment: mL/m in/1.73m2 CKD-EPI Creatinine Equation (2020) Performed By: #### L 500.2500, L100.0100, L501.4020 #### [facility] [address] [place], [address] Glucose [Mass/Vol] 95 mg/dL Normal 70-99 [facility] Comment on above: Performed By: #### L 500.2500, L100.0100, L501.4020 #### [facility] [address] [place], [address] Potassium [Moles/Vol] 4.4 mmol/L Normal 3.3-5.1 [facility] Comment on above: Performed By: #### L 500.2500, L100.0100, L501.4020 #### [facility] [address] [place], [address] Sodium [Moles/Vol] 141 mmol/L Normal 133-145 [facility] Comment on above: Performed By: #### L 500.2500, L100.0100, L501.4020 #### [facility] [address] [place], [address] Urea nitrogen [Mass/Vol] 14 mg/dL Normal 4-19 [facility] Comment on above: Performed By: #### L 500.2500, L100.0100, L501.4020 #### [facility] [address] [place], [address] Basophil percentageOrdered B y: Yousif García on 02-04-2025 Basophils/100 WBC (Bld) 0.4 % 0-1 [facility] CBC W/Diff, Automatedon 01-26-2024 Absolute Lymph 1.08 X10 3/uL Normal 0.83-4.51 [facility] Comment on above: Performed By: #### L 101.9900, L500.2500, L501.6710, L100.0100, L501.1400 #### [facility] [address] [place], [address] Absolute Neut 5.9 X10 3/uL Normal 2.0-7.7 [facility] Comment on above: Performed By: #### L 101.9900, L500.2500, L501.6710, L100.0100, L501.1400 #### [facility] [address] [place], [address] Basophils/100 WBC (Bld) 0.4 % Normal 0-1 [facility] Comment on above: Performed By: #### L 101.9900, L500.2500, L501.6710, L100.0100, L501.1400 #### [facility] [address] [place], [address] Eosinophils/100 WBC (Bld) 1.3 % Normal 0-5 [facility] Comment on above: Performed By: #### L 101.9900, L500.2500, L501.6710, L100.0100, L501.1400 #### [facility] [address] [place], [address] Erythrocyte distribution width (RBC) [Ratio] 13.6 % Normal 11.6-14.6 [facility] Comment on above: Performed By: #### L 101.9900, L500.2500, L501.6710, L100.0100, L501.1400 #### [facility] [address] [facility] [place], [address] Hematocrit (Bld) [Volume fraction] 43.3 % Normal 37-47 [facility] Comment on above: Performed By: #### L 101.9900, L500.2500, L501.6710, L100.0100, L501.1400 #### [facility] [address] [place], [address] Hemoglobin (Bld) [Mass/Vol] 15.0 g/dL Normal 12.0-15.0 [facility] Comment on above: Performed By: #### L 101.9900, L500.2500, L501.6710, L100.0100, L501.1400 #### [facility] [address] [place], [address] IG% 0.300 Normal 0.0-0.9 [facility] Comment on above: Result Comment: IG% - Immature Granulocytes (promyelocytes, myelocytes and metamyelocytes) > 1% indicates that a LEFT SHIFT is Present. Performed By: #### L 101.9900, L500.2500, L501.6710, L100.0100, L501.1400 #### [facility] [address] [place], [address] Lymphocytes/100 WBC (Bld) 13.8 % Low 19-41 [facility] Comment on above: Performed By: #### L 101.9900, L500.2500, L501.6710, L100.0100, L501.1400 #### [facility] [address] [place], [address] MCH (RBC) [Entitic mass] 32.6 pg High 27.0-32.0 [facility] Comment on above: Performed By: #### L 101.9900, L500.2500, L501.6710, L100.0100, L501.1400 #### [facility] [address] [place], [address] MCHC (RBC) [Mass/Vol] 34.6 g/dL Normal 32-36 [facility] Comment on above: Performed By: #### L 101.9900, L500.2500, L501.6710, L100.0100, L501.1400 #### [facility] [address] [place], [address] MCV (RBC) [Entitic vol] 94.1 fL Normal 81-99 [facility] Comment on above: Performed By: #### L 101.9900, L500.2500, L501.6710, L100.0100, L501.1400 #### [facility] [address] [place], [address] Monocytes/100 WBC (Bld) 9.6 % Normal 0-10 [facility] Comment on above: Performed By: #### L 101.9900, L500.2500, L501.6710, L100.0100, L501.1400 #### [facility] [address] [place], [address] Neutrophils/100 WBC (Bld) 74.6 % High 47-70 [facility] Comment on above: Performed By: #### L 101.9900, L500.2500, L501.6710, L100.0100, L501.1400 #### [facility] [address] [place], [address] Nucleated RBC (Bld) [#/Vol] 0 10*3/uL Normal 0-5 [facility] Comment on above: Performed By: #### L 101.9900, L500.2500, L501.6710, L100.0100, L501.1400 #### [facility] [address] [place], [address] Platelet mean volume (Bld) [Entitic vol] 10.1 fL Normal 6.2-12.0 [facility] Comment on above: Performed By: #### L 101.9900, L500.2500, L501.6710, L100.0100, L501.1400 #### [facility] [address] [place], [address] Platelets (Bld) [#/Vol] 217 10*3/uL Normal 150-450 [facility] Comment on above: Performed By: #### L 101.9900, L500.2500, L501.6710, L100.0100, L501.1400 #### [facility] [address] [place], [address] RBC (Bld) [#/Vol] 4.60 10*6/uL Normal 4.2-5.4 [facility] Comment on above: Performed By: #### L 101.9900, L500.2500, L501.6710, L100.0100, L501.1400 #### [facility] [address] [place], [address] RDW SD 47.1 fl High 35.1-43.9 [facility] Comment on above: Performed By: #### L 101.9900, L500.2500, L501.6710, L100.0100, L501.1400 #### [facility] [address] [place], [address] WBC (Bld) [#/Vol] 7.8 10*3/uL Normal 4.4-11.0 [facility] Comment on above: Performed By: #### L 101.9900, L500.2500, L501.6710, L100.0100, L501.1400 #### [facility] [address] [place], [address] CRPon 02-04-2025 C-REACTIVE PROT 40.10 mg/L High 0.0-3.0 [facility] Comment on above: Performed By: #### L 500.2500, L100.0100, L501.4020 #### [facility] [address] [place], [address] Carbon dioxide, total [Moles /volume] in Central venous bloodOrdered By: Yousif García on 02-04-2025 CO2 [Moles/Vol] 22.3 mmol/L 21.0-32.0 [facility] Chloride assayOrdered By: Doc García on 02-04-2025 Chloride [Moles/Vol] 107 mmol/L 98-108 [facility] Emergency Department Summary on 02-04-2025 Emergency Department Summary [facility] Medical Records Department [address] [place] [address] Emergency Department Summary 02/04/25 MR#: [id number] Acct: [id number] Name: SINDI WRIGHT Rep #: [id number] : 1945 80 From: Yousif García DO [...] Patient states she was seen by a hop strainer in [place] recently for this. Patient states that that hop strainer did not help her in any way. Chief Complaint: Lower Extremity Injury Informant: patient Onset/Context/Timing Onset: Month(s) (2) Context: Gradual Onset Timing: Continuous Quality of Pain: Burning Location: Left foot and ankle Worsened by: Weightbearing Relieved by: Nothing PFSH [facility] Medical History (Updated 02/04/25 @ 12:37 by [...] left ankle (more content not included)... Normal [facility] Eosinophil percentageOrdered By: Yousif García on 02-04-2025 Eosinophils/100 WBC (Bld) 1.3 % 0-5 [facility] Erythrocyte Sed Rateon 02-04 SED RATE 20 mm/hr Normal 0-30 [facility] Comment on above: Performed By: #### L 101.9900, L500.2500, L501.6710, L100.0100, L501.1400 #### [facility] [address] [place], [address] Erythrocyte distribution wid th ratioOrdered By: Yousif García on 02-04-2025 Erythrocyte distribution width (RBC) [Ratio] 13.6 % 11.6-14.6 [facility] Erythrocyte distribution wid th standard deviationOrdered By: Yousif García on 02-04-2025 Erythrocyte distribution width (RBC) [Ratio] 47.1 fl High 35.1-43.9 [facility] Erythrocyte sedimentation ra teOrdered By: Yousif García on 02-04-2025 ESR (Bld) [Velocity] 20 mm/h 0-30 [facility] Foot min 3 Viewson Foot min 3 Views [facility] Imaging Services [address] [place], [place] [address] Foot min 3 Views MR#: [id number] Acct: [id number] Name: SINDI WRIGHT Rep #: [id number] : 1945 F 80 From: Nhan Thomas PCP: Dr. Reji Machuca MD Status: PRE ER Study: Foot min 3 Views Date of Exam: 02/04/25 Exam# [id number] Ordering Dr: Yousif García DO PROCEDURE: FOOT [...] currently occult fracture. Reading Location: [place] [address] CC: Dr. Yousif García DO; Dr. Reji Machuca MD Equipment Operating Engineer: Signed Normal [facility] Glomerular filtration rate ( GFR) estimation/1.73 sq m using serum, plasma, or whole bOrdered By: Yousif García on 02-04-2025 GFR/1.73 sq M.predicted among non-blacks MDRD (S/P/Bld) [Vol rate/Area] 47 mL/min/{1.73_m2} Low >60 [facility] Comment on above: mL/min/1.73m2 CKD-EP I Creatinine Equation (2020) Hematocrit Auto (Bld) [Volum e fraction]Ordered By: Yousif García on 02-04-2025 Hematocrit (Bld) [Volume fraction] 43.3 % 37-47 [facility] Hemoglobin measurementOrdere d By: Yousif García on 02-04-2025 Hemoglobin (Bld) [Mass/Vol] 15.0 g/dL 12.0-15.0 [facility] Immature granulocytes/100 WB C Auto (Bld)Ordered By: Yousif García on 02-04-2025 Immature granulocytes/100 WBC (Bld) 0.300 % 0.0-0.9 [facility] Comment on above: IG% - Immature Granu locytes (promyelocytes, myelocytes and metamyelocytes) > 1% indicates that a LEFT SHIFT is Present. MCV (mean corpuscular volume ) determinationOrdered By: Yousif García on 02-04-2025 MCV (RBC) [Entitic vol] 94.1 fL 81-99 [facility] Mean corpuscular hemoglobin (MCH) determinationOrdered By: Yousif García on 02-04-2025 MCH (RBC) [Entitic mass] 32.6 pg High 27.0-32.0 [facility] Mean corpuscular hemoglobin concentration (MCHC) determinationOrdered By: Yousif García on 02-04-2025 MCHC (RBC) [Mass/Vol] 34.6 g/dL 32-36 [facility] Mean platelet volume determi nationOrdered By: Yousif García on 02-04-2025 Platelet mean volume (Bld) [Entitic vol] 10.1 fL 6.2-12.0 [facility] Monocyte percentageOrdered B y: Yousif García on 02-04-2025 Monocytes/100 WBC (Bld) 9.6 % 0-10 [facility] Neutrophil percentageOrdered By: Yousif García on 02-04-2025 Neutrophils/100 WBC (Bld) 74.6 % High 47-70 [facility] Nucleated red blood cell per centageOrdered By: Yousif García on 02-04-2025 Nucleated RBC/100 WBC (Bld) [Ratio] 0 % 0-5 [facility] Platelet countOrdered By: Doc García on 02-04-2025 Platelets (Bld) [#/Vol] 217 10*3/uL 150-450 [facility] Potassium measurement (mass/ volume)Ordered By: Yousif García on 02-04-2025 Potassium (Unsp spec) [Mass/Vol] 4.4 mmol/L 3.3-5.1 [facility] RBC Auto (Bld) [#/Vol]Ordere d By: Yousif García on 02-04-2025 RBC (Bld) [#/Vol] 4.60 10*6/uL 4.2-5.4 [facility] Serum creatinine measurement (mass/volume)Ordered By: Yousif García on 02-04-2025 Creatinine [Mass/Vol] 1.19 mg/dL 0.70-1.20 [facility] Serum glucose measurement (m ass/volume)Ordered By: Yousif García on 02-04-2025 Glucose [Mass/Vol] 95 mg/dL 70-99 [facility] Serum or plasma C reactive p rotein measurement (mass/volume)Ordered By: Yousif García on 02-04-2025 CRP [Mass/Vol] 40.10 mg/L High 0.0-3.0 [facility] Serum or plasma calcium rodolfo urement (mass/volume)Ordered By: Yousif García on 02-04-2025 Calcium [Mass/Vol] 9.4 mg/dL 7.6-11.0 [facility] Serum or plasma urea nitroge n measurement (mass/volume)Ordered By: Yousif García on 02-04-2025 Urea nitrogen [Mass/Vol] 14 mg/dL 4-19 [facility] Serum or plasma uric acid me asurement (mass/volume)Ordered By: Yousif García on 02-04-2025 Urate [Mass/Vol] 4.0 mg/dL 2.6-6.0 [facility] Comment on above: The drugs N-Acetylcy steine and Metamizole may falsely depress this assay. Sodium levelOrdered By: Yousif García on 02-04-2025 Sodium [Moles/Vol] 141 mmol/L 133-145 [facility] Uric Acidon 02-04-2025 URIC 4.0 mg/dL Normal 2.6-6.0 [facility] Comment on above: Result Comment: The drugs N-Acetylcysteine and Metamizole may falsely depress this assay. Performed By: #### L 500.2500, L100.0100, L501.4020 #### [facility] [address] [place], [address] White blood cell (WBC) count Ordered By: Yousif García on 02-04-2025 WBC (Bld) [#/Vol] 7.8 10*3/uL 4.4-11.0 [facility] Anion gap in Serum or Plasma Ordered By: Reji Machuca on 12-12-2024 Anion gap [Moles/Vol] 11 mmol/L 5-15 [facility] BUN/creatinine ratioOrdered By: Reji Machuca on 12-12-2024 Urea nitrogen/Creatinine [Mass ratio] 15.5 mg/mg 10-20 [facility] Bilirubin, totalOrdered By: Reji Machuca on 12-12-2024 Bilirubin [Mass/Vol] 0.62 mg/dL 0.00-1.30 [facility] Calculated very low density lipoprotein (VLDL) cholesterol measurementOrdered By: Reji Machuca on 12-12-2024 Calculated very low density lipoprotein (VLDL) cholesterol measurement 19 mg/dL 5-40 [facility] Carbon dioxide, total [Moles /volume] in Central venous bloodOrdered By: Reji Machuca on 12-12-2024 CO2 [Moles/Vol] 24.6 mmol/L 21.0-32.0 [facility] Chloride assayOrdered By: Devora Machuca on 12-12-2024 Chloride [Moles/Vol] 106 mmol/L 98-108 [facility] Comprehensive Metabolic Prof ilon 12-12-2024 Albumin [Mass/Vol] 4.2 g/dL Normal 3.4-4.8 [facility] Comment on above: Performed By: #### L 500.2500, L100.0100, L501.4020 #### [facility] [address] [place], [address] Albumin/Globulin [Mass ratio] 1.5 {ratio} Normal 0.9-2.4 [facility] Comment on above: Performed By: #### L 500.2500, L100.0100, L501.4020 #### [facility] [address] [place], [address] ALK PHOS 80 U/L Normal 35-104 [facility] Comment on above: Performed By: #### L 500.2500, L100.0100, L501.4020 #### [facility] [address] [place], [address] ALT [Catalytic activity/Vol] 11 U/L Normal <=34 [facility] Comment on above: Performed By: #### L 500.2500, L100.0100, L501.4020 #### [facility] [address] [place], [address] AST [Catalytic activity/Vol] 17 U/L Normal <=31 [facility] Comment on above: Performed By: #### L 500.2500, L100.0100, L501.4020 #### [facility] [address] [place], [address] Bilirubin [Mass/Vol] 0.62 mg/dL Normal 0.00-1.30 [facility] Comment on above: Performed By: #### L 500.2500, L100.0100, L501.4020 #### [facility] [address] [place], [address] BUN/CRE 15.5 RATIO Normal 10-20 [facility] Comment on above: Performed By: #### L 500.2500, L100.0100, L501.4020 #### [facility] [address] [place], [address] Calcium [Mass/Vol] 9.6 mg/dL Normal 7.6-11.0 [facility] Comment on above: Performed By: #### L 500.2500, L100.0100, L501.4020 #### [facility] [address] [place], [address] Chloride [Moles/Vol] 106 mmol/L Normal 98-108 [facility] Comment on above: Performed By: #### L 500.2500, L100.0100, L501.4020 #### [facility] [address] [place], [address] CO2 [Moles/Vol] 24.6 mmol/L Normal 21.0-32.0 [facility] Comment on above: Performed By: #### L 500.2500, L100.0100, L501.4020 #### [facility] [address] [place], [address] Creatinine [Mass/Vol] 1.35 mg/dL High 0.70-1.20 [facility] Comment on above: Performed By: #### L 500.2500, L100.0100, L501.4020 #### [facility] [address] [place], [address] GAP 11 Normal 5-15 [facility] Comment on above: Performed By: #### L 500.2500, L100.0100, L501.4020 #### [facility] [address] [place], [address] GFR/1.73 sq M.predicted among non-blacks MDRD (S/P/Bld) [Vol rate/Area] 40 mL/min/{1.73_m2} Low >60 [facility] Comment on above: Result Comment: mL/m in/1.73m2 CKD-EPI Creatinine Equation (2020) Performed By: #### L 500.2500, L100.0100, L501.4020 #### [facility] [address] [place], [address] Globulin (S) [Mass/Vol] 2.9 g/dL Normal 2.2-4.2 [facility] Comment on above: Performed By: #### L 500.2500, L100.0100, L501.4020 #### [facility] [address] [place], [address] Glucose [Mass/Vol] 75 mg/dL Normal 70-99 [facility] Comment on above: Performed By: #### L 500.2500, L100.0100, L501.4020 #### [facility] [address] [place], [address] Potassium [Moles/Vol] 4.1 mmol/L Normal 3.3-5.1 [facility] Comment on above: Performed By: #### L 500.2500, L100.0100, L501.4020 #### [facility] [address] [place], [address] Sodium [Moles/Vol] 141 mmol/L Normal 133-145 [facility] Comment on above: Performed By: #### L 500.2500, L100.0100, L501.4020 #### [facility] [address] [place], [address] T PROT 7.1 g/dL Normal 5.9-8.4 [facility] Comment on above: Performed By: #### L 500.2500, L100.0100, L501.4020 #### [facility] [address] [place], [address] Urea nitrogen [Mass/Vol] 21 mg/dL High 4-19 [facility] Comment on above: Performed By: #### L 500.2500, L100.0100, L501.4020 #### [facility] [address] [place], [address] Glomerular filtration rate ( GFR) estimation/1.73 sq m using serum, plasma, or whole bOrdered By: Reji Machuca on 12-12-2024 GFR/1.73 sq M.predicted among non-blacks MDRD (S/P/Bld) [Vol rate/Area] 40 mL/min/{1.73_m2} Low >60 [facility] Comment on above: mL/min/1.73m2 CKD-EP I Creatinine Equation (2020) LDL calc ser/plasOrdered By: Reji Machuca on 12-12-2024 Cholesterol in LDL [Mass/Vol] 92 mg/dL [facility] Comment on above: Kmogciozbh=445-276 m g/dL & Higher Utuh=485 mg/dL or greater Laboratory - Chemistry and C hemistry - challengeOrdered By: Reji Machuca on 12-12-2024 AST [Catalytic activity/Vol] 17 U/L <32 [facility] Lipid Profileon 12-12-2024 CHOL:HDL 2.57 Normal [facility] Comment on above: Performed By: #### L 500.2500, L100.0100, L501.4020 #### [facility] Laboratory [address] [place], [address] Cholesterol [Mass/Vol] 182 mg/dL Normal <=200 [facility] Comment on above: Result Comment: Chol esterol level, Desirable <200 mg/dL Borderline high cholesterol 200-239 mg/dL High cholesterol >=240 mg/dL Recommendations of the NCEP Adult Treatment Panel for the following risk-cutoff thresholds for the [place] population. Performed By: #### L 500.2500, L100.0100, L501.4020 #### [facility] [address] [place], [address] Cholesterol in HDL [Mass/Vol] 71 mg/dL Normal [facility] Comment on above: Result Comment: Ayala onal Cholesterol Education Program (NCEP) guidelines: <40 mg/dL: Low HDL-cholesterol (major risk factor for CHD) >= 60 mg/dL: High HDL-cholesterol (negative risk factor for CHD) HDL-cholesterol is affected by a number of factors, e.g. smoking, exercise, hormones, sex and age. Performed By: #### L 500.2500, L100.0100, L501.4020 #### [facility] [address] [place], [address] Cholesterol in LDL [Mass/Vol] 92 mg/dL Normal [facility] Comment on above: Result Comment: Bord zozjvu=318-675 mg/dL Higher Wglw=445 mg/dL or greater Performed By: #### L 500.2500, L100.0100, L501.4020 #### [facility] [address] [place], [address] Cholesterol in VLDL [Mass/Vol] 19 mg/dL Normal 5-40 [facility] Comment on above: Performed By: #### L 500.2500, L100.0100, L501.4020 #### [facility] [address] [place], [address] Triglyceride [Mass/Vol] 95 mg/dL Normal [facility] Comment on above: Result Comment: The drugs N-Acetylcysteine and Metamizole may falsely depress this assay. Normal range: <150 mg/dL Borderline High: 150-199 mg/dL High: 200-499 mg/dL Very High: >500 mg/dL Performed By: #### L 500.2500, L100.0100, L501.4020 #### [facility] [address] [place], [address] Potassium measurement (mass/ volume)Ordered By: Reji Machuca on 12-12-2024 Potassium (Unsp spec) [Mass/Vol] 4.1 mmol/L 3.3-5.1 [facility] Screening total cholesterol/ high density lipoprotein (HDL) cholesterol ratioOrdered By: Reji Machuca on 12-12-2024 Cholesterol.total/Choles terol in HDL [Mass ratio] 2.57 {ratio} [facility] Serum creatinine measurement (mass/volume)Ordered By: Reji Machuca on 12-12-2024 Creatinine [Mass/Vol] 1.35 mg/dL High 0.70-1.20 [facility] Serum globulin measurementOr dered By: Reji Machuca on 12-12-2024 Globulin (S) [Mass/Vol] 2.9 g/dL 2.2-4.2 [facility] Serum glucose measurement (m ass/volume)Ordered By: Reji Machuca on 12-12-2024 Glucose [Mass/Vol] 75 mg/dL 70-99 [facility] Serum or plasma alanine dean otransferase (ALT) measurementOrdered By: Reji Machuca on 12-12-2024 ALT [Catalytic activity/Vol] 11 U/L <35 [facility] Serum or plasma albumin rodolfo urement (mass/volume)Ordered By: Reji Machuca on 12-12-2024 Albumin [Mass/Vol] 4.2 g/dL 3.4-4.8 [facility] Serum or plasma albumin/glob ulin mass ratioOrdered By: Reji Machuca on 12-12-2024 Albumin/Globulin [Mass ratio] 1.5 {ratio} 0.9-2.4 [facility] Serum or plasma alkaline genie sphatase measurementOrdered By: Reji Machuca on 12-12-2024 ALP [Catalytic activity/Vol] 80 U/L 35-104 [facility] Serum or plasma calcium rodolfo urement (mass/volume)Ordered By: Reji Machuca on 12-12-2024 Calcium [Mass/Vol] 9.6 mg/dL 7.6-11.0 [facility] Serum or plasma cholesterol in HDL measurement (mass/volume)Ordered By: Reji Machuca on 12-12-2024 Cholesterol in HDL [Mass/Vol] 71 mg/dL >40 [facility] Comment on above: National Cholesterol Education Program (NCEP) guidelines:<40 mg/dL: Low HDL-cholesterol (major risk factor for CHD)>= 60 mg/dL: High HDL-cholesterol (negative risk factor for CHD)HDL-cholesterol is affected by a number of factors, e.g. smoking, exercise, hormones, sex and age. Serum or plasma cholesterol measurement (mass/volume)Ordered By: Reji Machuca on 12-12-2024 Cholesterol [Mass/Vol] 182 mg/dL <201 [facility] Comment on above: Cholesterol level, D esirable <200 mg/dLBorderline high cholesterol 200-239 mg/dLHigh cholesterol >=240 mg/dLRecommendations of the NCEP Adult Treatment Panel for the following risk-cutoff thresholds for the [place] population. Serum or plasma urea nitroge n measurement (mass/volume)Ordered By: Reji Machuca on 12-12-2024 Urea nitrogen [Mass/Vol] 21 mg/dL High 4-19 [facility] Serum or plasma uric acid me asurement (mass/volume)Ordered By: Reji Machuca on 12-12-2024 Urate [Mass/Vol] 3.9 mg/dL 2.6-6.0 [facility] Comment on above: The drugs N-Acetylcy steine and Metamizole may falsely depress this assay. Sodium levelOrdered By: Reji Machuca on 12-12-2024 Sodium [Moles/Vol] 141 mmol/L 133-145 [facility] Total proteinOrdered By: Lola Machuca on 12-12-2024 Protein [Mass/Vol] 7.1 g/dL 5.9-8.4 [facility] Triglycerides measurementOrd ered By: Reji Machuca on 12-12-2024 Triglyceride [Mass/Vol] 95 mg/dL <199 [facility] Comment on above: The drugs N-Acetylcy steine and Metamizole may falsely depress this assay. Normal range: <150 mg/dLBorderline High: 150-199 mg/dLHigh: 200-499 mg/dLVery High: >500 mg/dL Uric Acidon 12-12-2024 URIC 3.9 mg/dL Normal 2.6-6.0 [facility] Comment on above: Result Comment: The drugs N-Acetylcysteine and Metamizole may falsely depress this assay. Performed By: #### L 500.2500, L100.0100, L501.4020 #### [facility] [place], [address] Absolute lymphocyte countOrd ered By: Reji Machuca on 10-22-2024 Lymphocytes Auto (Unsp spec) [#/Vol] 1.70 10*3/uL 0.83-4.51 [facility] Absolute neutrophil countOrd ered By: Reji Machuca on 10-22-2024 Neutrophils (Bld) [#/Vol] 7.2 10*3/uL 2.0-7.7 [facility] Anion gap in Serum or Plasma Ordered By: Reji Machuca on 10-22-2024 Anion gap [Moles/Vol] 12 mmol/L 5-15 [facility] Automated lymphocyte count a s percentage of total leukocytesOrdered By: Reji Machuca on 10-22-2024 Lymphocytes/100 WBC Auto (Unsp spec) 17.2 % Low 19-41 [facility] BUN/creatinine ratioOrdered By: Reji Machuca on 10-22-2024 Urea nitrogen/Creatinine [Mass ratio] 22.0 mg/mg High 10-20 [facility] Basic Metabolic Profile (BMP )on 10-22-2024 BUN/CRE 22.0 RATIO High 10-20 [facility] Comment on above: Performed By: #### L 500.2500, L100.0100, L501.4020 #### [facility] [address] [place], [address] Calcium [Mass/Vol] 9.8 mg/dL Normal 7.6-11.0 [facility] Comment on above: Performed By: #### L 500.2500, L100.0100, L501.4020 #### [facility] [address] [place], [address] Chloride [Moles/Vol] 107 mmol/L Normal 98-108 [facility] Comment on above: Performed By: #### L 500.2500, L100.0100, L501.4020 #### [facility] [address] [place], [address] CO2 [Moles/Vol] 22.3 mmol/L Normal 21.0-32.0 [facility] Comment on above: Performed By: #### L 500.2500, L100.0100, L501.4020 #### [facility] [address] [place], [address] Creatinine [Mass/Vol] 0.71 mg/dL Normal 0.70-1.20 [facility] Comment on above: Performed By: #### L 500.2500, L100.0100, L501.4020 #### [facility] [address] [place], [address] GAP 12 Normal 5-15 [facility] Comment on above: Performed By: #### L 500.2500, L100.0100, L501.4020 #### [facility] [address] [place], [address] GFR/1.73 sq M.predicted among non-blacks MDRD (S/P/Bld) [Vol rate/Area] 88 mL/min/{1.73_m2} Normal >60 [facility] Comment on above: Result Comment: mL/m in/1.73m2 CKD-EPI Creatinine Equation (2020) Performed By: #### L 500.2500, L100.0100, L501.4020 #### [facility] [address] [place], [address] Glucose [Mass/Vol] 82 mg/dL Normal 70-99 [facility] Comment on above: Performed By: #### L 500.2500, L100.0100, L501.4020 #### [facility] [address] [place], [address] Potassium [Moles/Vol] 3.9 mmol/L Normal 3.3-5.1 [facility] Comment on above: Performed By: #### L 500.2500, L100.0100, L501.4020 #### [facility] [address] [place], [address] Sodium [Moles/Vol] 142 mmol/L Normal 133-145 [facility] Comment on above: Performed By: #### L 500.2500, L100.0100, L501.4020 #### [facility] [address] [place], [address] Urea nitrogen [Mass/Vol] 16 mg/dL Normal 4-19 [facility] Comment on above: Performed By: #### L 500.2500, L100.0100, L501.4020 #### [facility] [address] [place], [address] Basophil percentageOrdered B y: Reji Machuca on 10-22-2024 Basophils/100 WBC (Bld) 0.5 % 0-1 [facility] CBC W/Diff, Automatedon 09-26 Absolute Lymph 1.70 X10 3/uL Normal 0.83-4.51 [facility] Comment on above: Performed By: #### L 500.2500, L100.0100, L501.4020 #### [facility] [address] [place], [address] Absolute Neut 7.2 X10 3/uL Normal 2.0-7.7 [facility] Comment on above: Performed By: #### L 500.2500, L100.0100, L501.4020 #### [facility] [address] [place], [address] Basophils/100 WBC (Bld) 0.5 % Normal 0-1 [facility] Comment on above: Performed By: #### L 500.2500, L100.0100, L501.4020 #### [facility] [address] [place], [address] Eosinophils/100 WBC (Bld) 2.0 % Normal 0-5 [facility] Comment on above: Performed By: #### L 500.2500, L100.0100, L501.4020 #### [facility] [address] [place], [address] Erythrocyte distribution width (RBC) [Ratio] 14.0 % Normal 11.6-14.6 [facility] Comment on above: Performed By: #### L 500.2500, L100.0100, L501.4020 #### [facility] [address] [place], [address] Hematocrit (Bld) [Volume fraction] 45.9 % Normal 37-47 [facility] Comment on above: Performed By: #### L 500.2500, L100.0100, L501.4020 #### [facility] [address] [place], [address] Hemoglobin (Bld) [Mass/Vol] 14.5 g/dL Normal 12.0-15.0 [facility] Comment on above: Performed By: #### L 500.2500, L100.0100, L501.4020 #### [facility] [address] [place], [address] IG% 0.300 Normal 0.0-0.9 [facility] Comment on above: Result Comment: IG% - Immature Granulocytes (promyelocytes, myelocytes and metamyelocytes) > 1% indicates that a LEFT SHIFT is Present. Performed By: #### L 500.2500, L100.0100, L501.4020 #### [facility] [address] [place], [address] Lymphocytes/100 WBC (Bld) 17.2 % Low 19-41 [facility] Comment on above: Performed By: #### L 500.2500, L100.0100, L501.4020 #### [facility] [address] [place], [address] MCH (RBC) [Entitic mass] 29.9 pg Normal 27.0-32.0 [facility] Comment on above: Performed By: #### L 500.2500, L100.0100, L501.4020 #### [facility] [address] [place], [address] MCHC (RBC) [Mass/Vol] 31.6 g/dL Low 32-36 [facility] Comment on above: Performed By: #### L 500.2500, L100.0100, L501.4020 #### [facility] [address] [place], [address] MCV (RBC) [Entitic vol] 94.6 fL Normal 81-99 [facility] Comment on above: Performed By: #### L 500.2500, L100.0100, L501.4020 #### [facility] [address] [place], [address] Monocytes/100 WBC (Bld) 7.3 % Normal 0-10 [facility] Comment on above: Performed By: #### L 500.2500, L100.0100, L501.4020 #### [facility] [address] [place], [address] Neutrophils/100 WBC (Bld) 72.7 % High 47-70 [facility] Comment on above: Performed By: #### L 500.2500, L100.0100, L501.4020 #### [facility] [address] [place], [address] Nucleated RBC (Bld) [#/Vol] 0 10*3/uL Normal 0-5 [facility] Comment on above: Performed By: #### L 500.2500, L100.0100, L501.4020 #### [facility] [address] [place], [address] Platelet mean volume (Bld) [Entitic vol] 10.3 fL Normal 6.2-12.0 [facility] Comment on above: Performed By: #### L 500.2500, L100.0100, L501.4020 #### [facility] [address] [place], [address] Platelets (Bld) [#/Vol] 247 10*3/uL Normal 150-450 [facility] Comment on above: Performed By: #### L 500.2500, L100.0100, L501.4020 #### [facility] [address] [place], [address] RBC (Bld) [#/Vol] 4.85 10*6/uL Normal 4.2-5.4 [facility] Comment on above: Performed By: #### L 500.2500, L100.0100, L501.4020 #### [facility] [address] [place], [address] RDW SD 48.9 fl High 35.1-43.9 [facility] Comment on above: Performed By: #### L 500.2500, L100.0100, L501.4020 #### [facility] [address] [place], [address] WBC (Bld) [#/Vol] 9.9 10*3/uL Normal 4.4-11.0 [facility] Comment on above: Performed By: #### L 500.2500, L100.0100, L501.4020 #### [facility] [address] [place], [address] Carbon dioxide, total [Moles /volume] in Central venous bloodOrdered By: Reji Machuca on 10-22-2024 CO2 [Moles/Vol] 22.3 mmol/L 21.0-32.0 [facility] Chest PA and Lateralon 10-22 Chest PA and Lateral [facility] Imaging Services [address] [place] [address] Chest PA and Lateral MR#: [id number] Acct: [id number] Name: GILDARDOSINDI MASHA Rep #: [id number] : 1945 F 79 From: Harsha Valdez MD PCP: Dr. Reji Machuca MD Status: REG CLI Study: Chest PA and Lateral Date of Exam: 10/22/24 Exam# [id number] Ordering Dr: Reji Machuca MD PROCEDURE: CHEST [...] large hiatal hernia again seen. Reading Location: [facility] CC: Dr. Reji Machuca MD Equipment Operating Engineer: Signed Normal [facility] Chloride assayOrdered By: Devora Machuca on 10-22-2024 Chloride [Moles/Vol] 107 mmol/L 98-108 [facility] Eosinophil percentageOrdered By: Reji Machuca on 10-22-2024 Eosinophils/100 WBC (Bld) 2.0 % 0-5 [facility] Erythrocyte distribution wid th ratioOrdered By: Reji Machuca on 10-22-2024 Erythrocyte distribution width (RBC) [Ratio] 14.0 % 11.6-14.6 [facility] Erythrocyte distribution wid th standard deviationOrdered By: Reji Machuca on 10-22-2024 Erythrocyte distribution width (RBC) [Ratio] 48.9 fl High 35.1-43.9 [facility] Glomerular filtration rate ( GFR) estimation/1.73 sq m using serum, plasma, or whole bOrdered By: Reji Machuca on 10-22-2024 GFR/1.73 sq M.predicted among non-blacks MDRD (S/P/Bld) [Vol rate/Area] 88 mL/min/{1.73_m2} >60 [facility] Comment on above: mL/min/1.73m2 CKD-EP I Creatinine Equation (2020) Hematocrit Auto (Bld) [Volum e fraction]Ordered By: Reji Machuca on 10-22-2024 Hematocrit (Bld) [Volume fraction] 45.9 % 37-47 [facility] Hemoglobin measurementOrdere d By: Reji Machuca on 10-22-2024 Hemoglobin (Bld) [Mass/Vol] 14.5 g/dL 12.0-15.0 [facility] Immature granulocytes/100 WB C Auto (Bld)Ordered By: Reji Machuca on 10-22-2024 Immature granulocytes/100 WBC (Bld) 0.300 % 0.0-0.9 [facility] Comment on above: IG% - Immature Granu locytes (promyelocytes, myelocytes and metamyelocytes) > 1% indicates that a LEFT SHIFT is Present. MCV (mean corpuscular volume ) determinationOrdered By: Reij Machuca on 10-22-2024 MCV (RBC) [Entitic vol] 94.6 fL 81-99 [facility] Mean corpuscular hemoglobin (MCH) determinationOrdered By: Reji Machuca on 10-22-2024 MCH (RBC) [Entitic mass] 29.9 pg 27.0-32.0 [facility] Mean corpuscular hemoglobin concentration (MCHC) determinationOrdered By: Reji Machuca on 10-22-2024 MCHC (RBC) [Mass/Vol] 31.6 g/dL Low 32-36 [facility] Mean platelet volume determi nationOrdered By: Reji Machuca on 10-22-2024 Platelet mean volume (Bld) [Entitic vol] 10.3 fL 6.2-12.0 [facility] Monocyte percentageOrdered B y: Reji Machuca on 10-22-2024 Monocytes/100 WBC (Bld) 7.3 % 0-10 [facility] Neutrophil percentageOrdered By: Reji Machuca on 10-22-2024 Neutrophils/100 WBC (Bld) 72.7 % High 47-70 [facility] Nucleated red blood cell per centageOrdered By: Reji Machuca on 10-22-2024 Nucleated RBC/100 WBC (Bld) [Ratio] 0 % 0-5 [facility] Platelet countOrdered By: Devora Machuca on 10-22-2024 Platelets (Bld) [#/Vol] 247 10*3/uL 150-450 [facility] Potassium measurement (mass/ volume)Ordered By: Reji Machuca on 10-22-2024 Potassium (Unsp spec) [Mass/Vol] 3.9 mmol/L 3.3-5.1 [facility] RBC Auto (Bld) [#/Vol]Ordere d By: Reji Machuca on 10-22-2024 RBC (Bld) [#/Vol] 4.85 10*6/uL 4.2-5.4 [facility] Serum creatinine measurement (mass/volume)Ordered By: Reji Machuca on 10-22-2024 Creatinine [Mass/Vol] 0.71 mg/dL 0.70-1.20 [facility] Serum glucose measurement (m ass/volume)Ordered By: Reji Machuca on 10-22-2024 Glucose [Mass/Vol] 82 mg/dL 70-99 [facility] Serum or plasma calcium rodolfo urement (mass/volume)Ordered By: Reji Machuca on 10-22-2024 Calcium [Mass/Vol] 9.8 mg/dL 7.6-11.0 [facility] Serum or plasma urea nitroge n measurement (mass/volume)Ordered By: Reji Machuca on 10-22-2024 Urea nitrogen [Mass/Vol] 16 mg/dL 4-19 [facility] Sodium levelOrdered By: Reji Machuca on 10-22-2024 Sodium [Moles/Vol] 142 mmol/L 133-145 [facility] White blood cell (WBC) count Ordered By: Reji Machuca on 10-22-2024 WBC (Bld) [#/Vol] 9.9 10*3/uL 4.4-11.0 [facility] MR/BMS.Fracisco 08-26-2024 MR/BMS.HOSSEINS [facility] [address] [place] [address] OFFICE VISIT Date of Service: 08/26/24 MR#: [id number] Acct: [id number] Name: SINDI WRIGHT Rep #: [id number] [...] Medical History (Updated 08/27/24 @ 08:04 by DEVOAR Skaggs) Stenosis of artery of right lower [...] In late 2017 she was living in [place] and was being considered for R ankle [...] 06/2024 demons (more content not included)... Normal [facility] Absolute lymphocyte countOrd ered By: Reji Machuca on 07-09-2024 Lymphocytes Auto (Unsp spec) [#/Vol] 1.67 10*3/uL 0.83-4.51 [facility] Absolute neutrophil countOrd ered By: Reji Machuca on 07-09-2024 Neutrophils (Bld) [#/Vol] 4.7 10*3/uL 2.0-7.7 [facility] Automated lymphocyte count a s percentage of total leukocytesOrdered By: Reji Machuca on 07-09-2024 Lymphocytes/100 WBC Auto (Unsp spec) 23.0 % 19-41 [facility] Basic Metabolic Profile (BMP )on 07-09-2024 BUN/CRE 14.9 RATIO Normal 10-20 [facility] Comment on above: Performed By: #### L 500.2500, L100.0100, L501.4020 #### [facility] [address] [place], [address] CA,Total 9.6 mg/dL Normal 8.5-10.1 [facility] Comment on above: Performed By: #### L 500.2500, L100.0100, L501.4020 #### [facility] [address] [place], [address] Chloride [Moles/Vol] 107 mmol/L Normal 98-107 [facility] Comment on above: Performed By: #### L 500.2500, L100.0100, L501.4020 #### [facility] [address] [place], [address] CO2 [Moles/Vol] 26.0 mmol/L Normal 21.0-32.0 [facility] Comment on above: Performed By: #### L 500.2500, L100.0100, L501.4020 #### [facility] [address] [place], [address] Creatinine [Mass/Vol] 0.81 mg/dL Normal 0.55-1.02 [facility] Comment on above: Result Comment: The validity of the calculated GFR GFRAA in patients over 70 years has not been determined. Clinical correlation is essential. Performed By: #### L 500.2500, L100.0100, L501.4020 #### [facility] [address] [place], [address] EST GFR - AA 89 mL/min Normal >60 [facility] Comment on above: Result Comment: Afri can [place] GFR Calc Performed By: #### L 500.2500, L100.0100, L501.4020 #### [facility] [address] [place], [address] GAP 7 Normal 5-15 [facility] Comment on above: Performed By: #### L 500.2500, L100.0100, L501.4020 #### [facility] [address] [place], [address] GFR/1.73 sq M.predicted among non-blacks MDRD (S/P/Bld) [Vol rate/Area] 73 mL/min/{1.73_m2} Normal >60 [facility] Comment on above: Result Comment: Non- GFR Calc Performed By: #### L 500.2500, L100.0100, L501.4020 #### [facility] [address] [place], [address] Glucose [Mass/Vol] 92 mg/dL Normal 74-106 [facility] Comment on above: Performed By: #### L 500.2500, L100.0100, L501.4020 #### [facility] [address] [place], [address] Potassium [Moles/Vol] 3.7 mmol/L Normal 3.5-5.1 [facility] Comment on above: Performed By: #### L 500.2500, L100.0100, L501.4020 #### [facility] [address] [place], [address] Sodium [Moles/Vol] 139 mmol/L Normal 136-145 [facility] Comment on above: Performed By: #### L 500.2500, L100.0100, L501.4020 #### [facility] [address] [place], [address] Urea nitrogen [Mass/Vol] 12 mg/dL Normal 7-18 [facility] Comment on above: Performed By: #### L 500.2500, L100.0100, L501.4020 #### [facility] [address] [place], [address] Basophil percentageOrdered B y: Reji Machuca on 07-09-2024 Basophils/100 WBC (Bld) 0.6 % 0-1 [facility] Blood urea nitrogen (BUN)/cr eatinine ratioOrdered By: Reji Machuca on 07-09-2024 Urea nitrogen/Creatinine [Mass ratio] 14.9 mg/mg 10-20 [facility] CBC W/Diff, Automatedon 06-28-2024 Absolute Lymph 1.67 X10 3/uL Normal 0.83-4.51 [facility] Comment on above: Performed By: #### L 500.2500, L100.0100, L501.4020 #### [facility] [address] [place], [address] Absolute Neut 4.7 X10 3/uL Normal 2.0-7.7 [facility] Comment on above: Performed By: #### L 500.2500, L100.0100, L501.4020 #### [facility] [address] [place], [address] Basophils/100 WBC (Bld) 0.6 % Normal 0-1 [facility] Comment on above: Performed By: #### L 500.2500, L100.0100, L501.4020 #### [facility] [address] [place], [address] Eosinophils/100 WBC (Bld) 2.9 % Normal 0-5 [facility] Comment on above: Performed By: #### L 500.2500, L100.0100, L501.4020 #### [facility] [address] [place], [address] Erythrocyte distribution width (RBC) [Ratio] 13.8 % Normal 11.6-14.6 [facility] Comment on above: Performed By: #### L 500.2500, L100.0100, L501.4020 #### [facility] [address] [place], [address] Hematocrit (Bld) [Volume fraction] 50.2 % High 37-47 [facility] Comment on above: Performed By: #### L 500.2500, L100.0100, L501.4020 #### [facility] [address] [place], [address] Hemoglobin (Bld) [Mass/Vol] 15.5 g/dL High 12.0-15.0 [facility] Comment on above: Performed By: #### L 500.2500, L100.0100, L501.4020 #### [facility] [address] [place], [address] IG% 0.300 Normal 0.0-0.9 [facility] Comment on above: Result Comment: IG% - Immature Granulocytes (promyelocytes, myelocytes and metamyelocytes) > 1% indicates that a LEFT SHIFT is Present. Performed By: #### L 500.2500, L100.0100, L501.4020 #### [facility] [address] [place], [address] Lymphocytes/100 WBC (Bld) 23.0 % Normal 19-41 [facility] Comment on above: Performed By: #### L 500.2500, L100.0100, L501.4020 #### [facility] [address] [place], [address] MCH (RBC) [Entitic mass] 29.1 pg Normal 27.0-32.0 [facility] Comment on above: Performed By: #### L 500.2500, L100.0100, L501.4020 #### [facility] [address] [place], [address] MCHC (RBC) [Mass/Vol] 30.9 g/dL Low 32-36 [facility] Comment on above: Performed By: #### L 500.2500, L100.0100, L501.4020 #### [facility] [address] [place], [address] MCV (RBC) [Entitic vol] 94.2 fL Normal 81-99 [facility] Comment on above: Performed By: #### L 500.2500, L100.0100, L501.4020 #### [facility] [address] [place], [address] Monocytes/100 WBC (Bld) 8.3 % Normal 0-10 [facility] Comment on above: Performed By: #### L 500.2500, L100.0100, L501.4020 #### [facility] [address] [place], [address] Neutrophils/100 WBC (Bld) 64.9 % Normal 47-70 [facility] Comment on above: Performed By: #### L 500.2500, L100.0100, L501.4020 #### [facility] [address] [place], [address] Nucleated RBC (Bld) [#/Vol] 0 10*3/uL Normal 0-5 [facility] Comment on above: Performed By: #### L 500.2500, L100.0100, L501.4020 #### [facility] [address] [place], [address] Platelet mean volume (Bld) [Entitic vol] 10.7 fL Normal 6.2-12.0 [facility] Comment on above: Performed By: #### L 500.2500, L100.0100, [id number] #### [facility] [address] [place], [address] Platelets (Bld) [#/Vol] 245 10*3/uL Normal 150-450 [facility] Comment on above: Performed By: #### L 500.2500, L100.0100, L501.4020 #### [facility] [address] [place], [address] RBC (Bld) [#/Vol] 5.33 10*6/uL Normal 4.2-5.4 [facility] Comment on above: Performed By: #### L 500.2500, L100.0100, L501.4020 #### [facility] [address] [place], [address] RDW SD 47.5 fl High 35.1-43.9 [facility] Comment on above: Performed By: #### L 500.2500, L100.0100, L501.4020 #### [facility] [address] [place], [address] WBC (Bld) [#/Vol] 7.3 10*3/uL Normal 4.4-11.0 [facility] Comment on above: Performed By: #### L 500.2500, L100.0100, L501.4020 #### [facility] [address] [place], [address] Carbon dioxide measurementOr dered By: Reji Machuca on 07-09-2024 CO2 [Moles/Vol] 26.0 mmol/L 21.0-32.0 [facility] Chest PA and Lateralon 07-09 Chest PA and Lateral [facility] Services [address] [place] [address] Chest PA and Lateral MR#: [id number] Acct: [id number] Name: GILDARDOSINDI MASHA Rep #: [id number] : 1945 F 79 From: Harsha Gandara PCP: Dr. Reji Machuca MD Status: REG CLI Study: Chest PA and Lateral Date of Exam: 07/09/24 Exam# [id number] Ordering Dr: Reji Mahcuca MD PROCEDURE: CHEST PA AND LATERAL REASON FOR EXAM: Shortness of breath, COPD TECHNIQUE: Single frontal image including the chest and abdomen. COMPARISON: None. FINDINGS: Heart size is within normal limits. Large hiatal hernia. Emphysema. No focal consolidation, pleural effusion or pneumothorax. RAD/Chest PA and Lateral IMPRESSION: 1. No acute airspace abnormality. 2. Large hiatal hernia. 3. Emphysema. [facility]: Dr. Reji Machuca MD Equipment Operating Engineer: Signed Normal [facility] Chloride measurementOrdered By: Reji Machuca on 07-09-2024 Chloride [Moles/Vol] 107 mmol/L 98-107 [facility] Eosinophil percentageOrdered By: Reji Machuca on 07-09-2024 Eosinophils/100 WBC (Bld) 2.9 % 0-5 [facility] Erythrocyte distribution wid th ratioOrdered By: Reji Machuca on 07-09-2024 Erythrocyte distribution width (RBC) [Ratio] 13.8 % 11.6-14.6 [facility] Erythrocyte distribution wid th standard deviationOrdered By: Reji Machuca on 07-09-2024 Erythrocyte distribution width (RBC) [Ratio] 47.5 fl High 35.1-43.9 [facility] Glomerular filtration rate ( GFR) estimationOrdered By: Reji Machuca on 07-09-2024 GFR/1.73 sq M.predicted among non-blacks MDRD (S/P/Bld) [Vol rate/Area] 73 mL/min/{1.73_m2} >60 [facility] Comment on above: Non- GFR Calc Glucose measurementOrdered B y: Reji Machuca on 07-09-2024 Glucose [Mass/Vol] 92 mg/dL 74-106 [facility] Hematocrit Auto (Bld) [Volum e fraction]Ordered By: Reji Machuca on 07-09-2024 Hematocrit (Bld) [Volume fraction] 50.2 % High 37-47 [facility] Hemoglobin measurementOrdere d By: Reji Machuca on 07-09-2024 Hemoglobin (Bld) [Mass/Vol] 15.5 g/dL High 12.0-15.0 [facility] Immature granulocytes/100 WB C Auto (Bld)Ordered By: Reji Machuca on 07-09-2024 Immature granulocytes/100 WBC (Bld) 0.300 % 0.0-0.9 [facility] Comment on above: IG% - Immature Granu locytes (promyelocytes, myelocytes and metamyelocytes) > 1% indicates that a LEFT SHIFT is Present. L501.4020on 07-09-2024 TROPONIN-I HS 18 pg/mL Normal 3.0-54.0 [facility] Comment on above: Order Comment: 1 Result Comment: Migel riley Note: New Test Units and Gender Specific Reference Ranges. For more information see Policy Stat Procedure [place] High Sensitivity Troponin (TNIH) and attachments. Performed By: #### L 500.2500, L100.0100, L501.4020 #### [facility] [address] [place], [address] MCV (mean corpuscular volume ) determinationOrdered By: Reji Machuca on 07-09-2024 MCV (RBC) [Entitic vol] 94.2 fL 81-99 [facility] Mean corpuscular hemoglobin (MCH) determinationOrdered By: Reji Machuca on 07-09-2024 MCH (RBC) [Entitic mass] 29.1 pg 27.0-32.0 [facility] Mean corpuscular hemoglobin concentration (MCHC) determinationOrdered By: Reji Machuca on 07-09-2024 MCHC (RBC) [Mass/Vol] 30.9 g/dL Low 32-36 [facility] Mean platelet volume determi nationOrdered By: Reji Machuca on 07-09-2024 Platelet mean volume (Bld) [Entitic vol] 10.7 fL 6.2-12.0 [facility] Monocyte percentageOrdered B y: Reji Machuca on 07-09-2024 Monocytes/100 WBC (Bld) 8.3 % 0-10 [facility] Neutrophil percentageOrdered By: Reji Machuca on 07-09-2024 Neutrophils/100 WBC (Bld) 64.9 % 47-70 [facility] Nucleated red blood cell per centageOrdered By: Reji Machuca on 07-09-2024 Nucleated RBC/100 WBC (Bld) [Ratio] 0 % 0-5 [facility] Platelet countOrdered By: Devora Machuca on 07-09-2024 Platelets (Bld) [#/Vol] 245 10*3/uL 150-450 [facility] Potassium measurementOrdered By: Reji Machuca on 07-09-2024 Potassium [Moles/Vol] 3.7 mmol/L 3.5-5.1 [facility] RBC Auto (Bld) [#/Vol]Ordere d By: Reji Machuca on 07-09-2024 RBC (Bld) [#/Vol] 5.33 10*6/uL 4.2-5.4 [facility] Serum anion gap measurementO rdered By: Reji Machuca on 07-09-2024 Anion gap [Moles/Vol] 7 mmol/L 5-15 [facility] Serum or plasma calcium rodolfo urement (mass/volume)Ordered By: Reji Machuca on 07-09-2024 Calcium [Mass/Vol] 9.6 mg/dL 8.5-10.1 [facility] Serum or plasma creatinine m easurement (mass/volume)Ordered By: Reji Machuca on 07-09-2024 Creatinine [Mass/Vol] 0.81 mg/dL 0.55-1.02 [facility] Comment on above: The validity of the calculated GFR & GFRAA in patients over 70 years has not been determined. Clinical correlation is essential. Serum or plasma urea nitroge n measurement (mass/volume)Ordered By: Reji Machuca on 07-09-2024 Urea nitrogen [Mass/Vol] 12 mg/dL 7-18 [facility] Sodium levelOrdered By: Reji Machuca on 07-09-2024 Sodium [Moles/Vol] 139 mmol/L 136-145 [facility] Troponin IOrdered By: Reji young on 07-09-2024 Troponin I 18 pg/mL 3.0-54.0 [facility] Comment on above: Please Note: New Xiomara t Units and Gender Specific Reference Ranges. For more information see Policy Stat Procedure [place] High Sensitivity Troponin (TNIH) and attachments. White blood cell (WBC) count Ordered By: Reji Machuca on 07-09-2024 WBC (Bld) [#/Vol] 7.3 10*3/uL 4.4-11.0 [facility] Absolute lymphocyte countOrd ered By: Reji Machuca on 08-09-2023 Lymphocytes Auto (Unsp spec) [#/Vol] 1.28 10*3/uL 0.83-4.51 [facility] Automated lymphocyte count a s percentage of total leukocytesOrdered By: Reji Machuca on 08-09-2023 Lymphocytes/100 WBC Auto (Unsp spec) 19.0 % 19-41 [facility] Basophil percentageOrdered B y: Reji Machuca on 08-09-2023 Creatinine [Mass/Vol] 1.1 mg/dL 0.55-1.02 [facility] Basophil percentage 5-10 SEEN /hpf 0-5 [facility] Basophils/100 WBC (Bld) 0.7 % 0-1 [facility] Bilirubin [Mass/Vol] 0.50 mg/dL 0.20-1.00 [facility] Comment on above: For patients on eltr ombopag therapy, use of Dimension [place] TBIL is not recommended. Chloride [Moles/Vol] 108 mmol/L 98-107 [facility] Eosinophils/100 WBC (Bld) 2.7 % 0-5 [facility] Glucose [Mass/Vol] 80 mg/dL 74-106 [facility] Hemoglobin (Bld) [Mass/Vol] 13.8 g/dL 12.0-15.0 [facility] Monocytes/100 WBC (Bld) 10.3 % 0-10 [facility] Neutrophils (Bld) [#/Vol] 4.5 10*3/uL 2.0-7.7 [facility] Neutrophils/100 WBC (Bld) 66.9 % 47-70 [facility] Potassium [Moles/Vol] 3.7 mmol/L 3.5-5.1 [facility] Protein [Mass/Vol] 7.3 g/dL 6.4-8.2 [facility] Sodium [Moles/Vol] 141 mmol/L 136-145 [facility] WBC (Bld) [#/Vol] 6.7 10*3/uL 4.4-11.0 [facility] Bilirubin Test strip Ql (U)O rdered By: Reji Machuca on 08-09-2023 Bilirubin Ql (U) Negative Negative [facility] Calcium oxalate crystals det ection in urine sediment by light microscopyOrdered By: Reji Machuca on 08-09-2023 Calcium oxalate crystals LM Ql (Urine sed) 2+ /hpf [facility] Determination of erythrocyte mean corpuscular volume (MCV)Ordered By: Reji Machuca on 08-09-2023 MCV (RBC) [Entitic vol] 92.8 fL 81-99 [facility] Erythrocyte distribution wid th ratioOrdered By: Reji Machuca on 08-09-2023 Erythrocyte distribution width (RBC) [Ratio] 13.7 % 11.6-14.6 [facility] Erythrocyte distribution wid th standard deviationOrdered By: Reji Machuca on 08-09-2023 Erythrocyte distribution width (RBC) [Entitic vol] 46.1 fL 35.1-43.9 [facility] Hematocrit Auto (Bld) [Volum e fraction]Ordered By: Reji Machuca on 08-09-2023 Hematocrit (Bld) [Volume fraction] 44.8 % 37-47 [facility] Immature granulocytes/100 WB C Auto (Bld)Ordered By: Reji Machuca on 08-09-2023 Immature granulocytes/100 WBC (Bld) 0.400 % 0.0-0.9 [facility] Comment on above: IG% - Immature Granu locytes (promyelocytes, myelocytes and metamyelocytes) > 1% indicates that a LEFT SHIFT is Present. Ketones Test strip Ql (U)Ord ered By: Reji Machuca on 08-09-2023 Ketones Ql (U) Negative Negative [facility] - Chemistry and C hemistry - challengeOrdered By: Reji Machuca on 08-09-2023 GFR/1.73 sq M.predicted among non-blacks MDRD (S/P/Bld) [Vol rate/Area] 53.0000 mL/min/{1.73_m2} >60 [facility] Albumin/Globulin [Mass ratio] 0.7 {ratio} 0.9-2.4 [facility] ALP [Catalytic activity/Vol] 89 U/L 45-117 [facility] ALT [Catalytic activity/Vol] 14 U/L 13-56 [facility] CO2 [Moles/Vol] 27.0 mmol/L 21.0-32.0 [facility] Globulin (S) [Mass/Vol] 4.2 g/dL 2.2-4.2 [facility] Lipase [Catalytic activity/Vol] 48 U/L 13-75 [facility] Comment on above: Please note:LIPASE r evised reference range effective 22. New Lipase methodology. Expected to produce lower values than the previous assay method. NEW Reference Range: 13 - 75 U/L Urea nitrogen/Creatinine [Mass ratio] 16.0 mg/mg 10-20 [facility] - Hematology and Cell countsOrdered By: Reji Machuca on 08-09-2023 MCH (RBC) [Entitic mass] 28.6 pg 27.0-32.0 [facility] MCHC (RBC) [Mass/Vol] 30.8 g/dL 32-36 [facility] Nucleated RBC/100 WBC (Bld) [Ratio] 0 % 0-5 [facility] Platelet mean volume (Bld) [Entitic vol] 9.9 fL 6.2-12.0 [facility] Platelets (Bld) [#/Vol] 290 10*3/uL 150-450 [facility] Mucus LM Ql (Urine sed)Order ed By: Reji Machuca on 08-09-2023 Mucus Ql (Urine sed) 0 SEEN /hpf [facility] Nitrite Test strip Ql (U)Ord ered By: Reji Machuca on 08-09-2023 Nitrite Ql (U) Negative Negative [facility] No Panel InformationOrdered By: Reji Machuca on 08-09-2023 Estimated GFR (MDRD) Amer 96 mL/min >60 [facility] Comment on above: GFR Calc Estimated GFR (MDRD) Non-Af Amer 80 mL/min >60 [facility] Comment on above: Non- GFR Calc Urine RBC 5-10 SEEN /hpf 0-5 [facility] Protein Test strip Ql (U)Ord ered By: Reji Machuca on 08-09-2023 Protein Ql (U) 15 mg/dl Negative [facility] RBC Auto (Bld) [#/Vol]Ordere d By: Reji Machuca on 08-09-2023 RBC (Bld) [#/Vol] 4.83 10*6/uL 4.2-5.4 [facility] Serum or plasma calcium rodolfo urement (mass/volume)Ordered By: Reji Machuca on 08-09-2023 Calcium [Mass/Vol] 9.4 mg/dL 8.5-10.1 [facility] Serum or plasma creatinine m easurement (mass/volume)Ordered By: Reji Machuca on 08-09-2023 Creatinine [Mass/Vol] 0.75 mg/dL 0.55-1.02 [facility] Comment on above: The validity of the calculated GFR & GFRAA in patients over 70 years has not been determined. Clinical correlation is essential. Serum or plasma urea nitroge n measurement (mass/volume)Ordered By: Reji Machuca on 08-09-2023 Urea nitrogen [Mass/Vol] 12 mg/dL 7-18 [facility] Squamous epithelial cells de tection in urine sediment by light microscopyOrdered By: Reji Machuca on 08-09-2023 Epithelial cells.squamous LM Ql (Urine sed) 10-25 SEEN /hpf 5-10 [facility] Thin prep Papanicolaou smear with manual screeningOrdered By: Reji Machuca on 08-09-2023 Thin prep Papanicolaou smear with manual screening 3.1 g/dL 3.2-5.0 [facility] Thin prep Papanicolaou smear with manual screening 13 U/L 15-37 [facility] Thin prep Papanicolaou smear with manual screening 6 5-15 [facility] Urine blood detectionOrdered By: Reji Machuca on 08-09-2023 RBC Ql (U) 10 /ul Negative [facility] Urine clarityOrdered By: Lola Machuca on 08-09-2023 Clarity (U) Sl. Cloudy Clear [facility] Urine color determinationOrd ered By: Reji Machuca on 08-09-2023 Color (U) Yellow Yellow [facility] Urine glucose detectionOrder ed By: Reji Machuca on 08-09-2023 Glucose Ql (U) Normal mg/dl Normal [facility] Urine leukocyte esterase det ection by dipstickOrdered By: Reji Machuca on 08-09-2023 Leukocyte esterase Test strip Ql (U) 100 /ul Negative [facility] Urine pHOrdered By: Reji horowitz on 08-09-2023 pH (U) 5.0 [pH] 5.0 - 8.0 [facility] Urine sediment bacteria coun t by microscopy (number/high power field)Ordered By: Reji Machuca on 08-09-2023 Bacteria LM.HPF (Urine sed) [#/Area] 1 /[HPF] None Seen [facility] Urine specific gravity measu rementOrdered By: Reji Machuca on 08-09-2023 Specific gravity (U) [Rel density] 1.030 1.002-1.03 0 [facility] Urine urobilinogen measureme ntOrdered By: Reji Machuca on 08-09-2023 Urobilinogen Ql (U) 1 mg/dl Normal [facility] Absolute lymphocyte countOrd ered By: Reji Machuca on 05-17-2023 Lymphocytes Auto (Unsp spec) [#/Vol] 1.10 10*3/uL 0.83-4.51 [facility] Basophil percentageOrdered B y: Reji Machuca on 05-17-2023 Basophils/100 WBC (Bld) 0.7 % 0-1 [facility] Bilirubin [Mass/Vol] 0.70 mg/dL 0.20-1.00 [facility] Comment on above: For patients on eltr ombopag therapy, use of Dimension [place] TBIL is not recommended. Chloride [Moles/Vol] 108 mmol/L 98-107 [facility] Eosinophils/100 WBC (Bld) 2.3 % 0-5 [facility] Glucose [Mass/Vol] 82 mg/dL 74-106 [facility] Neutrophils (Bld) [#/Vol] 5.1 10*3/uL 2.0-7.7 [facility] Neutrophils/100 WBC (Bld) 73.0 % 47-70 [facility] Potassium [Moles/Vol] 3.9 mmol/L 3.5-5.1 [facility] Protein [Mass/Vol] 6.5 g/dL 6.4-8.2 [facility] Sodium [Moles/Vol] 142 mmol/L 136-145 [facility] WBC (Bld) [#/Vol] 7.0 10*3/uL 4.4-11.0 [facility] Blood erythrocytes count (nu mber/volume)Ordered By: Reji Machuca on 05-17-2023 RBC (Bld) [#/Vol] 4.82 10*6/uL 4.2-5.4 [facility] Blood hemoglobin measurement (mass/volume)Ordered By: Reji Machuca on 05-17-2023 Hemoglobin (Bld) [Mass/Vol] 14.1 g/dL 12.0-15.0 [facility] Blood lymphocytes/100 leukoc ytesOrdered By: Reji Machuca on 05-17-2023 Lymphocytes/100 WBC (Bld) 15.7 % 19-41 [facility] Blood monocytes/100 leukocyt esOrdered By: Reji Machuca on 05-17-2023 Monocytes/100 WBC (Bld) 7.6 % 0-10 [facility] Blood platelet mean volumeOr dered By: Reji Machuca on 05-17-2023 Platelet mean volume (Bld) [Entitic vol] 9.9 fL 6.2-12.0 [facility] Determination of erythrocyte mean corpuscular volume (MCV)Ordered By: Reji Machuca on 05-17-2023 MCV (RBC) [Entitic vol] 95.4 fL 81-99 [facility] Hematocrit Auto (Bld) [Volum e fraction]Ordered By: Reji Machuca on 05-17-2023 Hematocrit (Bld) [Volume fraction] 46.0 % 37-47 [facility] - Chemistry and C hemistry - challengeOrdered By: Reji Machuca on 05-17-2023 ALP [Catalytic activity/Vol] 90 U/L 45-117 [facility] ALT [Catalytic activity/Vol] 19 U/L 13-56 [facility] CO2 [Moles/Vol] 28.0 mmol/L 21.0-32.0 [facility] Globulin (S) [Mass/Vol] 3.5 g/dL 2.2-4.2 [facility] Urea nitrogen/Creatinine [Mass ratio] 17.6 mg/mg 10-20 [facility] - Hematology and Cell countsOrdered By: Reji Machuca on 05-17-2023 Erythrocyte distribution width (RBC) [Entitic vol] 46.3 fL 35.1-43.9 [facility] Erythrocyte distribution width (RBC) [Ratio] 13.1 % 11.6-14.6 [facility] Immature granulocytes/100 WBC (Bld) 0.700 % 0.0-0.9 [facility] Comment on above: IG% - Immature Granu locytes (promyelocytes, myelocytes and metamyelocytes) > 1% indicates that a LEFT SHIFT is Present. MCH (RBC) [Entitic mass] 29.3 pg 27.0-32.0 [facility] Nucleated RBC/100 WBC (Bld) [Ratio] 0 % 0-5 [facility] MCHC Auto (RBC) [Mass/Vol]Or dered By: Reji Machuca on 05-17-2023 MCHC (RBC) [Mass/Vol] 30.7 g/dL 32-36 [facility] No Panel InformationOrdered By: Reji Machuca on 05-17-2023 Estimated GFR (MDRD) Amer 108 mL/min >60 [facility] Comment on above: GFR Calc Estimated GFR (MDRD) Non-Af Amer 89 mL/min >60 [facility] Comment on above: Non- GFR Calc Platelets bldOrdered By: Lola Machuca on 05-17-2023 Platelets (Bld) [#/Vol] 299 10*3/uL 150-450 [facility] Serum or plasma albumin rodolfo urement (mass/volume)Ordered By: Reji Machuca on 05-17-2023 Albumin [Mass/Vol] 3.0 g/dL 3.2-5.0 [facility] Serum or plasma albumin/glob ulin mass ratioOrdered By: Reji Machuca on 05-17-2023 Albumin/Globulin [Mass ratio] 0.9 {ratio} 0.9-2.4 [facility] Serum or plasma calcium rodolfo urement (mass/volume)Ordered By: Reji Machuca on 05-17-2023 Calcium [Mass/Vol] 9.2 mg/dL 8.5-10.1 [facility] Serum or plasma creatinine m easurement (mass/volume)Ordered By: Reji Machuca on 05-17-2023 Creatinine [Mass/Vol] 0.68 mg/dL 0.55-1.02 [facility] Comment on above: The validity of the calculated GFR & GFRAA in patients over 70 years has not been determined. Clinical correlation is essential. Serum or plasma urea nitroge n measurement (mass/volume)Ordered By: Reji Machuca on 05-17-2023 Urea nitrogen [Mass/Vol] 12 mg/dL 7-18 [facility] Thin prep Papanicolaou smear with manual screeningOrdered By: Reji Machuca on 05-17-2023 Thin prep Papanicolaou smear with manual screening 14 U/L 15-37 [facility] Thin prep Papanicolaou smear with manual screening 6 5-15 [facility] Basophil percentageOrdered B y: Reji Machuca on 02-14-2023 Chloride [Moles/Vol] 109 mmol/L 98-107 [facility] Cholesterol [Mass/Vol] 166 mg/dL <200 [facility] Comment on above: <200 mg/dL Desirable 200-240 mg/dL Borderline >240 mg/dL High Risk Glucose [Mass/Vol] 80 mg/dL 74-106 [facility] Potassium [Moles/Vol] 3.9 mmol/L 3.5-5.1 [facility] Sodium [Moles/Vol] 140 mmol/L 136-145 [facility] Triglyceride [Mass/Vol] 125 mg/dL <199 [facility] Comment on above: The drugs N-Acetylcy steine and Metamizole may falsely depress this assay.Serum Triglycerides Reference Interval Normal <150 mg/dL Borderline high 150 - 199 mg/dL High 200 - 499 mg/dL Very High > or = 500 mg/dL Laboratory - Chemistry and C hemistry - challengeOrdered By: Reji Machuca on 02-14-2023 CO2 [Moles/Vol] 28.0 mmol/L 21.0-32.0 [facility] Urea nitrogen/Creatinine [Mass ratio] 15.2 mg/mg 10- [facility] No Panel InformationOrdered By: Reji Machuca on 02-14-2023 Estimated GFR (MDRD) Amer 91 mL/min >60 [facility] Comment on above: GFR Calc Estimated GFR (MDRD) Non-Af Amer 75 mL/min >60 [facility] Comment on above: Non- GFR Calc Serum or plasma calcium rodolfo urement (mass/volume)Ordered By: Reji Machuca on 02-14-2023 Calcium [Mass/Vol] 8.8 mg/dL 8.5-10.1 [facility] Serum or plasma cholesterol in HDL measurement (mass/volume)Ordered By: Reji Machuca on 02-14-2023 Cholesterol in HDL [Mass/Vol] 67 mg/dL >40 [facility] Comment on above: The drugs N-Acetylcy steine and Metamizole may falsely depress this assay. Reference Range HDL <40 mg/dL Low HDL Cholesterol HDL >or= 60 mg/dL High HDL Cholesterol Serum or plasma cholesterol in VLDL measurement (mass/volume)Ordered By: Reji Machuca on 02-14-2023 Cholesterol in VLDL [Mass/Vol] 25 mg/dL 5-40 [facility] Serum or plasma creatinine m easurement (mass/volume)Ordered By: Reji Machuca on 02-14-2023 Creatinine [Mass/Vol] 0.79 mg/dL 0.55-1.02 [facility] Comment on above: The validity of the calculated GFR & GFRAA in patients over 70 years has not been determined. Clinical correlation is essential. Serum or plasma low density lipoprotein (LDL) cholesterol measurement (mass/volume)Ordered By: Reji Machuca on 02-14-2023 Cholesterol in LDL [Mass/Vol] 74 mg/dL 0-130 [facility] Serum or plasma urea nitroge n measurement (mass/volume)Ordered By: Reji Machuca on 02-14-2023 Urea nitrogen [Mass/Vol] 12 mg/dL 7-18 [facility] Thin prep Papanicolaou smear with manual screeningOrdered By: Reji Machuca on 02-14-2023 Thin prep Papanicolaou smear with manual screening 3 5-15 [facility] No Panel InformationOrdered By: Dr. Pabon on 09-05-2022 Estimated GFR (MDRD) Amer 88 mL/min >60 [facility] Comment on above: GFR Calc Estimated GFR (MDRD) Non-Af Amer 73 mL/min >60 [facility] Comment on above: Non- GFR Calc Serum or plasma creatinine m easurement (mass/volume)Ordered By: Dr. Pabon on 09-05-2022 Creatinine [Mass/Vol] 0.82 mg/dL 0.55-1.02 [facility] Comment on above: The validity of the calculated GFR & GFRAA in patients over 70 years has not been determined. Clinical correlation is essential. Serum or plasma urea nitroge n measurement (mass/volume)Ordered By: Dr. Pabon on 09-05-2022 Urea nitrogen [Mass/Vol] 12 mg/dL 7-18 [facility] No Panel InformationOrdered By: Hermann Zamora on 07-05-2022 Giardia Antigen (ZURDO) [facility] Ova and parasitesOrdered By: Hermann Zamora on 07-05-2022 Ova and parasites identified LM Nom (Unsp spec) [facility] No Panel InformationOrdered By: Hermann Zamora on 06-28-2022 Stool Calprotectin <16 ug/g 0-120 [facility] Comment on above: Concentration Interp retation Follow-Up<16 - 50 ug/g Normal None>50 -120 ug/g Borderline Re-evaluate in 4-6 weeks >120 ug/g Abnormal Repeat as clinically indicatedPerformed at: [employer] [id number] Director: Jacob Landrum PhD, Phone: [phone] at: [employer] [id number] Director: Clayton Bojorquez MD, Phone: [phone] Stool Neutral Fats Increased . [facility] Comment on above: Normal (<60 Droplets /HPF) Stool Pancreatic Elastase 229 >200 [facility] Comment on above: Result Units: ug Lata st./g Severe Pancreatic Insufficiency: <100 Moderate Pancreatic Insufficiency: 100 - 200 Normal: >200Performed at: [facility] [id number] Director: Clayton Bojorquez MD, Phone: [phone] Qualitative fecal fat or lip idsOrdered By: Hermann Zamora on 06-28-2022 Fat Ql (Stl) Increased . [facility] Comment on above: Normal (<100 Droplet s/HPF) Absolute lymphocyte countOrd ered By: Hermann Zamora on 06-27-2022 Lymphocytes Auto (Unsp spec) [#/Vol] 1.46 10*3/uL 0.83-4.51 [facility] Atypical perinuclear antineu trophil cytoplasmic antibodies measurementOrdered By: Hermann Zamora on 06-27-2022 Neutrophil cytoplasmic Ab.perinuclear.atypical IF (S) [Titer] <1:20 titer Neg:<1:20 [facility] Comment on above: The atypical pANCA p attern has been observed in asignificant percentage of patients with ulcerative colitis,primary sclerosing cholangitis and autoimmune hepatitis. Basophil percentageOrdered B y: Hermann Zamora on 06-27-2022 Basophil percentage < 0.2 AI 0.0-0.9 [facility] Basophils/100 WBC (Bld) 0.7 % 0-1 [facility] Bilirubin [Mass/Vol] 0.90 mg/dL 0.20-1.00 [facility] Comment on above: For patients on eltr ombopag therapy, use of Dimension [place] TBIL is not recommended. Chloride [Moles/Vol] 108 mmol/L 98-107 [facility] Eosinophils/100 WBC (Bld) 1.9 % 0-5 [facility] Glucose [Mass/Vol] 94 mg/dL 74-106 [facility] LDH [Catalytic activity/Vol] 221 U/L 84-246 [facility] Neutrophils (Bld) [#/Vol] 3.7 10*3/uL 2.0-7.7 [facility] Neutrophils/100 WBC (Bld) 63.9 % 47-70 [facility] Potassium [Moles/Vol] 4.2 mmol/L 3.5-5.1 [facility] Protein [Mass/Vol] 7.4 g/dL 6.4-8.2 [facility] Sodium [Moles/Vol] 142 mmol/L 136-145 [facility] WBC (Bld) [#/Vol] 5.8 10*3/uL 4.4-11.0 [facility] Blood erythrocytes count (nu mber/volume)Ordered By: Hermann Zamora on 06-27-2022 RBC (Bld) [#/Vol] 5.35 10*6/uL 4.2-5.4 [facility] Blood hemoglobin measurement (mass/volume)Ordered By: Hermann Zamora on 06-27-2022 Hemoglobin (Bld) [Mass/Vol] 15.8 g/dL 12.0-15.0 [facility] Blood lymphocytes/100 leukoc ytesOrdered By: Hermann Zamora on 06-27-2022 Lymphocytes/100 WBC (Bld) 25.0 % 19-41 [facility] Blood monocytes/100 leukocyt esOrdered By: Hermann Zamora on 06-27-2022 Monocytes/100 WBC (Bld) 8.2 % 0-10 [facility] Blood platelet mean volumeOr dered By: Hermann Zamora on 06-27-2022 Platelet mean volume (Bld) [Entitic vol] 10.3 fL 6.2-12.0 [facility] Determination of erythrocyte mean corpuscular volume (MCV)Ordered By: Hermann Zamora on 06-27-2022 MCV (RBC) [Entitic vol] 94.8 fL 81-99 [facility] Erythrocyte sedimentation ra teOrdered By: Hermann Zamora on 06-27-2022 ESR (Bld) [Velocity] 9 mm/h 0-30 [facility] Hematocrit Auto (Bld) [Volum e fraction]Ordered By: Hermann Zamora on 06-27-2022 Hematocrit (Bld) [Volume fraction] 50.7 % 37-47 [facility] Interpretation of serum or p lasma protein pattern by immunofixation (narrative resultOrdered By: Hermann Zamora on 06-27-2022 Protein Fractions Immunofixation Rashard [Interp] See comment [facility] Comment on above: NOT OBSERVED Laboratory - Chemistry and C hemistry - challengeOrdered By: Hermann Zamora on 06-27-2022 ALP [Catalytic activity/Vol] 91 U/L 45-117 [facility] ALT [Catalytic activity/Vol] 23 U/L 13-56 [facility] CO2 [Moles/Vol] 27.0 mmol/L 21.0-32.0 [facility] Free T4 [Mass/Vol] 1.31 ng/dL 0.76-1.46 [facility] Urea nitrogen/Creatinine [Mass ratio] 12.2 mg/mg 10-20 [facility] Laboratory - Hematology and Cell countsOrdered By: Hermann Zamora on 06-27-2022 Erythrocyte distribution width (RBC) [Entitic vol] 47.4 fL 35.1-43.9 [facility] Erythrocyte distribution width (RBC) [Ratio] 13.6 % 11.6-14.6 [facility] Immature granulocytes/100 WBC (Bld) 0.300 % 0.0-0.9 [facility] Comment on above: IG% - Immature Granu locytes (promyelocytes, myelocytes and metamyelocytes) > 1% indicates that a LEFT SHIFT is Present. MCH (RBC) [Entitic mass] 29.5 pg 27.0-32.0 [facility] Nucleated RBC/100 WBC (Bld) [Ratio] 0 % 0-5 [facility] MCHC Auto (RBC) [Mass/Vol]Or dered By: Hermann Zamora on 06-27-2022 MCHC (RBC) [Mass/Vol] 31.2 g/dL 32-36 [facility] No Panel InformationOrdered By: Hermann Zamora on 06-27-2022 Addendum Document Comment . [facility] Comment on above: Protein electrophore sis scan will follow via computer,mail, or business services specialist sales delivery. Centromere B Antibody <0.2 AI 0.0-0.9 [facility] Endomysial IgA Antibody Negative Negative [facility] Estimated GFR (MDRD) Amer 99 mL/min >60 [facility] Comment on above: GFR Calc Estimated GFR (MDRD) Non-Af Amer 82 mL/min >60 [facility] Comment on above: Non- GFR Calc Free Triiodothyronine (T3) pg/dL 3.3 pg/mL 2.18-3.98 [facility] Immunoglobulin E 24 IU/mL 6-495 [facility] Miscellaneous Test See comment [facility] Comment on above: TEST RESULT LIMITSIB D [...] developed and its performance characteristics determined by [facility]. It has not been cleared or approved by the Food and Drug Administration. The FDA has determined that such clearance or approval is not necessary. Atypical pANCA Negative Negative Comments Pattern is not suggestive of Inflammatory Bowel Disease ___ TESTING PERFORMED AT [facility]. ORIGINAL REPORT ON FILE IN LAB CONTAINS ADDITIONAL TEST SITE INFORMATION. CODING COMPLIANCE AUDITOR Antibody 1.5 AI 0.0-0.9 [facility] Thyroid Stimulating Hormone (TSH) 1.73 uIU/mL 0.358-3.74 [facility] Platelets bldOrdered By: Riley Zamora on 06-27-2022 Platelets (Bld) [#/Vol] 223 10*3/uL 150-450 [facility] Serum DNA double strand anti body assay (units/volume)Ordered By: Hermann Zamora on 06-27-2022 DNA double strand Ab Qn (S) 1 [IU]/mL 0-9 [facility] Comment on above: Negative <5 Equivoca l 5 - 9 Positive >9 Serum Rochelle-1 antibody assay (u nits/volume)Ordered By: Hermann Zamora on 06-27-2022 Rochelle-1 extractable nuclear Ab Qn (S) <0.2 AI 0.0-0.9 [facility] Serum Scl-70 extractable nuc lear antibody assay (units/volume)Ordered By: Hermann Zamora on 06-27-2022 SCL-70 extractable nuclear Ab Qn (S) <0.2 AI 0.0-0.9 [facility] Serum Ritchie extractable nucl ear antibody detectionOrdered By: Hermann Zamora on 06-27-2022 Ritchie extractable nuclear Ab Ql (S) <0.2 AI 0.0-0.9 [facility] Serum [id number] measu rement by electrophoresisOrdered By: Hermann Zamora on 06-27-2022 Alpha 1 globulin Elph [Mass/Vol] 0.2 g/dL 0.0-0.4 [facility] Alpha 1 globulin Elph [Mass/Vol] 0.8 g/dL 0.4-1.0 [facility] Serum classic neutrophil cyt oplasmic antibody assay (units/volume)Ordered By: Hermann Zamora on 06-27-2022 Neutrophil cytoplasmic Ab.classic Qn (S) <1:20 titer Neg:<1:20 [facility] Serum globulin measurement ( mass/volume)Ordered By: Hermann Zamora on 06-27-2022 Globulin (S) [Mass/Vol] 3.1 g/dL 2.2-3.9 [facility] Serum or plasma C reactive p rotein measurement (mass/volume)Ordered By: Hermann Zamora on 06-27-2022 CRP [Mass/Vol] 4.24 mg/L 0.0-3.0 [facility] Comment on above: C-Reactive Protein ( CRP) provides useful information for thediagnosis, therapy and monitoring of inflammatory processesand associated diseases. For the evaluation of Relative Riskfor Cardiovascular Disease, a High Sensitivity CRP (HSCRP)should be ordered. Serum or plasma IgA measurem ent (mass/volume)Ordered By: Hermann Zamora on 06-27-2022 IgA [Mass/Vol] 172 mg/dL 64-422 [facility] Serum or plasma IgG measurem ent (mass/volume)Ordered By: Hermann Zamora on 06-27-2022 IgG [Mass/Vol] 890 mg/dL [phone] [facility] Serum or plasma IgM measurem ent (mass/volume)Ordered By: Hermann Zamora on 06-27-2022 IgM [Mass/Vol] 223 mg/dL 26-217 [facility] Serum or plasma albumin rodolfo urement (mass/volume)Ordered By: Hermann Zamora on 06-27-2022 Albumin [Mass/Vol] 3.9 g/dL 2.9-4.4 [facility] Serum or plasma albumin/glob ulin mass ratioOrdered By: Hermann Zamora on 06-27-2022 Albumin/Globulin [Mass ratio] 1.1 {ratio} 0.9-2.4 [facility] Serum or plasma beta globuli n measurement by electrophoresis (mass/volume)Ordered By: Hermann Zamora on 06-27-2022 Beta globulin Elph [Mass/Vol] 1.1 g/dL 0.7-1.3 [facility] Serum or plasma calcium rodolfo urement (mass/volume)Ordered By: Hermann Zamora on 06-27-2022 Calcium [Mass/Vol] 9.5 mg/dL 8.5-10.1 [facility] Serum or plasma creatinine m easurement (mass/volume)Ordered By: Hermann Zamora on 06-27-2022 Creatinine [Mass/Vol] 0.74 mg/dL 0.55-1.02 [facility] Comment on above: The validity of the calculated GFR & GFRAA in patients over 70 years has not been determined. Clinical correlation is essential. Serum or plasma gamma globul in measurement by electrophoresis (mass/volume)Ordered By: Hermann Zamora on 06-27-2022 Gamma globulin Elph [Mass/Vol] 1.0 g/dL 0.4-1.8 [facility] Serum or plasma gastrin rodolfo urement (mass/volume)Ordered By: Hermann Zamora on 06-27-2022 Gastrin [Mass/Vol] < 10 pg/mL 0-115 [facility] Comment on above: Siemens Immulite 200 0 Immunochemiluminometric assay (ICMA)Values obtained with different assay methods or kits cannotbe used interchangeably. Results cannot be interpreted asabsolute evidence of the presence or absence of malignantdisease.Performed at: [facility] [id number] Director: Jacob Landrum PhD, Phone: [phone] at: [address] [id number] Director: Clayton Bojorquez MD, Phone: [phone] Serum or plasma immunoelectr ophoresis interpretation (nominal result)Ordered By: Hermann Zamora on 06-27-2022 Interpretation IEP [Interp] Comment . [facility] Comment on above: No monoclonality det ected. Serum or plasma urea nitroge n measurement (mass/volume)Ordered By: Hermann Zamora on 06-27-2022 Urea nitrogen [Mass/Vol] 9 mg/dL 7-18 [facility] Serum perinuclear neutrophil cytoplasmic antibody titer by immunofluorescenceOrdered By: Hermann Zamora on 06-27-2022 Neutrophil cytoplasmic Ab.perinuclear IF (S) [Titer] <1:20 titer Neg:<1:20 [facility] Comment on above: The presence of posi tive fluorescence exhibiting P-ANCA orC-ANCA patterns alone is not specific for the diagnosis ofWegener's Granulomatosis (WG) or microscopic polyangiitis.Decisions about treatment should not be based solely onANCA IFA results. The [employer] ANCA Group Consensusrecommends follow up testing of positive sera with both HI-3 and MPO-ANCA enzyme immunoassays. As many as 5% serumsamples are positive only by EIA. Ref. AM J Clin [id number];111:507-513. Serum tissue transglutaminas e IgA antibody assay (units/volume)Ordered By: Hermann Zamora on 06-27-2022 tTG IgA Qn (S) <2 U/mL 0-3 [facility] Comment on above: Negative 0 - 3 Weak Positive 4 - 10 Positive >10 Tissue Transglutaminase (tTG) has been identified as the endomysial antigen. Studies have demonstr- ated that endomysial IgA antibodies have over 99% specificity for gluten sensitive enteropathy. Thin prep Papanicolaou smear with manual screeningOrdered By: Hermann Zamora on 06-27-2022 Thin prep Papanicolaou smear with manual screening 21 U/L 15-37 [facility] Thin prep Papanicolaou smear with manual screening 7 5-15 [facility] Thin prep Papanicolaou smear with manual screening 1.3 0.7-1.7 [facility] Total protein bloodOrdered B y: Hermann Zamora on 06-27-2022 Protein [Mass/Vol] 7.0 g/dL 6.0-8.5 [facility] Blood hemoglobin measurement (mass/volume)on 03-08-2022 Hemoglobin (Bld) [Mass/Vol] 15.2 g/dL 12.0-15.0 [facility] Work Phone: Hematocrit Auto (Bld) [Volum e fraction]on 03-08-2022 Hematocrit (Bld) [Volume fraction] 48.2 % 37-47 [facility] Work Phone: Iron measurement (mass/mass) on 03-08-2022 Iron (Unsp spec) [Mass/Mass] 90 ug/dL 50-170 [facility] Work Phone: Serum or plasma ferritin carie surement (mass/volume)on 03-08-2022 Ferritin [Mass/Vol] 164 ng/mL 8-252 [facility] Work Phone: Absolute lymphocyte counton 02-10-2022 Lymphocytes Auto (Unsp spec) [#/Vol] 1.73 10*3/uL 0.83-4.51 [facility] Work Phone: Basophil percentageon 2021 Basophils/100 WBC (Bld) 0.4 % 0-1 [facility] Work Phone: Bilirubin [Mass/Vol] 0.90 mg/dL 0.20-1.00 [facility] Work Phone: Comment on above: For patients on eltr ombopag therapy, use of Dimension [place] TBIL is not recommended. Chloride [Moles/Vol] 106 mmol/L 98-107 [facility] Work Phone: Eosinophils/100 WBC (Bld) 1.0 % 0-5 [facility] Work Phone: Glucose [Mass/Vol] 97 mg/dL 74-106 [facility] Work Phone: Neutrophils (Bld) [#/Vol] 5.5 10*3/uL 2.0-7.7 [facility] Work Phone: Neutrophils/100 WBC (Bld) 69.3 % 47-70 [facility] Work Phone: Potassium [Moles/Vol] 3.6 mmol/L 3.5-5.1 [facility] Work Phone: [phone] Protein [Mass/Vol] 7.8 g/dL 6.4-8.2 [facility] Work Phone: Sodium [Moles/Vol] 144 mmol/L 136-145 [facility] Work Phone: [phone] WBC (Bld) [#/Vol] 7.9 10*3/uL 4.4-11.0 [facility] Work Phone: [phone] Blood erythrocytes count (nu mber/volume)on 02-10-2022 RBC (Bld) [#/Vol] 5.15 10*6/uL 4.2-5.4 [facility] Work Phone: [phone] Blood hemoglobin measurement (mass/volume)on 02-10-2022 Hemoglobin (Bld) [Mass/Vol] 16.0 g/dL 12.0-15.0 [facility] Work Phone: [phone] Blood lymphocytes/100 leukoc yteson 02-10-2022 Lymphocytes/100 WBC (Bld) 21.8 % 19-41 [facility] Work Phone: [phone] Blood monocytes/100 leukocyt eson 02-10-2022 Monocytes/100 WBC (Bld) 7.2 % 0-10 [facility] Work Phone: [phone] Blood platelet mean volumeon 02-10-2022 Platelet mean volume (Bld) [Entitic vol] 9.9 fL 6.2-12.0 [facility] Work Phone: Determination of erythrocyte mean corpuscular volume (MCV)on 02-10-2022 MCV (RBC) [Entitic vol] 97.1 fL 81-99 [facility] Work Phone: Hematocrit Auto (Bld) [Volum e fraction]on 02-10-2022 Hematocrit (Bld) [Volume fraction] 50.0 % 37-47 [facility] Work Phone: Laboratory - Chemistry and C hemistry - challengeon 02-10-2022 ALP [Catalytic activity/Vol] 73 U/L 45-117 [facility] Work Phone: [phone] ALT [Catalytic activity/Vol] 18 U/L 13-56 [facility] Work Phone: [phone] CO2 [Moles/Vol] 30.0 mmol/L 21.0-32.0 [facility] Work Phone: [phone] Globulin (S) [Mass/Vol] 3.7 g/dL 2.2-4.2 [facility] Work Phone: [phone] Lipase [Catalytic activity/Vol] 438 U/L 73-393 [facility] Work Phone: [phone] Urea nitrogen/Creatinine [Mass ratio] 11.5 mg/mg 10-20 [facility] Work Phone: [phone] Laboratory - Hematology and Cell countson 02-10-2022 Erythrocyte distribution width (RBC) [Entitic vol] 48.8 fL 35.1-43.9 [facility] Work Phone: [phone] Erythrocyte distribution width (RBC) [Ratio] 13.5 % 11.6-14.6 [facility] Work Phone: [phone] Immature granulocytes/100 WBC (Bld) 0.300 % 0.0-0.9 [facility] Work Phone: [phone] Comment on above: IG% - Immature Granu locytes (promyelocytes, myelocytes and metamyelocytes) > 1% indicates that a LEFT SHIFT is Present. MCH (RBC) [Entitic mass] 31.1 pg 27.0-32.0 [facility] Work Phone: [phone] Nucleated RBC/100 WBC (Bld) [Ratio] 0 % 0-5 [facility] Work Phone: [phone] MCHC Auto (RBC) [Mass/Vol]on 02-10-2022 MCHC (RBC) [Mass/Vol] 32.0 g/dL 32-36 [facility]: [phone] No Panel Informationon 02-10 Estimated Creatinine Clearance Calc 40.13 ml/min [facility] Work Phone: Estimated GFR (MDRD) Amer 82 mL/min >60 [facility] Work Phone: [phone] Comment on above: GFR Calc Estimated GFR (MDRD) Non-Af Amer 67 mL/min >60 [facility] Work Phone: Comment on above: Non- GFR Calc Platelets bldon 02-10-2022 Platelets (Bld) [#/Vol] 236 10*3/uL 150-450 [facility] Work Phone: Serum or plasma albumin rodolfo urement (mass/volume)on 02-10-2022 Albumin [Mass/Vol] 4.1 g/dL 3.2-5.0 [facility] Work Phone: Serum or plasma albumin/glob ulin mass ratioon 02-10-2022 Albumin/Globulin [Mass ratio] 1.1 {ratio} 0.9-2.4 [facility] Work Phone: Serum or plasma calcium rodolfo urement (mass/volume)on 02-10-2022 Calcium [Mass/Vol] 9.7 mg/dL 8.5-10.1 [facility] Work Phone: Serum or plasma creatinine m easurement (mass/volume)on 02-10-2022 Creatinine [Mass/Vol] 0.87 mg/dL 0.55-1.02 [facility] Work Phone: Comment on above: The validity of the calculated GFR & GFRAA in patients over 70 years has not been determined. Clinical correlation is essential. Serum or plasma urea nitroge n measurement (mass/volume)on 02-10-2022 Urea nitrogen [Mass/Vol] 10 mg/dL 7-18 [facility] Work Phone: Thin prep Papanicolaou smear with manual screeningon 02-10-2022 Thin prep Papanicolaou smear with manual screening 14 U/L 15-37 [facility] Work Phone: [phone] Thin prep Papanicolaou smear with manual screening 8 5-15 [facility] Work Phone: Tim 07-07-2021 CNPN Telephone (AGGENS3) -------- SINDI WRIGHT ([id number]) 1945 F Date Time Provider Department 07/07/21 [...] [E61.1] 03/04/2014 Fibromyalgia [M79.7] 10/06/2014 Psoriatic arthropathy ([facility]) [L40.50] 10/06/2014 10/12/2015 Polymyalgia rheumatica ([facility]) [M35.3] 03/30/2015 INCONSISTENT urine toxicology [R89.2] 04/14/2016 Encounter Status:Closed by PERFECTO MELARA on 07/07/21 [facility] CNPN Telephone (AGGENS3) -------- SINDI WRIGHT ([id number]) 1945 F Date Time Provider Department 10/28/20 [...] right leg [M79.606]10/16/2013 PAD (peripheral artery disease) ([facility]) [I73.9] 11/13/2013 Diarrhea [R19.7] 07/12/2015 Insomnia [G47.00] 03/04/2014 Iron deficiency [E61.1] 03/04/2014 Fibromyalgia [M79.7] 10/06/2014 Psoriatic arthropathy ([facility]) [L40.50] 10/06/2014 10/12/2015 Polymyalgia rheumatica ([facility]) [M35.3] 03/30/2015 INCONSISTENT urine toxicology [R89.2] 04/14/2016 Encounter Status:Closed by YUSUF GARCIA on 10/28/20 [facility] 09-20-2020 CNPN Telephone (AGGENS3) -------- SINDI WRIGHT ([id number]) 1945 F Date Time Provider Department 09/20/20 [...] Encounter Status:Closed by YENNY RITCHIE on 09/20/20 [facility] CNOVon 09-15-2020 CNOV Office Visit (ANNE 3) -------- SINDI WRIGHT ([id number]) 1945 F Date Time Provider Department 09/15/20 [...] (HCC) 11/17/2008 - PAD (peripheral artery disease) ([facility]) 11/13/2013 - Psoriatic arthropathy ([facility]) 10/06/2014 Dr. Jade Hi, rheumatology - Syncope [...] (more content not included)... Normal [facility] Clinical Summary: HMSPatient IDon 10-29-2017 OOP Invalid Interpretation Code [facility] Work Phone: Clinical Summary: Scanned Hi story Summaryon 10-29-2017 brother(s) of patient alive or Unknown Invalid Interpretation Code [facility] Work Phone: Data entered by patient, allergy list Sulfa drugs Invalid Interpretation Code [facility] Work Phone: data entered by patient, cigarette smoking 1 pack per day Invalid Interpretation Code [facility] Work Phone: data entered by patient, drug (of abuse) use No Invalid Interpretation Code [facility] Work Phone: data entered by patient, Employer Name Retired Invalid Interpretation Code [facility] Work Phone: data entered by patient, exercise history No Invalid Interpretation Code [facility] Work Phone: data entered by patient, father's medical history Diabetes - insulin dependentCancerHeart diseaseStroke/TIA Invalid Interpretation Code [facility] Work Phone: Data entered by patient, history of past surgeries AppendectomyGallbladder surgeryHysterectomy Invalid Interpretation Code [facility] Work Phone: data entered by patient, mother's medical history High blood pressure Invalid Interpretation Code [facility] Work Phone: data entered by patient, past medical history AlzheimerArthritisCancer DefibrillatorDiabetic neuropathyFracturesHeart diseaseHypertensionIrrit able bowel syndromeMalignant hyperthermiaMultiple SclerosisOsteopeniaPerip heral vascular diseaseSeizuresStroke/TI AVascular disease Invalid Interpretation Code [facility] Work Phone: data entered by patient, social history, current smoker former smoker Invalid Interpretation Code [facility] Work Phone: data entered by patient, social history, marital status Invalid Interpretation Code [facility] Work Phone: father of patient is alive or Invalid Interpretation Code [facility] Work Phone: Housing Type: apartment, house, half-way, trailer, none House Invalid Interpretation Code [facility] Work Phone: housing unit size (asthma environmental history, housing) (from single family to don't know) 1 Floor Invalid Interpretation Code [facility] Work Phone: mother of patient is alive or Invalid Interpretation Code [facility] Work Phone: Clinical Summary: Flo Otto Summaryon 10-29-2017 endocrine ROS Denies Invalid Interpretation Code [facility] Work Phone: genitourinary review of systems, E&M Denies Invalid Interpretation Code [facility] Work Phone: Lymphocytes Denies Invalid Interpretation Code [facility] Work Phone: ROS cardiovascular E&M Denies Invalid Interpretation Code [facility] Work Phone: ROS ENT comment Dentures Invalid Interpretation Code [facility] Work Phone: ROS ENT E&M Complains Invalid Interpretation Code [facility] Work Phone: ROS gastrointestinal E&M Denies Invalid Interpretation Code [facility] Work Phone: ROS general E&M Denies Invalid Interpretation Code [facility] Work Phone: ROS Musculoskeletal comments Pain,Joint Pain,Arthritis Invalid Interpretation Code [facility] Work Phone: ROS musculoskeletal E&M Complains Invalid Interpretation Code [facility] Work Phone: ROS neurological E&M Denies Invalid Interpretation Code [facility] Work Phone: ROS psychiatric E&M Denies Invalid Interpretation Code [facility] Work Phone: ROS pulmonary E&M Denies Invalid Interpretation Code [facility] Work Phone: ROS skin E&M Denies Invalid Interpretation Code [facility] Work Phone: Office Visit: New/Est - 1st visit with physician, Rm: 1110-29-2017 NEGATED: Highlighted rowDocumentation of current medications (procedure) Done Invalid Interpretation Code [facility] Work Phone: NEGATED: Highlighted rowTobacco smoking status NHIS Tobacco smoking status NHIS Invalid Interpretation Code [facility] Work Phone: CT CHEST WITHOUT CONTRASTon [...] I have reviewed andapproved this report. Normal [facility] PT/INR (poc device) Ike 06-29-2017 INR Coag RelTime (Bld) 1.0 {INR} Normal 0.9-1.1 Oh [facility] Lab Report: ANCAon 7 Atypical pANCA <1:20 titer Invalid Interpretation Code Neg:<1:20 [facility] Work Phone: Neutrophils <1:20 Invalid Interpretation Code Neg:<1:20 [facility] Work Phone: Lab Report: ANTINUCLEAR ANTI BODIES DIRECTon 10-05-2016 VINCENT Titer Negative Invalid Interpretation Code Negative [facility] Work Phone: Lab Report: CCP IgG Antibodi eson 10-05-2016 Anti-Cyclic Citrullinated Peptide Antibodies 6 units Invalid Interpretation Code 0-19 [facility] Work Phone: Lab Report: Rheumatoid Facto gary 10-02-2016 rheumatoid factor < 10.0 Invalid Interpretation Code <15 [facility] Work Phone: Office Visit: SOBon 09-29-19 17 Alcoholism counseling (procedure) no Invalid Interpretation Code [facility] Work Phone: Documentation of current medications (procedure) Done Invalid Interpretation Code [facility] Work Phone: Tobacco smoking status NHIS Never Invalid Interpretation Code [facility] Work Phone: Tobacco use [facility] Former smoker Invalid Interpretation Code [facility] Work Phone: Vital Signs Date Time Vital Sign Value Performing Clinician Facility 02-04-2025 12:46-0400 Body temperature 97.9 [degF] Dr. Reji Machuca MD Work Phone: [facility] 02-04-2025 12:46-0400 Diastolic blood pressure 77 mm[Hg] Dr. Reji Machuca MD Work Phone: 6(036)355-514816 [place] [address] 02-04-2025 12:46-0400 Heart rate 85 /min Dr. Reji Machuca MD Work Phone: 1(581)517-008716 [place] [address] 02-04-2025 12:46-0400 Respiratory rate 16 /min Dr. Reji Machuca MD Work Phone: 4(927)343-043016 [place] [address] 02-04-2025 12:46-0400 SaO2% (BldA) [Mass fraction] 98 % Dr. Reji Machuca MD Work Phone: 1(604)068-860593 [place] [address] 02-04-2025 12:46-0400 Systolic blood pressure 148 mm[Hg] Dr. Reji Machuca MD Work Phone: 2(595)930-822193 [place] [address] 02-04-2025 09:42-0400 Body height 152.[address] Reji Machuca MD Work Phone: 0(668)586-888693 [place] [address] 08-26-2024 14:32-0400 Body temperature 98 [degF] Dr. Reji Machuca MD Work Phone: 3(144)969-208593 [place] [address] 08-26-2024 14:32-0400 Body weight 58.[address] Reji Machuca MD Work Phone: 1(879)922-152793 [place] [address] 08-26-2024 14:32-0400 Diastolic blood pressure 81 mm[Hg] Dr. Reji Machuca MD Work Phone: 2(353)457-136749 [address] 08-26-2024 14:32-0400 Heart rate 83 /min Dr. Reji Machuca MD Work Phone: 5(229)714-312016 [place] [address] 08-26-2024 14:32-0400 Respiratory rate 16 /min Dr. Reji Machuca MD Work Phone: 1(073)520-294316 [place] [address] 08-26-2024 14:32-0400 SaO2% (BldA) [Mass fraction] 98 % Dr. Reji Machuca MD Work Phone: [facility] 08-26-2024 14:32-0400 Systolic blood pressure 149 mm[Hg] Dr. Reji Machuca MD Work Phone: 5(166)269-685816 [place] [address] 09-05-2022 08:30-0400 Body weight 59.[address] Reji Machuca Work Phone: [facility] 09-05-2022 08:30-0400 Diastolic blood pressure 78 mm[Hg] Dr. Reji Machuca Work Phone: [facility] 09-05-2022 08:30-0400 Heart rate 80 /min Dr. Reji Machuca Work Phone: [facility] 09-05-2022 08:30-0400 SaO2% (BldA) [Mass fraction] 99 % Dr. Reji Machuca Work Phone: [facility] 09-05-2022 08:30-0400 Systolic blood pressure 134 mm[Hg] Dr. Reji Machuca Work Phone: [facility] 04-24-2022 10:22-0500 Body height 152.[address] Reji Machuca Work Phone: 8(252)304-947116 [place] [address] 04-24-2022 10:22-0500 Body mass index (BMI) [Ratio] 25.9 kg/m2 Dr. Reji Machuca Work Phone: 8(618)674-820316 [place] [address] 04-24-2022 10:22-0500 Body temperature 98.5 [degF] Dr. Reji Machuca Work Phone: [facility] 04-24-2022 10:22-0500 Body weight 60.[address] Reji Machuca Work Phone: [facility] 04-24-2022 10:22-0500 Diastolic blood pressure 90 mm[Hg] Dr. Reji Machuca Work Phone: [facility] 04-24-2022 10:22-0500 Heart rate 96 /min Dr. Reji Machuca Work Phone: [facility] 04-24-2022 10:22-0500 Respiratory rate 14 /min Dr. Reji Machuca Work Phone: [facility] 04-24-2022 10:22-0500 SaO2% (BldA) [Mass fraction] 94 % Dr. Reji Machuca Work Phone: [facility] 04-24-2022 10:22-0500 Systolic blood pressure 178 mm[Hg] Dr. Reji Machuca Work Phone: [facility] 02-10-2022 21:56-0400 Diastolic blood pressure 84 mm[Hg] [facility] Work Phone: 02-10-2022 21:56-0400 Heart rate 72 /min [facility] Work Phone: 02-10-2022 21:56-0400 Respiratory rate 16 /min [facility] Work Phone: 02-10-2022 21:56-0400 SaO2% (BldA) [Mass fraction] 95 % [facility] Work Phone: 02-10-2022 21:56-0400 Systolic blood pressure 136 mm[Hg] [facility] Work Phone: 02-10-2022 17:59-0400 Body temperature 97 [degF] [facility] Work Phone: 02-10-2022 17:57-0400 Body height 152.4 cm [facility] Work Phone: 02-10-2022 17:57-0400 Body mass index (BMI) [Ratio] 26.2 kg/m2 [facility] Work Phone: 02-10-2022 17:57-0400 Body weight 60.9 kg [facility] Work Phone: 09-28-2016 09:36-0400 BMI (Body Mass Index) 24.56 kg/m2 Linda Vázquez [facility] Work Phone: 09-28-2016 09:36-0400 Body Temperature 97.6 [degF] Linda Vázquez [facility] Work Phone: 09-28-2016 09:36-0400 BP Diastolic 70 mm[Hg] Linda Vázquez [facility] Work Phone: 09-28-2016 09:36-0400 BP Systolic 140 mm[Hg] Linda Gurpreet [facility] Work Phone: 09-28-2016 09:36-0400 Height 154.94 cm Linda Gurpreet [facility] Work Phone: 09-28-2016 09:36-0400 Pulse (Heart Rate) 85 /min Linda Gurpreet [facility] Work Phone: 09-28-2016 09:36-0400 Pulse Oximetry 94 % Lidna Gurpreet [facility] Work Phone: 09-28-2016 09:36-0400 Respiratory Rate 18 /min Linda Gurpreet [facility] Work Phone: 09-28-2016 09:36-0400 Weight 58.97 kg Linda Gurpreet [facility] Work Phone: NEGATED: Highlighted [id number] 14:10-0400 BMI (Body Mass Index) 25.98 kg/m2 Lu Vázquez [facility] Work Phone: NEGATED: Highlighted [id number] 14:10-0400 BP Diastolic 75 mm[Hg] Lu Vázquez [facility] Work Phone: NEGATED: Highlighted [id number] 14:10-0400 BP Systolic 134 mm[Hg] Lu Vázquez [facility] Work Phone: NEGATED: Highlighted [id number] 14:10-0400 Height 154.94 cm Lu Vázquez [facility] Work Phone: NEGATED: Highlighted [id number] 14:10-0400 Height 155 cm Lu Vázquez [employer] [facility] Work Phone: NEGATED: Highlighted [id number] 14:10-0400 Pulse (Heart Rate) 85 /min Lu Gurpreet [facility] Work Phone: NEGATED: Highlighted [id number] 14:100400 Weight 62.14 kg Lu Vázquez LPN [facility] Work Phone: NEGATED: Highlighted [id number] 14:100400 Weight 62 kg Lu Vázquez LPN [facility] Work Phone: Encounters Encounter Date Encounter Type Care Provider Facility Start: 02-04-2025 End: 02-04-2025 Emergency department patient visit Dr. Reji Machuca MD Work Phone: -Emergency Department Work Phone: Start: 12-12-2024 End: 12-12-[address] Reji Machuca MD Work Phone: -[facility] Start: 12-12-2024 End: 12-12-[address] Reji Machuca MD -[facility] Work Phone: Start: 12-12-2024 End: 12-12-2024 ambulatory Reji Machuca Facility:[facility] Start: 10-22-2024 End: 10-22-[address] Reji Machuca MD Work Phone: [facility] Work Phone: Start: 10-22-2024 End: 10-22-[address] Reji Machuca MD -[facility] Start: 10-22-2024 End: 10-22-2024 ambulatory Reji Machuca Facility:[facility] Start: 08-26-2024 End: 08-26-2024 Patient encounter procedure Barbara LOZOYA -[facility] Work Phone: Start: 08-26-2024 End: 08-26-2024 ambulatory Reji Machuca Facility:[facility] Start: 07-09-2024 End: 07-09-[address] Reji Machuca MD [facility] Work Phone: Start: 07-09-2024 End: 07-09-2024 ambulatory Reji Machuca Facility:[facility] Start: 08-09-2023 End: 08-09-2023 ambulatory [facility] Work Phone: Start: 08-09-2023 End: 08-09-2023 Patient encounter procedure [facility] Start: 05-17-2023 End: 05-17-[address] Reji Machuca Work Phone: [facility] Work Phone: Start: 05-17-2023 End: 05-17-[address] Reji Machuca Work Phone: [facility] Start: 04-11-2023 End: 04-11-[address] Reji Machuca Work Phone: [facility] Work Phone: Start: 04-11-2023 End: 04-11-[address] Reji Machuca Work Phone: [facility] Work Phone: Start: 03-02-2023 End: 03-02-[address] Reji Machuca Work Phone: [facility] Work Phone: Start: 02-14-2023 End: 02-14-[address] Reji Machuca Work Phone: [facility] Start: 09-05-2022 End: 09-05-[address] Reji Machuca Work Phone: [facility] Work Phone: Start: 09-05-2022 End: 09-05-[address] Reji Machuca Work Phone: [facility] Start: 09-01-2022 Non-patient / Non-visit Dr. Reji Machuca Work Phone: [facility] Start: 09-01-2022 End: 09-01-[address] Reji Machuca Work Phone: [facility] Work Phone: Start: 09-01-2022 End: 09-01-[address] Reji Machuca Work Phone: [facility] Start: 07-04-2022 End: 07-04-[address] Reji Machuca Work Phone: [facility] Work Phone: Start: 07-04-2022 End: 07-04-[address] [facility] Start: 06-28-2022 End: 06-28-[address] Reji Machuca Work Phone: [facility] Work Phone: Start: 06-28-2022 End: 06-28-[address] Reji Machuca Work Phone: [facility]atory[facility] Specimen Start: 06-27-2022 End: 06-27-[address] Reji Machuca Work Phone: [facility] Work Phone: Start: 06-27-2022 End: 06-27-[address] Reji Machuca Work Phone: [facility] Start: 06-27-2022 End: 06-27-[address] Reji Machuca Work Phone: [facility] Start: 04-24-2022 Non-patient / Non-visit Dr. Reji Machuca Work Phone: [facility] Start: 04-24-2022 End: 04-24-[address] Reji Machuca Work Phone: [facility] Work Phone: Start: 04-24-2022 End: 04-24-[address] Reji Machuca Work Phone: [facility] Start: 04-24-2022 End: 04-24-[address] Reji Machuca Work Phone: [facility] Start: 03-08-2022 End: 03-08-2022 ambulatory [facility] Work Phone: Start: 03-08-2022 End: 03-08-2022 [facility] Start: 02-10-2022 End: 02-10-2022 Emergency department patient visit [facility] Start: 02-10-2022 End: 02-10-2022 ambulatory [facility] Work Phone: Start: 02-10-2022 End: 02-10-2022 [facility] Start: 10-29-2017 End: 10-29-2017 Patient encounter procedure Nhan Massey MD Work Phone: [facility] Work Phone: Start: 06-29-2017 Ambulatory NATANAEL RAMIRES [facility] Start: 06-29-2017 [facility] Start: 06-07-2017 Ambulatory TOVA D'APONTE [facility] Start: 05-24-2017 Ambulatory DOC UNKNOWN [facility] Start: 05-10-2017 Ambulatory DOC UNKNOWN [facility] Procedures Date Procedure Procedure Detail Performing [...] with Follow up (pt not on cpap) Aeljandro Osorio DO Work Phone: Giardia Antigen (ZURDO) Dr. Devora Machuca Work Phone: H/O: hysterectomy History of hysterectomy History of cholecystectomy Histo ry of laparoscopic cholecystectomy Ova OR parasites identification Dr. Reji Machuca Work Phone: Plan of Treatment Date Care Activity Detail Author Start: 02-04-2025 [facility] Start: 10-29-2017 End: 10-29-2017 Appointment Appointment [facility] Work Phone: Start: 10-29-2017 End: 10-29-2017 Assay of protein, serum Protein - total; except by refractometry; serum or plasma or whole blood [facility] Work Phone: Start: 10-29-2017 End: 10-29-2017 Assay of vitamin D 25-hydroxyvitamin D [facility] Work Phone: Start: 10-29-2017 End: 10-29-2017 Ct lower extremity w/o dye CT right ankle without contrast [facility] Work Phone: Start: 10-29-2017 End: 10-29-2017 Dxa bone density, axial DXA - standard order of spine and hip; axial skeleton 1 + views [facility] Work Phone: Start: 10-29-2017 End: 10-29-2017 X-ray exam of ankle XR ANKLE 3 VWS-RT [facility] Work Phone: Start: 10-29-2017 End: 10-29-2017 X-ray exam of foot XR FOOT 3+ VWS-RT [facility] Work Phone: Start: 11-08-2016 End: 11-08-2016 Appointment Appointment [facility] Work Phone: Start: 09-28-2016 End: 09-28-2016 Appointment Appointment [facility] Work Phone: Start: 09-28-2016 End: 10-06-2016 *VINCENT *VINCENT [facility] Work Phone: Start: 09-28-2016 End: 10-06-2016 *ANCA *ANCA [facility] Work Phone: Start: 09-28-2016 End: 10-06-2016 Complete sleep workup (PSG,CPAP as indicated) & Follow up Complete sleep workup (PSG,CPAP as indicated) & Follow up [facility] Work Phone: Start: 09-28-2016 End: 10-06-2016 Cyclic citrullinated peptide antibody *ANTICCP - CCP Antibody [facility] Work Phone: Start: 09-28-2016 End: 10-06-2016 DMB DMB [facility] Work Phone: Start: 09-28-2016 End: 10-06-2016 Follow Up Appt 6 weeks Follow Up Appt 6 weeks [facility] Work Phone: Start: 09-28-2016 End: 10-06-2016 Pulmonary Function Test - complete Pulmonary Function Test - complete [facility] Work Phone: Start: 09-28-2016 End: 10-06-2016 Rheumatoid factor test *Rheumatoid Factor (qualiative) [facility] Work Phone: Start: 09-28-2016 End: 10-06-2016 Titration with Follow up (pt not on cpap) Titration with Follow up (pt not on cpap) [facility] Work Phone: CT of abdominal aort a with contrast [facility] Patient Education [facility] Work Phone: Patient referral [facility] Work Phone: US Extremity [facility] Immunizations Immunization Date Immunization Notes Care Provider Nehemiah ceja 08-11-2020 Covid (Moderna) [facility] No information available. Lu Vázquez LPN [facility] [place] [facility] Work Phone: Payers Date Payer Category Payer Medicare [id number] 2024 Self-pay [id number] 2017 Medicare [id number] 2016 Unknown [id number] 2011 Medicare [id number] Unknown [id number] Unknown [id number] Unknown [id number] Unknown [id number] Unknown [id number] Unknown [id number] Social History Date Type Detail Facility Start: 02-10-2022 End: 03-02-2023 Tobacco smoking status NHIS Unknown if ever smoked [facility] Start: 10-03-2016 Rare [facility] Start: 10-03-2016 None [facility] Start: 10-03-2016 Alone [facility] Start: 10-03-2016 Cigarettes [facility] Start: 1945 Sex Assigned At Female [facility] Start: 03-02-2023 End: 02-04-2025 Tobacco smoking status NHIS Ex-smoker (finding) [facility] NEGATED: Highlighted rowStart: 10-29-2017 End: 10-29-2017 Alcohol use ETOH USE No [facility] Work Phone: NEGATED: Highlighted rowStart: 10-29-2017 End: 10-29-2017 Details of drug misuse behavior DRUG USE No [facility] Work Phone: NEGATED: Highlighted rowStart: 10-29-2017 End: 10-29-2017 Assertion Former smoker [facility] Work Phone: Clinical Notes 09-15-2020 to 02-04-2025 Note Date & Type Note Facility 02-04-2025 Radiology Diagnostic study note [facility] Imaging Services [address] [place], [place] [address] Foot min 3 Views MR#: [id number] Acct: [id number] Name: SINDI WRIGHT Rep #: [id number] : 1945 F [id number] From: Bhaskar Moura MD PCP: Dr. Reji Machuca MD Status: PRE E R Study:Foot min 3 Views Date of Exam: 03/21 Exam# [id number] Ordering Dr: Schwiger ,Yousif DO PROCEDURE: FOOT [...] currently occult fracture. Reading Location: [place] [address] CC: Dr. Yousif García DO; Dr. Reji Machuca MD ~ Equipment Operating Engineer: Signed [facility] 10-23-2024 Radiology Diagnostic study note [facility] Imaging Services [address] [place] [address] [id number] Chest PA and Lateral MR#: [id number] Acct: [id number] Name: SINDI WRIGHT Rep #: [id number] : 1945 F [id number] From: Rod Valdez MD PCP: Dr. Reji Machuca MD Status: REG C Study:Chest PA and Lateral Date of Exam: 10/22/24 Exam# [id number] Ordering Dr: Reji Machuca MD PROCEDURE: CHEST [...] large hiatal hernia again seen. Reading Location: [id number] CC: Dr. Reji Machuca MD ~ Equipment Operating Engineer: Signed [facility] 08-26-2024 Evaluation note Diagnosis Onset Date Resolution PAD (peripheral artery disease) acute August 26, 2024 2:04pm HTN (hypertension) chronic August 26, 2024 2:04pm [facility] Work Phone: 1(722) 622-723704-21-2021 NoteHNO ID: [id number] Author: Perfecto Melara Service: ? Author Type: [...] (HCC) 11/17/2008 - PAD (peripheral artery disease) ([facility]) 11/13/2013 - Psoriatic arthropathy ([facility]) 10/06/2014 Dr. Jade Hi, rheumatology - Syncope [...] W/O OR W/BRUSH/WASH 04/08/2014 - ESOPH W/O [facility] SPEC BALLOON DIL 04/15/2014 Esophageal dilatation - [...] heat intoler (more content not included)...[facility]04-21-2021 NoteHNO ID: [id number] Author: Yusuf Garcia RN Service: ? Author Type: Nurse Clinician Type: Progress Notes Filed: 09/15/2020 1:04 PM Note Text: Patient given written information about esophageal manometry and the prep instructions. I verbally discussed and reviewed the information with the patient. All of patient's questions were answered. Yusuf Garcia [facility] noteNo assessment information availableWTriHealth Bet[facility] Work Phone: Evaluation note* Diagnosis Onset Date Resolution Status Acute bronchitis, unspecified acute Left leg pain acute URI (upper respiratory infection) acute [facility] Work Phone: Evaluation note* Diagnosis Onset Date Resolution Status Acute bronchitis, unspecified acute Left leg pain acute URI (upper respiratory infection) acute Alternating constipation and diarrhea chronic [facility] Work Phone: Evaluation note* Diagnosis Onset Date Resolution Status Alternating constipation and diarrhea chronic PAD (peripheral artery disease) acute Peripheral neuropathy chroni c [facility] Work Phone: Evaluation note* Diagnosis Onset Date Resolution Status 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 [facility] Work Phone: Hospital Discharge instructions Additional Instructions Take your Bentyl/dicyclomine as previously directed.[facility] Work Phone: Reason for referral (narrative)No reason for referral information availableWTriHealth Bet[facility] Work Phone: Instructions Instruction Description Start Date Completed Advance Directives No Advanced Directives Records Found Advance Directive Response Recorded Date/ Time Name of Medical Power of Calenderer granddaughter and friend February 10, 2022 6:01pm Living Will Yes February 10, 2022 6:01pm Power of Calenderer Yes January 6:01pm Advance Directive Response Recorded Date/ Time Name of Medical Power of Calenderer granddaughter and friend February 10, 2022 5:01pm Living Will Yes February 10, 2022 5:01pm Power of Calenderer Yes January 5:01pm Advance Directive Response Recorded Date/ Time Living Will Yes February 10, 2022 5:01pm Power of Calenderer Yes January 5:01pm Advance Directive Response Recorded Date/ Time Living Will Yes February 10, 2022 6:01pm Power of Calenderer Yes January 6:01pm Advance Directive Response Recorded Date/ Time Do you have a Healthcare Power of Calenderer? Yes February 04, 2025 9:43am Assessments There [...] INT LABS E ORDER GASTROPARESIS PVD PAD/US [facility] 09/01 EORDERS Reason for Visit Alternating constipa [...] section and content) DATE CREATED AUTHOR 11/19/2017 [facility] DATE CREATED AUTHOR AUTHOR'S ORGANIZ ATION 07/08/2021 [facility] DATE CREATED AUTHOR AUTHOR'S ORGANIZ ATION 02/06/2025 [facility] Goals (unrecognized section and content) Goals may [...] Status: Active Member Role Status Dates Dr. Rjei Machuca MD Primary Care Provider, Attending Provider [...] BE BASED ON THE PRIMARY CLINICAL RECORDS. [email or web address] [facility]. provides no warranty or guarantee of the accuracy or completeness of information in this document.
--- NOTE | 2025-02-07 14:53 | PCM.RX.CS ---
Consult Antibiotic Management Pharmacy has been consulted to manage selected antibiotic: Vancomycin Type of Intervention Type of Consult: New start Labs Labs: Sodium 140 mmol/L (133-145) 02/07/25 12:10 Potassium 4.0 mmol/L (3.3-5.1) 02/07/25 12:10 Chloride 105 mmol/L (98-108) 02/07/25 12:10 Carbon Dioxide 22.8 mmol/L (21.0-32.0) 02/07/25 12:10 Anion Gap 12 (5-15) 02/07/25 12:10 BUN 20 mg/dL (4-19) H 02/07/25 12:10 Creatinine 1.21 mg/dL (0.70-1.20) H 02/07/25 12:10 Est GFR (MDRD) Non-Af 46 (>60) L 02/07/25 12:10 BUN/Creatinine Ratio 16.4 RATIO (10-20) 02/07/25 12:10 Glucose 85 mg/dL (70-99) 02/07/25 12:10 Pharmacy Plan for Drug Dosing Pharmacy Plan for Drug Dosing: NEW START IV VANCOMYCIN Consulting Physician: Cristi Indication: joint infection vs gout Goal Trough: 15-20 mg/dL SrCr: 1.21 mg/dL CrCl: 30.2 mL/min Comments: patient received 750mg of vancomycin in ER 02/07 @ 1219 Vancomycin Dose: Will start 750mg Q24 (02/08 @ 1200) and get a trough prior to 3rd total dose per policy. Pending Level: 02/09/25 @ 1130 Pharmacy Service will continue to monitor and adjust dosing as required.
--- NOTE | 2025-02-07 16:25 | CPS ---
Patient was offered a breathing treatment as an therapeutic interchange for her home Trelegy Patient politely declined, stating she only needs the trelegy if she is going to be exerting herself or walking a lot. This RT explained the reasoning behind therapeutic interchanges and patient expressed understanding. Patient agreeable to call if a breathing treatment is needed.
[2025-02-07] MEDS: 0.9% Saline Lock 10 ML Syringe IV (22:50)
[2025-02-08 03:44] VITALS: BP 178/83; PULSE 71; RESP 18; TEMP 36.4; O2SAT 96
[2025-02-08 04:33] LABS: Hematocrit 40.4 % (37-47); Hemoglobin 13.3 g/dL (12.0-15.0); Immature Granulocytes Count 0.030 X10^3/uL (0.0-0.0); Mean Corp Hgb Conc 32.9 g/dL (32-36); Mean Corpuscular Volume 93.3 fL (81-99); Mean Platelet Vol. 10.1 fl (6.2-12.0); NRBC Flagged by Analyzer 0 % (0-5); Platelet Count 226 K/mm3 (150-450); RBC Distribution Width CV 13.0 % (11.6-14.6); RBC Distribution Width SD 44.6 fl (35.1-43.9); Red Blood Count 4.33 M/mm3 (4.2-5.4); White Blood Count 6.1 K/mm3 (4.4-11.0)
[2025-02-08 04:57] LABS: AST(SGOT) 15 U/L (<=31); Alanine Aminotransfer ALT/SGPT 10 U/L (<=34); Albumin, Serum 3.6 g/dL (3.4-4.8); Alkaline Phosphatase 76 U/L (35-104); Anion Gap 10 (5-15); BUN 18 mg/dL (4-19); BUN/Creat Ratio 17.6 RATIO (10-20); Calcium,Total 9.1 mg/dL (7.6-11.0); Carbon Dioxide 20.0 mmol/L (21.0-32.0); Chloride 108 mmol/L (98-108); Estimated Creatinine Clearance 35.52 ml/min (50-250); Globulin 2.8 g/dL (2.2-4.2); Glucose 87 mg/dL (70-99); Potassium 3.9 mmol/L (3.3-5.1)
[2025-02-08 06:22] VITALS: BP 161/75; PULSE 67; RESP 18; TEMP 36.6; O2SAT 97
--- NOTE | 2025-02-08 07:27 | PN.HOSP_ITS ---
Reason for Visit Chief Complaint: Left ankle pain Subjective Subjective Ankle feeling better. Objective Data Objective Data Vital Signs: Vital Signs Temp Pulse Resp BP Pulse Ox O2 Del Method 36.6 C 67 18 161/75 H 97 Room Air 02/08/25 06:22 02/08/25 06:22 02/08/25 06:22 02/08/25 06:22 02/08/25 06:22 02/08/25 06:22 Oxygen Delivery Method Room Air Weight: 56.699 kg Body Mass Index (BMI) 24.4 Intake & Output: Intake and Output for Last 24 Hours 02/06/25 02/07/25 02/08/25 23:59 23:59 23:59 Intake Total 965 / 1765 800 / 800 Balance 965 / 1765 800 / 800 Lab / Micro Data 02/08/25 03:45 02/08/25 03:45 Labs: Laboratory Results - last 24 hr 02/07/25 12:10: WBC 9.2, RBC 4.71, Hgb 14.5, Hct 44.4, MCV 94.3, MCH 30.8, MCHC 32.7 D, RDW Std Deviation 45.8 H, RDW Coeff of [place] 13.2, Plt Count 248, MPV 9.6, Immature Gran % (Auto) 0.300, Neut % (Auto) 76.8 H, Lymph % (Auto) 14.1 L, [place] % (Auto) 7.0, Eos % (Auto) 1.4, Baso % (Auto) 0.4, Absolute Neuts (auto) 7.0, Absolute Lymphs (auto) 1.29, Nucleated RBC % 0, ESR 45 H, Sodium 140, Potassium 4.0, Chloride 105, Carbon Dioxide 22.8, Anion Gap 12, BUN 20 H, C reatinine 1.21 H, Estim Creat Clear Calc 30.23 L, Est GFR (MDRD) Non-Af 46 L, BUN/Creatinine Ratio 16.4, Glucose 85, Calcium 9.6, C-React Prot Ext Range 27.10 H 02/08/25 03:45: WBC 6.1, RBC 4.33, Hgb 13.3, Hct 40.4, MCV 93.3, MCH 30.7, MCHC 32.9, RDW Std Deviation 44.6 H, RDW Coeff of [place] 13.0, Plt Count 226, MPV 10.1, Immature Gran % (Auto) 0.500, Neut % (Auto) 63.5, Lymph % (Auto) 24.9, [place] % (Auto) 8.4, Eos % (Auto) 2.0, Baso % (Auto) 0.7, Absolute Neuts (auto) 3.9, Absolute Lymphs (auto) 1.52, Nucleated RBC % 0, Sodium 138, Potassium 3.9, Chloride 108, Carbon Dioxide 20.0 L, Anion Gap 10, BUN 18, Creatinine 1.03, E stim Creat Clear Calc 35.52 L, Est GFR (MDRD) Non-Af 56 L, BUN/Creatinine Ratio 17.6, Glucose 87, Calcium 9.1, Total Bilirubin 0.52, AST 15, ALT 10, Alkaline Phosphatase 76, Total Protein 6.4, Albumin 3.6, Globulin 2.8, Albumin/Globulin Ratio 1.3 Radiography Diagnostic Testing: Radiology Impression Ankle X-Ray 02/07/25 12:00 IMPRESSION: Medial soft tissue swelling but no fracture of the left ankle. Reading Location: [facility] Physical Exam Const alert and no apparent distress HEENT head/scalp atraumatic and moist oral mucous membranes Extremity Extremity Narrative: improved left medial malleolar edema. resolved erythema. Assessment & Plan Assessment/Plan (1) Foot pain, left: PLAN: Improved Left foot and ankle pain Etiologies: acute gout/psuedogout flare v cellulitis. Less likely septic arthritis or contact dermatitis. Treated with the oral antibiotics with Augmentin but swelling persisted. Patient has received vancomycin in the emergency room. Unsure if the patient actually does have an infection but would like to continue to treat her with vancomycin. In the meantime we will add indomethacin as her kidney function allows and as well as colchicine. The indomethacin will be scheduled and the colchicine will be as needed but patient will receive a one- time dose of colchicine. Holding off on steroids at this point time as it is not clear that this is gout or pseudogout. Patient is not interested in having an arthrocentesis at this time. So plan is to continue with antibiotics, Indocin and colchicine and observe. Ice as needed PLAN: Plan Chronic medical conditions * COPD: Currently stable. * Hypertension: Continue with amlodipine and losartan. Patient tells me that she does not take any diuretics nor does it seem that any diuretics are combined with her losartan. VTE prophylaxis: Addressed with the patient. Patient wishes to be DNR Comfort Care arrest. She is okay with short-term intubation.
[2025-02-08 08:20] VITALS: BP 143/76; PULSE 71; RESP 16; TEMP 36.5; O2SAT 96
--- NOTE | 2025-02-08 10:13 | DS.PCM_ITS ---
Providers Date of Admission: 02/07/25 Primary Care Physician: Dr. Reji Hdz MD Reason For Visit: LEFT ANKLE PAIN Diagnosis Discharge Diagnosis (1) Foot pain, left: Status: Acute Code(s): M79.672 - Pain in left foot Plan: Improved Left foot and ankle pain Etiologies: acute gout/psuedogout flare v cellulitis. Less likely septic arthritis or contact dermatitis. Treated with the oral antibiotics with Augmentin but swelling persisted. Patient has received vancomycin in the emergency room. Unsure if the patient actually does have an infection but would like to continue to treat her with vancomycin. In the meantime we will add indomethacin as her kidney function allows and as well as colchicine. The indomethacin will be scheduled and the colchicine will be as needed but patient will receive a one- time dose of colchicine. Holding off on steroids at this point time as it is not clear that this is gout or pseudogout. Patient is not interested in having an arthrocentesis at this time. So plan is to continue with antibiotics, Indocin and colchicine and observe. Ice as needed Plan Chronic medical conditions * COPD: Currently stable. * Hypertension: Continue with amlodipine and losartan. Patient tells me that she does not take any diuretics nor does it seem that any diuretics are combined with her losartan. VTE prophylaxis: Addressed with the patient. Patient wishes to be DNR Comfort Care arrest. She is okay with short-term intubation. Medications at Discharge Home Medications aspirin 81 mg tablet,delayed release (Adult Low Dose Aspirin) 81 mg PO DAILY 09/05/22 Held on 02/08/25. Instructions: Hold while taking meloxicam losartan 50 mg tablet 50 mg PO QDAY 08/26/24 meloxicam 15 mg tablet 15 mg PO DAILY #20 tabs 02/04/25 amlodipine 5 mg tablet 5 mg PO DAILY 02/07/25 fluticasone fur. 200 mcg-umeclid 62.5 mcg-vilant 25 mcg inhalat.powder (Trelegy Ellipta) 1 ea inhalation DAILY 02/07/25 acetaminophen 500 mg tablet 1,000 mg (2 x 500 mg) PO Q8 PRN pain #0 tabs 02/08/25 colchicine 0.6 mg capsule 0.6 mg PO BID PRN joint pain and swelling #20 caps 02/08/25 doxycycline monohydrate 100 mg tablet 100 mg PO BID #10 tabs 02/08/25 Hospital Course Operations None Procedures None Summary of Care Provided Hospital Course: Patient presents with left ankle swelling and erythema. Had previous been seen in the emergency room and was discharged with Augmentin and it still persisted. And came back to the hospital on the . The area was boggy and tender. Previously has had normal uric acid so would seem highly unlikely this is a gout flare but though that cannot be ruled out without direct visual evidence with crystal evaluation but possibility of pseudogout. So patient was brought in patient was started on vancomycin as she had failed Augmentin and also was put on Indocin as well as colchicine. Today her ankle is much improved. It is still unclear if this is actually infection versus gout/pseudogout flare but patient will continue with the meloxicam that she has at home as needed colchicine (patient was advised of the potential for diarrhea without medication) and antibiotics with doxycycline. Weight / BMI Weight Weight: 56.699 kg Body Mass Index (BMI) 24.4 ABG / Lab / Microbiology Data 02/08/25 03:45 02/08/25 03:45 Laboratory: Laboratory Results - last 24 hr 02/07/25 12:10: WBC 9.2, RBC 4.71, Hgb 14.5, Hct 44.4, MCV 94.3, MCH 30.8, MCHC 32.7 D, RDW Std Deviation 45.8 H, RDW Coeff of Justina 13.2, Plt Count 248, MPV 9.6, Immature Gran % (Auto) 0.300, Neut % (Auto) 76.8 H, Lymph % (Auto) 14.1 L, [place] % (Auto) 7.0, Eos % (Auto) 1.4, Baso % (Auto) 0.4, Absolute Neuts (auto) 7.0, Absolute Lymphs (auto) 1.29, Nucleated RBC % 0, ESR 45 H, Sodium 140, Potassium 4.0, Chloride 105, Carbon Dioxide 22.8, Anion Gap 12, BUN 20 H, C reatinine 1.21 H, Estim Creat Clear Calc 30.23 L, Est GFR (MDRD) Non-Af 46 L, BUN/Creatinine Ratio 16.4, Glucose 85, Calcium 9.6, C-React Prot Ext Range 27.10 H 02/08/25 03:45: WBC 6.1, RBC 4.33, Hgb 13.3, Hct 40.4, MCV 93.3, MCH 30.7, MCHC 32.9, RDW Std Deviation 44.6 H, RDW Coeff of Justina 13.0, Plt Count 226, MPV 10.1, Immature Gran % (Auto) 0.500, Neut % (Auto) 63.5, Lymph % (Auto) 24.9, [place] % (Auto) 8.4, Eos % (Auto) 2.0, Baso % (Auto) 0.7, Absolute Neuts (auto) 3.9, Absolute Lymphs (auto) 1.52, Nucleated RBC % 0, Sodium 138, Potassium 3.9, Chloride 108, Carbon Dioxide 20.0 L, Anion Gap 10, BUN 18, Creatinine 1.03, E stim Creat Clear Calc 35.52 L, Est GFR (MDRD) Non-Af 56 L, BUN/Creatinine Ratio 17.6, Glucose 87, Calcium 9.1, Total Bilirubin 0.52, AST 15, ALT 10, Alkaline Phosphatase 76, Total Protein 6.4, Albumin 3.6, Globulin 2.8, Albumin/Globulin Ratio 1.3 Radiography Diagnostic Testing: Radiology Impression Ankle X-Ray 02/07/25 12:00 IMPRESSION: Medial soft tissue swelling but no fracture of the left ankle. Reading Location: [id number] D/C Instructions DC O2, CPAP, BIPAP Needs Home O2 Discharge instructions: No Meaningful Use Info Meaningful Use Meaningful Use Diagnoses (Choose all that apply): None applicable Discharge Plan Admission Admit Date/Time: 02/07/25 13:54 Primary Reason for Your Visit: Left ankle pain and swelling Attending Provider: Yousif Colin Primary Care Provider: Reji Hdz Instructions Additional Instructions / Restrictions: You had pain and swelling your left ankle. My concern is it is either cellulitis or inflammation from crystals such as gout or pseudogout. Take antibiotics as instructed and you may take your meloxicam as needed for pain as well as colchicine. If it does get worse, notify your physician or return to the emergency room.urrently urology has advised transfer to [facility] and they do not see male patients thus will defer urology consult as patient is awaiting tertiary facility transition Discharge Orders/Prescriptions Prescriptions: New acetaminophen 500 mg Tablet 1,000 mg PO Q8 PRN (Reason: pain) Qty: 0 0RF colchicine 0.6 mg Capsule 0.6 mg PO BID PRN (Reason: joint pain and swelling) Qty: 20 0RF doxycycline monohydrate 100 mg tablet 100 mg PO BID Qty: 10 0RF Continued losartan 50 mg tablet 50 mg PO QDAY meloxicam 15 mg tablet 15 mg PO DAILY Qty: 20 0RF amlodipine 5 mg tablet 5 mg PO DAILY Trelegy Ellipta 200-62.5-25 mcg blister with device 1 ea INHALATION DAILY Held aspirin [Adult Low Dose Aspirin] 81 mg tablet,delayed release (DR/EC) 81 mg PO DAILY Hold Instructions: Hold while taking meloxicam Discontinued amoxicillin-pot clavulanate 875-125 mg tablet 875 mg PO Q12H Qty: 20 0RF Referrals / Follow Up: Reji Hdz MD [Primary Care Provider] - Within 2 Weeks Disposition Disposition (needs filled in before D/C Order can be placed): Home, Self Care Charges/Coding Visit Charges Inpatient E&M: 71887 Disch Hosp
[2025-02-08] MEDS: Vancomycin HCl 750 MG in 0.9% Normal Saline (250mL Bag) 250 ML 250 MG IV (11:42)
[2025-02-08] MEDS: 0.9% Saline Lock 10 ML Syringe IV (11:44)
[2025-02-08 11:55] VITALS: BP 152/68; PULSE 71; RESP 16; TEMP 36.6; O2SAT 95
== END 2025-02-08 13:13 | disposition home or self-care (01) ==
LOC: ED 13:41 → MS3 14:07
PROVIDERS: Emergency Provider Emergency Medicine; PCP Family Medicine
DX: M79.672 Pain in left foot (principal); J44.9 Chronic obstructive pulmonary disease, unspecified; Z79.82 Long term (current) use of aspirin; I10 Essential (primary) hypertension; R79.82 Elevated C-reactive protein (CRP); Z87.891 Personal history of nicotine dependence; K21.9 Gastro-esophageal reflux disease without esophagitis; I73.9 Peripheral vascular disease, unspecified; Z79.51 Long term (current) use of inhaled steroids; Z79.899 Other long term (current) drug therapy; M25.572 Pain in left ankle and joints of left foot
CPT/HCPCS: 36415; 73610; 80048; 80053; 85025; 85652; 86140; 96365; 96366; 99221; 99283; A4216; G0378

== ENCOUNTER → 2025-04-01 | Outpatient (CLI) | payer MEDICARE, SELFPAY ==
--- NOTE | 2025-04-01 12:54 | BI_ITS ---
EXAM: BI/DIAG MAMM W/CAD, BILAT
== END | disposition home or self-care (01) ==
PROVIDERS: PCP Family Medicine
DX: N64.4 Mastodynia (principal)
CPT/HCPCS: 77062; 77066; G0279